=== PATIENT | male | born 1965 | race Caucasian/White ===

== ENCOUNTER 2017-01-17 13:47 | Inpatient (IN) | payer BC ==
--- NOTE | 2017-01-17 13:59 | PDOC ---
History of Present Illness - General History Source: Patient Exam Limitations: No Limitations - History of Present Illness Initial Comments: 01/17/17 14:02 The patient is a 52 year old male, with a significant past medical history of DM and high cholesterol, who presents to the emergency department with left sided facial droop, hypotension, and slurred speech since yesterday. The patient reports waking up symptomatic yesterday at around 9:00am. The patient reports having his symptoms persist since early yesterday into earlier today. He arrives with + left sided Babinski. He denies any recent fevers, chills, headache or dizziness. He denies any recent nausea, vomit, diarrhea or constipation. He denies any recent chest pain or shortness of breath. Allergies: NKA Past surgical history: None reported. Social History: Current Everyday smoker. Denies EtOH use and recreational drug use. Primary Care Physician: Family History: CVA/TIA (paternal) <Narayan Estrada - Last Filed: 01/17/17 14:09> <Anni Gomez - Last Filed: 01/17/17 18:53> - General Chief Complaint: Facial Droop Stated Complaint: CVA.TIA Time Seen by Provider: 01/17/17 13:53 Past History <Narayan Estrada - Last Filed: 01/17/17 14:09> <Anni Gomez - Last Filed: 01/17/17 18:53> - Past Medical History Allergies/Adverse Reactions: Allergies Allergy/AdvReac Type Severity Reaction Status Date / Time No Known Allergies Allergy Verified 01/17/17 14:07 Home Medications: Ambulatory Orders Atorvastatin Ca [Lipitor] 40 mg PO HS 01/17/17 Dulaglutide [Trulicity] 1.5 mg SQ WEEKLY 01/17/17 Gabapentin [Neurontin] 300 mg PO DAILY 01/17/17 Lisinopril 10 mg PO DAILY 01/17/17 Sitagliptin Phos/Metformin HCl [Janumet 50-1,000 mg Tablet] 1 each PO BID Review of Systems - Review of Systems Able to Perform ROS?: Yes Comments:: 01/17/17 14:02 GENERAL/CONSTITUTIONAL: No: fever, chills, weakness, loss of appetite. HEAD, EYES, EARS, NOSE AND THROAT: No: change in vision, ear pain, discharge, sore throat, throat swelling. CARDIOVASCULAR: No: chest pain, lightheadedness, palpitations, syncope RESPIRATORY: No: cough, shortness of breath, wheezing, hemoptysis, stridor. GASTROINTESTINAL: No: nausea, vomiting, diarrhea, abdominal cramping, rectal bleeding, constipation. GENITOURINARY: No: dysuria, hematuria, frequency, urgency, flank pain. MUSCULOSKELETAL: No: back pain, neck pain, joint pain, muscle swelling or pain SKIN : No: lesions, pallor, rash or easy bruising. NEUROLOGIC: +slurred speech, facial droop. No: headache, vertigo, paresthesias, weakness ENDOCRINE: No: unexplained weight gain or loss HEMATOLOGIC/LYMPHATIC: No: anemia, easy bleeding, swelling nodes. <Narayan Estrada - Last Filed: 01/17/17 14:09> *Physical Exam - Physical Exam Comments: 01/17/17 14:09 GENERAL: The patient is in no acute distress. HEAD: Normal with no signs of trauma. EYES: PERRLA, EOMI, sclera anicteric, conjunctiva clear. ENT: Ears normal, nares patent, oropharynx clear without exudates. Moist mucous membranes. NECK: Normal range of motion, supple without lymphadenopathy, JVD, or masses. LUNGS: Breath sounds equal, clear to auscultation bilaterally. No wheezes, and no crackles. HEART: Regular rate and rhythm, normal S1 and S2 without murmur, rub or gallop. ABDOMEN: Soft, nontender, normoactive bowel sounds. No guarding, no rebound. No masses palpable. EXTREMITIES: Normal range of motion, no edema. No clubbing or cyanosis. No erythema, or tenderness. NEUROLOGICAL: Cranial nerves II through XII grossly intact. +Left sided Babinski. Left sided facial droop. Finger to nose test was normal. Answering questions with slurred speech. Reflexes Are good throughout. 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 Romberg normal. Pinpoint sensation normal. 5/5 Right arm, ? left arm. 5/5 LE. MUSCULOSKELETAL: Back non-tender to palpation, no CVA tenderness SKIN: Warm, Dry, normal turgor, no rashes or lesions noted. <Narayan Estrada - Last Filed: 01/17/17 14:09> NIH Stroke Scale - Last Known Well Date/Time & Onset Date Last Known Well: 01/16/17 Time Last Known Well: 09:00 (pt woke up with this) - Initial Evaluation Level of consciousness: Alert Ask patient the month and their age: Answers both correctly Ask patient to open & close eyes; make fist and let go: Obeys both correctly Best gaze (horizontal eye movement): Normal Visual field testing: No visual field loss Facial paresis (Show teeth/raise eyebrows/close eyes tight): Minor paralysis ( flattened nasolabial fold, asymmetry on smiling) Motor Function: Left Arm: Normal Motor Function: Right Arm: Normal (extends arm 90 (or 45) degrees for 10 seconds without drift Motor Function: Left Leg: Normal (extends leg 30 degrees for 5 seconds without drift) Motor Function: Right Leg: Normal (extends leg 30 degrees for 5 seconds without drift) Limb Ataxia: No ataxia Sensory(Use pinprick test arms,legs,trunk,face/side to side): Normal Best language (Describe picture, name items, read sentences): No Aphasia Dysarthria (read several words): Mild to moderate slurring of words Extinction and Inattention: No abnormality - Total Score NIH Stroke Scale Score: 2 <Anni Gomez - Last Filed: 01/17/17 18:53> Critical Care Time/MDM Note - Medical Decision Making Note: 01/17/17 14:02 Documentation prepared by Narayan Estrada, acting as medical administrator for Anni Gomez MD. <Narayan Estrada - Last Filed: 01/17/17 14:09> - Medical Decision Making Note: 01/17/17 14:[address] Dutton is aware PMD Dr. Paulino is aware. Lbas, CT head, CXR, EKG all pending. 01/17/17 16:51 Case d/w Neurologist Denzel at the bedside and he thinks this is a [place] Palsy. However, pt's entire forehead wrinkles, going against a full Facial nerve palsy. I believe pt had a CVA. 01/17/17 18:52 Labs are WNL. Pt remains stable. Pt's BP was controlled with labetalol IVP x 1 and oral dose. MRI demonstrates an acute/subacute CVA <Gomez,Anni - Last Filed: 01/17/17 18:53> Discharge Disposition <Narayan Estrada - Last Filed: 01/17/17 14:09> - Discharge Dispostion Admit: Yes <Anni Gomez - Last Filed: 01/17/17 18:53> - Diagnosis CVA (cerebral vascular accident)
[2017-01-17 14:07] VITALS: BMI 31.6
[2017-01-17 14:13] LABS: BASOPHIL 0.6 % (0-2.0); EOSINOPHIL 1.2 % (0-4.5); MCH 29.8 pg (25.7-33.7); MCHC 33.8 g/dl (32.0-35.9); MEAN CELL VOLUME 88.4 fl (80-96); MEAN PLT VOLUME 9.7 fl (7.5-11.1); NEUTROPHILS 69.6 % (42.8-82.8); PLATELET COUNT 168 K/MM3 (134-434); RDW 14.4 % (11.9-15.9); WHITE BLOOD COUNT 11.3 K/mm3 (4.0-10.0)
[2017-01-17 14:29] LABS: INR 0.94 (0.82-1.09); PROTHROMBIN TIME (PATIENT) 10.3 SEC (9.98-11.88)
[2017-01-17 14:39] LABS: ALBUMIN 4.2 g/dl (3.4-5.0); ANION GAP 11 (8-16); BILIRUBIN,TOTAL 0.5 mg/dL (0.2-1.0); CALCIUM 9.4 mg/dL (8.5-10.1); CO2 25 mmol/L (21-32); GLUCOSE,RANDOM 250 mg/dL (74-106); SGPT/ALT 41 U/L (12-78); TOT PROT 7.7 g/dl (6.4-8.2)
[2017-01-17 14:42] LABS: ALK PHOS 88 U/L (45-117); TROPONIN I < 0.02 ng/ml (0.00-0.05)
[2017-01-17 14:44] LABS: SGOT/AST 33 U/L (15-37)
[2017-01-17] MEDS ORDERED: LABETALOL HCL 5 MG/1 ML (100MG/20 ML VIAL) IVPUSH ONE (15:09)
[2017-01-17] MEDS ORDERED: LABETALOL HCL 100 MG TABLET (FP) PO ONE (15:10)
[2017-01-17] MEDS ORDERED: LABETALOL HCL 5 MG/1 ML (200MG/40ML VIAL) IVPB ONE (15:26)
--- NOTE | 2017-01-17 16:32 | EKG ---
Test Reason : Blood Pressure : / mmHG Vent. Rate : 099 BPM Atrial Rate : 099 BPM P-R Int : 134 ms QRS Dur : 086 ms QT Int : 354 ms P-R-T Axes : 028 -19 033 degrees QTc Int : 454 ms NORMAL SINUS RHYTHM rSR' IN V1 LAHB PROBABLE LEFT ATRIAL ENLARGEMENT NO PREVIOUS ECGS AVAILABLE CORELATE CLINICALLY. Confirmed by CHRISTIAN CHOW MD ([id number]) on 01/17/2017 4:31:58 PM Referred By: Confirmed By:CHRISTIAN CHOW MD
--- NOTE | 2017-01-17 17:00 | CON.NEURO ---
Consult - History of Present Illness History of Present Illness: eft face droopiness and slurring of speech HPI 52 year old male hsitory of DM, HLP , SMOKER came with facial droopiness. Patient also having slurring of speech. He also have left arm weaknesss for two month. He has emg done no result is available ( he was told that he may have monday night palsy vs diabetic radiculoplexopathy) . His arm weakness and numbness is not new . He have difficulty closing his eye. Patient denies any dysphagia diplopia or word findings difficulty or headache. All sympotm sstarted since yesterday. He has ct scan of brain , which showed there is right sided frontal lobe ischemic lesion. - Alcohol/Substance Use Hx Alcohol Use: No - Smoking History Smoking history: Never smoked Have you smoked in the past 12 months: No Aproximately how many cigarettes per day: 5 Home Medications - Allergies Allergies/Adverse Reactions: Allergies Allergy/AdvReac Type Severity Reaction Status Date / Time No Known Allergies Allergy Verified 01/17/17 14:07 Physical Exam-Neuro Vital Signs: Vital Signs Temperature 99.2 F 01/17/17 13:47 Pulse Rate 114 H 01/17/17 13:47 Respiratory Rate 18 01/17/17 13:47 Blood Pressure 173/92 01/17/17 15:23 O2 Sat by Pulse Oximetry (%) 100 01/17/17 13:50 Labs: INR, PTT INR 0.94 (0.82-1.09) 01/17/17 13:55 NIH Stroke Scale - Total Score NIH Stroke Scale Score: 0 Imaging - Results Cat Scan: Image Reviewed Assessment/Plan cc left face droopiness and slurring of speech HPI 52 year old male hsitory of DM, HLP , SMOKER came with facial droopiness. Patient also having slurring of speech. He also have left arm weaknesss for two month. He has emg done no result is available ( he was told that he may have monday night palsy vs diabetic radiculoplexopathy) . His arm weakness and numbness is not new . He have difficulty closing his eye. Patient denies any dysphagia diplopia or word findings difficulty or headache. All sympotm sstarted since yesterday. He has ct scan of brain , which showed there is right sided frontal lobe ischemic lesion. 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 But given arm symptoms are not new and face is distinctly LMN type, it is possible that he have bells palsy and old radiculoplexopathy of Left upper extremity PLAN - suggest to give apsirin and statin - stroke wrok up including mri of brain, echo and carotid ultrasound - stroke education, smokign cessation - PT, DVT pROPHYLAXIS, and Speech Eval - mri of c spine is also recommended given his left upper arm symptoms - emg can be done outpatient for left arm - if mri of brain is normal , than consider additing steroid and valtrex for five days - Please feel free to call me if you have any question Thanking you so much Mike Mahoney MD
--- NOTE | 2017-01-17 18:16 | HP ---
Admitting History and Physical - Primary Care Physician PCP: Fozia Paulino - Admission Chief Complaint: aphasia, left face weakness History Source: Patient, Family Member Limitations to Obtaining History: No Limitations - Past Medical History Cardiovascular: Yes: HTN, Hyperlipdemia - Smoking History Smoking history: Current every day smoker Have you smoked in the past 12 months: Yes Aproximately how many cigarettes per day: 5 - Alcohol/Substance Use Hx Alcohol Use: No - Social History Usual Living Arrangement: Yes: With Parent ADL: Independent History of Recent Travel: No Home Medications - Allergies Allergies/Adverse Reactions: Allergies Allergy/AdvReac Type Severity Reaction Status Date / Time No Known Allergies Allergy Verified 01/17/17 14:07 - Home Medications Home Medications: Ambulatory Orders Atorvastatin Ca [Lipitor] 40 mg PO HS 01/17/17 Dulaglutide [Trulicity] 1.5 mg SQ WEEKLY 01/17/17 Gabapentin [Neurontin] 300 mg PO DAILY 01/17/17 Lisinopril 10 mg PO DAILY 01/17/17 Sitagliptin Phos/Metformin HCl [Janumet 50-1,000 mg Tablet] 1 each PO BID Family Disease History - Family Disease History Family Disease History: Diabetes: Father (CVA, PAD), Mother, Heart Disease: Father, Mother Review of Systems - Review of Systems Constitutional: reports: No Symptoms Eyes: reports: No Symptoms HENT: reports: No Symptoms Neck: reports: No Symptoms Cardiovascular: reports: No Symptoms Respiratory: reports: No Symptoms Gastrointestinal: reports: No Symptoms Genitourinary: reports: No Symptoms Musculoskeletal: reports: Back Pain (chrocic) Integumentary: reports: No Symptoms Neurological: reports: Other (2 month history of left arm numbness, pins and needles in fingertips 2 day history of aphasia and left facial droop) Endocrine: reports: No Symptoms Hematology/Lymphatic: reports: No Symptoms Psychiatric: reports: No Symptoms Physical Examination Vital Signs: Vital Signs Temperature 99.2 F 01/17/17 13:47 Pulse Rate 114 H 01/17/17 13:47 Respiratory Rate 18 01/17/17 13:47 Blood Pressure 173/92 01/17/17 15:23 O2 Sat by Pulse Oximetry (%) 100 01/17/17 13:50 Constitutional: Yes: Well Nourished, Moderate Distress Eyes: Yes: Conjunctiva Clear, EOM Intact, PERRL. No: Ptosis, Tearing HENT: Yes: Atraumatic, Normocephalic, Other (left mild facial droop, tongue deviates to left slightly) Cardiovascular: Yes: Regular Rate and Rhythm Respiratory: Yes: CTA Bilaterally Gastrointestinal: Yes: Normal Bowel Sounds, Soft Renal/: Yes: WNL Musculoskeletal: Yes: WNL Extremities: Yes: WNL Edema: No Peripheral Pulses WNL: No (diminished) Integumentary: Yes: WNL Neurological: Yes: Other (left certified nurses' aide 4/5 left facial droop as above) Psychiatric: Yes: WNL Labs: Laboratory Results - last 24 hr 01/17/17 01/17/17 01/17/17 13:55 13:55 13:55 WBC 11.3 H RBC 5.17 Hgb 15.4 Hct 45.7 MCV 88.4 MCH 29.8 MCHC 33.8 RDW 14.4 Plt Count 168 MPV 9.7 Neutrophils % 69.6 Lymphocytes % 22.7 Monocytes % 5.9 Eosinophils % 1.2 Basophils % 0.6 INR 0.94 Sodium 137 Potassium 4.3 Chloride 101 Carbon Dioxide 25 Anion Gap 11 BUN 18 Creatinine 1.0 Creat Clearance w eGFR > 60 Random Glucose 250 H Calcium 9.4 Total Bilirubin 0.5 AST 33 ALT 41 Alkaline Phosphatase 88 Creatine Kinase 210 Creatine Kinase Index 1.1 CK-MB (CK-2) 2.406 CK-MB (CK-2) Rel Index Troponin I < 0.02 Total Protein 7.7 Albumin 4.2 01/17/17 13:55 WBC RBC Hgb Hct MCV MCH MCHC RDW Plt Count MPV Neutrophils % Lymphocytes % Monocytes % Eosinophils % Basophils % INR Sodium Potassium Chloride Carbon Dioxide Anion Gap BUN Creatinine Creat Clearance w eGFR Random Glucose Calcium Total Bilirubin AST ALT Alkaline Phosphatase Creatine Kinase Creatine Kinase Index CK-MB (CK-2) CK-MB (CK-2) Rel Index Cancelled Troponin I Total Protein Albumin Imaging - Results Chest X-ray: Report Reviewed Cat Scan: Report Reviewed MRI: Pending EKG: Report Reviewed Problem List - Problems (1) Hypertension Code(s): I10 - ESSENTIAL (PRIMARY) HYPERTENSION (2) Hyperlipidemia associated with type 2 diabetes mellitus Code(s): E11.69 - TYPE 2 DIABETES MELLITUS WITH OTHER SPECIFIED COMPLICATION E78.5 - HYPERLIPIDEMIA, UNSPECIFIED (3) Diabetes mellitus Code(s): E11.9 - TYPE 2 DIABETES MELLITUS WITHOUT COMPLICATIONS Qualifiers: Diabetes mellitus type: type 2 Diabetes mellitus complication status: with neurologic complications Diabetes mellitus complication detail: with other neurological complication Diabetes mellitus penitentiary insulin use: without penitentiary use Qualified Code(s): E11.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 Assessment/Plan f/up MRI results add asa continue statin BP/HTN control Speech eval in am neuro consult appreciated will ask cardiology consult ECHO/carotid US DVT prophylaxis
[2017-01-17] MEDS ORDERED: PNEUMOC 13-VAL CONJ-DIP CRM/PF 0.5 ML DISP.SYRIN IM ONE (19:13)
[2017-01-17] MEDS: ASPIRIN 81 MG CHEWABLE TABLETS PO SCH (19:30)
[2017-01-17] MEDS ORDERED: CYCLOBENZAPRINE HCL 10 MG TABLET (FP) PO PRN (21:12)
[2017-01-17] MEDS ORDERED: INSULIN (NOVOLOG) ASPART 100 UNITS/ML 10ML VIAL ONE (21:43)
[2017-01-17] MEDS: GABAPENTIN 300 MG CAPSULE (FP) PO SCH (21:53)
[2017-01-17] MEDS: ATORVASTATIN CA 40 MG TABLET (FP) PO SCH (21:53)
[2017-01-17] MEDS: LISINOPRIL 10 MG TABLET (FP) PO SCH (21:53)
[2017-01-17] MEDS: INSULIN SLIDING SCALE (NOVOLOG) 1 VIAL SQ SCH (21:54)
[2017-01-17] MEDS ORDERED: oxyCODONE HCL 5 MG TABLET PO ONE (23:15)
[2017-01-17] MEDS ORDERED: ACETAMINOPHEN 325 MG TABLET (FP) PO ONE (23:15)
--- NOTE | 2017-01-18 01:32 | CON.CARD ---
Consult Consult Specialty:: cardiology Reason for Consultation:: facial droop - History of Present Illness Chief Complaint: Pt denies chest pain or dyspnea; cries easily. History of Present Illness: The patient is a 52 year old white male, with a significant past medical history of DM and high cholesterol, who presents to the emergency department with left sided facial droop, hypotension, and slurred speech since yesterday. The patient reports waking up symptomatic yesterday at around 9:00am. The patient reports having his symptoms persist since early yesterday into earlier today. He arrives with + left sided Babinski. He denies any recent fevers, chills, headache or dizziness. He denies any recent nausea, vomit, diarrhea or constipation. He denies any recent chest pain or shortness of breath. Allergies: NKA Past surgical history: None reported. Social History: Current Everyday smoker. Denies EtOH use and recreational drug use. Primary Care Physician: Family History: CVA/TIA (paternal) - History Source History Provided By: Patient, Medical Record Limitations to Obtaining History: Other (pt with CVA) - Past Medical History Cardio/Vascular: Yes: HTN, Hyperlipdemia Pulmonary: Yes: Other (current cigarette smoker) Psych: Yes: Anxiety - Alcohol/Substance Use Hx Alcohol Use: No - Smoking History Smoking history: Current every day smoker Have you smoked in the past 12 months: Yes Aproximately how many cigarettes per day: 5 - Social History ADL: Independent History of Recent Travel: No Home Medications - Allergies Allergies/Adverse Reactions: Allergies Allergy/AdvReac Type Severity Reaction Status Date / Time No Known Allergies Allergy Verified 01/17/17 14:07 - Home Medications Home Medications: Ambulatory Orders Atorvastatin Ca [Lipitor] 40 mg PO HS 01/17/17 Dulaglutide [Trulicity] 1.5 mg SQ WEEKLY 01/17/17 Gabapentin [Neurontin] 300 mg PO DAILY 01/17/17 Lisinopril 10 mg PO DAILY 01/17/17 Sitagliptin Phos/Metformin HCl [Janumet 50-1,000 mg Tablet] 1 each PO BID Family Disease History - Family Disease History Family Disease History: Diabetes: Father (CVA, PAD), Mother, Heart Disease: Father, Mother Review of Systems - Review of Systems Constitutional: reports: Weakness HENT: reports: Other (facial droop) Neck: reports: No Symptoms Cardiovascular: reports: No Symptoms Respiratory: reports: No Symptoms Gastrointestinal: reports: No Symptoms Genitourinary: reports: No Symptoms Breasts: reports: No Symptoms Reported Musculoskeletal: reports: Muscle Weakness Integumentary: reports: No Symptoms Neurological: reports: Weakness Endocrine: reports: No Symptoms Hematology/Lymphatic: reports: No Symptoms Psychiatric: reports: Anxiety Vital Signs: Vital Signs Temperature 99.2 F 01/17/17 21:00 Pulse Rate 97 H 01/17/17 21:00 Respiratory Rate 18 01/17/17 21:00 Blood Pressure 146/73 01/17/17 21:00 O2 Sat by Pulse Oximetry (%) 95 01/17/17 21:00 - Other Data Labs, Other Data: INR, PTT INR 0.94 (0.82-1.09) 01/17/17 13:55 Problem List - Problems (1) CVA (cerebral vascular accident) Assessment/Plan: cortical, cerebellar infarcts (acute and chronic). Aggressive lipid control. ECHO for LVEF; r/o thrombi, source of emboli. F/u with neurologist. Code(s): I63.9 - CEREBRAL INFARCTION, UNSPECIFIED (2) Diabetes mellitus Assessment/Plan: glucose 250; f/u fasting glucose, HGBA1C. Add ACEI (HTN; DM). Code(s): E11.9 - TYPE 2 DIABETES MELLITUS WITHOUT COMPLICATIONS Qualifiers: Diabetes mellitus type: type 2 Diabetes mellitus complication status: with neurologic complications Diabetes mellitus complication detail: with other neurological complication Diabetes mellitus usp insulin use: without oil heaterman use Qualified Code(s): E11.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 (3) Hyperlipidemia associated with type 2 diabetes mellitus Code(s): E11.69 - TYPE 2 DIABETES MELLITUS WITH OTHER SPECIFIED COMPLICATION E78.5 - HYPERLIPIDEMIA, UNSPECIFIED (4) Hypertension Code(s): I10 - ESSENTIAL (PRIMARY) HYPERTENSION (5) [place] cardiac risk >20% in next 10 years Assessment/Plan: TNI < 0.02; f/u serially. Stress MIBI when stable. Code(s): Z91.89 - OTH PERSONAL RISK FACTORS, NOT ELSEWHERE CLASSIFIED (6) Sleep apnea Assessment/Plan: r/o with sleep studies Code(s): G47.30 - SLEEP APNEA, UNSPECIFIED
[2017-01-18] MEDS: GABAPENTIN 300 MG CAPSULE (FP) PO SCH ×3 (05:43→21:39)
[2017-01-18] MEDS: INSULIN SLIDING SCALE (NOVOLOG) 1 VIAL SQ SCH ×4 (06:32→21:40)
--- NOTE | 2017-01-18 09:20 | PN ---
Progress Note, Physician History of Present Illness: The patient is a 52 year old male, with a significant past medical history of DM and high cholesterol, who presents to the emergency department with left sided facial droop, hypotension, and slurred speech since yesterday. The patient reports waking up symptomatic yesterday at around 9:00am. The patient reports having his symptoms persist since early yesterday into earlier today. He arrives with + left sided Babinski. He denies any recent fevers, chills, headache or dizziness. He denies any recent nausea, vomit, diarrhea or constipation. He denies any recent chest pain or shortness of breath. Allergies: NKA Past surgical history: None reported. Social History: Current Everyday smoker. Denies EtOH use and recreational drug use. Primary Care Physician: Family History: CVA/TIA (paternal) - Current Medication List Current Medications: Active Medications Aspirin (Asa -) 81 mg PO DAILY [facility] Last Admin: 01/17/17 19:30 Dose: 81 mg Atorvastatin Calcium (Lipitor -) 40 mg PO HS [facility] Last Admin: 01/17/17 21:53 Dose: 40 mg Cyclobenzaprine HCl (Flexeril -) 10 mg PO BID PRN Last Admin: 01/17/17 21:53 Dose: 10 mg Enoxaparin Sodium (Lovenox -) 40 mg SQ DAILY [facility] Gabapentin (Neurontin -) 300 mg PO TID [facility] Last Admin: 01/18/17 05:43 Dose: 300 mg Insulin Aspart (Novolog Vial Sliding Scale -) 1 vial SQ ACHS [facility] PRN Reason: Protocol Last Admin: 01/18/17 06:32 Dose: 2 units Lisinopril (Prinivil) 10 mg PO BID [facility] Last Admin: 01/17/17 21:53 Dose: 10 mg - Objective Vital Signs: Vital Signs Temperature 98.3 F 01/18/17 06:00 Pulse Rate 79 01/18/17 06:00 Respiratory Rate 18 01/18/17 06:00 Blood Pressure 127/57 01/18/17 06:00 O2 Sat by Pulse Oximetry (%) 95 01/17/17 21:00 Eyes: Yes: WNL, Conjunctiva Clear, EOM Intact HENT: Yes: WNL, Atraumatic, Normocephalic Neck: Yes: WNL, Supple, Trachea Midline Cardiovascular: Yes: WNL, Regular Rate and Rhythm Respiratory: Yes: WNL, Regular, CTA Bilaterally Gastrointestinal: Yes: WNL, Normal Bowel Sounds Genitourinary: Yes: WNL Musculoskeletal: Yes: WNL Extremities: Yes: WNL Edema: No Integumentary: Yes: WNL Neurological: Yes: Alert, Oriented, Weakness, Other (facial droop) ...Motor Strength: WNL Psychiatric: Yes: WNL Labs: INR, PTT INR 0.94 (0.82-1.09) 01/17/17 13:55 Laboratory Tests 01/17/17 01/17/17 01/17/17 13:55 13:55 13:55 WBC 11.3 H RBC 5.17 Hgb 15.4 Hct 45.7 MCV 88.4 MCH 29.8 MCHC 33.8 RDW 14.4 Plt Count 168 MPV 9.7 Neutrophils % 69.6 Lymphocytes % 22.7 Monocytes % 5.9 Eosinophils % 1.2 Basophils % 0.6 INR 0.94 PTT (Actin FS) Sodium 137 Potassium 4.3 Chloride 101 Carbon Dioxide 25 Anion Gap 11 BUN 18 Creatinine 1.0 Creat Clearance w eGFR > 60 POC Glucometer Random Glucose 250 H Calcium 9.4 Total Bilirubin 0.5 AST 33 ALT 41 Alkaline Phosphatase 88 Creatine Kinase 210 Creatine Kinase Index 1.1 CK-MB (CK-2) 2.406 CK-MB (CK-2) Rel Index Troponin I < 0.02 Total Protein 7.7 Albumin 4.2 Triglycerides Cholesterol TSH 01/17/17 01/17/17 01/17/17 13:55 20:15 21:51 WBC RBC Hgb Hct MCV MCH MCHC RDW Plt Count MPV Neutrophils % Lymphocytes % Monocytes % Eosinophils % Basophils % INR PTT (Actin FS) 32.6 Sodium Potassium Chloride Carbon Dioxide Anion Gap BUN Creatinine Creat Clearance w eGFR POC Glucometer 286 Random Glucose Calcium Total Bilirubin AST ALT Alkaline Phosphatase Creatine Kinase Creatine Kinase Index CK-MB (CK-2) CK-MB (CK-2) Rel Index Cancelled Troponin I Total Protein Albumin Triglycerides Cholesterol TSH 01/18/17 01/18/17 01/18/17 05:35 05:35 05:42 WBC RBC Hgb Hct MCV MCH MCHC RDW Plt Count MPV Neutrophils % Lymphocytes % Monocytes % Eosinophils % Basophils % INR PTT (Actin FS) Sodium Potassium Chloride Carbon Dioxide Anion Gap BUN Creatinine Creat Clearance w eGFR POC Glucometer 189 Random Glucose Calcium Total Bilirubin AST ALT Alkaline Phosphatase Creatine Kinase Creatine Kinase Index CK-MB (CK-2) CK-MB (CK-2) Rel Index Troponin I Total Protein Albumin Triglycerides 231 H Cholesterol 252 H TSH Cancelled Assessment/Plan 1) CVA (cerebral vascular accident) Assessment/Plan: cortical, cerebellar infarcts (acute and chronic). Aggressive lipid control. ECHO for LVEF; r/o thrombi, source of emboli. F/u with neurologist. Code(s): I63.9 - CEREBRAL INFARCTION, UNSPECIFIED (2) Diabetes mellitus Assessment/Plan: glucose 250; f/u fasting glucose, HGBA1C. Add ACEI (HTN; DM). 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 Stress MIBI when stable. Code(s): Z91.89 - OTH PERSONAL RISK FACTORS, NOT ELSEWHERE CLASSIFIED (6) Sleep apnea Assessment/Plan: r/o with sleep studies Code(s): G47.30 - SLEEP APNEA, UNSPECIFIED
--- NOTE | 2017-01-18 09:42 | PN ---
Progress Note, Physician Chief Complaint: Pt alert, cries repeatedly (says he worries about who will take care of his mother); no chest pain or dypnea; syas he has quit cigarettes "today". History of Present Illness: The patient is a 52 year old white male, with a significant past medical history of DM and high cholesterol, who presents to the emergency department with left sided facial droop, hypotension, and slurred speech since yesterday. The patient reports waking up symptomatic yesterday at around 9:00am. The patient reports having his symptoms persist since early yesterday into earlier today. He arrives with + left sided Babinski. He denies any recent fevers, chills, headache or dizziness. He denies any recent nausea, vomit, diarrhea or constipation. He denies any recent chest pain or shortness of breath. Allergies: NKA Past surgical history: None reported. Social History: Current Everyday smoker. Denies EtOH use and recreational drug use. Primary Care Physician: Family History: CVA/TIA (paternal) - Current Medication List Current Medications: Active Medications Aspirin (Asa -) 81 mg PO DAILY [facility] Last Admin: 01/17/17 19:30 Dose: 81 mg Atorvastatin Calcium (Lipitor -) 40 mg PO HS [facility] Last Admin: 01/17/17 21:53 Dose: 40 mg Cyclobenzaprine HCl (Flexeril -) 10 mg PO BID PRN Last Admin: 01/17/17 21:53 Dose: 10 mg Enoxaparin Sodium (Lovenox -) 40 mg SQ DAILY [facility] Gabapentin (Neurontin -) 300 mg PO TID [facility] Last Admin: 01/18/17 05:43 Dose: 300 mg Insulin Aspart (Novolog Vial Sliding Scale -) 1 vial SQ ACHS [facility] PRN Reason: Protocol Last Admin: 01/18/17 06:32 Dose: 2 units Lisinopril (Prinivil) 10 mg PO BID [facility] Last Admin: 01/17/17 21:53 Dose: 10 mg - Objective Vital Signs: Vital Signs Temperature 98.3 F 01/18/17 06:00 Pulse Rate 79 01/18/17 06:00 Respiratory Rate 18 01/18/17 06:00 Blood Pressure 127/57 01/18/17 06:00 O2 Sat by Pulse Oximetry (%) 95 01/17/17 21:00 Labs: INR, PTT INR 0.94 (0.82-1.09) 01/17/17 13:55 Problem List - Problems (1) CVA (cerebral vascular accident) Code(s): I63.9 - CEREBRAL INFARCTION, UNSPECIFIED (2) Diabetes mellitus Code(s): E11.9 - TYPE 2 DIABETES MELLITUS WITHOUT COMPLICATIONS Qualifiers: Diabetes mellitus type: type 2 Diabetes mellitus complication status: with neurologic complications Diabetes mellitus complication detail: with other neurological complication 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
[2017-01-18] MEDS: LISINOPRIL 10 MG TABLET (FP) PO SCH ×2 (10:58→21:39)
[2017-01-18] MEDS: ENOXAPARIN NA (PORCINE) 40 MG/0.4 ML DISP.SYRIN SQ SCH (10:58)
[2017-01-18] MEDS: ASPIRIN 81 MG CHEWABLE TABLETS PO SCH (10:58)
[2017-01-18] MEDS: ACETAMINOPHEN 325 MG TABLET (FP) PO PRN ×2 (11:09→21:39)
[2017-01-18] MEDS: oxyCODONE HCL 5 MG TABLET PO PRN ×2 (11:09→21:39)
--- NOTE | 2017-01-18 11:12 | PN ---
Progress Note (short form) - Note Progress Note: left face droopiness and slurring of speech HPI 52 year old male hsitory of DM, HLP , SMOKER came with facial droopiness. Patient also having slurring of speech. He also have left arm weaknesss for two month. He has emg done no result is available ( he was told that he may have monday night palsy vs diabetic radiculoplexopathy) . His arm weakness and numbness is not new . He have difficulty closing his eye. Patient denies any dysphagia diplopia or word findings difficulty or headache. All sympotm sstarted since yesterday. He has ct scan of brain , which showed there is right sided frontal lobe ischemic lesion. 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 and sensory dysthesia on left [id number] distribution reflex are dimnished generalized , planter is mute lower extremit strength is normal able to stand and walk mri showed there is acute and sub acute stroke on right frontal and parietal lobe Assessment/Plan-- 52 year old male hsitory of dm, htn smoker , he has left facial droopiness and worsening of left upper extremity ( he also have left radial nerve palsy ) and there is acute ischemic stroke on mri of brain, most likely explanation of left lmn facial palsy could be ( aberrant wiring of facial nucleus in some people) PLAN - continue statin and antiplaetlet - carotid ultrasound finding reviewed - stroke education, smokign cessation - since it has been more than 24 for acute stroke symptoms, bp can be normalized and home medication can be resumed. - Patient may need rehab, Please feel free to call me if you have any question Thanking you so much Mike Mahoney MD
[2017-01-18 11:47] LABS: THYROID STIMULATING HORMONE 1.67 uIU/ml (0.358-3.74)
--- NOTE | 2017-01-18 12:02 | CONSULT ---
Admitting History and Physical - Primary Care Physician PCP: Renate Currie - Admission History of Present Illness: Per EMR:"01/17/17 14:02 The patient is a 52 year old male, with a significant past medical history of DM and high cholesterol, who presents to the emergency department with left sided facial droop, hypotension, and slurred speech since yesterday. The patient reports waking up symptomatic yesterday at around 9:00am. The patient reports having his symptoms persist since early yesterday into earlier today. He arrives with + left sided Babinski. He denies any recent fevers, chills, headache or dizziness. He denies any recent nausea, vomit, diarrhea or constipation. He denies any recent chest pain or shortness of breath. " Per Neurology: " 52 year old male hsitory of dm, htn smoker , he has left facial droopiness and worsening of left upper extremity ( he also have left radial nerve palsy ) and there is acute ischemic stroke on mri of brain, most likely explanation of left lmn facial palsy could be ( aberrant wiring of facial nucleus in some people)" History Source: Patient, Medical Record Limitations to Obtaining History: No Limitations - Past Medical History Cardiovascular: Yes: HTN, Hyperlipdemia Pulmonary: Yes: Other (current cigarette smoker) Psych: Yes: Anxiety - Smoking History Smoking history: Current every day smoker Have you smoked in the past 12 months: Yes Aproximately how many cigarettes per day: 5 - Alcohol/Substance Use Hx Alcohol Use: No - Social History ADL: Independent History of Recent Travel: No History - Admission Reason For Visit: CVA - Diagnostics X-ray: Report Reviewed CT Scan: Report Reviewed - General Mental Status: Alert and Oriented (tearful), Awake and Alert, Able to Follow Commands Attention: Intact Ability to Follow Directions: Excellent - Hearing Hearing: Functional Hearing: Normal Speech Evaluation - Communication Primary Language: BULGARIAN Communication: Yes: Dysarthria Oral Expression Ability: Yes: Mild Impairment - Speech Production Able to Make Needs Known: Yes: Mildly Impaired Intelligibility: Yes: Mildly Impaired - Speech Characteristics Voice Loudness: Mildly Soft/Quiet Voice Pitch: Yes: Normal Voice Phonatory-based Quality: Yes: Normal Speech Pattern: Impaired Speech Clarity: < 75% Nasal Resonance: Normal Articulation: Yes: Imprecise Rate of Speech: Too Fast - Language/Auditory Comprehension Follows: Yes: 2 Stage Simple Commands Observation: Able to respond to yes/no queries: Yes, Yes/No Confusion: No, Comprehends Conversational Speech: Yes - Language/Verbal Expression Able to Respond to Simple Queries: Yes: WNL Able to Communicate Wants and Needs: Yes: WNL Functional Communication Status: Yes: WNL - Memory/Perception CHCF Memory: Yes: WNL Short Term Memory: Yes: WNL - Swallow Evaluation/Bedside Assessment Current Nutritional Intake: Regular, Thin Liquids Oral Secretions: Yes: WFL Dentition: Yes: Adequate Facial Symmetry at Rest: Facial Droop Left Facial Symmetry on Retraction: Facial Droop Left Against Resistance Opening: Normal Against Resistance Closing: Normal Pucker Lips: Droops Left Smile: Droops Left Lingual Speed of Movement: Normal Lingual Movement Strgth Against Opposition: Normal Lingual Movement Characteristics: Normal Velopharyngeal Movement: Normal Laryngeal Elevation: WFL Laryngeal Movement: Able to Palpate Rate of Intake: WFL Bolus Size: WFL Labial Seal: WFL Chewing: WFL Oral Prep Time: WFL A-P Transit: WFL Pocketing: None Timing of Swallow: WFL Coughing/Throat Clear: No Change in Voice: No Recommendations - Speech Evaluation, Impression/Plan Impression: Left facial weakness with dysarthria, characterized by reduced articulatory excursion, reduced volume and articulatory precision. Excellent prognosis for improvement. Swallowing intact. No visual deficits, or drooling. Pt reports sensation of left facial was impaired on Monday but is now WNL. - Dysphagia Impressions/Plan Swallowing Skills: WFL *Silent aspiration: cannot be R/O at bedside Recommendations: Other (Intelligibilty recommendations as well as Oral motor exercises provided. Speech tx if symptoms persist) - Recommendations Diet Consistency: Regular Medication Administration: Whole with water Liquids: Thin Liquids
--- NOTE | 2017-01-18 14:46 | PN ---
Progress Note (short form) - Note Progress Note: No new events. Abnormal Lab Results 01/17/17 01/18/17 13:55 05:35 Random Glucose 250 H Triglycerides 231 H Cholesterol 252 H Total LDL Cholesterol 185 H HDL Cholesterol 39 L Vital Signs Period Temp Pulse Resp BP Sys/Rudd Pulse Ox Last 24 Hr 97.8 F-99.4 F 77-99 18-20 98-173/47-92 95-100 S1S2 RRR Lungs cta Abd soft No edema aaox3, left facial droop, speech still slurred but improved since yesterday. carotidUS without hemodinamically significant lesions Echo noted Imp Acut cerebral CVA multiple foci. NIDDM HTN Hyperlipidemia Plan ASA statin SOPHY INH sugar/lipid/BP control smoking cessation dc planning tomorrow am after PT eval consults greatly appreciated Problem List - Problems (1) Hypertension Code(s): I10 - ESSENTIAL (PRIMARY) HYPERTENSION (2) Hyperlipidemia associated with type 2 diabetes mellitus Code(s): E11.69 - TYPE 2 DIABETES MELLITUS WITH OTHER SPECIFIED COMPLICATION E78.5 - HYPERLIPIDEMIA, UNSPECIFIED (3) Diabetes mellitus Code(s): E11.9 - TYPE 2 DIABETES MELLITUS WITHOUT COMPLICATIONS Qualifiers: Diabetes mellitus type: type 2 Diabetes mellitus complication status: with neurologic complications Diabetes mellitus complication detail: with other neurological complication Diabetes mellitus 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
[2017-01-18] MEDS: metFORMIN HCL 500 MG TABLET (FP) PO SCH (16:47)
[2017-01-18] MEDS: PATIENT'S OWN MEDICATION (NON-FORMULARY) (Dulaglutide [Trulicity] 1.5 MG) SQ SCH ×2 (16:48→18:30)
[2017-01-18] MEDS ORDERED: INSULIN (NOVOLOG) ASPART 100 UNITS/ML 10ML VIAL ONE (21:33)
[2017-01-18] MEDS: ATORVASTATIN CA 40 MG TABLET (FP) PO SCH (21:40)
[2017-01-19] MEDS: ACETAMINOPHEN 325 MG TABLET (FP) PO PRN ×3 (01:58→12:06)
[2017-01-19] MEDS: oxyCODONE HCL 5 MG TABLET PO PRN ×3 (01:59→12:07)
[2017-01-19] MEDS ORDERED: INSULIN (NOVOLOG) ASPART 100 UNITS/ML 10ML VIAL ONE (06:24)
[2017-01-19] MEDS: metFORMIN HCL 500 MG TABLET (FP) PO SCH (06:31)
[2017-01-19] MEDS: GABAPENTIN 300 MG CAPSULE (FP) PO SCH ×2 (06:31→13:37)
[2017-01-19] MEDS: INSULIN SLIDING SCALE (NOVOLOG) 1 VIAL SQ SCH ×2 (06:31→12:08)
[2017-01-19] MEDS: ASPIRIN 81 MG CHEWABLE TABLETS PO SCH (09:34)
[2017-01-19] MEDS: LISINOPRIL 10 MG TABLET (FP) PO SCH (09:34)
[2017-01-19] MEDS: ENOXAPARIN NA (PORCINE) 40 MG/0.4 ML DISP.SYRIN SQ SCH (09:34)
--- NOTE | 2017-01-19 09:49 | DS ---
Physical Examination Vital Signs: Vital Signs Temperature 99.0 F 01/19/17 06:00 Pulse Rate 85 01/19/17 06:00 Respiratory Rate 18 01/19/17 06:00 Blood Pressure 139/84 01/19/17 06:00 O2 Sat by Pulse Oximetry (%) 95 01/18/17 20:33 Constitutional: Yes: Calm Eyes: Yes: EOM Intact HENT: Yes: Normocephalic Neck: Yes: Trachea Midline Cardiovascular: Yes: Regular Rate and Rhythm Respiratory: Yes: CTA Bilaterally Gastrointestinal: Yes: Normal Bowel Sounds, Soft Musculoskeletal: Yes: Joint Stiffness (right ankle, chronic left shoulder pain and carpal tunnel) Extremities: Yes: WNL Edema: No Neurological: Yes: Aphasia (improved, left facial droop present-stable) Psychiatric: Yes: WNL Discharge Summary Reason For Visit: CVA Current Active Problems CVA (cerebral vascular accident) (Acute) Diabetes mellitus (Acute) [place] cardiac risk >20% in next 10 years (Acute) Hyperlipidemia associated with type 2 diabetes mellitus (Acute) Hypertension (Acute) Sleep apnea (Acute) Hospital Course: admitted for new onsetslurred speech and left facial droop noted 24 hours prior to er arrival MRI brain showed multiple acute and subacute right cerebral infarcts. Neurologically remains stable-started on ASA 81 mg daily Already on statin/ACEinh/sugar control. Echo/carotid US unremarkable. Medically stable to ri home with close outpt f/up. Condition: Fair - Instructions Diet, Activity, Other Instructions: f/up with next week Referrals: Fozia Paulino MD [Primary Care Provider] - Disposition: VNS/HOME HEALTH CARE - Home Medications Comprehensive Discharge Medication List: Ambulatory Orders Gabapentin 300 mg PO BID 11/26/16 Sitagliptin Phos/Metformin HCl [Janumet 50-1,000 mg Tablet] 1 each PO BID Atorvastatin Ca [Lipitor] 40 mg PO HS 01/17/17 Dulaglutide [Trulicity] 1.5 mg SQ WEEKLY 01/17/17 Sitagliptin Phos/Metformin HCl [Janumet 50-1,000 mg Tablet] 1 each PO BID Aspirin [ASA -] 81 mg PO DAILY tab.chew 01/19/17 Lisinopril [Prinivil] 10 mg PO BID tablet 01/19/17
[2017-01-19 13:42] VITALS: BP 146/94; PULSE 97; TEMP 99.5
[2017-01-19] MEDS ORDERED: PT OWN MED DRAWER 7, Y5N ONE (14:17)
== END 2017-01-19 14:43 | disposition home health service (06) | DRG 66 ==
LOC: JER 13:47 → EDBD 13:47 → JERBED 16:03 → J4S 18:59
PROVIDERS: ADMIT Internal Medicine; ATTEND Internal Medicine
DX: I63.9 Cerebral infarction, unspecified (principal); E11.9 Type 2 diabetes mellitus without complications; E78.5 Hyperlipidemia, unspecified; I10 Essential (primary) hypertension; G47.30 Sleep apnea, unspecified; R29.810 Facial weakness; F17.210 Nicotine dependence, cigarettes, uncomplicated; R29.702 NIHSS score 2; R47.81 Slurred speech
CPT/HCPCS: 36415; 70450-TC; 70551-TC; 71010-TC; 80053; 80061; 82550; 82553; 83721; 84443; 84484; 85025; 85610; 85730; 90670; 93005; 93010; 93306-TC; 93880-TC; 97116-GP; 97161-GP; 99285-25

== ENCOUNTER 2018-01-08 08:17 | Observation (INO) | payer BC, OTHER ==
--- NOTE | 2018-01-08 09:10 | PDOC ---
History of Present Illness <Mauricio Mcmullen - Last Filed: 01/08/18 15:37> - General History Source: Patient Exam Limitations: No Limitations - History of Present Illness Initial Comments: 01/08/18 10:46 53 y/o male with a PMH of type 2 diabetes, hypercholesterolemia and a stroke 1 year ago. He presents to ED with slurred speech that started around 7 am while eating breakfast. Pt also complains of diffuse muscle spasms and left lower extremity numbness/tingling for a 1 week duration and a JACKSON that began last night. Pt denies any unilateral neuro deficits, changes in vision, changes in bowel or bladder habits, abdominal pain, fevers/chills, nausea or vomiting, chest pain or SOB. Residual deficits from prior stroke are left sided weakness and sensory changes. Timing/Duration: 1-3 hours Associated Symptoms: reports: nausea/vomiting (given zofran for nausea by EMT. Currently denies nausea ). denies: fever/chills Aspirin Received prior to arrival: Yes: 81 mg x 1 (home dose taken) <Femi Baldwin - Last Filed: 01/08/18 16:07> - General Chief Complaint: CVA/TIA Stated Complaint: WEAKNESS Time Seen by Provider: 01/08/18 08:26 NIH Stroke Scale - Last Known Well Date/Time & Onset Date Last Known Well: 01/08/18 Time Last Known Well: 07:00 - Initial Evaluation Level of consciousness: Alert Ask patient the month and their age: Answers both correctly Ask patient to open & close eyes; make fist and let go: Obeys both correctly Best gaze (horizontal eye movement): Normal Visual field testing: No visual field loss Facial paresis (Show teeth/raise eyebrows/close eyes tight): Normal symmetrical movement Motor Function: Left Arm: Normal (L arm weak due to prior issue. Being treated byorthopedics for it) Motor Function: Right Arm: Normal (extends arm 90 (or 45) degrees for 10 seconds without drift Motor Function: Left Leg: Normal (extends leg 30 degrees for 5 seconds without drift) (Residual weakness compaired to R leg) Motor Function: Right Leg: Normal (extends leg 30 degrees for 5 seconds without drift) Limb Ataxia: No ataxia Sensory(Use pinprick test arms,legs,trunk,face/side to side): Normal (LL residual sensory loss from prior stroke) Best language (Describe picture, name items, read sentences): No Aphasia Dysarthria (read several words): Mild to moderate slurring of words Extinction and Inattention: No abnormality - Total Score NIH Stroke Scale Score: 1 <Femi Baldwin - Last Filed: 01/08/18 16:07> Past History <Mauricio Mcmullen - Last Filed: 01/08/18 15:37> - Past Medical History Anemia: No Asthma: No CVA: Yes (1 yr ago) COPD: No DVT: No Diabetes: Yes HTN: Yes Hypercholesterolemia: Yes - Surgical History Appendectomy: No Cholecystectomy: No GI Surgery: No Lung Surgery: No - Family Disease History Family Disease History: Diabetes: Mother - Immunization History Immunization Up to Date: No - Suicide/Smoking/Psychosocial Hx Smoking Status: No Smoking History: Unknown if ever smoked Have you smoked in the past 12 months: Yes Number of Cigarettes Smoked Daily: 5 Information on smoking cessation initiated: No 'Breaking Loose' booklet given: 01/17/17 Hx Alcohol Use: No Drug/Substance Use Hx: No Substance Use Type: None Hx Substance Use Treatment: No <Femi Baldwin - Last Filed: 01/08/18 16:07> - Past Medical History Allergies/Adverse Reactions: Allergies Allergy/AdvReac Type Severity Reaction Status Date / Time No Known Allergies Allergy Verified 01/17/17 14:07 Home Medications: Ambulatory Orders Gabapentin 300 mg PO BID 11/26/16 Sitagliptin Phos/Metformin HCl [Janumet 50-1,000 mg Tablet] 1 each PO BID Atorvastatin Ca [Lipitor] 40 mg PO HS 01/17/17 Dulaglutide [Trulicity] 1.5 mg SQ WEEKLY 01/17/17 Aspirin [ASA -] 81 mg PO DAILY tab.chew 01/19/17 Lisinopril [Prinivil] 10 mg PO BID tablet 01/19/17 Zolpidem Tartrate [Ambien] 5 mg PO HS 01/08/18 Review of Systems - Review of Systems Able to Perform ROS?: Yes Is the patient limited Malay proficient: No Constitutional: No: Chills, Diaphoresis, Fever, Weakness (residual L sided deficits ) HEENTM: No: Blurred Vision, Difficulty Swallowing Respiratory: No: Cough, Shortness of Breath Cardiac (ROS): Yes: Irregular Heart Rate. No: Chest Pain, Edema, Chest Tightness ABD/GI: Yes: Nausea (resolved with zofran). No: Abdominal Distended, Constipated, Diarrhea, Vomiting : No: Burning, Dysuria, Flank Pain, Hematuria Musculoskeletal: No: Joint Swelling, Muscle Pain Integumentary: No: Bruising, Change in Color, Flushing, Pallor Neurological: Yes: Headache, Numbness (left leg, started 1 week ago), Tingling ( left leg). No: Weakness, Unsteady Gait, Ataxia <Femi Baldwin - Last Filed: 01/08/18 16:07> *Physical Exam - Vital Signs Last Vital Signs Temp Pulse Resp BP Pulse Ox 99.0 F 69 16 94/70 98 01/08/18 12:08 01/08/18 14:55 01/08/18 14:55 01/08/18 14:55 01/08/18 14:55 <Mauricio Mcmullen - Last Filed: 01/08/18 15:37> - Vital Signs Last Vital Signs Temp Pulse Resp BP Pulse Ox 100.1 F H 105 H 16 94/48 96 01/08/18 08:29 01/08/18 08:29 01/08/18 08:29 01/08/18 08:29 01/08/18 08:29 - Physical Exam General Appearance: Yes: Nourished, Appropriately Dressed, Mild Distress HEENT: positive: Normal ENT Inspection, Normal Voice. negative: Photophobia, Scleral Icterus (L) Respiratory/Chest: positive: Lungs Clear, Normal Breath Sounds. negative: Chest Tender, Respiratory Distress, Accessory Muscle Use Cardiovascular: positive: Regular Rhythm, Tachycardia. negative: Edema, JVD, Murmur Vascular Pulses: Carotid (R): 3+, Carotid (L): 3+ Gastrointestinal/Abdominal: positive: Normal Bowel Sounds, Soft. negative: Tender, Pulsatile Mass, Distended, Guarding, Rebound, Tenderness Musculoskeletal: positive: Normal Inspection. negative: CVA Tenderness Extremity: positive: Normal Capillary Refill. negative: Pedal Edema Neurologic: positive: traffic survey technician II-XII NML intact, Fully Oriented, Alert, Normal Response, Motor Strength 5/5 (LLE residuals decreased). negative: Confused, Disoriented <Femi Baldwin - Last Filed: 01/08/18 16:07> Heart Score/ECG Review - ECG Intrepretation Rhythm: Regular Rhythm - Hartley Hartley: Normal - ECG Impressions Normal ECG: Yes Non-specific ST Elevation: No Ischemic Changes: No Bradycardia: No Tachycardia: Sinus <CarmelaFemi lares - Last Filed: 01/08/18 16:07> ED Treatment Course - LABORATORY CBC & Chemistry Diagram: 01/08/18 09:56 01/08/18 09:56 - ADDITIONAL ORDERS Additional order review: Laboratory Results 01/08/18 01/08/18 01/08/18 12:55 12:00 09:56 PT with INR INR PTT (Actin FS) VBG pH POC VBG pCO2 POC VBG pO2 Mixed VBG HCO3 Sodium Potassium Chloride Carbon Dioxide Anion Gap BUN Creatinine Creat Clearance w eGFR Random Glucose Lactic Acid 3.0 H* 3.3 H* Calcium Total Bilirubin AST ALT Alkaline Phosphatase Creatine Kinase Creatine Kinase Index CK-MB (CK-2) Troponin I Total Protein Albumin Urine Color Urine Appearance Urine pH Ur Specific Sterling Urine Protein 31 Urine Glucose (UA) Urine Ketones Urine Blood Urine Nitrite Urine Bilirubin Urine Urobilinogen Ur Leukocyte Esterase Ur Random Sodium 26 Urine Creatinine > 300.0 01/08/18 01/08/18 01/08/18 09:56 09:56 09:56 PT with INR INR PTT (Actin FS) VBG pH 7.30 L POC VBG pCO2 46.0 POC VBG pO2 30.2 Mixed VBG HCO3 22.7 Sodium 137 Potassium 4.2 Chloride 101 Carbon Dioxide 25 Anion Gap 11 BUN 40 H Creatinine 3.4 H Creat Clearance w eGFR 19.19 Random Glucose 232 H Lactic Acid Calcium 8.0 L Total Bilirubin 0.5 AST 33 ALT 46 Alkaline Phosphatase 58 Creatine Kinase 428 H Creatine Kinase Index 0.5 CK-MB (CK-2) 2.33 Troponin I < 0.02 Total Protein 6.9 Albumin 3.7 Urine Color Yellow Urine Appearance Clear Urine pH 5.0 Ur Specific Sterling 1.021 Urine Protein Negative Urine Glucose (UA) 2+ H Urine Ketones Negative Urine Blood Negative Urine Nitrite Negative Urine Bilirubin Negative Urine Urobilinogen Negative Ur Leukocyte Esterase Negative Ur Random Sodium Urine Creatinine 01/08/18 09:56 PT with INR 12.60 INR 1.12 PTT (Actin FS) 26.0 L VBG pH POC VBG pCO2 POC VBG pO2 Mixed VBG HCO3 Sodium Potassium Chloride Carbon Dioxide Anion Gap BUN Creatinine Creat Clearance w eGFR Random Glucose Lactic Acid Calcium Total Bilirubin AST ALT Alkaline Phosphatase Creatine Kinase Creatine Kinase Index CK-MB (CK-2) Troponin I Total Protein Albumin Urine Color Urine Appearance Urine pH Ur Specific Sterling Urine Protein Urine Glucose (UA) Urine Ketones Urine Blood Urine Nitrite Urine Bilirubin Urine Urobilinogen Ur Leukocyte Esterase Ur Random Sodium Urine Creatinine 01/08/18 09:56 RBC 3.69 L MCV 90.7 MCHC 33.5 RDW 16.5 H MPV 9.4 Neutrophils % 74.0 Lymphocytes % 18.7 Monocytes % 5.8 Eosinophils % 0.8 Basophils % 0.7 - Medications Given in the ED: ED Medications Discontinued Medications Generic Name Dose Route Start Last Admin Trade Name Hernando PRN Reason Stop Dose Admin Acetaminophen 325 mg 01/08/18 10:13 01/08/18 11:16 Tylenol - PO 01/08/18 10:14 325 mg ONCE ONE Administration Sodium Chloride 1,000 mls @ 1,000 mls/hr 01/08/18 09:29 01/08/18 09:57 Normal Saline - IV 01/08/18 10:28 1,000 mls/hr ASDIR STA Administration Sodium Chloride 1,000 mls @ 1,000 mls/hr 01/08/18 12:21 01/08/18 13:04 Normal Saline - IV 01/08/18 13:20 1,000 mls/hr ASDIR STA Administration Sodium Chloride 1,000 mls @ 1,000 mls/hr 01/08/18 14:12 01/08/18 14:44 Normal Saline - IV 01/08/18 15:11 1,000 mls/hr ASDIR STA Administration Piperacillin Sod/Tazobactam 50 mls @ 100 mls/hr 01/08/18 14:32 01/08/18 14:44 Sod 3.375 gm/ Dextrose IVPB 01/08/18 15:01 100 mls/hr ONCE ONE Administration Protocol <Mauricio Mcmullen - Last Filed: 01/08/18 15:37> - LABORATORY CBC & Chemistry Diagram: 01/08/18 09:56 01/08/18 09:56 - RADIOLOGY Chest X-Ray Result: No Infiltrates <Femi Baldwin - Last Filed: 01/08/18 16:07> Medical Decision Making - Medical Decision Making 01/08/18 15:[address] Paulino, who prompted us to refer to Hospitalist. <Mauricio Mcmullen - Last Filed: 01/08/18 15:37> - Medical Decision Making 01/08/18 15:56 Late entry. Patient arrived to ED with complaint of slurred speech which resolved. on further workup, patient found to be tachy at 105, temp 100.1, and hypotensive. Sepsis workup shows WBC of 12.5, BUN 40, creatinine of 3.4 (1.7 last know) lactate of 3.3. Patient resting comfortably with complaints of only nausea. no source of infection found BP improving, HR coming down. Spoke with Dr. Currie who would like Alexy to be admitted to Tele unit <Femi Baldwin - Last Filed: 01/08/18 16:07> *DC/Admit/Observation/Transfer <Mauricio Mcmullen - Last Filed: 01/08/18 15:37> - Discharge Dispostion Decision to Admit order: Yes <Femi Baldwin - Last Filed: 01/08/18 16:07> Diagnosis at time of Disposition: Fever Qualifiers: Fever type: unspecified Qualified Code(s): R50.9 - Fever, unspecified Sepsis Qualifiers: Sepsis type: sepsis due to unspecified organism Qualified Code(s): A41.9 - Sepsis, unspecified organism - Discharge Dispostion Condition at time of disposition: Guarded - Referrals Referrals: Fozia Paulino MD [Primary Care Provider] -
--- NOTE | 2018-01-08 09:19 | PDOC ---
Attending Attestation - HPI HPI: 01/08/18 10:19 The patient is a 53 year old male with a significant past medical history of CVA with residual left sided weakness (01/2017), diabetes, and high cholesterol who presents to the emergency department with slurred speech beginning approximately two hours ago. Patient reports he had breakfast with his mother this morning when he experienced difficulty in speech. The patient states he had nausea prior to arrival and was given Zofran by EMS to significant relief. Patient also notes he had a headache yesterday but denies headache on presentation. The patient denies numbness, loss of vision and acute neurological deficit. Denies chest pain, shortness of breath and dizziness. Denies fever, chills,, diarrhea and constipation. Denies dysuria, frequency, urgency and hematuria. Allergies: NKA Past surgical history: None reported. Social History: Current Everyday smoker. Denies EtOH use and recreational drug use. Primary Care Physician: Family History: CVA/TIA (paternal) 01/08/18 10:23 Documentation prepared by Loni Agudelo, acting as medical clerical assistant for Blank Louis MD <Loni Agudelo - Last Filed: 01/08/18 10:23> - Resident Resident Name: Femi Baldwin - ED Attending Attestation I have performed the following: I have examined & evaluated the patient, The case was reviewed & discussed with the resident, I agree w/resident's findings & plan, Exceptions are as noted - Physicial Exam PE: GENERAL: Awake, alert, and fully oriented, in no acute distress. Well-appearing. HEAD: No signs of trauma. EYES: PERRLA, EOMI, sclera anicteric, conjunctiva clear. ENT: Auricles normal inspection, hearing grossly normal, nares patent, oropharynx clear without exudates. Dry mucosa. NECK: Normal ROM, supple, no lymphadenopathy, JVD, or masses. No meningismus. LUNGS: Breath sounds equal, clear to auscultation bilaterally. No wheezes, and no crackles. HEART: Tachycardic, normal S1 and S2, no murmurs, rubs or gallops. ABDOMEN: Soft, nontender, normoactive bowel sounds. No guarding, no rebound. No masses. EXTREMITIES: Normal range of motion, no edema. No clubbing or cyanosis. No cords, erythema, or tenderness. NEUROLOGICAL: Cranial nerves II through XII grossly intact. Normal speech. Motor and sensation intact on R. Dec strength on L side consistent with prior history of CVA. SKIN: Warm, Dry, normal turgor, no rashes or lesions noted. - Medical Decision Making 01/08/18 09:57 Pt with fever, headache. No stiff neck. He had slurred speech earlier today, now resolved. He has signs of sepsis on exam, no clear source of infection. Neuro sxs may have been result of hypotension, however, meningitis is on the DDx (low suspicion). Will await labs, CXR, and UA. <Blank Louis - Last Filed: 01/08/18 12:20>
[2018-01-08] MEDS ORDERED: SODIUM CHLORIDE 1,000 ML IV STA ×3 (09:29→14:12)
[2018-01-08 10:04] LABS: VENOUS PH 7.3 (7.32-7.42); VENOUS PO2 30.2 mmHg (28-48)
[2018-01-08 10:06] LABS: BASO % 0.7 % (0-2.0); EOS % 0.8 % (0-4.5); HEMATOCRIT 33.5 % (35.4-49); HEMOGLOBIN 11.2 GM/dL (11.7-16.9); LYMPH % 18.7 % (8-40); MCH 30.3 pg (25.7-33.7); MCHC 33.5 g/dl (32.0-35.9); MEAN CELL VOLUME 90.7 fl (80-96); MEAN PLT VOLUME 9.4 fl (7.5-11.1); MONO % 5.8 % (3.8-10.2); PLATELET COUNT 196 K/MM3 (134-434); RBC 3.69 M/mm3 (4.00-5.60); RDW 16.5 % (11.9-15.9); WHITE BLOOD COUNT 12.5 K/mm3 (4.0-10.0)
[2018-01-08] MEDS ORDERED: ACETAMINOPHEN 325 MG TABLET (FP) PO ONE (10:13)
[2018-01-08 10:26] LABS: INR 1.12 (0.82-1.09); PROTHROMBIN TIME (PATIENT) 12.6 SEC (9.7-13.0)
[2018-01-08 10:33] LABS: ALBUMIN 3.7 g/dl (3.4-5.0); ANION GAP 11 (8-16); BLOOD UREA NITROGEN 40 mg/dL (7-18); CHLORIDE 101 mmol/L (98-107); CO2 25 mmol/L (21-32); CREATININE 3.4 mg/dL (0.7-1.3); GLUCOSE,RANDOM 232 mg/dL (74-106); POTASSIUM 4.2 mmol/L (3.5-5.1); SGOT/AST 33 U/L (15-37); SODIUM 137 mmol/L (136-145)
--- NOTE | 2018-01-08 10:33 | EKG ---
Test Reason : Blood Pressure : / mmHG Vent. Rate : 110 BPM Atrial Rate : 110 BPM P-R Int : 132 ms QRS Dur : 082 ms QT Int : 382 ms P-R-T Axes : 032 -13 040 degrees QTc Int : 516 ms SINUS TACHYCARDIA WHEN COMPARED WITH ECG OF 17-JAN-2017 15:12, NO SIGNIFICANT CHANGE WAS FOUND Confirmed by ALEXIS BUCIO MD ([id number]) on 01/08/2018 10:32:56 AM Referred By: Confirmed By:ALEXIS BUCIO MD
[2018-01-08 10:38] LABS: ALK PHOS 58 U/L (45-117); BILIRUBIN,TOTAL 0.5 mg/dL (0.2-1.0); SGPT/ALT 46 U/L (12-78); TOT PROT 6.9 g/dl (6.4-8.2)
[2018-01-08 13:05] LABS: URINE APPEARANCE CLEAR; URINE BILIRUBIN NEGATIVE (<2.0 mg/dL); URINE COLOR YELLOW; URINE GLUCOSE (UA) 2+ (NEGATIVE); URINE KETONE NEGATIVE (NEGATIVE); URINE LEUK ESTERASE NEGATIVE (NEGATIVE); URINE NITRITE NEGATIVE (NEGATIVE); URINE PROTEIN NEGATIVE (NEGATIVE); URINE UROBILINOGEN NEGATIVE mg/dL (0.2-1.0)
[2018-01-08 13:57] LABS: URINE PROTEIN 31 mg/dl
[2018-01-08 14:03] LABS: URINE CREATININE > 300.0 mg/dL (20-370)
[2018-01-08] MEDS ORDERED: PIPERACILLIN/TAZOB 3.375 GM 3.375 GM in DEXTROSE 5%-WATER - 50 ML IVPB ONE (14:32)
[2018-01-08] MEDS ORDERED: VANCOMYCIN 1,000 MG in DEXTROSE 5%-WATER - 250 ML IVPB ONE (14:34)
[2018-01-08] MEDS ORDERED: PIPERACILLIN/TAZOB 3.375 GM 3.375 GM/50 ML BAG IVPB ONE (14:46)
[2018-01-08] MEDS ORDERED: VANCOMYCIN 1 GRAM (PRE-DOCKED) 1,000 MG/250 ML BAG IVPB ONE (14:46)
--- NOTE | 2018-01-08 17:02 | HP ---
Admitting History and Physical - Primary Care Physician PCP: Fozia Paulino - Admission Chief Complaint: slurred speech History of Present Illness: developed slurred speech this am, mother called 911, by the time ems arrived pt felt better. 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 (multiple ischemic right cerebral 2017) Cardiovascular: Yes: HTN, Hyperlipdemia Pulmonary: Yes: Other (current cigarette smoker) Psych: Yes: Anxiety Endocrine: Yes: Diabetes Insipidus - Smoking History Smoking history: Unknown if ever smoked Have you smoked in the past 12 months: Yes Aproximately how many cigarettes per day: 5 - Alcohol/Substance Use Hx Alcohol Use: No - Social History ADL: Independent History of Recent Travel: No Home Medications - Allergies Allergies/Adverse Reactions: Allergies Allergy/AdvReac Type Severity Reaction Status Date / Time No Known Allergies Allergy Verified 01/17/17 14:07 - Home Medications Home Medications: Ambulatory Orders Gabapentin 300 mg PO BID 11/26/16 Sitagliptin Phos/Metformin HCl [Janumet 50-1,000 mg Tablet] 1 each PO BID Atorvastatin Ca [Lipitor] 40 mg PO HS 01/17/17 Dulaglutide [Trulicity] 1.5 mg SQ WEEKLY 01/17/17 Aspirin [ASA -] 81 mg PO DAILY tab.chew 01/19/17 Lisinopril [Prinivil] 10 mg PO BID tablet 01/19/17 Zolpidem Tartrate [Ambien] 5 mg PO HS 01/08/18 Family Disease History - Family Disease History Family Disease History: Diabetes: Father, Mother, Heart Disease: Father, Mother Review of Systems - Review of Systems Constitutional: reports: No Symptoms Eyes: reports: No Symptoms HENT: reports: No Symptoms Neck: reports: No Symptoms Cardiovascular: reports: No Symptoms Respiratory: reports: No Symptoms Genitourinary: reports: No Symptoms Breasts: reports: No Symptoms Reported Musculoskeletal: reports: Back Pain (chronic) Neurological: reports: Change in Speech (as noted), Headache (for past weeks, mild off-on, without precipitating factors), Weakness (chronic left arm weakness -cva and peripheral neuropathy related, left leg weakness noted by pt recently) Endocrine: reports: No Symptoms Hematology/Lymphatic: reports: No Symptoms Physical Examination Vital Signs: Vital Signs Temperature 99.0 F 01/08/18 12:08 Pulse Rate 69 01/08/18 14:55 Respiratory Rate 16 01/08/18 14:55 Blood Pressure 94/70 01/08/18 14:55 O2 Sat by Pulse Oximetry (%) 98 01/08/18 14:55 Constitutional: Yes: Well Nourished, No Distress, Calm, Obese Eyes: Yes: Conjunctiva Clear HENT: Yes: Atraumatic, Normocephalic Neck: Yes: Trachea Midline Cardiovascular: Yes: Regular Rate and Rhythm Respiratory: Yes: CTA Bilaterally Gastrointestinal: Yes: Normal Bowel Sounds, Soft, Abdomen, Obese. No: Ascites, Tenderness Musculoskeletal: Yes: WNL Edema: No Peripheral Pulses WNL: Yes Integumentary: Yes: WNL Neurological: Yes: Alert, Oriented (x3), Weakness (chronic left arm weakness 4/5 , left leg weakness 4/5). No: Aphasia, Facial Droop ...Motor Strength: LLE (4/5), RLE (4/5) Psychiatric: Yes: WNL Labs: CBC, BMP 01/08/18 09:56 01/08/18 09:56 Laboratory Results - last 24 hr 01/08/18 01/08/18 01/08/18 09:56 09:56 09:56 WBC 12.5 H RBC 3.69 L Hgb 11.2 L Hct 33.5 L D MCV 90.7 MCH 30.3 MCHC 33.5 RDW 16.5 H Plt Count 196 MPV 9.4 Absolute Neuts (auto) 9.2 Neutrophils % 74.0 Lymphocytes % 18.7 Monocytes % 5.8 Eosinophils % 0.8 Basophils % 0.7 Nucleated RBC % 0 PT with INR 12.60 INR 1.12 PTT (Actin FS) 26.0 L VBG pH POC VBG pCO2 POC VBG pO2 Mixed VBG HCO3 Sodium Potassium Chloride Carbon Dioxide Anion Gap BUN Creatinine Creat Clearance w eGFR Random Glucose Lactic Acid Calcium Total Bilirubin AST ALT Alkaline Phosphatase Creatine Kinase Creatine Kinase Index CK-MB (CK-2) Troponin I Total Protein Albumin Urine Color Yellow Urine Appearance Clear Urine pH 5.0 Ur Specific [place] 1.021 Urine Protein Negative Urine Glucose (UA) 2+ H Urine Ketones Negative Urine Blood Negative Urine Nitrite Negative Urine Bilirubin Negative Urine Urobilinogen Negative Ur Leukocyte Esterase Negative Ur Random Sodium Urine Creatinine 01/08/18 01/08/18 01/08/18 09:56 09:56 09:56 WBC RBC Hgb Hct MCV MCH MCHC RDW Plt Count MPV Absolute Neuts (auto) Neutrophils % Lymphocytes % Monocytes % Eosinophils % Basophils % Nucleated RBC % PT with INR INR PTT (Actin FS) VBG pH 7.30 L POC VBG pCO2 46.0 POC VBG pO2 30.2 Mixed VBG HCO3 22.7 Sodium 137 Potassium 4.2 Chloride 101 Carbon Dioxide 25 Anion Gap 11 BUN 40 H Creatinine 3.4 H Creat Clearance w eGFR 19.19 Random Glucose 232 H Lactic Acid 3.3 H* Calcium 8.0 L Total Bilirubin 0.5 AST 33 ALT 46 Alkaline Phosphatase 58 Creatine Kinase 428 H Creatine Kinase Index 0.5 CK-MB (CK-2) 2.33 Troponin I < 0.02 Total Protein 6.9 Albumin 3.7 Urine Color Urine Appearance Urine pH Ur Specific [place] Urine Protein Urine Glucose (UA) Urine Ketones Urine Blood Urine Nitrite Urine Bilirubin Urine Urobilinogen Ur Leukocyte Esterase Ur Random Sodium Urine Creatinine 01/08/18 01/08/18 01/08/18 12:00 12:55 15:47 WBC RBC Hgb Hct MCV MCH MCHC RDW Plt Count MPV Absolute Neuts (auto) Neutrophils % Lymphocytes % Monocytes % Eosinophils % Basophils % Nucleated RBC % PT with INR INR PTT (Actin FS) VBG pH POC VBG pCO2 POC VBG pO2 Mixed VBG HCO3 Sodium Potassium Chloride Carbon Dioxide Anion Gap BUN Creatinine Creat Clearance w eGFR Random Glucose Lactic Acid 3.0 H* 2.2 H* Calcium Total Bilirubin AST ALT Alkaline Phosphatase Creatine Kinase Creatine Kinase Index CK-MB (CK-2) Troponin I Total Protein Albumin Urine Color Urine Appearance Urine pH Ur Specific [place] Urine Protein 31 Urine Glucose (UA) Urine Ketones Urine Blood Urine Nitrite Urine Bilirubin Urine Urobilinogen Ur Leukocyte Esterase Ur Random Sodium 26 Urine Creatinine > 300.0 Imaging - Results X-ray: Report Reviewed Problem List - Problems (1) Fever Code(s): R50.9 - FEVER, UNSPECIFIED Qualifiers: Fever type: unspecified Qualified Code(s): R50.9 - Fever, unspecified (2) Sepsis Code(s): A41.9 - SEPSIS, UNSPECIFIED ORGANISM Qualifiers: Sepsis type: sepsis due to unspecified organism Qualified Code(s): A41.9 - Sepsis, unspecified organism (3) Arm paresthesia, left Code(s): R20.2 - PARESTHESIA OF SKIN (4) CVA (cerebral vascular accident) Code(s): I63.9 - CEREBRAL INFARCTION, UNSPECIFIED Qualifiers: CVA mechanism: occlusion Laterality of affected vessel: right (5) Diabetes mellitus Code(s): E11.9 - TYPE 2 DIABETES MELLITUS WITHOUT COMPLICATIONS Qualifiers: Diabetes mellitus type: type 2 Diabetes mellitus prison insulin use: without prison use Diabetes mellitus complication status: with neurologic complications Diabetes mellitus complication detail: with other neurological complication Qualified Code(s): E11.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 (6) Hyperlipidemia associated with type 2 diabetes mellitus Code(s): E11.69 - TYPE 2 DIABETES MELLITUS WITH OTHER SPECIFIED COMPLICATION; E78.5 - HYPERLIPIDEMIA, UNSPECIFIED (7) Renal insufficiency Code(s): N28.9 - DISORDER OF KIDNEY AND URETER, UNSPECIFIED Assessment/Plan dehydration with acute renal insufficiency (office creat 1.34 in November 2017) r/o sepsis r/o CVA received vanco zosyn in er, cultures were collected-f/up results no need for more abx at this point cont iv hydration stop aceinhibitor stop metformin stop nsaids check repeat renal fnct cbc in am check head CT riss for sugars telemetry monitoring
[2018-01-08] MEDS ORDERED: SODIUM CHLORIDE 0.45% 1,000 ML IV SCH (17:30)
[2018-01-08] MEDS: INSULIN SLIDING SCALE (NOVOLOG) 1 VIAL SQ SCH (22:33)
[2018-01-08] MEDS: ATORVASTATIN CA 40 MG TABLET (FP) PO SCH (22:33)
[2018-01-08] MEDS: ZOLPIDEM TARTRATE 5 MG TABLET PO PRN (22:34)
[2018-01-08] MEDS: ACETAMINOPHEN 325 MG TABLET (FP) PO PRN (22:34)
[2018-01-09 00:49] VITALS: BMI 35.6
[2018-01-09] MEDS: INSULIN SLIDING SCALE (NOVOLOG) 1 VIAL SQ SCH ×4 (06:20→21:37)
[2018-01-09 06:31] LABS: BASO % 0.6 % (0-2.0); EOS % 2.3 % (0-4.5); HEMATOCRIT 30.8 % (35.4-49); HEMOGLOBIN 10.5 GM/dL (11.7-16.9); LYMPH % 28.2 % (8-40); MCH 30.6 pg (25.7-33.7); MCHC 33.9 g/dl (32.0-35.9); MEAN CELL VOLUME 90.1 fl (80-96); MEAN PLT VOLUME 9.6 fl (7.5-11.1); MONO % 7.4 % (3.8-10.2); NEUT % 61.5 % (42.8-82.8); PLATELET COUNT 138 K/MM3 (134-434); RBC 3.42 M/mm3 (4.00-5.60); RDW 16.1 % (11.9-15.9)
[2018-01-09 06:57] LABS: ALBUMIN 3.3 g/dl (3.4-5.0); ANION GAP 8 (8-16); BLOOD UREA NITROGEN 30 mg/dL (7-18); CALCIUM 7.8 mg/dL (8.5-10.1); CHLORIDE 110 mmol/L (98-107); CO2 24 mmol/L (21-32); GLUCOSE,RANDOM 118 mg/dL (74-106); POTASSIUM 4.1 mmol/L (3.5-5.1); SODIUM 142 mmol/L (136-145)
[2018-01-09 07:03] LABS: ALK PHOS 48 U/L (45-117); BILIRUBIN,TOTAL 0.3 mg/dL (0.2-1.0); CREATININE 1.7 mg/dL (0.7-1.3); SGOT/AST 29 U/L (15-37); SGPT/ALT 36 U/L (12-78); TOT PROT 6.3 g/dl (6.4-8.2)
[2018-01-09] MEDS: ASPIRIN 81 MG CHEWABLE TABLETS PO SCH (09:06)
--- NOTE | 2018-01-09 11:59 | PN ---
Progress Note (short form) - Note Progress Note: Feeling better, back to baseline CBC, BMP 01/09/18 05:30 01/09/18 05:30 s1s2 rrr lungs cta abd soft nt +bs no edema awake alert oriented x3 left arm weakness at baseline, no facial droop, speech is intact labs reviewed dehydration ? heat related acute renal insuff NIDDM htn urine culture noted, however ua was clear await id input dc planning with continued hold off on metformin and lisinopril Problem List - Problems (1) Fever Code(s): R50.9 - FEVER, UNSPECIFIED Qualifiers: Fever type: unspecified Qualified Code(s): R50.9 - Fever, unspecified (2) Sepsis Code(s): A41.9 - SEPSIS, UNSPECIFIED ORGANISM Qualifiers: Sepsis type: sepsis due to unspecified organism Qualified Code(s): A41.9 - Sepsis, unspecified organism (3) Arm paresthesia, left Code(s): R20.2 - PARESTHESIA OF SKIN (4) CVA (cerebral vascular accident) Code(s): I63.9 - CEREBRAL INFARCTION, UNSPECIFIED Qualifiers: CVA mechanism: occlusion Laterality of affected vessel: right (5) Diabetes mellitus Code(s): E11.9 - TYPE 2 DIABETES MELLITUS WITHOUT COMPLICATIONS Qualifiers: Diabetes mellitus type: type 2 Diabetes mellitus correctional medicine physician insulin use: without correctional medicine physician use Diabetes mellitus complication status: with neurologic complications Diabetes mellitus complication detail: with other neurological complication Qualified Code(s): E11.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 (6) Hyperlipidemia associated with type 2 diabetes mellitus Code(s): E11.69 - TYPE 2 DIABETES MELLITUS WITH OTHER SPECIFIED COMPLICATION; E78.5 - HYPERLIPIDEMIA, UNSPECIFIED (7) Renal insufficiency Code(s): N28.9 - DISORDER OF KIDNEY AND URETER, UNSPECIFIED
--- NOTE | 2018-01-09 15:11 | PN ---
Progress Note (short form) - Note Progress Note: ID Full note dictated Microbiology 01/08/18 09:56 Urine - Urine Clean Catch Urine Culture - Preliminary Group D Strep Or Entero Coccus 01/08/18 09:41 Blood - Peripheral Venous Blood Culture - Preliminary NO GROWTH OBTAINED AFTER 24 HOURS, INCUBATION TO CONTINUE FOR 4 DAYS. 01/08/18 09:41 Blood - Peripheral Venous Blood Culture - Preliminary NO GROWTH OBTAINED AFTER 24 HOURS, INCUBATION TO CONTINUE FOR 4 DAYS. Selected Entries 01/08/18 01/09/18 19:54 10:00 Temperature 101.1 F H 98.9 F Pulse Rate 87 87 Respiratory 20 Rate Blood Pressure 122/50 Laboratory Tests 01/08/18 01/08/18 01/08/18 09:56 09:56 12:00 WBC 12.5 H Plt Count 196 BUN Creatinine Creat Clearance w eGFR Lactic Acid 3.0 H* AST ALT Ur Leukocyte Esterase Negative 01/08/18 01/09/18 15:47 05:30 WBC Plt Count BUN 30 H Creatinine 1.7 H Creat Clearance w eGFR 42.70 Lactic Acid 2.2 H* AST 29 ALT 36 D Ur Leukocyte Esterase Assessment Enterococcal UTI causing Fever with sepsis Plan Continue Zosyn for now pending final culture Vitor STARKS Problem List - Problems (1) UTI (urinary tract infection) Code(s): N39.0 - URINARY TRACT INFECTION, SITE NOT SPECIFIED (2) Fever Code(s): R50.9 - FEVER, UNSPECIFIED Qualifiers: Fever type: unspecified Qualified Code(s): R50.9 - Fever, unspecified (3) Sepsis Code(s): A41.9 - SEPSIS, UNSPECIFIED ORGANISM Qualifiers: Sepsis type: sepsis due to unspecified organism Qualified Code(s): A41.9 - Sepsis, unspecified organism
[2018-01-09 15:54] LABS: URINE APPEARANCE CLEAR; URINE BILIRUBIN NEGATIVE (<2.0 mg/dL); URINE COLOR STRAW; URINE GLUCOSE (UA) 2+ (NEGATIVE); URINE KETONE NEGATIVE (NEGATIVE); URINE LEUK ESTERASE NEGATIVE (NEGATIVE); URINE NITRITE NEGATIVE (NEGATIVE); URINE PROTEIN NEGATIVE (NEGATIVE); URINE UROBILINOGEN NEGATIVE mg/dL (0.2-1.0)
--- NOTE | 2018-01-09 16:10 | CONS ---
DATE OF CONSULTATION: DATE OF DICTATION: 01/09/2018 INFECTIOUS DISEASE CONSULT HISTORY OF PRESENT ILLNESS: This is a 53-year-old male with known history of diabetes who I am asked to see for evaluation of fever and sepsis. The patient has a history of a stroke in 2017, approximately 1 year ago. Currently, he developed slurred speech at home prompting his mother to call 911. By the time EMS arrived, he felt better but was noted to be febrile both by EMT as well as here where he spiked fever to 101. He also had a mildly elevated WBC count in the absence of localizing findings for infection. The patient, however, was hypotensive. He required 3 L of normal saline for volume support. He was empirically given a dose of vancomycin and Zosyn, and I am asked to see him for further evaluation. His blood cultures are currently negative, and his urine culture is growing an Enterococcus species. PAST MEDICAL HISTORY: Includes right cerebral ischemic stroke, 2017. Hypertension. Hyperlipidemia. Former heavy smoker. History of diabetes insipidus. MEDICATIONS: Gabapentin, Januvia, metformin, atorvastatin, Trulicity, aspirin, lisinopril. ALLERGIES: None known. SOCIAL HISTORY: Former smoker. 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 Lives with his mother. No HIV risk factors. FAMILY HISTORY: Reviewed and noncontributory. Positive for diabetes. REVIEW OF SYSTEMS: Respiratory: No cough, shortness of breath. Cardiac: No chest pain, palpitation, syncope. Gastrointestinal: No nausea, vomiting, diarrhea, weight loss. Genitourinary: No dysuria, hematuria, urinary frequency. Neurologic: Revealed slurred speech on admission. 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 PHYSICAL EXAMINATION: General: An alert male in no acute distress. Vital Signs: Temperature 98.9, pulse 77, blood pressure 113/70, respirations 20. Neck: Supple. No adenopathy. Lungs: Clear to P and A. Heart: S1, S2. Regular rhythm without audible murmur or gallop. Abdomen: Positive bowel sounds. Soft, nontender, without hepatosplenomegaly. No guarding or rebound. Extremities: No clubbing, cyanosis, or edema. DIAGNOSTIC DATA: Urinalysis negative for leukocyte esterase. White count of 12.5, hemoglobin 11.2, platelets 196. BUN 30, creatinine 1.7. Lactic acid 3 then 2.2. Liver enzymes within normal limits. Troponin I less than 0.02. Chest x-ray reviewed, shows no evidence of active infiltrate. CT of the head shows no acute intracranial pathology. ASSESSMENT: A 58-year-old male with sepsis syndrome, urinary tract source likely, clinically improved. Enterococcus growing in the urine culture. RECOMMENDATIONS: Would treat with piperacillin, Tazobactam for today with plan to deescalate antibiotic therapy based on sensitivities. JANELLE HIGH M.D. [id number]
[2018-01-09] MEDS ORDERED: PT OWN MED DRAWER 7, Y5N ONE (16:50)
[2018-01-09] MEDS ORDERED: PIPERACILLIN/TAZOBACTAM 4.5 GM VIAL IVPB ONE (18:12)
[2018-01-09] MEDS ORDERED: DEXTROSE 5%-WATER 100 ML IVPB ONE (18:12)
[2018-01-09] MEDS: PIPERACILLIN/TAZOB 4.5 GM 4.5 GM in DEXTROSE 5%-WATER 100 ML IVPB SCH (18:24)
[2018-01-09] MEDS: ATORVASTATIN CA 40 MG TABLET (FP) PO SCH (21:37)
[2018-01-09] MEDS: ZOLPIDEM TARTRATE 5 MG TABLET PO PRN (21:45)
[2018-01-09] MEDS: ACETAMINOPHEN 325 MG TABLET (FP) PO PRN (21:47)
[2018-01-10] MEDS ORDERED: DEXTROSE 5%-WATER 100 ML IVPB ONE (00:56)
[2018-01-10] MEDS ORDERED: PIPERACILLIN/TAZOBACTAM 4.5 GM VIAL IVPB ONE (00:56)
[2018-01-10] MEDS: PIPERACILLIN/TAZOB 4.5 GM 4.5 GM in DEXTROSE 5%-WATER 100 ML IVPB SCH (01:00)
[2018-01-10] MEDS: INSULIN SLIDING SCALE (NOVOLOG) 1 VIAL SQ SCH (06:00)
[2018-01-10 06:31] LABS: BASO % 0.8 % (0-2.0); HEMATOCRIT 33.2 % (35.4-49); HEMOGLOBIN 11.2 GM/dL (11.7-16.9); LYMPH % 29.6 % (8-40); MCH 30.3 pg (25.7-33.7); MCHC 33.8 g/dl (32.0-35.9); MEAN CELL VOLUME 89.8 fl (80-96); MEAN PLT VOLUME 9.5 fl (7.5-11.1); MONO % 6.5 % (3.8-10.2); NEUT % 60.1 % (42.8-82.8); PLATELET COUNT 140 K/MM3 (134-434); RBC 3.69 M/mm3 (4.00-5.60); RDW 15.8 % (11.9-15.9); WHITE BLOOD COUNT 6.9 K/mm3 (4.0-10.0)
[2018-01-10 07:01] LABS: CHLORIDE 104 mmol/L (98-107); POTASSIUM 4.4 mmol/L (3.5-5.1); SODIUM 139 mmol/L (136-145)
[2018-01-10 07:10] LABS: ALBUMIN 3.6 g/dl (3.4-5.0); ALK PHOS 50 U/L (45-117); ANION GAP 9 (8-16); BILIRUBIN,TOTAL 0.6 mg/dL (0.2-1.0); BLOOD UREA NITROGEN 23 mg/dL (7-18); CALCIUM 9.2 mg/dL (8.5-10.1); CO2 26 mmol/L (21-32); CREATININE 1.3 mg/dL (0.7-1.3); GLUCOSE,RANDOM 139 mg/dL (74-106); SGOT/AST 27 U/L (15-37); SGPT/ALT 37 U/L (12-78); TOT PROT 6.8 g/dl (6.4-8.2)
--- NOTE | 2018-01-10 07:50 | PN ---
Progress Note (short form) - Note Progress Note: no complaints CBC, BMP 01/10/18 05:30 01/10/18 05:30 Vital Signs Period Temp Pulse Resp BP Sys/Rudd Pulse Ox Last 24 Hr 98.0 F-98.9 F 74-87 18-20 112-156/61-84 97-99 s1s2 rrr lungs cta abd soft nt +bs no edema awake alert oriented x3 left arm weakness at baseline, no facial droop, speech is intact dehydration acute renal insuff resolved NIDDM htn uti await urine culture dc planning Problem List - Problems (1) Fever Code(s): R50.9 - FEVER, UNSPECIFIED Qualifiers: Fever type: unspecified Qualified Code(s): R50.9 - Fever, unspecified (2) Sepsis Code(s): A41.9 - SEPSIS, UNSPECIFIED ORGANISM Qualifiers: Sepsis type: sepsis due to unspecified organism Qualified Code(s): A41.9 - Sepsis, unspecified organism (3) Arm paresthesia, left Code(s): R20.2 - PARESTHESIA OF SKIN (4) CVA (cerebral vascular accident) Code(s): I63.9 - CEREBRAL INFARCTION, UNSPECIFIED Qualifiers: CVA mechanism: occlusion Laterality of affected vessel: right (5) Diabetes mellitus Code(s): E11.9 - TYPE 2 DIABETES MELLITUS WITHOUT COMPLICATIONS Qualifiers: Diabetes mellitus type: type 2 Diabetes mellitus manager intermediate insulin use: without manager intermediate use Diabetes mellitus complication status: with neurologic complications Diabetes mellitus complication detail: with other neurological complication Qualified Code(s): E11.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 (6) Hyperlipidemia associated with type 2 diabetes mellitus Code(s): E11.69 - TYPE 2 DIABETES MELLITUS WITH OTHER SPECIFIED COMPLICATION; E78.5 - HYPERLIPIDEMIA, UNSPECIFIED (7) Renal insufficiency Code(s): N28.9 - DISORDER OF KIDNEY AND URETER, UNSPECIFIED
--- NOTE | 2018-01-10 09:23 | DS ---
Physical Examination Vital Signs: Vital Signs Temperature 98.6 F 01/10/18 06:00 Pulse Rate 74 01/10/18 06:00 Respiratory Rate 20 01/10/18 06:00 Blood Pressure 112/74 01/10/18 06:00 O2 Sat by Pulse Oximetry (%) 99 01/09/18 21:00 Constitutional: Yes: No Distress, Calm Eyes: Yes: EOM Intact HENT: Yes: Normocephalic Neck: Yes: Trachea Midline Cardiovascular: Yes: Regular Rate and Rhythm Respiratory: Yes: CTA Bilaterally Gastrointestinal: Yes: Normal Bowel Sounds, Soft Edema: No Labs: CBC, BMP 01/10/18 05:30 01/10/18 05:30 Discharge Summary Reason For Visit: FEVER,SEPSIS Current Active Problems Fever (Acute) Sepsis (Acute) UTI (urinary tract infection) (Acute) Hospital Course: admitted for slurred speech, acute renal failure, dehydration, hypotension, uti much better after iv abx, iv hydration, urine growing enterococcus -will follow sensitivity as outpt stable to or home on oral abx hold metformin due to renal insuff-now at baseline lower lisinopril dose to 10 mg po daily Condition: Fair - Instructions Diet, Activity, Other Instructions: follow up with dr. Paulino in 1 week Referrals: Fozia Paulino MD [Primary Care Provider] - Disposition: HOME - Home Medications Comprehensive Discharge Medication List: Ambulatory Orders Gabapentin 300 mg PO BID 11/26/16 Atorvastatin Ca [Lipitor] 40 mg PO HS 01/17/17 Dulaglutide [Trulicity] 1.5 mg SQ WEEKLY 01/17/17 Aspirin [ASA -] 81 mg PO DAILY tab.chew 01/19/17 Zolpidem Tartrate [Ambien] 5 mg PO HS 01/08/18 Amoxicillin - [Amoxicillin 500mg Capsule -] 500 mg PO TID #15 capsule 01/10/18 Lisinopril [Prinivil] 10 mg PO DAILY #0 tablet 01/10/18
--- NOTE | 2018-01-10 09:26 | PN ---
Progress Note, Physician Chief Complaint: ID Afebrile asymptomatic - Current Medication List Current Medications: Active Medications Acetaminophen (Tylenol -) 650 mg PO Q6H PRN PRN Reason: FEVER Last Admin: 01/09/18 21:47 Dose: 650 mg Aspirin (Asa -) 81 mg PO DAILY JAYME Last Admin: 01/09/18 09:06 Dose: 81 mg Atorvastatin Calcium (Lipitor -) 40 mg PO HS JAYME Last Admin: 01/09/18 21:37 Dose: 40 mg Gabapentin (Neurontin -) 300 mg PO BID JAYME Piperacillin Sod/Tazobactam (Sod 4.5 gm/ Dextrose) 100 mls @ 200 mls/hr IVPB Q8H-IV JAYME; Protocol Last Admin: 01/10/18 01:00 Dose: 200 mls/hr Insulin Aspart (Novolog Vial Sliding Scale -) 1 vial SQ ACHS JAYME; Protocol Last Admin: 01/10/18 06:00 Dose: Not Given Zolpidem Tartrate (Ambien -) 5 mg PO HS PRN PRN Reason: INSOMNIA Last Admin: 01/09/18 21:45 Dose: 5 mg - Objective Vital Signs: Vital Signs Temperature 98.6 F 01/10/18 06:00 Pulse Rate 74 01/10/18 06:00 Respiratory Rate 20 01/10/18 06:00 Blood Pressure 112/74 01/10/18 06:00 O2 Sat by Pulse Oximetry (%) 99 01/09/18 21:00 Constitutional: Yes: Well Nourished, No Distress Neck: Yes: WNL, Supple Cardiovascular: Yes: Regular Rate and Rhythm, S1, S2. No: Murmur Respiratory: Yes: WNL, Regular, CTA Bilaterally Gastrointestinal: Yes: WNL, Normal Bowel Sounds, Soft. No: Tenderness, Tenderness, Epigastrium Edema: No Labs: CBC, BMP 01/10/18 05:30 01/10/18 05:30 INR, PTT INR 1.12 (0.82-1.09) 01/08/18 09:56 Problem List - Problems (1) UTI (urinary tract infection) Code(s): N39.0 - URINARY TRACT INFECTION, SITE NOT SPECIFIED (2) Fever Code(s): R50.9 - FEVER, UNSPECIFIED Qualifiers: Fever type: unspecified Qualified Code(s): R50.9 - Fever, unspecified (3) Sepsis Code(s): A41.9 - SEPSIS, UNSPECIFIED ORGANISM Qualifiers: Sepsis type: sepsis due to unspecified organism Qualified Code(s): A41.9 - Sepsis, unspecified organism Assessment/Plan Microbiology 01/08/18 09:56 Urine - Urine Clean Catch Urine Culture - Preliminary Group D Strep Or Entero Coccus 01/08/18 09:41 Blood - Peripheral Venous Blood Culture - Preliminary NO GROWTH OBTAINED AFTER 24 HOURS, INCUBATION TO CONTINUE FOR 4 DAYS. 01/08/18 09:41 Blood - Peripheral Venous Blood Culture - Preliminary NO GROWTH OBTAINED AFTER 24 HOURS, INCUBATION TO CONTINUE FOR 4 DAYS. Laboratory Tests 01/08/18 01/10/18 01/10/18 09:56 05:30 05:30 WBC 12.5 H 6.9 Hgb 11.2 L Hct 33.2 L Plt Count 140 Creat Clearance w eGFR 58.20 Assessment Treat for Enterococcal UTI ? prostatitis Plan Amoxicillin 500mg tid Vitor STARKS
[2018-01-10] MEDS ORDERED: AMOXICILLIN 500 MG CAPSULE (FP) PO SCH (09:45)
[2018-01-10] MEDS: ASPIRIN 81 MG CHEWABLE TABLETS PO SCH (09:49)
[2018-01-10] MEDS ORDERED: GABAPENTIN 300 MG CAPSULE (FP) PO SCH (10:00)
[2018-01-10 10:52] VITALS: BP 126/78; PULSE 78; TEMP 98.4
== END 2018-01-10 11:50 | disposition home or self-care (01) ==
LOC: JER 08:17 → UNDOADMOB 16:07 → INTOOBSV 16:07 → JERBED 16:07 → J4W 19:12 → JERBED 19:12 → J4W 19:12
PROVIDERS: ADMIT Internal Medicine; ATTEND Internal Medicine
PROC: 3E03329 Introduction of Other Anti-infective into Peripheral Vein, Percutaneous Approach (ICD-10-PCS; principal; 2018-01-08)
PROC: 3E0337Z Introduction of Electrolytic and Water Balance Substance into Peripheral Vein, Percutaneous Approach (ICD-10-PCS; 2018-01-08)
DX: A41.9 Sepsis, unspecified organism (principal); R50.9 Fever, unspecified; N39.0 Urinary tract infection, site not specified; I95.9 Hypotension, unspecified; R20.2 Paresthesia of skin; E78.5 Hyperlipidemia, unspecified; E11.69 Type 2 diabetes mellitus with other specified complication; N28.9 Disorder of kidney and ureter, unspecified; I69.354 Hemiplegia and hemiparesis following cerebral infarction affecting left non-dominant side; Z87.891 Personal history of nicotine dependence; Z79.82 Long term (current) use of aspirin; Z79.84 Long term (current) use of oral hypoglycemic drugs
CPT/HCPCS: 36415; 70450-TC; 71045-TC-FY; 80053; 81003; 81015; 82550; 82553; 82570; 82803; 82962; 83605; 84156; 84300; 84484; 85025; 85610; 85730; 87040; 87081; 87086; 87186; 93005; 93010; 96361; 96365; 96368; 99285-25; G0378; J7030

== ENCOUNTER 2019-02-20 19:37 | Inpatient (IN) | payer OTHER ==
--- NOTE | 2019-02-20 19:43 | PDOC ---
Rapid Medical Evaluation Time Seen by Provider: 02/20/19 19:40 Medical Evaluation: Allergies Allergy/AdvReac Type Severity Reaction Status Date / Time No Known Allergies Allergy Verified 01/17/17 14:07 02/20/19 19:40 HPI: fall about 2 days ago now with wound lateral aspect of R leg ([facility] IDDM, Smoker) T in triage 99.5 PE: Lateral aspect of R leg erythmic with open wound which appears dry ORDERS Labs Blood cx Discharge Disposition - Diagnosis Cellulitis - Referrals - Patient Instructions - Post Discharge Activity
[2019-02-20 19:44] VITALS: BMI 32.5
[2019-02-20 20:26] LABS: VENOUS PC02 46.6 mmHg (41-51); VENOUS PH 7.34 (7.31-7.41)
[2019-02-20 20:28] LABS: VENOUS PO2 26.8 mmHg (30-40)
[2019-02-20 20:58] LABS: ALBUMIN 3.4 g/dl (3.4-5.0); BILIRUBIN,TOTAL 0.5 mg/dL (0.2-1); BLOOD UREA NITROGEN 18.3 mg/dL (7-18); CALCIUM 9.3 mg/dL (8.5-10.1); CREATININE 1.3 mg/dL (0.55-1.3); POTASSIUM 4.6 mmol/L (3.5-5.1); TOT PROT 6.8 g/dl (6.4-8.2)
[2019-02-20 21:03] LABS: INR 1.14 (0.83-1.09); PROTHROMBIN TIME (PATIENT) 13.5 SEC (9.7-13.0)
[2019-02-20 21:05] LABS: ACTIVATED PTT 33.9 SECONDS (25.2-36.5)
[2019-02-20 21:23] LABS: BASO % 0.5 % (0-2.0); EOS % 0.6 % (0-4.5); HEMATOCRIT 34.8 % (35.4-49); HEMOGLOBIN 11.9 GM/dL (11.7-16.9); LYMPH % 13.1 % (8-40); MCH 29.3 pg (25.7-33.7); MCHC 34.1 g/dl (32.0-35.9); MEAN PLT VOLUME 9.7 fl (7.5-11.1); MONO % 5.3 % (3.8-10.2); NEUT % 80.5 % (42.8-82.8); PLATELET COUNT 191 K/MM3 (134-434); RBC 4.05 M/mm3 (4.00-5.60); RDW 16.5 % (11.9-15.9); WHITE BLOOD COUNT 11.8 K/mm3 (4.0-10.0)
[2019-02-20] MEDS ORDERED: SODIUM CHLORIDE 1,000 ML IV STA (21:23)
[2019-02-20] MEDS ORDERED: PIPERACILLIN/TAZOB 4.5 GM 4.5 GM in DEXTROSE 5%-WATER 100 ML IVPB ONE (21:24)
[2019-02-20] MEDS ORDERED: VANCOMYCIN 1 GM in D5W (PRE-DOCKED) 1,000 MG/250 ML IVPB ONE (21:24)
[2019-02-20] MEDS ORDERED: ACETAMINOPHEN 1000 MG/100 ML VIAL (NON FORMULARY) IVPB ONE (21:24)
--- NOTE | 2019-02-20 21:38 | PDOC ---
History of Present Illness - General Chief Complaint: Wound Stated Complaint: WOUND Time Seen by Provider: 02/20/19 19:40 History Source: Patient Exam Limitations: No Limitations - History of Present Illness Initial Comments: 02/20/19 21:32 Patient is a 54M with history of IDDM and HTN here today complaining of a wound to his right leg. Patient states that he fell a week ago and scraped his leg. Denies head trauma, LOC, neck pain, chest pain, other injuries. Patient denies subjective fevers, nausea, vomiting, chills. Denies abdominal pain, shortness of breath. Patient endorses pain with weight bearing, but denies pain with movement of the leg. Patient states that he took some amoxicillin he had at home for the wound, and it has been getting worse over the past few days. Past History - Past Medical History Allergies/Adverse Reactions: Allergies Allergy/AdvReac Type Severity Reaction Status Date / Time No Known Allergies Allergy Verified 02/20/19 19:44 Home Medications: Ambulatory Orders Gabapentin 300 mg PO BID 11/26/16 Atorvastatin Ca [Lipitor] 40 mg PO HS 01/17/17 Dulaglutide [Trulicity] 1.5 mg SQ WEEKLY 01/17/17 Aspirin [ASA -] 81 mg PO DAILY tab.chew 01/19/17 Zolpidem Tartrate [Ambien] 5 mg PO HS 01/08/18 Amoxicillin - [Amoxicillin 500mg Capsule -] 500 mg PO TID #15 capsule 01/10/18 Lisinopril [Prinivil] 10 mg PO DAILY #0 tablet 01/10/18 Anemia: No Asthma: No CVA: Yes COPD: No DVT: No Diabetes: Yes HTN: Yes Hypercholesterolemia: Yes Psychiatric Problems: Yes - Surgical History Appendectomy: No Cholecystectomy: No GI Surgery: No Lung Surgery: No Orthopedic Surgery: Yes - Family Disease History Family Disease History: Diabetes: Mother - Immunization History Immunization Up to Date: No - Suicide/Smoking/Psychosocial Hx Smoking Status: No Smoking History: Current every day smoker Have you smoked in the past 12 months: Yes Number of Cigarettes Smoked Daily: 6 Information on smoking cessation initiated: No 'Breaking Loose' booklet given: 01/17/17 Hx Alcohol Use: No Drug/Substance Use Hx: No Substance Use Type: None Hx Substance Use Treatment: No Review of Systems - Review of Systems Comments:: 02/20/19 21:37 GENERAL/CONSTITUTIONAL: No fever or chills. No weakness. HEAD, EYES, EARS, NOSE AND THROAT: No change in vision. No sore throat. CARDIOVASCULAR: No chest pain or shortness of breath RESPIRATORY: No cough, wheezing, or hemoptysis. GASTROINTESTINAL: No nausea, vomiting, diarrhea or constipation. GENITOURINARY: No dysuria, frequency, or change in urination. MUSCULOSKELETAL: No joint or muscle swelling or pain. No neck or back pain. SKIN: +wound with drainage NEUROLOGIC: No headache, vertigo, loss of consciousness, or change in strength/ sensation. ENDOCRINE: No increased thirst. No abnormal weight change HEMATOLOGIC/LYMPHATIC: No anemia, easy bleeding, or history of blood clots. ALLERGIC/IMMUNOLOGIC: No hives or skin allergy. *Physical Exam - Vital Signs Last Vital Signs Temp Pulse Resp BP Pulse Ox 99.5 F 110 H 17 127/79 100 02/20/19 19:41 02/20/19 19:41 02/20/19 19:41 02/20/19 19:41 02/20/19 19:41 - Physical Exam Comments: 02/20/19 21:38 GENERAL: Awake, alert, and fully oriented, in no acute distress HEAD: No signs of trauma, normocephalic, atraumatic EYES: PERRLA, EOMI, sclera anicteric, conjunctiva clear ENT: Auricles normal inspection, hearing grossly normal, nares patent, oropharynx clear without exudates. Moist mucosa NECK: Normal ROM, supple, no lymphadenopathy, JVD, or masses LUNGS: No distress, speaks full sentences, clear to auscultation bilaterally HEART: Tachycardic, normal S1 and S2, no murmurs, rubs or gallops, peripheral pulses normal and equal bilaterally. ABDOMEN: Soft, nontender, normoactive bowel sounds. No guarding, no rebound. No masses EXTREMITIES: L Leg has 5x4cm wound with yellow discharge and surrounding erythema. Foul smelling. Nontender with flexion, no crepitus. NEUROLOGICAL: Cranial nerves II through XII grossly intact. Normal speech, normal gait, no focal sensorimotor deficits SKIN: Warm, Dry, normal turgor, no rashes or lesions noted. ED Treatment Course - LABORATORY CBC & Chemistry Diagram: 02/20/19 20:13 02/20/19 20:13 - ADDITIONAL ORDERS Additional order review: Laboratory Results 02/20/19 02/20/19 02/20/19 20:13 20:13 20:13 PT with INR INR PTT (Actin FS) VBG pH POC VBG pCO2 POC VBG pO2 VBG HCO3 VBG O2 Sat (Kedar) VBG Base Excess Sodium Potassium Chloride Carbon Dioxide Anion Gap BUN Creatinine Est GFR (CKD-EPI)AfAm Est GFR (CKD-EPI)NonAf Random Glucose Lactic Acid 1.3 Calcium Total Bilirubin AST ALT Alkaline Phosphatase Troponin I Total Protein Albumin Urine Color Yellow Cancelled Urine Appearance Clear Cancelled Urine pH Cancelled Urine pH (Auto) 5.5 Ur Specific [place] Cancelled Specific [place] (Auto) 1.020 Urine Protein Cancelled Urine Protein (Auto) 2+ Urine Glucose (UA) Cancelled Glucose (UA)(Auto) 2+ Urine Ketones Cancelled Urine Ketones (Auto) Negative Urine Blood Cancelled Urine Blood (Auto) Trace-intact Urine Nitrite Cancelled Urine Nitrite (Auto) Negative Urine Bilirubin Negative Cancelled Urine Urobilinogen Cancelled Urine Urobilinogen (Auto) 0.2 Ur Leukocyte Esterase Cancelled Leukocyte Esterase (Auto) Negative Urine WBC (Auto) Cancelled Urine RBC (Auto) Cancelled Urine Casts (Auto) Cancelled U Pathogenic Cast Auto Cancelled U Epithel Cells (Auto) Cancelled U Sm Round Cell (Auto) Cancelled Urine Crystals (Auto) Cancelled Urine Bacteria (Auto) Cancelled Urine RBC No Result Required. Urine WBC No Result Required. Urine Yeast (Auto) Cancelled 02/20/19 02/20/19 02/20/19 20:13 20:13 20:13 PT with INR 13.50 H INR 1.14 H PTT (Actin FS) 33.9 VBG pH POC VBG pCO2 POC VBG pO2 VBG HCO3 VBG O2 Sat (Kedar) VBG Base Excess Sodium 133 L Potassium 4.6 Chloride 99 Carbon Dioxide 25 Anion Gap 9 BUN 18.3 H Creatinine 1.3 Est GFR (CKD-EPI)AfAm 72.71 Est GFR (CKD-EPI)NonAf 62.73 Random Glucose 270 H Lactic Acid Calcium 9.3 Total Bilirubin 0.5 AST 22 ALT 34 Alkaline Phosphatase 80 Troponin I < 0.02 Total Protein 6.8 Albumin 3.4 Urine Color Urine Appearance Urine pH Urine pH (Auto) Ur Specific [place] Specific [place] (Auto) Urine Protein Urine Protein (Auto) Urine Glucose (UA) Glucose (UA)(Auto) Urine Ketones Urine Ketones (Auto) Urine Blood Urine Blood (Auto) Urine Nitrite Urine Nitrite (Auto) Urine Bilirubin Urine Urobilinogen Urine Urobilinogen (Auto) Ur Leukocyte Esterase Leukocyte Esterase (Auto) Urine WBC (Auto) Urine RBC (Auto) Urine Casts (Auto) U Pathogenic Cast Auto U Epithel Cells (Auto) U Sm Round Cell (Auto) Urine Crystals (Auto) Urine Bacteria (Auto) Urine RBC Urine WBC Urine Yeast (Auto) 02/20/19 19:59 PT with INR INR PTT (Actin FS) VBG pH 7.34 POC VBG pCO2 46.6 POC VBG pO2 26.8 L VBG HCO3 24.5 VBG O2 Sat (Kedar) 49.0 L VBG Base Excess -0.9 Sodium Potassium Chloride Carbon Dioxide Anion Gap BUN Creatinine Est GFR (CKD-EPI)AfAm Est GFR (CKD-EPI)NonAf Random Glucose Lactic Acid Calcium Total Bilirubin AST ALT Alkaline Phosphatase Troponin I Total Protein Albumin Urine Color Urine Appearance Urine pH Urine pH (Auto) Ur Specific [place] Specific [place] (Auto) Urine Protein Urine Protein (Auto) Urine Glucose (UA) Glucose (UA)(Auto) Urine Ketones Urine Ketones (Auto) Urine Blood Urine Blood (Auto) Urine Nitrite Urine Nitrite (Auto) Urine Bilirubin Urine Urobilinogen Urine Urobilinogen (Auto) Ur Leukocyte Esterase Leukocyte Esterase (Auto) Urine WBC (Auto) Urine RBC (Auto) Urine Casts (Auto) U Pathogenic Cast Auto U Epithel Cells (Auto) U Sm Round Cell (Auto) Urine Crystals (Auto) Urine Bacteria (Auto) Urine RBC Urine WBC Urine Yeast (Auto) Medical Decision Making - Medical Decision Making 02/20/19 21:41 Patient is 54M with history of IDDM and HTN here today with wound to left leg. Given foul smelling, bad appearance of wound, will treat with vanc and zosyn and will admit. Do not suspect nec fasc or osteo. CBC shows small leukocytosis CMP clear. UA clear. Blood cultures drawn. CXR and EKG pending. 02/20/19 22:34 D/w hospitalist. Accepted to m/s as diabetic wound. *DC/Admit/Observation/Transfer Diagnosis at time of Disposition: Cellulitis - Discharge Dispostion Condition at time of disposition: Stable Decision to Admit order: Yes - Referrals Referrals: Fozia Paulino MD [Primary Care Provider] - - Patient Instructions - Post Discharge Activity
[2019-02-20] MEDS ORDERED: DIPHTH,PERTUSS(ACELL),TET 0.5 ML DISP.SYRIN IM ONE (21:44)
--- NOTE | 2019-02-20 21:58 | PDOC ---
Documentation entered by Maya Thomas SCRIBE, acting as scribe for Azalia Pérez DO. Azalia Pérez DO: This documentation has been prepared by the Martha hartley Mackenzie, SCRIBE, under my direction and personally reviewed by me in its entirety. I confirm that the documentation accurately reflects all work, treatment, procedures, and medical decision making performed by me. Attending Attestation - Resident Resident Name: David Foy - ED Attending Attestation I have performed the following: I have examined & evaluated the patient, The case was reviewed & discussed with the resident, I agree w/resident's findings & plan - HPI HPI: Patient is a 54 year old male who presents to the ED with a right leg wound sustained 2 weeks ago that is now swollen and red. Patient denies any genitourinary symptoms. PMH: As per resident note. 02/20/19 21:46 - Physicial Exam PE: Agree with resident exam. 02/20/19 21:48 - Medical Decision Making 02/20/19 21:57 54 yo male with right leg redness, pain s/p abrasion exam c/w cellulitis plan for admit, iv abx
[2019-02-20] MEDS ORDERED: VANCOMYCIN 1 GRAM (PRE-DOCKED) 1,000 MG/250 ML BAG IVPB ONE (22:22)
[2019-02-20] MEDS ORDERED: PIPERACILLIN/TAZOB 4.5 GM 4.5 GM/100 ML BAG IVPB ONE (22:22)
[2019-02-20] MEDS ORDERED: ACETAMINOPHEN INJECTION 100 ML IVPB ONE (22:22)
[2019-02-21] MEDS ORDERED: DIPHTH,PERTUSS(ACELL),TET 0.5 ML DISP.SYRIN IM ONE (00:18)
[2019-02-21] MEDS ORDERED: PATIENT'S OWN MEDICATION (NON-FORMULARY) (Dulaglutide [Trulicity] 1.5 MG) SQ SCH (02:15)
[2019-02-21] MEDS ORDERED: ACETAMINOPHEN 325 MG TABLET (FP) PO PRN (02:20)
--- NOTE | 2019-02-21 02:28 | HP ---
CHIEF COMPLAINT: R leg open wound PCP: Dr. Paulino HISTORY OF PRESENT ILLNESS: 54 year old male with PMHx of HLD/ HTN, h/o CVA, and IDDM arrived to ED due to wound to his right leg. Patient states that he fell a week ago and scraped his right lower leg. Patient states pain occurs with weight bearing, but denies pain with movement of the leg. Patient states that he took some amoxicillin he had at home, however wound getting worse over the past few days.Patient denies head trauma, LOC, neck pain, chest pain, fevers , nausea, vomiting, chills. Denies abdominal pain, shortness of breath. ER course was notable for: wbc:11.8, given Vanco and zosyn x1 tylenol x1 diphth pertuss given UA clear Blood, wound cultures done Recent Travel: no PAST MEDICAL HISTORY: DM, HTN, HLD, CVA PAST SURGICAL HISTORY: denies major surgeries Social History: Smoking: yes, 6-7 cigarettes a day Alcohol:no Drugs: no Family History: Both father, mother had Diabetes Allergies: No Known Allergies Allergy (Verified 02/20/19 19:44) HOME MEDICATIONS: Home Medications Medication Instructions Recorded Gabapentin 300 mg PO BID 11/26/16 Atorvastatin Ca [Lipitor] 40 mg PO HS 01/17/17 Dulaglutide [Trulicity] 1.5 mg SQ WEEKLY 01/17/17 Aspirin [ASA -] 81 mg PO DAILY tab.chew 01/19/17 Zolpidem Tartrate [Ambien] 5 mg PO HS 01/08/18 Amoxicillin - [Amoxicillin 500mg 500 mg PO TID #15 capsule 01/10/18 Capsule -] Lisinopril [Prinivil] 10 mg PO DAILY #0 tablet 01/10/18 REVIEW OF SYSTEMS CONSTITUTIONAL: No fever or chills. No weakness. HEENT: No change in vision. No sore throat. CARDIOVASCULAR: No chest pain or shortness of breath RESPIRATORY: No cough, wheezing, or hemoptysis. GASTROINTESTINAL: No nausea, vomiting, diarrhea or constipation. GENITOURINARY: No dysuria, frequency, or change in urination. MUSCULOSKELETAL: No joint or muscle swelling or pain. No neck or back pain. SKIN: +wound with drainage NEUROLOGIC: No headache, vertigo, loss of consciousness, or change in strength/ sensation. ENDOCRINE: No increased thirst. No abnormal weight change PHYSICAL EXAMINATION Vital Signs - 24 hr 02/20/19 19:41 Temperature 99.5 F Pulse Rate 110 H Respiratory 17 Rate Blood Pressure 127/79 O2 Sat by Pulse 100 Oximetry (%) GENERAL: Awake, alert, and fully oriented, in no acute distress HEENT: NC/AT, EOMI, PERRLA, No JVD LUNGS: clear to auscultation bilaterally HEART: Tachycardic, normal S1 and S2, no murmurs ABDOMEN: Soft, nontender, normoactive bowel sounds. No guarding, no rebound. No masses EXTREMITIES: L Leg has 5x4cm wound with yellow discharge and surrounding erythema. Foul smelling. NEUROLOGICAL: Cranial nerves II through XII grossly intact. Normal speech, normal gait SKIN: Warm, Dry Laboratory Results - last 24 hr 02/20/19 02/20/19 02/20/19 19:59 20:13 20:13 WBC RBC Hgb Hct MCV MCH MCHC RDW Plt Count MPV Absolute Neuts (auto) Neutrophils % Lymphocytes % Monocytes % Eosinophils % Basophils % Nucleated RBC % PT with INR 13.50 H INR 1.14 H PTT (Actin FS) 33.9 VBG pH 7.34 POC VBG pCO2 46.6 POC VBG pO2 26.8 L VBG HCO3 24.5 VBG O2 Sat (Kedar) 49.0 L VBG Base Excess -0.9 Sodium Potassium Chloride Carbon Dioxide Anion Gap BUN Creatinine Est GFR (CKD-EPI)AfAm Est GFR (CKD-EPI)NonAf Random Glucose Lactic Acid Calcium Total Bilirubin AST ALT Alkaline Phosphatase Troponin I < 0.02 Total Protein Albumin Urine Color Urine Appearance Urine pH Urine pH (Auto) Ur Specific [place] Specific [place] (Auto) Urine Protein Urine Protein (Auto) Urine Glucose (UA) Glucose (UA)(Auto) Urine Ketones Urine Ketones (Auto) Urine Blood Urine Blood (Auto) Urine Nitrite Urine Nitrite (Auto) Urine Bilirubin Urine Urobilinogen Urine Urobilinogen (Auto) Ur Leukocyte Esterase Leukocyte Esterase (Auto) Urine WBC (Auto) Urine RBC (Auto) Urine Casts (Auto) U Pathogenic Cast Auto U Epithel Cells (Auto) U Sm Round Cell (Auto) Urine Crystals (Auto) Urine Bacteria (Auto) Urine RBC Urine WBC Urine Yeast (Auto) 08/14/19 08/14/19 08/14/19 20:13 20:13 20:13 WBC 11.8 H RBC 4.05 Hgb 11.9 Hct 34.8 L MCV 86.0 MCH 29.3 MCHC 34.1 RDW 16.5 H Plt Count 191 D MPV 9.7 Absolute Neuts (auto) 9.5 H Neutrophils % 80.5 D Lymphocytes % 13.1 D Monocytes % 5.3 Eosinophils % 0.6 Basophils % 0.5 Nucleated RBC % 0 PT with INR INR PTT (Actin FS) VBG pH POC VBG pCO2 POC VBG pO2 VBG HCO3 VBG O2 Sat (Kedar) VBG Base Excess Sodium 133 L Potassium 4.6 Chloride 99 Carbon Dioxide 25 Anion Gap 9 BUN 18.3 H Creatinine 1.3 Est GFR (CKD-EPI)AfAm 72.71 Est GFR (CKD-EPI)NonAf 62.73 Random Glucose 270 H Lactic Acid 1.3 Calcium 9.3 Total Bilirubin 0.5 AST 22 ALT 34 Alkaline Phosphatase 80 Troponin I Total Protein 6.8 Albumin 3.4 Urine Color Urine Appearance Urine pH Urine pH (Auto) Ur Specific [place] Specific [place] (Auto) Urine Protein Urine Protein (Auto) Urine Glucose (UA) Glucose (UA)(Auto) Urine Ketones Urine Ketones (Auto) Urine Blood Urine Blood (Auto) Urine Nitrite Urine Nitrite (Auto) Urine Bilirubin Urine Urobilinogen Urine Urobilinogen (Auto) Ur Leukocyte Esterase Leukocyte Esterase (Auto) Urine WBC (Auto) Urine RBC (Auto) Urine Casts (Auto) U Pathogenic Cast Auto U Epithel Cells (Auto) U Sm Round Cell (Auto) Urine Crystals (Auto) Urine Bacteria (Auto) Urine RBC Urine WBC Urine Yeast (Auto) 02/20/19 02/20/19 20:13 20:13 WBC RBC Hgb Hct MCV MCH MCHC RDW Plt Count MPV Absolute Neuts (auto) Neutrophils % Lymphocytes % Monocytes % Eosinophils % Basophils % Nucleated RBC % PT with INR INR PTT (Actin FS) VBG pH POC VBG pCO2 POC VBG pO2 VBG HCO3 VBG O2 Sat (Kedar) VBG Base Excess Sodium Potassium Chloride Carbon Dioxide Anion Gap BUN Creatinine Est GFR (CKD-EPI)AfAm Est GFR (CKD-EPI)NonAf Random Glucose Lactic Acid Calcium Total Bilirubin AST ALT Alkaline Phosphatase Troponin I Total Protein Albumin Urine Color Cancelled Yellow Urine Appearance Cancelled Clear Urine pH Cancelled Urine pH (Auto) 5.5 Ur Specific [place] Cancelled Specific [place] (Auto) 1.020 Urine Protein Cancelled Urine Protein (Auto) 2+ Urine Glucose (UA) Cancelled Glucose (UA)(Auto) 2+ Urine Ketones Cancelled Urine Ketones (Auto) Negative Urine Blood Cancelled Urine Blood (Auto) Trace-intact Urine Nitrite Cancelled Urine Nitrite (Auto) Negative Urine Bilirubin Cancelled Negative Urine Urobilinogen Cancelled Urine Urobilinogen (Auto) 0.2 Ur Leukocyte Esterase Cancelled Leukocyte Esterase (Auto) Negative Urine WBC (Auto) Cancelled Urine RBC (Auto) Cancelled Urine Casts (Auto) Cancelled U Pathogenic Cast Auto Cancelled U Epithel Cells (Auto) Cancelled U Sm Round Cell (Auto) Cancelled Urine Crystals (Auto) Cancelled Urine Bacteria (Auto) Cancelled Urine RBC No Result Required. Urine WBC No Result Required. Urine Yeast (Auto) Cancelled ASSESSMENT/PLAN: 54 year old male with PMHx of HLD/ HTN, h/o CVA, and IDDM arrived to ED due to wound to his right leg. Patient states that he fell a week ago and scraped his right lower leg. Patient states pain occurs with weight bearing, but denies pain with movement of the leg. Wound getting worse over course of days. # Cellulites # diabetic wound In ED: wbc:11.8, given Vanco and zosyn x1 diphth pertuss given - local wound care - pain management - followup urine, blood, and wound cx - continue with Zosyn q 8 hors - follow up ID #DM - monitor FSBS - Novolog sliding coverage # HTN / HLD - Continue with lisinopril - continue with Lipitor # insomnia - continue with Ambien Problem List - Problem (1) Cellulitis Code(s): L03.90 - CELLULITIS, UNSPECIFIED (2) Leg wound, right Code(s): S81.801A - UNSPECIFIED OPEN WOUND, RIGHT LOWER LEG, INITIAL ENCOUNTER (3) Diabetes mellitus Code(s): E11.9 - TYPE 2 DIABETES MELLITUS WITHOUT COMPLICATIONS Qualifiers: Diabetes mellitus type: type 2 Diabetes mellitus chcf insulin use: without terminal system operator use Diabetes mellitus complication status: with neurologic complications Diabetes mellitus complication detail: with other neurological complication Qualified Code(s): E11.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 - New Patient This patient is new to me today: Yes Date on this admission: 02/21/19 - Critical Care Critical Care patient: No
[2019-02-21] MEDS: INSULIN (NOVOLOG) ASPART 100 UNITS/ML 10ML VIAL SQ SCH ×2 (07:45→17:02)
--- NOTE | 2019-02-21 08:00 | PN ---
Progress Note (short form) - Note Progress Note: Vital Signs Period Temp Pulse Resp BP Sys/Rudd Pulse Ox Last 24 Hr 99.5 F 77-110 16-17 127-154/79-81 96-100 CBC, BMP 02/20/19 20:13 02/20/19 20:13 lactic acid 1.3 s1s2 rrr lung cta abd soft nt right lower ext mid calf deep abrasion with surrounding erythema/warmth/ tenderness, dry, no discharge left lower ext mid calf with smaller abrasion and minimal erythema ++pitting leg edema right > left [id number] 54 yo man with cad/htn/iddm/cva admitted for cellulitis after a fall and abrasion to the back of his legs 6 days ago, started taking amoxicillin 4 days ago, but noted worsening erythema and swelling so came to er to be evaluated blood cultures taken iv abx id evaluation requested us r/o DVT dvt prophylaxis continue other home medications
[2019-02-21] MEDS ORDERED: PIPERACILLIN/TAZOB 3.375 GM 3.375 GM in DEXTROSE 5%-WATER - 50 ML IVPB SCH (10:00)
[2019-02-21] MEDS ORDERED: ASPIRIN 81 MG CHEWABLE TABLETS PO SCH (10:00)
[2019-02-21] MEDS ORDERED: HEPARIN NA (PORCINE) 5,000 UNITS/ML 1ML VIAL SQ SCH (10:00)
[2019-02-21] MEDS ORDERED: GABAPENTIN 300 MG CAPSULE (FP) PO SCH (10:00)
[2019-02-21] MEDS ORDERED: LISINOPRIL 10 MG TABLET (FP) PO SCH (10:00)
[2019-02-21] MEDS ORDERED: PIPERACILLIN/TAZOB 3.375 GM 3.375 GM/50 ML BAG IVPB ONE (10:38)
--- NOTE | 2019-02-21 11:06 | EKG ---
Test Reason : Blood Pressure : / mmHG Vent. Rate : 099 BPM Atrial Rate : 099 BPM P-R Int : 134 ms QRS Dur : 088 ms QT Int : 364 ms P-R-T Axes : 031 -09 040 degrees QTc Int : 467 ms NORMAL SINUS RHYTHM NORMAL ECG WHEN COMPARED WITH ECG OF 08-JAN-2018 08:41, NO SIGNIFICANT CHANGE WAS FOUND Confirmed by ELVIE ORTIZ MD ([id number]) on 02/21/2019 11:05:46 AM Referred By: Confirmed By:ELVIE ORTIZ MD
--- NOTE | 2019-02-21 15:00 | PN ---
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 fell last week (no LOC), scraped his leg on some bricks outside last Monday he cleaned the wound with peroxide and took some ampicillin he had leg has gotten redder no fevers amble to ambulate received tetanus toxoid in ER vanco/zosyn cellulitis secondary to abrasion diabetes smoking cessation advised switch to cefazolin no resistant organisms no recent admissions f/u cultures Problem List - Problems (1) Cellulitis Code(s): L03.90 - CELLULITIS, UNSPECIFIED (2) Diabetes mellitus Code(s): E11.9 - TYPE 2 DIABETES MELLITUS WITHOUT COMPLICATIONS Qualifiers: Diabetes mellitus type: type 2 Diabetes mellitus exterminator helper insulin use: without exterminator helper use Diabetes mellitus complication status: with neurologic complications Diabetes mellitus complication detail: with other neurological complication Qualified Code(s): E11.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 (3) Smoking Code(s): F17.200 - NICOTINE DEPENDENCE, UNSPECIFIED, UNCOMPLICATED
--- NOTE | 2019-02-21 15:25 | CONS ---
INFECTIOUS DISEASE CONSULTATION DATE OF CONSULTATION: DATE OF DICTATION: 02/21/2019 REQUESTING PHYSICIAN: Renate Currie MD This is a 54-year-old man with a past medical history of coronary artery disease, hypertension, diabetes. He is status post CVA 2 years ago, and he has a residual left-sided weakness. He fell last Monday, and he scraped his leg on some bricks outside. He denies any loss of consciousness. This is his right lower extremity. He cleaned the area with peroxide which he continued to do all week, had some ampicillin which he started taking. The wound became redder, and he came to the ER. There have been no fevers or chills. He denies any drainage from the wound. In the ER, he was given vancomycin and Zosyn. He was given tetanus shot, and he had cultures sent. PAST MEDICAL HISTORY: Notable for diabetes, hypertension, hyperlipidemia, and CVA. SURGICAL HISTORY: Unremarkable. SOCIAL HISTORY: He had stopped smoking 2 years ago, but recently resumed. He smokes about 5 cigarettes a day. No history of alcohol or substance use. FAMILY HISTORY: Notable for diabetes in both parents. ALLERGIES: He has no known drug allergies. MEDICATIONS AT HOME: Include gabapentin, atorvastatin, Trulicity, aspirin, Ambien, amoxicillin, and Prinivil. REVIEW OF SYSTEMS: Unremarkable. He is able to ambulate. At baseline, he ambulates without any assist devices, though does use a cane if he has to walk long distances. There is no drainage from the wound. PHYSICAL EXAMINATION: General: He is awake and alert. Vital Signs: Temperature is 99.5. Pulse on admission was 110, now 88. Blood pressure 106/67. Respiratory rate 16. He is saturating 96%. HEENT: He is normocephalic. His eyes are anicteric. Neck: Supple. Lungs: Clear to auscultation. Heart: Regular rate and rhythm. Abdomen: Soft, nontender. Extremities: Right lower mid-calf, he has an abrasion with surrounding erythema. The middle has a dry yellow eschar. The left lower extremity mid-calf, he has a much smaller abrasion with almost no erythema. He has edema of his legs, right greater than left. LABORATORY DATA: Labs are notable for a white count of 11.8, hemoglobin 11.9, platelets are 191. BUN is 18 and creatinine 1.3, with normal LFTs. Cultures are pending. He had a duplex of his legs that was negative for deep venous thrombosis and a chest x-ray that shows no acute chest pathology. In summary, this is a 54-year-old man with: 1. Cellulitis secondary to abrasion. He has had no hospitalization since the cerebrovascular accident the last 2 years. There is no history of prior episodes of skin infections. He has no history of any resistant organisms. Given this, I would suggest at this time that we switch him to cefazolin and follow up his cultures. 2. History of diabetes. 3. Cerebrovascular accident. 4. Active cigarette smoking. Smoking cessation advised. Further recommendations to follow. RYAN BEACH M.D. [id number]
[2019-02-21] MEDS ORDERED: CEFAZOLIN 2 GM/D5W 2 GM/50 ML ML IVPB SCH (18:00)
[2019-02-21 18:06] VITALS: BP 126/76; PULSE 78; TEMP 98
[2019-02-21] MEDS ORDERED: VANCOMYCIN 1,000 MG in DEXTROSE 5%-WATER - 250 ML IVPB SCH (20:15)
[2019-02-21] MEDS ORDERED: VANCOMYCIN 1 GRAM (PRE-DOCKED) 1,000 MG/250 ML BAG IVPB SCH (20:15)
[2019-02-21] MEDS ORDERED: PIPERACILLIN/TAZOB 2.25 GM 2.25 GM in DEXTROSE 5%-WATER - 50 ML IVPB SCH (20:15)
[2019-02-21] MEDS ORDERED: ZOLPIDEM TARTRATE 5 MG TABLET PO SCH (22:00)
[2019-02-21] MEDS ORDERED: ATORVASTATIN CA 40 MG TABLET (FP) PO SCH (22:00)
[2019-02-22] MEDS ORDERED: CEFAZOLIN 1 GM in DEXTROSE 5%-WATER - 50 ML IVPB SCH (02:00)
--- NOTE | 2019-02-26 04:47 | DS ---
Physical Examination Vital Signs: Vital Signs Temperature 98 F 02/21/19 17:00 Pulse Rate 78 02/21/19 17:00 Respiratory Rate 18 02/21/19 17:00 Blood Pressure 126/76 02/21/19 17:00 O2 Sat by Pulse Oximetry (%) 96 02/21/19 10:20 Labs: CBC, BMP 02/20/19 20:13 02/20/19 20:13 Discharge Summary Reason For Visit: CELLULITIS Hospital Course: 54 yo man with cad/htn/iddm/cva admitted for cellulitis after a fall and abrasion to the back of his legs, started iv antibiotics upon admission. patient left the floor without notifying staff due to family urgency. Condition: Stable - Instructions Disposition: ELOPED
== END 2019-02-21 17:30 | disposition left against medical advice (07) | DRG 383 ==
LOC: JER 19:37 → JERBED 22:35 → J5S 02-21 15:31
PROVIDERS: ADMIT Internal Medicine; ATTEND Internal Medicine
DX: L03.115 Cellulitis of right lower limb (principal); I69.354 Hemiplegia and hemiparesis following cerebral infarction affecting left non-dominant side; I10 Essential (primary) hypertension; E11.9 Type 2 diabetes mellitus without complications; E78.5 Hyperlipidemia, unspecified; I25.10 Atherosclerotic heart disease of native coronary artery without angina pectoris; Z79.4 Long term (current) use of insulin; F17.210 Nicotine dependence, cigarettes, uncomplicated; S80.811A Abrasion, right lower leg, initial encounter; W01.198A Fall on same level from slipping, tripping and stumbling with subsequent striking against other object, initial encounter; Y93.89 Activity, other specified; Y92.89 Other specified places as the place of occurrence of the external cause; Y99.8 Other external cause status; G47.00 Insomnia, unspecified
CPT/HCPCS: 36415; 71045-TC-FY; 80053; 81003; 81015; 82803; 82962; 83605; 84484; 85025; 85610; 85730; 87040; 87086; 90715; 93005; 93010; 93970-TC; 99283-25; J0131; J1644; J7030

== ENCOUNTER 2019-02-21 19:18 | Inpatient (IN) | payer OTHER ==
--- NOTE | 2019-02-21 19:25 | PDOC ---
Rapid Medical Evaluation Time Seen by Provider: 02/21/19 19:24 Medical Evaluation: Allergies Allergy/AdvReac Type Severity Reaction Status Date / Time No Known Allergies Allergy Verified 02/20/19 19:44 02/21/19 19:24 HPI: pt admitted but left hospital PE: No gross deficits ORDERS: Nothing Discharge Disposition - Diagnosis Ulcer - Referrals Referrals: Fozia Paulino MD [Primary Care Provider] - - Patient Instructions - Post Discharge Activity
--- NOTE | 2019-02-21 19:37 | PDOC ---
History of Present Illness - General Chief Complaint: Wound Stated Complaint: INFECTION Time Seen by Provider: 02/21/19 19:24 History Source: Patient Exam Limitations: No Limitations - History of Present Illness Initial Comments: 02/21/19 19:32 Patient is a 54M with history of DM, HTN here today with diabetic leg wound. Patient was admitted last night, and briefly walked out of the hospital to get a cab for his . Patient was marked as eloped. Patient states that he feels better today and that the swelling had gone down. Denies fevers, chills, nausea , vomiting, SOB, CP. Past History - Past Medical History Allergies/Adverse Reactions: Allergies Allergy/AdvReac Type Severity Reaction Status Date / Time No Known Allergies Allergy Verified 02/21/19 19:28 Home Medications: Ambulatory Orders Gabapentin 300 mg PO BID 11/26/16 Atorvastatin Ca [Lipitor] 40 mg PO HS 01/17/17 Dulaglutide [Trulicity] 1.5 mg SQ WEEKLY 01/17/17 Aspirin [ASA -] 81 mg PO DAILY tab.chew 01/19/17 Zolpidem Tartrate [Ambien] 5 mg PO HS 01/08/18 Amoxicillin - [Amoxicillin 500mg Capsule -] 500 mg PO TID #15 capsule 01/10/18 Lisinopril [Prinivil] 10 mg PO DAILY #0 tablet 01/10/18 Anemia: No Asthma: No CVA: Yes COPD: No DVT: No Diabetes: Yes HTN: Yes Hypercholesterolemia: Yes Psychiatric Problems: Yes - Surgical History Appendectomy: No Cholecystectomy: No GI Surgery: No Lung Surgery: No Orthopedic Surgery: Yes - Family Disease History Family Disease History: Diabetes: Mother - Immunization History Immunization Up to Date: No - Suicide/Smoking/Psychosocial Hx Smoking Status: No Smoking History: Unknown if ever smoked Have you smoked in the past 12 months: No Number of Cigarettes Smoked Daily: 6 Information on smoking cessation initiated: No 'Breaking Loose' booklet given: 01/17/17 Hx Alcohol Use: No Drug/Substance Use Hx: No Substance Use Type: None Hx Substance Use Treatment: No Review of Systems - Review of Systems Able to Perform ROS?: Yes Comments:: 02/21/19 19:36 GENERAL/CONSTITUTIONAL: No fever or chills. No weakness. CARDIOVASCULAR: No chest pain or shortness of breath RESPIRATORY: No cough, wheezing, or hemoptysis. GASTROINTESTINAL: No nausea, vomiting, diarrhea or constipation. GENITOURINARY: No dysuria, frequency, or change in urination. MUSCULOSKELETAL: +R leg swelling No neck or back pain. SKIN: No rash ALLERGIC/IMMUNOLOGIC: No hives or skin allergy. *Physical Exam - Vital Signs Last Vital Signs Temp Pulse Resp BP Pulse Ox 99.6 F 100 H 16 163/79 100 02/21/19 19:25 02/21/19 19:25 02/21/19 19:25 02/21/19 19:25 02/21/19 19:25 - Physical Exam Comments: 02/21/19 19:37 GENERAL: Awake, alert, and fully oriented, in no acute distress HEAD: No signs of trauma, normocephalic, atraumatic EYES: PERRLA, EOMI, sclera anicteric, conjunctiva clear NECK: Normal ROM, supple, no lymphadenopathy, JVD, or masses LUNGS: No distress, speaks full sentences, clear to auscultation bilaterally HEART: Regular rate and rhythm, normal S1 and S2, no murmurs, rubs or gallops, peripheral pulses normal and equal bilaterally. EXTREMITIES: R leg wound 5x4cm NEUROLOGICAL: Cranial nerves II through XII grossly intact. Normal speech, no focal sensorimotor deficits SKIN: Warm, Dry, normal turgor, no rashes or lesions noted. Medical Decision Making - Medical Decision Making 02/21/19 19:38 Patient is 54M with leg wound, admitted yesterday. Vitals stable. Will admit back to floor. Care provider contacted. 02/21/19 19:58 Case d/w hospitalist, accepted. *DC/Admit/Observation/Transfer Diagnosis at time of Disposition: Cellulitis - Discharge Dispostion Condition at time of disposition: Stable Decision to Admit order: Yes - Referrals Referrals: Fozia Paulino MD [Primary Care Provider] - - Patient Instructions - Post Discharge Activity
[2019-02-21] MEDS ORDERED: PATIENT'S OWN MEDICATION (NON-FORMULARY) (Dulaglutide [Trulicity] 1.5 MG) SQ SCH (20:15)
[2019-02-21] MEDS ORDERED: VANCOMYCIN 1,000 MG in DEXTROSE 5%-WATER - 250 ML IVPB SCH (20:15)
[2019-02-21] MEDS ORDERED: PIPERACILLIN/TAZOB 2.25 GM 2.25 GM in DEXTROSE 5%-WATER - 50 ML IVPB SCH ×2 (20:15→21:00)
--- NOTE | 2019-02-21 20:18 | PDOC ---
Documentation entered by Sherri Malagon SCRIBE, acting as scribe for Mayank Jorgensen MD. Mayank Jorgensen MD: This documentation has been prepared by the Vesna hartley Brenda, SCRIBE, under my direction and personally reviewed by me in its entirety. I confirm that the documentation accurately reflects all work, treatment, procedures, and medical decision making performed by me. Attending Attestation - Resident Resident Name: LawDavid - ED Attending Attestation I have performed the following: I have examined & evaluated the patient, The case was reviewed & discussed with the resident, I agree w/resident's findings & plan, Exceptions are as noted - HPI HPI: 02/21/19 19:55 The patient is a 54 year old male, with a significant PMH of DM, HLD and HTN, who presents to the emergency department with a diabetic right leg wound. Patient reports falling 1 week ago, scraping his leg. Patient reports taking amoxicillin for the wound, with no relief. As per patient, he was admitted last night and quickly walked out to get a cab for his , at which time he was marked as eloped. The patient denies head trauma, LOC or any other injuries. Denies chest pain, shortness of breath, headache and dizziness. Denies fever, chills, nausea, vomiting, diarrhea and constipation. Denies any urinary symptoms. . Allergies: NKA Past surgical history: unknown orthopedic surgery Family history: Mother with diabetes. PCP: [facility] - Physicial Exam PE: 02/21/19 20:19 Agree with exam as documented by resident - Medical Decision Making 02/21/19 20:19 Patient was admitted for care of a diabetic foot wound and was accidently marked as eloped/discharged. He still requires further in patient care. In patient team notified, case was presented and accepted. Admit
[2019-02-21] MEDS ORDERED: VANCOMYCIN 1 GRAM (PRE-DOCKED) 1,000 MG/250 ML BAG IVPB ONE (20:30)
[2019-02-21] MEDS ORDERED: oxyCODONE HCL 5 MG TABLET PO ONE (20:31)
[2019-02-21] MEDS ORDERED: ACETAMINOPHEN 325 MG TABLET (FP) PO ONE (20:31)
--- NOTE | 2019-02-21 20:33 | HP ---
CHIEF COMPLAINT: right lower extremity pain PCP:Dr. Donahue HISTORY OF PRESENT ILLNESS: This is a 54 year old male with past medical history significant for hyperlipidemia, hypertension, h/o CVA, and IDDM who arrived to ED yesterday for a right lower extremity wound. As per prior admission note patient fell and found to have an abrasion to his right lower leg 6 days ago, started taking amoxacillin but noted worsening erythema and swelling so came to ER to be evaluated. He was admitted to the hospital last night and he was seen by Infectious Diseases earlier today. He was started on on IV Cefazolin by ID. He went outside today to call a cab for his and nursing staff were not aware. He was discharged from the hospital as an elopement. Patient is being readmitted for treatment of right lower extremity cellulitis/abrasion. Recent Travel: denies PAST MEDICAL HISTORY: hyperlipidemia hypertension h/o CVA IDDM PAST SURGICAL HISTORY: denies major surgeries Social History: Smoking: yes, smokes 6-7 cigarettes a day Alcohol:no Drugs: no Family History: Father and mother had diabetes Allergies No Known Allergies Allergy (Verified 02/21/19 19:28) HOME MEDICATIONS: Home Medications Medication Instructions Recorded Gabapentin 300 mg PO BID 11/26/16 Atorvastatin Ca [Lipitor] 40 mg PO HS 01/17/17 Dulaglutide [Trulicity] 1.5 mg SQ WEEKLY 01/17/17 Aspirin [ASA -] 81 mg PO DAILY tab.chew 01/19/17 Zolpidem Tartrate [Ambien] 5 mg PO HS 01/08/18 Amoxicillin - [Amoxicillin 500mg 500 mg PO TID #15 capsule 01/10/18 Capsule -] Lisinopril [Prinivil] 10 mg PO DAILY #0 tablet 01/10/18 REVIEW OF SYSTEMS CONSTITUTIONAL: Absent: fever, chills, diaphoresis, generalized weakness, malaise, loss of appetite, weight change HEENT: Absent: rhinorrhea, nasal congestion, throat pain, throat swelling, difficulty swallowing, mouth swelling, ear pain, eye pain, visual changes CARDIOVASCULAR: Absent: chest pain, syncope, palpitations, irregular heart rate, lightheadedness , peripheral edema RESPIRATORY: Absent: cough, shortness of breath, dyspnea with exertion, orthopnea, wheezing, stridor, hemoptysis GASTROINTESTINAL: Absent: abdominal pain, abdominal distension, nausea, vomiting, diarrhea, constipation, melena, hematochezia GENITOURINARY: Absent: dysuria, frequency, urgency, hesitancy, hematuria, flank pain, genital pain MUSCULOSKELETAL: Absent: myalgia, arthralgia, joint swelling, back pain, neck pain SKIN: Absent: rash, itching, pallor, redness and pain to right lower extremity HEMATOLOGIC/IMMUNOLOGIC: Absent: easy bleeding, easy bruising, lymphadenopathy, frequent infections ENDOCRINE: Absent: unexplained weight gain, unexplained weight loss, heat intolerance, cold intolerance NEUROLOGIC: Absent: headache, focal weakness or paresthesias, dizziness, unsteady gait, seizure, mental status changes, bladder or bowel incontinence PSYCHIATRIC: Absent: anxiety, depression, suicidal or homicidal ideation, hallucinations. PHYSICAL EXAMINATION Vital Signs - 24 hr 02/21/19 19:25 Temperature 99.6 F Pulse Rate 100 H Respiratory 16 Rate Blood Pressure 163/79 O2 Sat by Pulse 100 Oximetry (%) GENERAL: awake alert and fully oriented no acute distress HEAD: normal with no signs of trauma EYES: pupils equal round and reactive to light EARS, NOSE, THROAT: ears normal, nares patent NECK: normal range of motion, supple LUNGS: breath sounds equal and clear to auscultation bilaterally no wheezes and no crackles no accessory muscle use HEART: regular rate and rhythm normal S1 and S2 ABDOMEN: soft nontender not distended normoactive bowel sounds, no guarding, no rebound, no masses. No hepatomegaly or splenomegaly. MUSCULOSKELETAL: Normal range of motion at all joints. No bony deformities or tenderness. No CVA tenderness. UPPER EXTREMITIES: 2+ pulses, warm, well-perfused no cyanosis no peripheral edema LOWER EXTREMITIES: 2+ pulses, warm, no peripheral edema, right lower extremity redness with ulcer noted NEUROLOGICAL: normal speech PSYCHIATRIC: cooperative good eye contact appropriate mood and affect SKIN: warm dry normal turgor no rashes or lesions noted ASSESSMENT/PLAN: 54 year old male with past medical history significant for hyperlipidemia, hypertension, h/o CVA, and IDDM who arrived to ED yesterday due to wound to his right leg. He was admitted to the hospital last night and he was seen by Infectious Diseases earlier today. He was started on IV Cefazolin as per ID recommendations. He went outside to call a cab for his and nursing staff were not aware and he was discharged from the hospital as an elopement. Patient is being readmitted for treatment of right lower extremity cellulitis/ abrasion. #1 Right Lower Extremity Cellulitis Secondary to an Abrasion/Diabetes Mellitus Continue with IV Cefazolin as per ID Continue with wound care and irrigate wound with NS every 6 hr ID consult appreciated and ID following patient #2 Hyperlipidemia Continue with atorvastatin #3 Hypertension Controlled Continue with lisinopril #4 IDDM Accucheks before meals and at bedtime Insulin(novolin) as per sliding scale #5 Hx of CVA Continue with aspirin and statin DVT low risk, patient is ambulatory apply SCD's Visit type - Emergency Visit Emergency Visit: Yes ED Registration Date: 02/21/19 Care time: The patient presented to the Emergency Department on the above date and was hospitalized for further evaluation of their emergent condition. - New Patient This patient is new to me today: Yes Date on this admission: 02/22/19 - Critical Care Critical Care patient: No
[2019-02-21] MEDS ORDERED: DEXTROSE 5%-WATER - 50 ML IVPB ONE (21:02)
[2019-02-21] MEDS ORDERED: PIPERACILLIN/TAZOBACTAM 2.25 GM VIAL IVPB ONE (21:02)
[2019-02-21] MEDS ORDERED: ATORVASTATIN CA 40 MG TABLET (FP) PO SCH (22:00)
[2019-02-21] MEDS ORDERED: ZOLPIDEM TARTRATE 5 MG TABLET PO SCH (22:00)
[2019-02-21] MEDS: GABAPENTIN 300 MG CAPSULE (FP) PO SCH (23:37)
[2019-02-22 04:38] VITALS: BMI 31.8
[2019-02-22] MEDS ORDERED: INSULIN SLIDING SCALE (NOVOLOG) 1 VIAL SQ SCH (07:00)
--- NOTE | 2019-02-22 08:05 | PN ---
Progress Note (short form) - Note Progress Note: events noted Vital Signs Period Temp Pulse Resp BP Sys/Rudd Pulse Ox Last 24 Hr 98.1 F-99.6 F 70-100 16-20 111-163/59-89 97-100 s1s2 rrr lung cta abd soft nt right lower ext mid calf deep abrasion with surrounding erythema/warmth/ tenderness, dry, no discharge, much better today +pitting leg edema right > left improved [id number] 54 yo man with cad/htn/iddm/cva admitted for cellulitis after a fall and abrasion to the back of his legs blood cultures taken iv abx id evaluation appreciated dvt prophylaxis continue other home medications
[2019-02-22 08:19] LABS: HEMATOCRIT 31.9 % (35.4-49); HEMOGLOBIN 10.9 GM/dL (11.7-16.9); MCH 29.3 pg (25.7-33.7); MEAN CELL VOLUME 86.2 fl (80-96); MEAN PLT VOLUME 9.4 fl (7.5-11.1); PLATELET COUNT 162 K/MM3 (134-434); RBC 3.71 M/mm3 (4.00-5.60); RDW 15.9 % (11.9-15.9); WHITE BLOOD COUNT 6.6 K/mm3 (4.0-10.0)
[2019-02-22 08:44] LABS: BLOOD UREA NITROGEN 13.6 mg/dL (7-18); CALCIUM 9.3 mg/dL (8.5-10.1); CREATININE 1.2 mg/dL (0.55-1.3)
[2019-02-22] MEDS ORDERED: ceFAZolin SODIUM 1 GM VIAL ONE (09:51)
[2019-02-22] MEDS ORDERED: DEXTROSE 5%-WATER - 50 ML IVPB ONE (09:51)
[2019-02-22] MEDS ORDERED: HEPARIN NA (PORCINE) 5,000 UNITS/ML 1ML VIAL SQ SCH (10:00)
[2019-02-22] MEDS ORDERED: CEFAZOLIN 1 GM in DEXTROSE 5%-WATER - 50 ML IVPB SCH (10:00)
[2019-02-22] MEDS ORDERED: LISINOPRIL 10 MG TABLET (FP) PO SCH (10:00)
[2019-02-22] MEDS ORDERED: ASPIRIN 81 MG CHEWABLE TABLETS PO SCH (10:00)
[2019-02-22] MEDS: GABAPENTIN 300 MG CAPSULE (FP) PO SCH (10:31)
[2019-02-22] MEDS ORDERED: CEFAZOLIN 2 GM/D5W 2 GM/50 ML ML IVPB SCH (11:37)
--- NOTE | 2019-02-22 11:41 | PN ---
Progress Note (short form) - Note Progress Note: feels improved less leg swelling less erythema no fevers Vital Signs Period Temp Pulse Resp BP Sys/Rudd Pulse Ox Last 24 Hr 98.1 F-99.6 F 70-100 16-20 111-163/59-103 97-100 cor-rrr lungs clear abd soft,nt ext left leg scab unchanged, surrounding erythema is improved, swelling has decreased CBC, BMP 02/22/19 07:40 02/22/19 07:40 blood cultures are negative after 24 hours a/p cellulitis improving, swelling improving continue cefazolin can switch to keflex 500 tid when ready for discharge 9next 24-48 hours)
[2019-02-22 15:26] VITALS: BP 136/67; PULSE 86; TEMP 99
== END 2019-02-22 17:10 | disposition left against medical advice (07) | DRG 380 ==
LOC: JER 19:18 → JERBED 19:59 → J5S 20:23
PROVIDERS: ADMIT Internal Medicine; ATTEND Internal Medicine
DX: E11.622 Type 2 diabetes mellitus with other skin ulcer (principal); L03.115 Cellulitis of right lower limb; E78.5 Hyperlipidemia, unspecified; I10 Essential (primary) hypertension; L97.919 Non-pressure chronic ulcer of unspecified part of right lower leg with unspecified severity
CPT/HCPCS: 36415; 80048; 82962; 85027; 99285-25; J1644

== ENCOUNTER 2019-07-28 05:53 | Inpatient (IN) | payer OTHER ==
--- NOTE | 2019-07-28 07:16 | PDOC ---
History of Present Illness - General Chief Complaint: CVA/TIA Stated Complaint: R/O CVA Time Seen by Provider: 07/28/19 07:11 History Source: Patient Exam Limitations: No Limitations - History of Present Illness Initial Comments: 07/28/19 07:37 54 yo M with a hx of CVA (2017; residual left arm and leg weakness), HTN, and DM LAY presents to the emergency department with left sided weakness with sudden onset at approximately 3:30 am today. Per the patient, he was in [employer] drinking a coffee when he felt the sudden onset of weakness. Per the patient, this weakness was more pronounced than his previous deficits. In addition, he had an onset of headache, nausea, and facial weakness with numbness and tingling throughout the left side of the face, arm, and leg. Denies trauma. Endorses taking aspirin, but denies other AC or anti-platelets. Denies the following: fever, chest pain, SOB, vomiting, visual disturbance, ears /nose/throat, abdominal pain, dysuria, hematuria, diarrhea, and hematochezia. Allergies: NKDA Past History - Past Medical History Allergies/Adverse Reactions: Allergies Allergy/AdvReac Type Severity Reaction Status Date / Time No Known Allergies Allergy Verified 07/28/19 06:44 Home Medications: Ambulatory Orders Gabapentin 300 mg PO BID 11/26/16 Atorvastatin Ca [Lipitor] 40 mg PO HS 01/17/17 Dulaglutide [Trulicity] 1.5 mg SQ WEEKLY 01/17/17 Aspirin [ASA -] 81 mg PO DAILY tab.chew 01/19/17 Zolpidem Tartrate [Ambien] 5 mg PO HS 01/08/18 Amoxicillin - [Amoxicillin 500mg Capsule -] 500 mg PO TID #15 capsule 01/10/18 Lisinopril [Prinivil] 10 mg PO DAILY #0 tablet 01/10/18 Anemia: No Asthma: No CVA: Yes COPD: No DVT: No Diabetes: Yes HTN: Yes Hypercholesterolemia: Yes Psychiatric Problems: Yes - Surgical History Appendectomy: No Cholecystectomy: No GI Surgery: No Lung Surgery: No Orthopedic Surgery: Yes - Immunization History Immunization Up to Date: No - Psycho Social/Smoking Cessation Hx Smoking Status: No Smoking History: Former smoker Have you smoked in the past 12 months: Yes Number of Cigarettes Smoked Daily: 6 Information on smoking cessation initiated: No 'Breaking Loose' booklet given: 01/17/17 Hx Alcohol Use: No Drug/Substance Use Hx: No Substance Use Type: None Hx Substance Use Treatment: No *Physical Exam - Vital Signs Last Vital Signs Temp Pulse Resp BP Pulse Ox 98 F 93 H 19 142/82 100 07/28/19 06:00 07/28/19 06:00 07/28/19 06:00 07/28/19 06:00 07/28/19 06:00 Discharge - Follow up/Referral Referrals: Fozia Paulino MD [Primary Care Provider] - - Patient Discharge Instructions - Post Discharge Activity
[2019-07-28] MEDS ORDERED: SODIUM CHLORIDE 1,000 ML IV SCH (07:30)
--- NOTE | 2019-07-28 07:44 | PDOC ---
History of Present Illness - General Chief Complaint: CVA/TIA Stated Complaint: R/O CVA Time Seen by Provider: 07/28/19 07:11 History Source: Patient Exam Limitations: No Limitations - History of Present Illness Initial Comments: 54 yo M with a hx of CVA (2017; residual left arm and leg weakness), HTN, and DM LAY presents to the emergency department with left sided weakness with sudden onset at approximately 3:30 am today. Per the patient, he was in [employer] drinking a coffee when he felt the sudden onset of weakness. Per the patient, this weakness was more pronounced than his previous deficits. In addition, he had an onset of headache, nausea, and facial weakness with numbness and tingling throughout the left side of the face, arm, and leg. Denies trauma. Endorses taking aspirin, but denies other AC or anti-platelets. Denies the following: fever, chest pain, SOB, vomiting, visual disturbance, ears /nose/throat, abdominal pain, dysuria, hematuria, diarrhea, and hematochezia. Allergies: NKDA 07/28/19 07:44 07/28/19 10:17 tPA Exclusion checklist 3-4.5h - Time Elapsed Date last known well: 07/28/19 Time last known well: 03:30 Elaspsed time: 1 Day(s) and 3 Hour(s) and 3 Minutes - Thrombolytic Therapy Candidate Is patient eligible for thrombolytic therapy: No - Exclusion Criteria 3-4.5 hr SBP greater than 185 or DBP greater than 110mmHg despite tx: No Recent IC/spinal surgery,head trauma or stroke<3mos.: No Hx IC hemorrhage, IC neoplasm, AV malformation or aneurysm: No Active internal bleeding: No Blding diathesis(low plt ct, inc PTT,INR>1.7 or use of NOAC): No Symptoms suggest subarachnoid hemorrhage: No CT demonstrates multilobar infarct(>1/3 cerebral hemiphere): No Arterial puncture at noncompressible site in previous 7 days: No Blood glucose concentration less than 50mg/dL (2.7mmol/L): No - Relative Exclusion Criteria 3-4.5 hr Life expectancy <1 yr or severe co-morbid illness: No : No Patient/family refused: No Rapid improvement: No Stroke severity too mild: Yes Recent acute ID (w/in previous 3 months): No Seizure at onset with postictal residual neuro impairments: No Major surgery or serious trauma w/in previous 14 days: No Recent GI or hemorrhage (w/in previous 21 days): No - Add'l Relative Exclusion 3-4.5 hr Age > 80: No Hx of both diabetes AND prior ischemic stroke: Yes Taking an oral anticoagulant regardless of INR: No NIHSS >25: No - Ineligibility reason(s) Reasons No tPA given: See reason(s) noted above NIH Stroke Scale - Last Known Well Date/Time & Onset Date Last Known Well: 07/28/19 Time Last Known Well: 03:30 - Initial Evaluation Level of consciousness: Alert Ask patient the month and their age: Answers both correctly Ask patient to open & close eyes; make fist and let go: Obeys both correctly Best gaze (horizontal eye movement): Normal Visual field testing: No visual field loss Facial paresis (Show teeth/raise eyebrows/close eyes tight): Normal symmetrical movement Motor Function: Left Arm: Drift Motor Function: Right Arm: Normal (extends arm 90 (or 45) degrees for 10 seconds without drift Motor Function: Left Leg: Drift Motor Function: Right Leg: Normal (extends leg 30 degrees for 5 seconds without drift) Limb Ataxia: No ataxia Sensory(Use pinprick test arms,legs,trunk,face/side to side): Mild to moderate decrease in sensation Best language (Describe picture, name items, read sentences): No Aphasia Dysarthria (read several words): Normal articulation Extinction and Inattention: No abnormality - Total Score NIH Stroke Scale Score: 3 Past History - Past Medical History Allergies/Adverse Reactions: Allergies Allergy/AdvReac Type Severity Reaction Status Date / Time No Known Allergies Allergy Verified 07/28/19 06:44 Home Medications: Ambulatory Orders Gabapentin 300 mg PO BID 11/26/16 Atorvastatin Ca [Lipitor] 40 mg PO HS 01/17/17 Dulaglutide [Trulicity] 1.5 mg SQ WEEKLY 01/17/17 Aspirin [ASA -] 81 mg PO DAILY tab.chew 01/19/17 Zolpidem Tartrate [Ambien] 5 mg PO HS 01/08/18 Lisinopril [Prinivil] 10 mg PO DAILY #0 tablet 01/10/18 Glimepiride 4 mg PO BID 07/28/19 Insulin Glargine,Hum.rec.anlog [Basaglar Kwikpen U-100] 40 unit SQ DAILY Oxycodone HCl/Acetaminophen [Percocet 5-325 mg Tablet] 1 tab PO BID 07/28/19 metFORMIN HCL [Metformin HCl] 1,000 mg PO BID 07/28/19 Anemia: No Asthma: No CVA: Yes COPD: No DVT: No Diabetes: Yes HTN: Yes Hypercholesterolemia: Yes Psychiatric Problems: Yes - Surgical History Appendectomy: No Cholecystectomy: No GI Surgery: No Lung Surgery: No Orthopedic Surgery: Yes - Immunization History Immunization Up to Date: No - Psycho Social/Smoking Cessation Hx Smoking Status: No Smoking History: Former smoker Have you smoked in the past 12 months: Yes Number of Cigarettes Smoked Daily: 6 Information on smoking cessation initiated: No 'Breaking Loose' booklet given: 01/17/17 Hx Alcohol Use: No Drug/Substance Use Hx: No Substance Use Type: None Hx Substance Use Treatment: No Review of Systems - Review of Systems Able to Perform ROS?: Yes Is the patient limited Mexican proficient: No Constitutional: No: Chills, Diaphoresis, Fever HEENTM: No: Eye Pain, Ear Pain, Nose Pain, Throat Pain, Mouth Pain Respiratory: No: Cough, Shortness of Breath, Hemoptysis Cardiac (ROS): No: Chest Pain, Lightheadedness, Palpitations, Syncope, Chest Tightness ABD/GI: No: Constipated, Diarrhea, Nausea, Poor Appetite, Poor Fluid Intake, Rectal Bleeding, Vomiting, Tarry Stools : No: Burning, Dysuria, Pain Musculoskeletal: No: Back Pain, Joint Pain Integumentary: No: Bruising, Erythema, Rash Neurological: Yes: Headache, Numbness, Tingling, Weakness Psychiatric: No: Change in Appetite Endocrine: No: Unexplained Weight Loss Hematologic/Lymphatic: No: Anemia *Physical Exam - Vital Signs Last Vital Signs Temp Pulse Resp BP Pulse Ox 98 F 93 H 19 142/82 100 07/28/19 06:00 07/28/19 06:00 07/28/19 06:00 07/28/19 06:00 07/28/19 06:00 - Physical Exam General Appearance: Yes: Nourished, Appropriately Dressed. No: Apparent Distress, Intoxicated HEENT: positive: EOMI, BRENDA, Normal Voice, Symmetrical, Pharynx Normal, Hearing Grossly Normal. negative: Pale Conjunctivae, Scleral Icterus (R), Scleral Icterus (L), Muffled/Hoarse voice, Pharyngeal Erythema, Tonsillar Exudate, Tonsillar Erythema, Nasal Congestion, Excessive drooling Neck: positive: Trachea midline, Supple. negative: Tender, Lymphadenopathy (R) , Lymphadenopathy (L), Tender lateral, Tender midline Respiratory/Chest: positive: Lungs Clear, Normal Breath Sounds. negative: Chest Tender, Respiratory Distress, Accessory Muscle Use, Rhonchi, Stridor, Wheezing, Hyperresonant Cardiovascular: positive: Regular Rhythm, Regular Rate, S1, S2. negative: Systolic Murmur Gastrointestinal/Abdominal: positive: Normal Bowel Sounds, Flat, Soft. negative : Tender Lymphatic: negative: Adenopathy Musculoskeletal: positive: Normal Inspection. negative: CVA Tenderness, Vertebral Tenderness Extremity: positive: Normal Capillary Refill, Normal Inspection. 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 4/5 left leg flexion and extension at hip, knee, and ankle. right side within normal limits) ED Treatment Course - LABORATORY CBC & Chemistry Diagram: 07/28/19 07:40 07/28/19 07:40 - ADDITIONAL ORDERS Additional order review: Laboratory Results 07/28/19 07:35 POC Glucometer 75 07/28/19 07:35 POC Glucometer 75 Medical Decision Making - Medical Decision Making 54 yo M with a hx of CVA (2017; residual left arm and leg weakness), HTN, and DM BIBEMS presents to the emergency department with left sided weakness with sudden onset at approximately 3:30 am today. Initial vitals: Initial Vital Signs Temp Pulse Resp BP Pulse Ox 98 F 93 H 19 142/82 100 07/28/19 06:00 07/28/19 06:00 07/28/19 06:00 07/28/19 06:00 07/28/19 06:00 Work up: CVA vs TIA vs Recrudescence stroke Laboratory Tests 07/28/19 07/28/19 07/28/19 07:35 07:40 07:40 WBC RBC Hgb Hct MCV MCH MCHC RDW Plt Count MPV Absolute Neuts (auto) Neutrophils % Lymphocytes % Monocytes % Eosinophils % Basophils % Nucleated RBC % PT with INR 12.20 INR 1.03 PTT (Actin FS) 34.7 Sodium Potassium Chloride Carbon Dioxide Anion Gap BUN Creatinine Est GFR (CKD-EPI)AfAm Est GFR (CKD-EPI)NonAf POC Glucometer 75 Random Glucose Lactic Acid Calcium Total Bilirubin AST ALT Alkaline Phosphatase Creatine Kinase 250 Creatine Kinase Index 1.9 CK-MB (CK-2) 4.8 H Troponin I < 0.02 Total Protein Albumin Triglycerides Cholesterol Total LDL Cholesterol HDL Cholesterol Alcohol, Quantitative 07/28/19 07/28/19 07/28/19 07:40 07:40 07:40 WBC 13.7 H RBC 5.00 Hgb 14.6 Hct 42.4 D MCV 84.7 MCH 29.2 MCHC 34.5 RDW 15.8 Plt Count 203 D MPV 8.9 Absolute Neuts (auto) 11.6 H Neutrophils % 84.6 H Lymphocytes % 11.4 Monocytes % 3.5 L Eosinophils % 0.1 D Basophils % 0.4 Nucleated RBC % 0 PT with INR INR PTT (Actin FS) Sodium 137 Potassium 3.8 Chloride 102 Carbon Dioxide 28 Anion Gap 6 L BUN 9.8 Creatinine 0.9 Est GFR (CKD-EPI)AfAm 113.41 Est GFR (CKD-EPI)NonAf 97.85 POC Glucometer Random Glucose 64 L Lactic Acid 0.8 Calcium 8.9 Total Bilirubin 0.4 AST 31 ALT 28 Alkaline Phosphatase 84 Creatine Kinase Creatine Kinase Index CK-MB (CK-2) Troponin I Total Protein 6.2 L Albumin 3.2 L Triglycerides 89 Cholesterol 183 Total LDL Cholesterol 113 H HDL Cholesterol 55 Alcohol, Quantitative < 3 07/28/19 10:02 WBC RBC Hgb Hct MCV MCH MCHC RDW Plt Count MPV Absolute Neuts (auto) Neutrophils % Lymphocytes % Monocytes % Eosinophils % Basophils % Nucleated RBC % PT with INR INR PTT (Actin FS) Sodium Potassium Chloride Carbon Dioxide Anion Gap BUN Creatinine Est GFR (CKD-EPI)AfAm Est GFR (CKD-EPI)NonAf POC Glucometer 129 Random Glucose Lactic Acid Calcium Total Bilirubin AST ALT Alkaline Phosphatase Creatine Kinase Creatine Kinase Index CK-MB (CK-2) Troponin I Total Protein Albumin Triglycerides Cholesterol Total LDL Cholesterol HDL Cholesterol Alcohol, Quantitative Spoke to neurology, Dr. Nicolas. Joint agreement not to administer tPA as this is a mild severity (NIHSS 3) and patient is possibly having post-stroke recrudescence. Patient was noted to be hypoglycemia and was given juice 07/28/19 10:05 129 bgm after drinking apple juice Head CT negative for acute process. EKG: NSR without ST elevations or depressions. QTc is 484 ms. Patient was admitted. CXR within normal limits Discharge - Discharge Information Problems reviewed: Yes Clinical Impression/Diagnosis: CVA (cerebral vascular accident) - Follow up/Referral - Patient Discharge Instructions - Post Discharge Activity
[2019-07-28] MEDS ORDERED: ACETAMINOPHEN 1000 MG/100 ML VIAL (NON FORMULARY) IVPB ONE (07:54)
[2019-07-28] MEDS ORDERED: METOCLOPRAMIDE HCL INJECTION 10 MG/2 ML VIAL IVPB ONE (07:54)
--- NOTE | 2019-07-28 07:55 | PDOC ---
Attending Attestation - Resident Resident Name: Carlos Jameson - ED Attending Attestation I have performed the following: I have examined & evaluated the patient, The case was reviewed & discussed with the resident, I agree w/resident's findings & plan, Exceptions are as noted - HPI HPI: 07/28/19 07:58 54 M with h/o CVA (residual L sided deficits), DM, HTN, presenting to ED with worsening L side weakness. Pt states that he was at [facility] when he noticed his L arm gave out. Pt notes that he has chronic L sided weakness but notes that it is slightly worse than normal. He also notes new numbness/ tingling in his L arm and leg. Endorses headache without N/V. No F/C. - Physicial Exam PE: 07/28/19 08:14 "GENERAL: Awake, alert, and fully oriented, in no acute distress. HEAD: No signs of trauma EYES: PERRLA, EOMI, sclera anicteric, conjunctiva clear ENT: Auricles normal inspection, hearing grossly normal, nares patent, oropharynx clear without exudates. Moist mucosa NECK: Nontender, no stepoffs, Normal ROM, supple, no lymphadenopathy, JVD, or masses LUNGS: Breath sounds equal, clear to auscultation bilaterally. No wheezes, and no crackles HEART: Regular rate and rhythm, normal S1 and S2, no murmurs, rubs or gallops ABDOMEN: Soft, nontender, normoactive bowel sounds. No guarding, no rebound. No masses EXTREMITIES: Normal range of motion, no edema. No clubbing or cyanosis. No cords, erythema, or tenderness NEUROLOGICAL: Cranial nerves II through XII intact. + LUE and LLE drift, mildly diminished sensation L side SKIN: Warm, Dry, normal turgor, no rashes or lesions noted. - Critical Care Time Total Critical Care Time: 60 Critical Care Statement: The care of this patient involved high complexity decision making to prevent further life threatening deterioration of the patient 's condition and/or to evaluate & treat vital organ system(s) failure or risk of failure. - Medical Decision Making 07/28/19 08:15 54 M with h/o CVA presenting with worsening L side weakness and numbness, concerning for CVA vs recrudescence of old stroke symptoms. CT head unremarkable. Given low NIHSS, not a tpa candidate. Discussed with Dr. Nicolas. - Labs - Neuro c/s NIH Stroke Scale - Last Known Well Date/Time & Onset Date Last Known Well: 07/28/19 Time Last Known Well: 03:30 - Initial Evaluation Level of consciousness: Alert Ask patient the month and their age: Answers both correctly Ask patient to open & close eyes; make fist and let go: Obeys both correctly Best gaze (horizontal eye movement): Normal Visual field testing: No visual field loss Facial paresis (Show teeth/raise eyebrows/close eyes tight): Normal symmetrical movement Motor Function: Left Arm: Drift Motor Function: Right Arm: Normal (extends arm 90 (or 45) degrees for 10 seconds without drift Motor Function: Left Leg: Drift Motor Function: Right Leg: Normal (extends leg 30 degrees for 5 seconds without drift) Limb Ataxia: No ataxia Sensory(Use pinprick test arms,legs,trunk,face/side to side): Mild to moderate decrease in sensation Best language (Describe picture, name items, read sentences): No Aphasia Dysarthria (read several words): Normal articulation Extinction and Inattention: No abnormality - Total Score NIH Stroke Scale Score: 3
[2019-07-28] MEDS ORDERED: ACETAMINOPHEN INJECTION 100 ML IVPB ONE (08:06)
[2019-07-28] MEDS ORDERED: METOCLOPRAMIDE HCL INJECTION 10 MG/2 ML VIAL ONE (08:06)
[2019-07-28 08:08] LABS: BASO % 0.4 % (0-2.0); EOS % 0.1 % (0-4.5); HEMATOCRIT 42.4 % (35.4-49); HEMOGLOBIN 14.6 GM/dL (11.7-16.9); LYMPH % 11.4 % (8-40); MCH 29.2 pg (25.7-33.7); MCHC 34.5 g/dl (32.0-35.9); MEAN CELL VOLUME 84.7 fl (80-96); MEAN PLT VOLUME 8.9 fl (7.5-11.1); MONO % 3.5 % (3.8-10.2); NEUT % 84.6 % (42.8-82.8); PLATELET COUNT 203 K/MM3 (134-434); RDW 15.8 % (11.9-15.9); WHITE BLOOD COUNT 13.7 K/mm3 (4.0-10.0)
[2019-07-28 08:38] LABS: ALBUMIN 3.2 g/dl (3.4-5.0); ALK PHOS 84 U/L (45-117); ANION GAP 6 MMOL/L (8-16); BILIRUBIN,TOTAL 0.4 mg/dL (0.2-1); BLOOD UREA NITROGEN 9.8 mg/dL (7-18); CALCIUM 8.9 mg/dL (8.5-10.1); CHLORIDE 102 mmol/L (98-107); CHOLESTEROL 183 mg/dL (50-200); CO2 28 mmol/L (21-32); CREATININE 0.9 mg/dL (0.55-1.3); GLUCOSE,RANDOM 64 mg/dL (74-106); HDL CHOLESTEROL 55 mg/dL (40-60); LDL CHOLESTEROL (ONLY SJRH) 113 mg/dL (5-100); POTASSIUM 3.8 mmol/L (3.5-5.1); SGOT/AST 31 U/L (15-37); SGPT/ALT 28 U/L (13-61); SODIUM 137 mmol/L (136-145); TOT PROT 6.2 g/dl (6.4-8.2); TRIGLYCERIDES 89 mg/dL (0-150)
[2019-07-28] MEDS ORDERED: ATORVASTATIN CA 80 MG TABLET (FP) PO ONE (08:50)
[2019-07-28] MEDS ORDERED: ASPIRIN 325 MG TABLET PO ONE (08:50)
[2019-07-28] MEDS ORDERED: ASPIRIN 325 MG ENTERIC COATED TABLET (FP) ONE (08:57)
[2019-07-28 08:59] LABS: INR 1.03 (0.83-1.09); PROTHROMBIN TIME (PATIENT) 12.2 SEC (9.7-13.0)
[2019-07-28] MEDS ORDERED: ATORVASTATIN CA 80 MG TABLET (FP) ONE (08:59)
[2019-07-28 09:01] LABS: ACTIVATED PTT 34.7 SECONDS (25.2-36.5)
--- NOTE | 2019-07-28 11:20 | CONSULT ---
Consult - text type - Consultation Consultation Note: Neurology Chief Complaint: CVA/TIA - History of Present Illness 54 yo M with a hx of CVA (2017; residual left arm and leg weakness), HTN, and DM LAY presented to the emergency department with left sided weakness with sudden onset at approximately 3:30 am on day of admission. Per the patient, he was in [employer] drinking a coffee when he felt the sudden onset of weakness. Per the patient, this weakness was more pronounced than his previous deficits. In addition, he had an onset of headache, nausea, and facial weakness with numbness and tingling throughout the left side of the face, arm, and leg. Denied trauma. Endorsed taking aspirin, but denied other AC or anti-platelets. Denied the following: fever, chest pain, SOB, vomiting, visual disturbance, ears /nose/throat, abdominal pain, dysuria, hematuria, diarrhea, and hematochezia. Ct of head performed and awaiting oficial report, per ER no acute changes. Lipid panel reviewed and demonstrated a total LDL of 113. Patient is on aspirin 81 mg and atorvastatin 40 mg. Patient was out of TPA window, symptoms seemed suspicious for recrudescence and patient is demonstrating limited mental status as well as somnolent. I advised further medicalworkup for infectious, toxic metabolic etiologies which can precipitate recrudescence of prior CVA symptoms. Unclear if new stroke, MRI brain ordered. Past History - Past Medical History Anemia: No Asthma: No CVA: Yes COPD: No DVT: No Diabetes: Yes HTN: Yes Hypercholesterolemia: Yes Psychiatric Problems: Yes - Surgical History Appendectomy: No Cholecystectomy: No GI Surgery: No Lung Surgery: No Orthopedic Surgery: Yes - Family History HTN -Immunization History Immunization Up to Date: No - Psycho Social/Smoking Cessation Hx Smoking Status: No Smoking History: Former smoker Have you smoked in the past 12 months: Yes Number of Cigarettes Smoked Daily: 6 Information on smoking cessation initiated: No 'Breaking Loose' booklet given: 01/17/17 Hx Alcohol Use: No Drug/Substance Use Hx: No Substance Use Type: None Hx Substance Use Treatment: No Review of Systems - Review of Systems Able to Perform ROS?: Yes Is the patient limited Spanish proficient: No Constitutional: No: Chills, Diaphoresis, Fever HEENTM: No: Eye Pain, Ear Pain, Nose Pain, Throat Pain, Mouth Pain Respiratory: No: Cough, Shortness of Breath, Hemoptysis Cardiac (ROS): No: Chest Pain, Lightheadedness, Palpitations, Syncope, Chest Tightness ABD/GI: No: Constipated, Diarrhea, Nausea, Poor Appetite, Poor Fluid Intake, Rectal Bleeding, Vomiting, Tarry Stools : No: Burning, Dysuria, Pain Musculoskeletal: No: Back Pain, Joint Pain Integumentary: No: Bruising, Erythema, Rash Neurological: Yes: Headache, Numbness, Tingling, Weakness Psychiatric: No: Change in Appetite Endocrine: No: Unexplained Weight Loss Hematologic/Lymphatic: No: Anemia Allergies/Adverse Reactions: Allergies Allergy/AdvReac Type Severity Reaction Status Date / Time No Known Allergies Allergy Verified 07/28/19 06:44 Home Medications: Ambulatory Orders Gabapentin 300 mg PO BID 11/26/16 Atorvastatin Ca [Lipitor] 40 mg PO HS 01/17/17 Dulaglutide [Trulicity] 1.5 mg SQ WEEKLY 01/17/17 Aspirin [ASA -] 81 mg PO DAILY tab.chew 01/19/17 Zolpidem Tartrate [Ambien] 5 mg PO HS 01/08/18 Lisinopril [Prinivil] 10 mg PO DAILY #0 tablet 01/10/18 Glimepiride 4 mg PO BID 07/28/19 Insulin Glargine,Hum.rec.anlog [Basaglar Kwikpen U-100] 40 unit SQ DAILY Oxycodone HCl/Acetaminophen [Percocet 5-325 mg Tablet] 1 tab PO BID 07/28/19 metFORMIN HCL [Metformin HCl] 1,000 mg PO BID 07/28/19 Active Medications Sodium Chloride (Normal Saline -) 1,000 mls @ 42 mls/hr IV ASDIR JAYME Last Admin: 07/28/19 07:45 Dose: 42 mls/hr *Physical Exam - Vital Signs Vital Signs Period Temp Pulse Resp BP Sys/Rudd Pulse Ox Last 24 Hr 98 F 86-93 19-22 111-142/75-86 96-100 - Physical Exam General Appearance: Yes: Nourished, Appropriately Dressed. No: Apparent Distress, Intoxicated HEENT: positive: EOMI, BRENDA, Normal Voice, Symmetrical, Pharynx Normal, Hearing Grossly Normal. negative: Pale Conjunctivae, Scleral Icterus (R), Scleral Icterus (L), Muffled/Hoarse voice, Pharyngeal Erythema, Tonsillar Exudate, Tonsillar Erythema, Nasal Congestion, Excessive drooling Neck: positive: Trachea midline, Supple. negative: Tender, Lymphadenopathy (R) , Lymphadenopathy (L), Tender lateral, Tender midline Respiratory/Chest: positive: Lungs Clear, Normal Breath Sounds. negative: Chest Tender, Respiratory Distress, Accessory Muscle Use, Rhonchi, Stridor, Wheezing, Hyperresonant Cardiovascular: positive: Regular Rhythm, Regular Rate, S1, S2. negative: Systolic Murmur Gastrointestinal/Abdominal: positive: Normal Bowel Sounds, Flat, Soft. negative : Tender Lymphatic: negative: Adenopathy Musculoskeletal: positive: Normal Inspection. negative: CVA Tenderness, Vertebral Tenderness Extremity: positive: Normal Capillary Refill, Normal Inspection. negative: Normal Range of Motion (drifting with arm and leg left side), Tender Integumentary: positive: Normal Color, Dry, Warm Neurologic: positive: sales and production manager II-XII NML intact, Fully Oriented, Alert, Normal Mood/ Affect. negative: Motor Strength 5/5 (4/5 left bicep, tricep, hand card hanger, shoulder strength. 4/5 left leg flexion and extension at hip, knee, and ankle. right side within normal limits) CBCD WBC 13.7 K/mm3 (4.0-10.0) H 07/28/19 07:40 RBC 5.00 M/mm3 (4.00-5.60) 07/28/19 07:40 Hgb 14.6 GM/dL (11.7-16.9) 07/28/19 07:40 Hct 42.4 % (35.4-49) D 07/28/19 07:40 MCV 84.7 fl (80-96) 07/28/19 07:40 MCHC 34.5 g/dl (32.0-35.9) 07/28/19 07:40 RDW 15.8 % (11.9-15.9) 07/28/19 07:40 Plt Count 203 K/MM3 (134-434) D 07/28/19 07:40 MPV 8.9 fl (7.5-11.1) 07/28/19 07:40 CMP Sodium 137 mmol/L (136-145) 07/28/19 07:40 Potassium 3.8 mmol/L (3.5-5.1) 07/28/19 07:40 Chloride 102 mmol/L (98-107) 07/28/19 07:40 Carbon Dioxide 28 mmol/L (21-32) 07/28/19 07:40 Anion Gap 6 MMOL/L (8-16) L 07/28/19 07:40 BUN 9.8 mg/dL (7-18) 07/28/19 07:40 Creatinine 0.9 mg/dL (0.55-1.3) 07/28/19 07:40 Random Glucose 64 mg/dL (74-106) L 07/28/19 07:40 Calcium 8.9 mg/dL (8.5-10.1) 07/28/19 07:40 Total Bilirubin 0.4 mg/dL (0.2-1) 07/28/19 07:40 AST 31 U/L (15-37) 07/28/19 07:40 ALT 28 U/L (13-61) 07/28/19 07:40 Alkaline Phosphatase 84 U/L (45-117) 07/28/19 07:40 Total Protein 6.2 g/dl (6.4-8.2) L 07/28/19 07:40 Albumin 3.2 g/dl (3.4-5.0) L 07/28/19 07:40 CARDIAC ENZYMES Creatine Kinase 250 U/L (26-308) 07/28/19 07:40 Troponin I < 0.02 ng/ml (0.00-0.05) 07/28/19 07:40 PLAN: 54 yo M with a hx of CVA (2017; residual left arm and leg weakness), HTN, and DM BIBEMS presented to the emergency department with left sided weakness with sudden onset at approximately 3:30 am on day of admission. Per the patient, he was in [employer] drinking a coffee when he felt the sudden onset of weakness. Per the patient, this weakness was more pronounced than his previous deficits. In addition, he had an onset of headache, nausea, and facial weakness with numbness and tingling throughout the left side of the face, arm, and leg. Denied trauma. Endorsed taking aspirin, but denied other AC or anti-platelets. Denied the following: fever, chest pain, SOB, vomiting, visual disturbance, ears /nose/throat, abdominal pain, dysuria, hematuria, diarrhea, and hematochezia. Ct of head performed and awaiting oficial report, per ER no acute changes. Lipid panel reviewed and demonstrated a total LDL of 113. Patient is on aspirin 81 mg and atorvastatin 40 mg. Patient was out of TPA window, symptoms seemed suspicious for recrudescence and patient is demonstrating limited mental status as well as somnolent. I advised further medicalworkup for infectious, toxic metabolic etiologies which can precipitate recrudescence of prior CVA symptoms. Unclear if new stroke, MRI brain ordered. Monitor blood pressure, can allow up to 160/100 for now. Carotid doppler, echo, CVA workup recommended. Afebrile but slight elevated WBC with AMS, consider infectious work up. Maintain adequate PO/IV hydration. Frequent reorientation. Monitor glucose, maintain euglycemic range, check hemoglobin A1c. DVT prophylaxis physical therapy as tolerated.
[2019-07-28] MEDS ORDERED: ZOLPIDEM TARTRATE 5 MG TABLET PO PRN (14:50)
[2019-07-28] MEDS ORDERED: PATIENT'S OWN MEDICATION (NON-FORMULARY) (Dulaglutide [Trulicity] 1.5 MG) SQ SCH (15:00)
[2019-07-28] MEDS ORDERED: ACETAMINOPHEN 325 MG TABLET (FP) PO PRN (15:08)
[2019-07-28 18:33] LABS: URINE APPEARANCE CLEAR; URINE COLOR YELLOW
[2019-07-28 18:34] LABS: URINE BILIRUBIN NEGATIVE (NEGATIVE); URINE GLUCOSE (UA) NEGATIVE (NEGATIVE); URINE KETONE NEGATIVE (NEGATIVE); URINE LEUK ESTERASE NEGATIVE (NEGATIVE); URINE NITRITE NEGATIVE (NEGATIVE); URINE PROTEIN 100 (NEGATIVE); URINE UROBILINOGEN 0.2 mg/dL (0.2-1.0)
[2019-07-28 18:35] LABS: URINE RBC 3-6 XC /hpf (0-4); URINE WBC 0-2 XC /hpf (0-5)
[2019-07-28 18:59] VITALS: BMI 29.2
--- NOTE | 2019-07-28 19:27 | HP ---
DATE OF ADMISSION: 07/28/2019 CHIEF COMPLAINT: Sudden onset of left-sided weakness. This 54-year-old male, with a past medical history of CVA with residual left-sided weakness and a history of hypertension and diabetes mellitus, presents to the emergency room with sudden onset of increase in left-sided weakness of the left arm and leg and new weakness in the left side of the face, along with decreased sensation of the left side of the face. The patient's symptoms were present for 8 to 10 hours prior to arrival in the emergency room. The patient had headache, nausea, and generalized weakness. No other associated complaints. The symptoms are improving somewhat since onset. No specific aggravating or relieving factors. No other associated complaints. PAST MEDICAL HISTORY: As above. PAST SURGICAL HISTORY: None. FAMILY AND SOCIAL HISTORY: Unremarkable. No known drug allergies. Home medications reviewed. REVIEW OF SYSTEMS: Unremarkable except for presenting complaints. PHYSICAL EXAMINATION: General: This is a well-developed, well-nourished male in no acute distress. Vital Signs: Temperature on admission was 98 degrees Fahrenheit. Pulse 90 per minute, regular. Respiratory rate 18 per minute, nonlabored. Blood pressure 142/82. Oxygen saturation 100%. HEENT: Within normal limits. Neck: Supple, with no JVD. Chest: Clear to auscultation. Heart: Rate and rhythm regular. S1 and S2 heard. Abdomen: Soft. Nontender, nondistended, with normal bowel sounds. Extremities: No edema. Neurological: The patient is awake, alert, oriented x3, with left-sided weakness. LABORATORY EXAMINATION: WBC count 13.7, with no left shift. Hemoglobin 14.6, hematocrit 42.4%, platelet count 203. Sodium 137, potassium 3.8, BUN 98, creatinine 0.9. A chest x-ray did not show any infiltrates or effusions. A CT scan of the head did not show any acute intracranial findings. An EKG showed normal sinus rhythm with no acute ST-T wave changes. IMPRESSION: Acute cerebrovascular accident, history of hypertension and diabetes mellitus, leukocytosis. PLAN: The patient will be admitted and will be monitored. Further imaging will be obtained. The patient has been seen by Neurology in consultation. The patient is already on aspirin and Lipitor, which will be continued. The patient's other usual medications will be continued, and blood glucose and blood pressure will be monitored and medications adjusted accordingly. The patient's leukocytosis may be due to his CVA. He does not have any obvious focus of infection. Urine examination and blood and urine cultures have been ordered. Further management will be according to the results of these interventions. GABI VELA M.D. [id number]
[2019-07-28] MEDS ORDERED: DEXTROSE 50%-WATER - 25 GM/50 ML VIAL IVPUSH ONE (22:49)
[2019-07-28] MEDS ORDERED: DEXTROSE 50%-WATER - 25 GM/50 ML VIAL ONE (22:53)
--- NOTE | 2019-07-28 22:55 | HOSP ---
Subjective - Review of Symptoms Events since last encounter: Hospitalist Encounter Notified via [employer] that the patient's BS was 35, OJ with sugar was given, BGM repeat now 43 Arrived to bedside, patient is somnolent Assessment: This is a 54 y/o man with a PMHx of CVA (2017; residual left arm and leg weakness), HTN, DM. BIBEMS presented to the emergency department with pronounced left sided weakness with sudden onset at approximately 3:30 am on day of admission. Admitted to Telemetry for CVA Brain MRI-pending Plan: D50 07/11 amp IV now d/c NS Start D5.45NS Recheck BGM in 30 mins Physical Examination Vital Signs: Vital Signs Temperature 98.1 F 07/28/19 18:39 Pulse Rate 75 07/28/19 18:39 Respiratory Rate 18 07/28/19 18:39 Blood Pressure 104/53 L 07/28/19 18:39 O2 Sat by Pulse Oximetry (%) 98 07/28/19 17:00 Constitutional: Yes: Other (somnolent) Eyes: Yes: Conjunctiva Clear, PERRL HENT: Yes: Atraumatic, Normocephalic Neck: Yes: WNL, Supple, Trachea Midline Cardiovascular: Yes: Regular Rate and Rhythm, S1, S2 Respiratory: Yes: WNL, Regular, CTA Bilaterally Gastrointestinal: Yes: WNL, Normal Bowel Sounds, Soft Renal/: Yes: WNL Breast(s): Yes: WNL Musculoskeletal: Yes: WNL Extremities: Yes: WNL Edema: No Peripheral Pulses WNL: Yes Neurological: Yes: Facial Droop, Lethargy, Pre-Existing Deficit ...Motor Strength: LUE (2/5), LLE (2/5), RUE (4/5), RLE (4/5) Labs: CBC, BMP 07/28/19 07:40 07/28/19 07:40 Hospitalist Encounter Outcome: Repeat BGM 215
[2019-07-28] MEDS ORDERED: DEXTROSE 5%-0.45% SALINE 1,000 ML IV SCH (23:00)
[2019-07-28] MEDS: GABAPENTIN 300 MG CAPSULE PO SCH (23:09)
[2019-07-28] MEDS: ATORVASTATIN CA 40 MG TABLET (FP) PO SCH (23:09)
[2019-07-29] MEDS ORDERED: DEXTROSE 5%-WATER - 1,000 ML IV SCH (06:15)
[2019-07-29] MEDS: INSULIN (LEVEMIR) 100 UNITS/ML UNITS SQ SCH (06:36)
[2019-07-29 07:31] LABS: BASO % 0.4 % (0-2.0); EOS % 1.2 % (0-4.5); HEMATOCRIT 37.7 % (35.4-49); HEMOGLOBIN 12.6 GM/dL (11.7-16.9); LYMPH % 27.2 % (8-40); MCH 29.1 pg (25.7-33.7); MCHC 33.5 g/dl (32.0-35.9); MEAN CELL VOLUME 86.7 fl (80-96); MEAN PLT VOLUME 9.3 fl (7.5-11.1); MONO % 6.2 % (3.8-10.2); PLATELET COUNT 171 K/MM3 (134-434); RBC 4.34 M/mm3 (4.00-5.60); RDW 15.7 % (11.9-15.9); WHITE BLOOD COUNT 9.4 K/mm3 (4.0-10.0)
[2019-07-29] MEDS: ASPIRIN 81 MG CHEWABLE TABLETS PO SCH (09:36)
[2019-07-29] MEDS: ENOXAPARIN NA (PORCINE) 40 MG/0.4 ML DISP.SYRIN SQ SCH (09:36)
[2019-07-29] MEDS: LISINOPRIL 10 MG TABLET (FP) PO SCH (09:36)
[2019-07-29] MEDS: GABAPENTIN 300 MG CAPSULE PO SCH ×2 (09:37→22:22)
--- NOTE | 2019-07-29 10:05 | EKG ---
Test Reason : Blood Pressure : / mmHG Vent. Rate : 084 BPM Atrial Rate : 084 BPM P-R Int : 134 ms QRS Dur : 086 ms QT Int : 410 ms P-R-T Axes : 044 -04 061 degrees QTc Int : 484 ms NORMAL SINUS RHYTHM PROLONGED QT ABNORMAL ECG WHEN COMPARED WITH ECG OF 20-FEB-2019 19:52, NO SIGNIFICANT CHANGE WAS FOUND Confirmed by ALEXIS BUCIO MD ([id number]) on 07/29/2019 10:05:10 AM Referred By: Confirmed By:ALEXIS BUCIO MD
--- NOTE | 2019-07-29 10:51 | PN ---
Progress Note (short form) - Note Progress Note: Neurology Chief Complaint: CVA/TIA - History of Present Illness 54 yo M with a hx of CVA (2017; residual left arm and leg weakness), HTN, and DM LAY presented to the emergency department with left sided weakness with sudden onset at approximately 3:30 am on day of admission. Per the patient, he was in [employer] drinking a coffee when he felt the sudden onset of weakness. Per the patient, this weakness was more pronounced than his previous deficits. In addition, he had an onset of headache, nausea, and facial weakness with numbness and tingling throughout the left side of the face, arm, and leg. Denied trauma. Endorsed taking aspirin, but denied other AC or anti-platelets. Denied the following: fever, chest pain, SOB, vomiting, visual disturbance, ears /nose/throat, abdominal pain, dysuria, hematuria, diarrhea, and hematochezia. Ct of head performed and demonstrated no evidence of mass, acute hemorrhage or vascular territory infarction. Also, stable chronic posterior right parietal infarct. Lipid panel reviewed and demonstrated a total LDL of 113. Patient is on aspirin 81 mg and atorvastatin 40 mg. Patient was out of TPA window, symptoms seemed suspicious for recrudescence and patient is demonstrating limited mental status as well as somnolent. I advised further medicalworkup for infectious, toxic metabolic etiologies which can precipitate recrudescence of prior CVA symptoms. MRI brain completed and without acute changes. Chronic infarcts noted. Patient with persistent weakness, possibly recrudescence. Admits to taking his ASA daily and with good compliance. Recommended this be continued. Mental status improved and patient awake and interactive. Active Medications Acetaminophen (Tylenol -) 650 mg PO Q4H PRN PRN Reason: PAIN 1-5 Acetaminophen (Tylenol -) 325 mg PO Q12H PRN PRN Reason: PAIN LEVEL 6-10 Aspirin (Asa -) 81 mg PO DAILY [facility] Last Admin: 07/29/19 09:36 Dose: 81 mg Atorvastatin Calcium (Lipitor -) 40 mg PO HS [facility] Last Admin: 07/28/19 23:09 Dose: 40 mg Enoxaparin Sodium (Lovenox -) 40 mg SQ DAILY [facility] Last Admin: 07/29/19 09:36 Dose: 40 mg Gabapentin (Neurontin -) 300 mg PO BID [facility] Last Admin: 07/29/19 09:37 Dose: 300 mg Glimepiride (Amaryl -) 4 mg PO BIDAC [facility] Dextrose (D5w -) 1,000 mls @ 42 mls/hr IV .[id number] [facility] Last Admin: 07/29/19 06:32 Dose: 42 mls/hr Insulin Aspart (Novolog Vial Sliding Scale -) 1 vial SQ TIDAC [facility]; Protocol Insulin Detemir (Levemir Vial) 40 units SQ ACBK [facility] Last Admin: 07/29/19 06:36 Dose: Not Given Lisinopril (Prinivil) 10 mg PO DAILY [facility] Last Admin: 07/29/19 09:36 Dose: 10 mg Metformin HCl (Glucophage -) 1,000 mg PO BIDAC [facility] Non-Formulary Medication (Dulaglutide [Trulicity]) 1.5 mg SQ WEEKLY [facility] Oxycodone HCl (Roxicodone -) 5 mg PO Q12H PRN PRN Reason: PAIN LEVEL 6-10 Zolpidem Tartrate (Ambien -) 5 mg PO HS PRN PRN Reason: INSOMNIA *Physical Exam - Vital Signs Vital Signs Period Temp Pulse Resp BP Sys/Rudd Pulse Ox Last 24 Hr 97.9 F-98.3 F 67-77 18-22 97-134/53-77 95-99 - Physical Exam General Appearance: Yes: Nourished, Appropriately Dressed. No: Apparent Distress, Intoxicated HEENT: positive: EOMI, BRENDA, Normal Voice, Symmetrical, Pharynx Normal, Hearing Grossly Normal. negative: Pale Conjunctivae, Scleral Icterus (R), Scleral Icterus (L), Muffled/Hoarse voice, Pharyngeal Erythema, Tonsillar Exudate, Tonsillar Erythema, Nasal Congestion, Excessive drooling Neck: positive: Trachea midline, Supple. negative: Tender, Lymphadenopathy (R) , Lymphadenopathy (L), Tender lateral, Tender midline Respiratory/Chest: positive: Lungs Clear, Normal Breath Sounds. negative: Chest Tender, Respiratory Distress, Accessory Muscle Use, Rhonchi, Stridor, Wheezing, Hyperresonant Cardiovascular: positive: Regular Rhythm, Regular Rate, S1, S2. negative: Systolic Murmur Gastrointestinal/Abdominal: positive: Normal Bowel Sounds, Flat, Soft. negative : Tender Lymphatic: negative: Adenopathy Musculoskeletal: positive: Normal Inspection. negative: CVA Tenderness, Vertebral Tenderness Extremity: positive: Normal Capillary Refill, Normal Inspection. negative: Normal Range of Motion (drifting with arm and leg left side), Tender Integumentary: positive: Normal Color, Dry, Warm Neurologic: positive: complaint evaluation supervisor II-XII NML intact, Fully Oriented, Alert, Normal Mood/ Affect. negative: Motor Strength 5/5 (4/5 left bicep, tricep, hand scout executive, shoulder strength. 4/5 left leg flexion and extension at hip, knee, and ankle. right side within normal limits) CBCD WBC 9.4 K/mm3 (4.0-10.0) 07/29/19 06:38 RBC 4.34 M/mm3 (4.00-5.60) 07/29/19 06:38 Hgb 12.6 GM/dL (11.7-16.9) 07/29/19 06:38 Hct 37.7 % (35.4-49) 07/29/19 06:38 MCV 86.7 fl (80-96) 07/29/19 06:38 MCHC 33.5 g/dl (32.0-35.9) 07/29/19 06:38 RDW 15.7 % (11.9-15.9) 07/29/19 06:38 Plt Count 171 K/MM3 (134-434) 07/29/19 06:38 MPV 9.3 fl (7.5-11.1) 07/29/19 06:38 CMP Sodium 137 mmol/L (136-145) 07/28/19 07:40 Potassium 3.8 mmol/L (3.5-5.1) 07/28/19 07:40 Chloride 102 mmol/L (98-107) 07/28/19 07:40 Carbon Dioxide 28 mmol/L (21-32) 07/28/19 07:40 Anion Gap 6 MMOL/L (8-16) L 07/28/19 07:40 BUN 9.8 mg/dL (7-18) 07/28/19 07:40 Creatinine 0.9 mg/dL (0.55-1.3) 07/28/19 07:40 Random Glucose 64 mg/dL (74-106) L 07/28/19 07:40 Calcium 8.9 mg/dL (8.5-10.1) 07/28/19 07:40 Total Bilirubin 0.4 mg/dL (0.2-1) 07/28/19 07:40 AST 31 U/L (15-37) 07/28/19 07:40 ALT 28 U/L (13-61) 07/28/19 07:40 Alkaline Phosphatase 84 U/L (45-117) 07/28/19 07:40 Total Protein 6.2 g/dl (6.4-8.2) L 07/28/19 07:40 Albumin 3.2 g/dl (3.4-5.0) L 07/28/19 07:40 CARDIAC ENZYMES Creatine Kinase 250 U/L (26-308) 07/28/19 07:40 Troponin I < 0.02 ng/ml (0.00-0.05) 07/28/19 07:40 PLAN: 54 yo M with a hx of CVA (2017; residual left arm and leg weakness), HTN, and DM BIBEMS presented to the emergency department with left sided weakness with sudden onset at approximately 3:30 am on day of admission. Per the patient, he was in [employer] drinking a coffee when he felt the sudden onset of weakness. Per the patient, this weakness was more pronounced than his previous deficits. In addition, he had an onset of headache, nausea, and facial weakness with numbness and tingling throughout the left side of the face, arm, and leg. Denied trauma. Endorsed taking aspirin, but denied other AC or anti-platelets. Denied the following: fever, chest pain, SOB, vomiting, visual disturbance, ears /nose/throat, abdominal pain, dysuria, hematuria, diarrhea, and hematochezia. Ct of head performed and demonstrated no evidence of mass, acute hemorrhage or vascular territory infarction. Also, stable chronic posterior right parietal infarct. Lipid panel reviewed and demonstrated a total LDL of 113. Patient is on aspirin 81 mg and atorvastatin 40 mg. Patient was out of TPA window, symptoms seemed suspicious for recrudescence and patient is demonstrating limited mental status as well as somnolent. I advised further medicalworkup for infectious, toxic metabolic etiologies which can precipitate recrudescence of prior CVA symptoms. MRI brain completed and without acute changes. Chronic infarcts noted. Patient with persistent weakness, possibly recrudescence. Admits to taking his ASA daily and with good compliance. Recommended this be continued. Monitor blood pressure, goal <140/90 for now. Futrher CVA workup not needed as MRI negatieve. Afebrile, wbc count improved, neurologically improved and near baseline. Maintain adequate PO/IV hydration. Frequent reorientation. Monitor glucose, maintain euglycemic range, check hemoglobin A1c. DVT prophylaxis physical therapy as tolerated.
[2019-07-29] MEDS: metFORMIN HCL 500 MG TABLET (FP) PO SCH (17:33)
--- NOTE | 2019-07-29 20:23 | PN ---
Progress Note (short form) - Note Progress Note: admitted for sudden worsening of left sided weakness and tingling Vital Signs Period Temp Pulse Resp BP Sys/Rudd Pulse Ox Last 24 Hr 97.9 F-98.6 F 67-77 18-18 110-137/62-77 98-100 s1s2 rrr lungs cta abd soft nt no edema left sided hemiparesis-chronic h/o CVA MRI brain shows no acute disease neurologically appears at baseline sepsis w/p negative so far awaiting PT evaluation dc planning home, less likely to rehab, depending on abilities IDDM at least two hypoglycemic episodes stop glimepiride cont insulin will monitor HTN stable
[2019-07-29] MEDS: INSULIN SLIDING SCALE (NOVOLOG) 1 VIAL SQ SCH (22:22)
[2019-07-29] MEDS: ATORVASTATIN CA 40 MG TABLET (FP) PO SCH (22:22)
[2019-07-29] MEDS: oxyCODONE HCL 5 MG TABLET PO PRN (22:23)
[2019-07-29] MEDS: ACETAMINOPHEN 325 MG TABLET (FP) PO PRN (22:28)
[2019-07-30 07:52] LABS: BASO % 0.6 % (0-2.0); EOS % 1.4 % (0-4.5); HEMATOCRIT 34.2 % (35.4-49); HEMOGLOBIN 11.5 GM/dL (11.7-16.9); LYMPH % 26.9 % (8-40); MCH 29.1 pg (25.7-33.7); MCHC 33.6 g/dl (32.0-35.9); MEAN CELL VOLUME 86.6 fl (80-96); MEAN PLT VOLUME 8.8 fl (7.5-11.1); MONO % 5.1 % (3.8-10.2); PLATELET COUNT 151 K/MM3 (134-434); RBC 3.95 M/mm3 (4.00-5.60); RDW 15.7 % (11.9-15.9); WHITE BLOOD COUNT 8.5 K/mm3 (4.0-10.0)
[2019-07-30] MEDS: INSULIN (LEVEMIR) 100 UNITS/ML UNITS SQ SCH (07:54)
[2019-07-30] MEDS: INSULIN SLIDING SCALE (NOVOLOG) 1 VIAL SQ SCH ×6 (07:55→21:05)
--- NOTE | 2019-07-30 09:01 | PN ---
Progress Note (short form) - Note Progress Note: Neurology Chief Complaint: CVA/TIA - History of Present Illness 54 yo M with a hx of CVA (2017; residual left arm and leg weakness), HTN, and DM LAY presented to the emergency department with left sided weakness with sudden onset at approximately 3:30 am on day of admission. Per the patient, he was in [employer] drinking a coffee when he felt the sudden onset of weakness. Per the patient, this weakness was more pronounced than his previous deficits. In addition, he had an onset of headache, nausea, and facial weakness with numbness and tingling throughout the left side of the face, arm, and leg. Denied trauma. Endorsed taking aspirin, but denied other AC or anti-platelets. Denied the following: fever, chest pain, SOB, vomiting, visual disturbance, ears /nose/throat, abdominal pain, dysuria, hematuria, diarrhea, and hematochezia. Ct of head performed and demonstrated no evidence of mass, acute hemorrhage or vascular territory infarction. Also, stable chronic posterior right parietal infarct. Lipid panel reviewed and demonstrated a total LDL of 113. Patient is on aspirin 81 mg and atorvastatin 40 mg. Patient was out of TPA window, symptoms seemed suspicious for recrudescence and patient is demonstrating limited mental status as well as somnolent. I advised further medicalworkup for infectious, toxic metabolic etiologies which can precipitate recrudescence of prior CVA symptoms. MRI brain completed and without acute changes. Chronic infarcts noted. Patient with persistent weakness, possibly recrudescence. Admits to taking his ASA daily and with good compliance. Recommended this be continued. Mental status improved and patient awake and interactive. Discussed wwith primary care and patient may pursue outpatient physical therapy. Significant stressors at home may also be part of the symptomatology. Active Medications Acetaminophen (Tylenol -) 650 mg PO Q4H PRN PRN Reason: PAIN 1-5 Last Admin: 07/29/19 22:28 Dose: 650 mg Aspirin (Asa -) 81 mg PO DAILY [facility] Last Admin: 07/29/19 09:36 Dose: 81 mg Atorvastatin Calcium (Lipitor -) 40 mg PO HS [facility] Last Admin: 07/29/19 22:22 Dose: 40 mg Enoxaparin Sodium (Lovenox -) 40 mg SQ DAILY [facility] Last Admin: 07/29/19 09:36 Dose: 40 mg Gabapentin (Neurontin -) 300 mg PO BID [facility] Last Admin: 07/29/19 22:22 Dose: 300 mg Insulin Aspart (Novolog Vial Sliding Scale -) 1 vial SQ ACHS [facility]; Protocol Last Admin: 07/30/19 07:55 Dose: Not Given Insulin Detemir (Levemir Vial) 40 units SQ ACBK [facility] Last Admin: 07/30/19 07:54 Dose: Not Given Lisinopril (Prinivil) 10 mg PO DAILY [facility] Last Admin: 07/29/19 09:36 Dose: 10 mg Metformin HCl (Glucophage -) 1,000 mg PO BIDAC [facility] Last Admin: 07/29/19 17:33 Dose: 1,000 mg Non-Formulary Medication (Dulaglutide [Trulicity]) 1.5 mg SQ WEEKLY [facility] Oxycodone HCl (Roxicodone -) 5 mg PO Q12H PRN PRN Reason: PAIN LEVEL 6-10 Last Admin: 07/29/19 22:23 Dose: 5 mg Zolpidem Tartrate (Ambien -) 5 mg PO HS PRN PRN Reason: INSOMNIA *Physical Exam - Vital Signs Vital Signs Period Temp Pulse Resp BP Sys/Rudd Pulse Ox Last 24 Hr 98 F-98.6 F 61-77 18-18 112-137/55-75 98-100 - Physical Exam General Appearance: Yes: Nourished, Appropriately Dressed. No: Apparent Distress, Intoxicated HEENT: positive: EOMI, BRENDA, Normal Voice, Symmetrical, Pharynx Normal, Hearing Grossly Normal. negative: Pale Conjunctivae, Scleral Icterus (R), Scleral Icterus (L), Muffled/Hoarse voice, Pharyngeal Erythema, Tonsillar Exudate, Tonsillar Erythema, Nasal Congestion, Excessive drooling Neck: positive: Trachea midline, Supple. negative: Tender, Lymphadenopathy (R) , Lymphadenopathy (L), Tender lateral, Tender midline Respiratory/Chest: positive: Lungs Clear, Normal Breath Sounds. negative: Chest Tender, Respiratory Distress, Accessory Muscle Use, Rhonchi, Stridor, Wheezing, Hyperresonant Cardiovascular: positive: Regular Rhythm, Regular Rate, S1, S2. negative: Systolic Murmur Gastrointestinal/Abdominal: positive: Normal Bowel Sounds, Flat, Soft. negative : Tender Lymphatic: negative: Adenopathy Musculoskeletal: positive: Normal Inspection. negative: CVA Tenderness, Vertebral Tenderness Extremity: positive: Normal Capillary Refill, Normal Inspection. negative: Normal Range of Motion (drifting with arm and leg left side), Tender Integumentary: positive: Normal Color, Dry, Warm Neurologic: positive: health and safety specialist II-XII NML intact, Fully Oriented, Alert, Normal Mood/ Affect. negative: Motor Strength 5/5 (4/5 left bicep, tricep, hand toolmaker grade three, shoulder strength. 4/5 left leg flexion and extension at hip, knee, and ankle. right side within normal limits) CBCD WBC 8.5 K/mm3 (4.0-10.0) 07/30/19 07:27 RBC 3.95 M/mm3 (4.00-5.60) L 07/30/19 07:27 Hgb 11.5 GM/dL (11.7-16.9) L 07/30/19 07:27 Hct 34.2 % (35.4-49) L 07/30/19 07:27 MCV 86.6 fl (80-96) 07/30/19 07:27 MCHC 33.6 g/dl (32.0-35.9) 07/30/19 07:27 RDW 15.7 % (11.9-15.9) 07/30/19 07:27 Plt Count 151 K/MM3 (134-434) 07/30/19 07:27 MPV 8.8 fl (7.5-11.1) 07/30/19 07:27 CMP Sodium 137 mmol/L (136-145) 07/28/19 07:40 Potassium 3.8 mmol/L (3.5-5.1) 07/28/19 07:40 Chloride 102 mmol/L (98-107) 07/28/19 07:40 Carbon Dioxide 28 mmol/L (21-32) 07/28/19 07:40 Anion Gap 6 MMOL/L (8-16) L 07/28/19 07:40 BUN 9.8 mg/dL (7-18) 07/28/19 07:40 Creatinine 0.9 mg/dL (0.55-1.3) 07/28/19 07:40 Random Glucose 64 mg/dL (74-106) L 07/28/19 07:40 Calcium 8.9 mg/dL (8.5-10.1) 07/28/19 07:40 Total Bilirubin 0.4 mg/dL (0.2-1) 07/28/19 07:40 AST 31 U/L (15-37) 07/28/19 07:40 ALT 28 U/L (13-61) 07/28/19 07:40 Alkaline Phosphatase 84 U/L (45-117) 07/28/19 07:40 Total Protein 6.2 g/dl (6.4-8.2) L 07/28/19 07:40 Albumin 3.2 g/dl (3.4-5.0) L 07/28/19 07:40 CARDIAC ENZYMES Creatine Kinase 250 U/L (26-308) 07/28/19 07:40 Troponin I < 0.02 ng/ml (0.00-0.05) 07/28/19 07:40 PLAN: 54 yo M with a hx of CVA (2017; residual left arm and leg weakness), HTN, and DM BIBEMS presented to the emergency department with left sided weakness with sudden onset at approximately 3:30 am on day of admission. Per the patient, he was in [employer] drinking a coffee when he felt the sudden onset of weakness. Per the patient, this weakness was more pronounced than his previous deficits. In addition, he had an onset of headache, nausea, and facial weakness with numbness and tingling throughout the left side of the face, arm, and leg. Denied trauma. Endorsed taking aspirin, but denied other AC or anti-platelets. Denied the following: fever, chest pain, SOB, vomiting, visual disturbance, ears /nose/throat, abdominal pain, dysuria, hematuria, diarrhea, and hematochezia. Ct of head performed and demonstrated no evidence of mass, acute hemorrhage or vascular territory infarction. Also, stable chronic posterior right parietal infarct. Lipid panel reviewed and demonstrated a total LDL of 113. Patient is on aspirin 81 mg and atorvastatin 40 mg. Patient was out of TPA window, symptoms seemed suspicious for recrudescence and patient is demonstrating limited mental status as well as somnolent. I advised further medicalworkup for infectious, toxic metabolic etiologies which can precipitate recrudescence of prior CVA symptoms. MRI brain completed and without acute changes. Chronic infarcts noted. Patient with persistent weakness, possibly recrudescence. Admits to taking his ASA daily and with good compliance. Recommended this be continued. Monitor blood pressure, goal <140/90 for now. Futrher CVA workup not needed as MRI negatieve. Afebrile, wbc count improved, neurologically improved and near baseline. Discussed wwith primary care and patient may pursue outpatient physical therapy. Significant stressors at home may also be part of the symptomatology. Maintain adequate PO/IV hydration. Frequent reorientation. Monitor glucose, maintain euglycemic range, ttight glycemic control. DVT prophylaxis physical therapy as tolerated. No objection to discharge at this time, no further recommendations
--- NOTE | 2019-07-30 09:17 | DS ---
Physical Examination Vital Signs: Vital Signs Temperature 98 F 07/30/19 06:00 Pulse Rate 67 07/30/19 06:00 Respiratory Rate 18 07/30/19 06:00 Blood Pressure 123/59 L 07/30/19 06:00 O2 Sat by Pulse Oximetry (%) 98 07/29/19 21:00 Constitutional: Yes: Well Nourished, Calm Eyes: Yes: EOM Intact HENT: Yes: Normocephalic Neck: Yes: Trachea Midline Cardiovascular: Yes: Regular Rate and Rhythm Respiratory: Yes: CTA Bilaterally Gastrointestinal: Yes: Normal Bowel Sounds, Soft Extremities: Yes: WNL Edema: No Peripheral Pulses WNL: Yes Neurological: Yes: Weakness (mild left sided) Psychiatric: Yes: WNL Labs: CBC, BMP 07/30/19 07:27 07/28/19 07:40 Discharge Summary Problems reviewed: Yes Reason For Visit: CEREBROVASCULAR ACCIDENT Current Active Problems CVA (cerebral vascular accident) (Acute) Hospital Course: admitted for sudden worsening of left sided weakness and tingling has past h/o CVA with left hemiparesis MRI brain shows no acute disease neurologically appears at baseline sepsis w/up negative so far awaiting PT evaluation dc planning home, less likely to rehab, depending on abilities NIDDM at least two hypoglycemic episodes in hospital stop glimepiride, stop insulin, will need close oupt follow up and monitoring, woulds restart levemir at lower dose if necessary HTN stable continue asa and statin Condition: Fair - Instructions Referrals: Fozia Paulino MD [Primary Care Provider] - - Home Medications Comprehensive Discharge Medication List: Ambulatory Orders Gabapentin 300 mg PO BID 11/26/16 Atorvastatin Ca [Lipitor] 40 mg PO HS 01/17/17 Dulaglutide [Trulicity] 1.5 mg SQ WEEKLY 01/17/17 Aspirin [ASA -] 81 mg PO DAILY tab.chew 01/19/17 Zolpidem Tartrate [Ambien] 5 mg PO HS 01/08/18 Lisinopril [Prinivil] 10 mg PO DAILY #0 tablet 01/10/18 Oxycodone HCl/Acetaminophen [Percocet 5-325 mg Tablet] 1 tab PO BID 07/28/19 metFORMIN HCL [Metformin HCl] 1,000 mg PO BID 07/28/19 Duloxetine HCl 30 mg PO BID 07/29/19 Acetaminophen [Tylenol .Regular Strength -] 325 mg PO Q12H PRN tablet 07/30/19
[2019-07-30] MEDS: LISINOPRIL 10 MG TABLET (FP) PO SCH (09:55)
[2019-07-30] MEDS: ASPIRIN 81 MG CHEWABLE TABLETS PO SCH (09:55)
[2019-07-30] MEDS: GABAPENTIN 300 MG CAPSULE PO SCH ×2 (09:55→21:04)
[2019-07-30] MEDS: ENOXAPARIN NA (PORCINE) 40 MG/0.4 ML DISP.SYRIN SQ SCH (09:55)
[2019-07-30] MEDS: metFORMIN HCL 500 MG TABLET (FP) PO SCH ×3 (09:56→19:18)
[2019-07-30] MEDS: GLIMEPIRIDE 4 MG TABLET PO SCH ×2 (19:18→19:19)
[2019-07-30] MEDS: ATORVASTATIN CA 40 MG TABLET (FP) PO SCH (21:04)
[2019-07-30] MEDS: oxyCODONE HCL 5 MG TABLET PO PRN (21:07)
[2019-07-30] MEDS: ACETAMINOPHEN 325 MG TABLET (FP) PO PRN (21:09)
[2019-07-31] MEDS: INSULIN SLIDING SCALE (NOVOLOG) 1 VIAL SQ SCH (06:25)
[2019-07-31 07:51] LABS: BASO % 0.4 % (0-2.0); EOS % 1.4 % (0-4.5); HEMATOCRIT 36.7 % (35.4-49); HEMOGLOBIN 12.4 GM/dL (11.7-16.9); LYMPH % 17.4 % (8-40); MCH 29.2 pg (25.7-33.7); MCHC 33.8 g/dl (32.0-35.9); MEAN CELL VOLUME 86.3 fl (80-96); MEAN PLT VOLUME 9.3 fl (7.5-11.1); MONO % 6.4 % (3.8-10.2); NEUT % 74.4 % (42.8-82.8); PLATELET COUNT 155 K/MM3 (134-434); RBC 4.25 M/mm3 (4.00-5.60); RDW 16.3 % (11.9-15.9); WHITE BLOOD COUNT 9.5 K/mm3 (4.0-10.0)
--- NOTE | 2019-07-31 08:24 | PN ---
Progress Note (short form) - Note Progress Note: Neurology Chief Complaint: CVA/TIA - History of Present Illness 54 yo M with a hx of CVA (2017; residual left arm and leg weakness), HTN, and DM LAY presented to the emergency department with left sided weakness with sudden onset at approximately 3:30 am on day of admission. Per the patient, he was in [employer] drinking a coffee when he felt the sudden onset of weakness. Per the patient, this weakness was more pronounced than his previous deficits. In addition, he had an onset of headache, nausea, and facial weakness with numbness and tingling throughout the left side of the face, arm, and leg. Denied trauma. Endorsed taking aspirin, but denied other AC or anti-platelets. Denied the following: fever, chest pain, SOB, vomiting, visual disturbance, ears /nose/throat, abdominal pain, dysuria, hematuria, diarrhea, and hematochezia. Ct of head performed and demonstrated no evidence of mass, acute hemorrhage or vascular territory infarction. Also, stable chronic posterior right parietal infarct. Lipid panel reviewed and demonstrated a total LDL of 113. Patient is on aspirin 81 mg and atorvastatin 40 mg. Patient was out of TPA window, symptoms seemed suspicious for recrudescence and patient is demonstrating limited mental status as well as somnolent. I advised further medicalworkup for infectious, toxic metabolic etiologies which can precipitate recrudescence of prior CVA symptoms. MRI brain completed and without acute changes. Chronic infarcts noted. Patient with persistent weakness, possibly recrudescence. Admits to taking his ASA daily and with good compliance. Recommended this be continued. Mental status improved and patient awake and interactive. Patient interested in short-term rehabilitation, no objection to this given his precipitation of left-sided weakness, medical case manager to follow-up Active Medications Acetaminophen (Tylenol -) 650 mg PO Q4H PRN PRN Reason: PAIN 1-5 Last Admin: 07/30/19 21:09 Dose: 650 mg Aspirin (Asa -) 81 mg PO DAILY [facility] Last Admin: 07/30/19 09:55 Dose: 81 mg Atorvastatin Calcium (Lipitor -) 40 mg PO HS [facility] Last Admin: 07/30/19 21:04 Dose: 40 mg Enoxaparin Sodium (Lovenox -) 40 mg SQ DAILY [facility] Last Admin: 07/30/19 09:55 Dose: 40 mg Gabapentin (Neurontin -) 300 mg PO BID [facility] Last Admin: 07/30/19 21:04 Dose: 300 mg Insulin Aspart (Novolog Vial Sliding Scale -) 1 vial SQ ACHS [facility]; Protocol Last Admin: 07/31/19 06:25 Dose: Not Given Insulin Detemir (Levemir Vial) 40 units SQ ACBK [facility] Last Admin: 07/30/19 07:54 Dose: Not Given Lisinopril (Prinivil) 10 mg PO DAILY [facility] Last Admin: 07/30/19 09:55 Dose: 10 mg Metformin HCl (Glucophage -) 1,000 mg PO BIDAC [facility] Last Admin: 07/30/19 19:18 Dose: Not Given Non-Formulary Medication (Dulaglutide [Trulicity]) 1.5 mg SQ WEEKLY [facility] Oxycodone HCl (Roxicodone -) 5 mg PO Q12H PRN PRN Reason: PAIN LEVEL 6-10 Last Admin: 07/30/19 21:07 Dose: 5 mg Zolpidem Tartrate (Ambien -) 5 mg PO HS PRN PRN Reason: INSOMNIA *Physical Exam - Vital Signs Vital Signs Period Temp Pulse Resp BP Sys/Rudd Pulse Ox Last 24 Hr 97.9 F-98.8 F 68-75 18-20 120-153/65-86 97-99 - Physical Exam General Appearance: Yes: Nourished, Appropriately Dressed. No: Apparent Distress, Intoxicated HEENT: positive: EOMI, BRENDA, Normal Voice, Symmetrical, Pharynx Normal, Hearing Grossly Normal. negative: Pale Conjunctivae, Scleral Icterus (R), Scleral Icterus (L), Muffled/Hoarse voice, Pharyngeal Erythema, Tonsillar Exudate, Tonsillar Erythema, Nasal Congestion, Excessive drooling Neck: positive: Trachea midline, Supple. negative: Tender, Lymphadenopathy (R) , Lymphadenopathy (L), Tender lateral, Tender midline Respiratory/Chest: positive: Lungs Clear, Normal Breath Sounds. negative: Chest Tender, Respiratory Distress, Accessory Muscle Use, Rhonchi, Stridor, Wheezing, Hyperresonant Cardiovascular: positive: Regular Rhythm, Regular Rate, S1, S2. negative: Systolic Murmur Gastrointestinal/Abdominal: positive: Normal Bowel Sounds, Flat, Soft. negative : Tender Lymphatic: negative: Adenopathy Musculoskeletal: positive: Normal Inspection. negative: CVA Tenderness, Vertebral Tenderness Extremity: positive: Normal Capillary Refill, Normal Inspection. negative: Normal Range of Motion (drifting with arm and leg left side), Tender Integumentary: positive: Normal Color, Dry, Warm Neurologic: positive: box sealing machine catcher II-XII NML intact, Fully Oriented, Alert, Normal Mood/ Affect. negative: Motor Strength 5/5 (4/5 left bicep, tricep, hand equipment operator, shoulder strength. 4/5 left leg flexion and extension at hip, knee, and ankle. right side within normal limits) CBCD WBC 9.5 K/mm3 (4.0-10.0) 07/31/19 07:22 RBC 4.25 M/mm3 (4.00-5.60) 07/31/19 07:22 Hgb 12.4 GM/dL (11.7-16.9) 07/31/19 07:22 Hct 36.7 % (35.4-49) 07/31/19 07:22 MCV 86.3 fl (80-96) 07/31/19 07:22 MCHC 33.8 g/dl (32.0-35.9) 07/31/19 07:22 RDW 16.3 % (11.9-15.9) H 07/31/19 07:22 Plt Count 155 K/MM3 (134-434) 07/31/19 07:22 MPV 9.3 fl (7.5-11.1) 07/31/19 07:22 CMP Sodium 137 mmol/L (136-145) 07/28/19 07:40 Potassium 3.8 mmol/L (3.5-5.1) 07/28/19 07:40 Chloride 102 mmol/L (98-107) 07/28/19 07:40 Carbon Dioxide 28 mmol/L (21-32) 07/28/19 07:40 Anion Gap 6 MMOL/L (8-16) L 07/28/19 07:40 BUN 9.8 mg/dL (7-18) 07/28/19 07:40 Creatinine 0.9 mg/dL (0.55-1.3) 07/28/19 07:40 Random Glucose 64 mg/dL (74-106) L 07/28/19 07:40 Calcium 8.9 mg/dL (8.5-10.1) 07/28/19 07:40 Total Bilirubin 0.4 mg/dL (0.2-1) 07/28/19 07:40 AST 31 U/L (15-37) 07/28/19 07:40 ALT 28 U/L (13-61) 07/28/19 07:40 Alkaline Phosphatase 84 U/L (45-117) 07/28/19 07:40 Total Protein 6.2 g/dl (6.4-8.2) L 07/28/19 07:40 Albumin 3.2 g/dl (3.4-5.0) L 07/28/19 07:40 CARDIAC ENZYMES Creatine Kinase 250 U/L (26-308) 07/28/19 07:40 Troponin I < 0.02 ng/ml (0.00-0.05) 07/28/19 07:40 PLAN: 54 yo M with a hx of CVA (2017; residual left arm and leg weakness), HTN, and DM BIBEMS presented to the emergency department with left sided weakness with sudden onset at approximately 3:30 am on day of admission. Per the patient, he was in [employer] drinking a coffee when he felt the sudden onset of weakness. Per the patient, this weakness was more pronounced than his previous deficits. In addition, he had an onset of headache, nausea, and facial weakness with numbness and tingling throughout the left side of the face, arm, and leg. Denied trauma. Endorsed taking aspirin, but denied other AC or anti-platelets. Denied the following: fever, chest pain, SOB, vomiting, visual disturbance, ears /nose/throat, abdominal pain, dysuria, hematuria, diarrhea, and hematochezia. Ct of head performed and demonstrated no evidence of mass, acute hemorrhage or vascular territory infarction. Also, stable chronic posterior right parietal infarct. Lipid panel reviewed and demonstrated a total LDL of 113. Patient is on aspirin 81 mg and atorvastatin 40 mg. Patient was out of TPA window, symptoms seemed suspicious for recrudescence and patient is demonstrating limited mental status as well as somnolent. I advised further medicalworkup for infectious, toxic metabolic etiologies which can precipitate recrudescence of prior CVA symptoms. MRI brain completed and without acute changes. Chronic infarcts noted. Patient with persistent weakness, possibly recrudescence. Admits to taking his ASA daily and with good compliance. Recommended this be continued. Monitor blood pressure, goal <140/90 for now. Futrher CVA workup not needed as MRI negatieve. Afebrile, wbc count improved, neurologically improved and near baseline. Discussed wwith primary care and patient may pursue outpatient physical therapy. Significant stressors at home may also be part of the symptomatology. Maintain adequate PO/IV hydration. Frequent reorientation. Monitor glucose, maintain euglycemic range, ttight glycemic control. DVT prophylaxis physical therapy as tolerated. Patient interested in short-term rehabilitation, no objection to this given his precipitation of left-sided weakness, medical case manager to follow-up
[2019-07-31] MEDS ORDERED: PT OWN MED DRAWER 7, Y5N ONE (09:14)
[2019-07-31] MEDS: ACETAMINOPHEN 325 MG TABLET (FP) PO PRN (09:17)
[2019-07-31] MEDS: ENOXAPARIN NA (PORCINE) 40 MG/0.4 ML DISP.SYRIN SQ SCH (09:17)
[2019-07-31] MEDS: GABAPENTIN 300 MG CAPSULE PO SCH (09:17)
[2019-07-31] MEDS: metFORMIN HCL 500 MG TABLET (FP) PO SCH (09:18)
[2019-07-31] MEDS: INSULIN (LEVEMIR) 100 UNITS/ML UNITS SQ SCH (09:19)
[2019-07-31] MEDS: ASPIRIN 81 MG CHEWABLE TABLETS PO SCH (09:19)
[2019-07-31] MEDS: LISINOPRIL 10 MG TABLET (FP) PO SCH (09:19)
[2019-07-31] MEDS: oxyCODONE HCL 5 MG TABLET PO PRN (09:41)
[2019-07-31 11:02] VITALS: BP 151/92; PULSE 73; TEMP 98.2
== END 2019-07-31 11:40 | disposition home health service (06) | DRG 57 ==
LOC: JER 05:53 → JERBED 09:58 → J4S 18:29
PROVIDERS: ADMIT Internal Medicine; ATTEND Internal Medicine
DX: I69.354 Hemiplegia and hemiparesis following cerebral infarction affecting left non-dominant side (principal); E11.649 Type 2 diabetes mellitus with hypoglycemia without coma; I10 Essential (primary) hypertension; Z79.4 Long term (current) use of insulin
CPT/HCPCS: 36415; 70450-TC; 70551-TC; 71045-TC-FY; 80053; 80061; 80307; 81003; 82550; 82553; 82962; 83605; 83721; 84484; 85025; 85610; 85730; 86850; 86900; 86901; 87040; 87086; 93005; 93010; 97116-GP; 97162-GP; 99285-25; J0131; J7030

== ENCOUNTER 2019-08-13 14:42 | Inpatient (IN) | payer OTHER ==
--- NOTE | 2019-08-13 15:27 | PDOC ---
Rapid Medical Evaluation Time Seen by Provider: 08/13/19 15:22 Medical Evaluation: Allergies Allergy/AdvReac Type Severity Reaction Status Date / Time No Known Allergies Allergy Verified 07/28/19 06:44 08/13/19 15:22 Pt c/o: sternal cp radiating to rt side and back after "horseplaying" denies n/v /d/fever, took percocet with no relief Pt on brief exam: ekg nst 108, hr 111, 98.0 orally, Pt ordered for: labs, urine, cxr, ekg pt to proceed to the ED Discharge Disposition - Diagnosis Chest pain - Discharge Dispostion Disposition: HOME - Referrals - Patient Instructions - Post Discharge Activity
[2019-08-13 15:28] VITALS: BMI 27.9
[2019-08-13 17:41] LABS: BASO % 0.4 % (0-2.0); EOS % 0.1 % (0-4.5); HEMATOCRIT 43.4 % (35.4-49); HEMOGLOBIN 14.5 GM/dL (11.7-16.9); LYMPH % 9.7 % (8-40); MCHC 33.4 g/dl (32.0-35.9); MEAN CELL VOLUME 86.7 fl (80-96); MEAN PLT VOLUME 9.9 fl (7.5-11.1); MONO % 5.1 % (3.8-10.2); NEUT % 84.7 % (42.8-82.8); PLATELET COUNT 213 K/MM3 (134-434); RBC 5.01 M/mm3 (4.00-5.60); RDW 15.9 % (11.9-15.9)
[2019-08-13 18:35] LABS: ALBUMIN 3.3 g/dl (3.4-5.0); BILIRUBIN,TOTAL 0.7 mg/dL (0.2-1); BLOOD UREA NITROGEN 13.7 mg/dL (7-18); CALCIUM 9.4 mg/dL (8.5-10.1); CREATININE 1.4 mg/dL (0.55-1.3); POTASSIUM 4.3 mmol/L (3.5-5.1); TOT PROT 6.9 g/dl (6.4-8.2)
--- NOTE | 2019-08-13 19:38 | PDOC ---
History of Present Illness - General Chief Complaint: Chest Pain Stated Complaint: CHEST PAIN Time Seen by Provider: 08/13/19 15:22 History Source: Patient - History of Present Illness Initial Comments: 08/13/19 19:37 54 year old male with c/o right sided chest pain after girlfriend falling on chest two days ago. today with heaviness to midsternal chest pain, SOB, nausea. patient has a recent admission for r/o CVA. PMHX: Hypercholestremia, hypertension, diabetes 08/13/19 19:46 08/13/19 22:18 Past History - Past Medical History Allergies/Adverse Reactions: Allergies Allergy/AdvReac Type Severity Reaction Status Date / Time No Known Allergies Allergy Verified 08/13/19 15:23 Home Medications: Ambulatory Orders Gabapentin 300 mg PO BID 11/26/16 Atorvastatin Ca [Lipitor] 40 mg PO HS 01/17/17 Dulaglutide [Trulicity] 1.5 mg SQ WEEKLY 01/17/17 Aspirin [ASA -] 81 mg PO DAILY tab.chew 01/19/17 Zolpidem Tartrate [Ambien] 5 mg PO HS 01/08/18 Lisinopril [Prinivil] 10 mg PO DAILY #0 tablet 01/10/18 metFORMIN HCL [Metformin HCl] 1,000 mg PO BID 07/28/19 Duloxetine HCl 30 mg PO BID 07/29/19 Acetaminophen [Tylenol .Regular Strength -] 325 mg PO Q12H PRN tablet 07/30/19 Oxycodone HCl/Acetaminophen [Percocet 5-325 mg Tablet] 1 tab PO ASDIR PRN Anemia: No Asthma: No CVA: Yes (residual left sided weakness) COPD: No DVT: No Diabetes: Yes HTN: Yes Hypercholesterolemia: Yes Psychiatric Problems: Yes - Surgical History Appendectomy: No Cholecystectomy: No GI Surgery: No Lung Surgery: No Orthopedic Surgery: Yes - Immunization History Immunization Up to Date: No - Psycho Social/Smoking Cessation Hx Smoking Status: No Smoking History: Current every day smoker Have you smoked in the past 12 months: Yes Number of Cigarettes Smoked Daily: 6 Information on smoking cessation initiated: Yes 'Breaking Loose' booklet given: 01/17/17 Hx Alcohol Use: No Drug/Substance Use Hx: No Substance Use Type: None Hx Substance Use Treatment: No Review of Systems - Review of Systems Able to Perform ROS?: Yes Is the patient limited Spanish proficient: No Respiratory: Yes: Shortness of Breath Cardiac (ROS): Yes: Chest Pain, Chest Tightness ABD/GI: Yes: Nausea *Physical Exam - Vital Signs Last Vital Signs Temp Pulse Resp BP Pulse Ox 98.3 F 74 18 111/80 98 08/13/19 20:32 08/13/19 20:32 08/13/19 15:23 08/13/19 20:32 08/14/19 00:07 - Physical Exam General Appearance: Yes: Moderate Distress Respiratory/Chest: positive: Chest Tender (right sided chest tenderness), Lungs Clear, Normal Breath Sounds, Other (equal breath sounds) Cardiovascular: positive: Regular Rhythm, Regular Rate Gastrointestinal/Abdominal: positive: Normal Bowel Sounds, Tender (ruq), Soft Musculoskeletal: positive: Normal Inspection Extremity: positive: Normal Capillary Refill, Normal Inspection, Normal Range of Motion Integumentary: positive: Normal Color, Dry, Warm Neurologic: positive: Fully Oriented, Alert, Normal Mood/Affect Heart Score/ECG Review - History History: Slightly suspicious - Electrocardiogram EKG: Normal - Age Age: 45-65 - Risk Factors Risk Factors Heart Score: Yes Hx Hypercholesterolemia, Yes Hx Hypertension, Yes Hx Diabetes Based on the list above the patient has:: >/=3 risk factors or Hx atherosclerotic disease - Troponin Troponin: </= normal limit - Score Heart Score - Total: 3 - ECG Intrepretation Rhythm: Regular Rhythm Comment:: 08/13/19 21:39 sinus tachycardia: 109 bpm ED Treatment Course - LABORATORY CBC & Chemistry Diagram: 08/13/19 16:00 08/13/19 15:00 - ADDITIONAL ORDERS Additional order review: Laboratory Results 08/13/19 08/13/19 08/13/19 21:35 21:35 16:00 D-Dimer 865 H Sodium Potassium Chloride Carbon Dioxide Anion Gap BUN Creatinine Est GFR (CKD-EPI)AfAm Est GFR (CKD-EPI)NonAf Random Glucose Calcium Total Bilirubin AST ALT Alkaline Phosphatase Creatine Kinase 124 167 Creatine Kinase Index 1.6 CK-MB (CK-2) 2.8 Troponin I < 0.02 < 0.02 Total Protein Albumin Lipase 08/13/19 15:00 D-Dimer Sodium 135 L Potassium 4.3 Chloride 98 Carbon Dioxide 26 Anion Gap 11 BUN 13.7 Creatinine 1.4 H Est GFR (CKD-EPI)AfAm 66.48 Est GFR (CKD-EPI)NonAf 57.36 Random Glucose 214 H Calcium 9.4 Total Bilirubin 0.7 AST 22 ALT 21 Alkaline Phosphatase 91 Creatine Kinase Creatine Kinase Index CK-MB (CK-2) Troponin I Total Protein 6.9 Albumin 3.3 L Lipase 212 08/13/19 16:00 RBC 5.01 MCV 86.7 MCHC 33.4 RDW 15.9 MPV 9.9 Neutrophils % 84.7 H Lymphocytes % 9.7 D Monocytes % 5.1 Eosinophils % 0.1 D Basophils % 0.4 - RADIOLOGY Radiology Studies Ordered: Category Date Time Status CHEST CT WITHOUT CONTRAST [CT] Stat CT Scan 08/13/19 19:44 Completed - Medications Given in the ED: ED Medications Discontinued Medications Generic Name Dose Route Start Last Admin Trade Name Freq PRN Reason Stop Dose Admin Sodium Chloride 1,000 mls @ 1,000 mls/hr 08/13/19 22:14 08/13/19 23:52 Normal Saline - IV 08/13/19 23:13 1,000 mls/hr ASDIR STA Administration Medical Decision Making - Medical Decision Making 08/14/19 00:54 a: CHEST PAIN p: cbc cmp CARDIAC CHEST xray CT chest : no pneumo CTA: 1. No evidence for pulmonary embolus or acute cardiac or pulmonary disease. 2. Cholelithiasis with marked irregularity of the gallbladder wall and mild gallbladder distention. Consider further evaluation with right upper quadrant ultrasound as felt clinically warranted 08/14/19 01:16 Abdominal USSonographic grayscale and color Doppler images were obtained of the right upper quadrant. Liver is mildly heterogeneous in echotexture. A 2.3 cm shadowing stone is seen in the gallbladder neck without definitive wall thickening. Negative sonographic Storey sign. Common bile duct normal measuring 5 mm. Right kidney without hydronephrosis or mass. 08/14/19 02:14 patient signed out to Veena rob NP Discharge - Discharge Information Problems reviewed: Yes Clinical Impression/Diagnosis: Chest pain Qualifiers: Chest pain type: unspecified Qualified Code(s): R07.9 - Chest pain, unspecified Disposition: HOME - Follow up/Referral - Patient Discharge Instructions - Post Discharge Activity
--- NOTE | 2019-08-13 20:02 | PDOC ---
*Physical Exam - Vital Signs Last Vital Signs Temp Pulse Resp BP Pulse Ox 98 F 111 H 18 130/73 98 08/13/19 15:23 08/13/19 15:23 08/13/19 15:23 08/13/19 15:23 08/13/19 15:23 ED Treatment Course - LABORATORY CBC & Chemistry Diagram: 08/13/19 16:00 08/13/19 15:00 - ADDITIONAL ORDERS Additional order review: Laboratory Results 08/13/19 08/13/19 16:00 15:00 Sodium 135 L Potassium 4.3 Chloride 98 Carbon Dioxide 26 Anion Gap 11 BUN 13.7 Creatinine 1.4 H Est GFR (CKD-EPI)AfAm 66.48 Est GFR (CKD-EPI)NonAf 57.36 Random Glucose 214 H Calcium 9.4 Total Bilirubin 0.7 AST 22 ALT 21 Alkaline Phosphatase 91 Creatine Kinase 167 Creatine Kinase Index 1.6 CK-MB (CK-2) 2.8 Troponin I < 0.02 Total Protein 6.9 Albumin 3.3 L Lipase 212 08/13/19 16:00 RBC 5.01 MCV 86.7 MCHC 33.4 RDW 15.9 MPV 9.9 Neutrophils % 84.7 H Lymphocytes % 9.7 D Monocytes % 5.1 Eosinophils % 0.1 D Basophils % 0.4 Medical Decision Making - Medical Decision Making 08/13/19 20:13 Patient seen by the advanced practice provider under my direct supervision. Ancillary testing reviewed as necessary. I agree with plan as outlined by the advanced practice provider. Discharge - Discharge Information Problems reviewed: Yes Clinical Impression/Diagnosis: Right-sided chest pain - Follow up/Referral Referrals: Fozia Paulino MD [Primary Care Provider] - - Patient Discharge Instructions - Post Discharge Activity
[2019-08-13] MEDS ORDERED: SODIUM CHLORIDE 1,000 ML IV STA (22:14)
--- NOTE | 2019-08-14 04:09 | HP ---
Admitting History and Physical - Primary Care Physician PCP: Fozia Paulino - Admission Chief Complaint: Chest Pain History of Present Illness: This is a 54 y/o man with a PMHx of HTN, HLD, CVA (R-sided residual), DM. Who reports to the ED with midsternal CP. Patient reports that 2 days ago his S.O. who weighs 170lb fell onto his chest. Post incident he reports having right sided CP. Patient denies SOB or diaphoresis. Patient reports 6 months ago he had an US which showed gallstones. He has not done any f/u. 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 RADIO: Yes: CVA (multiple ischemic right cerebral 2017) Cardiovascular: Yes: HTN, Hyperlipdemia Pulmonary: Yes: Other (current cigarette smoker) Psych: Yes: Anxiety Endocrine: Yes: Diabetes Insipidus - Smoking History Smoking history: Current every day smoker Have you smoked in the past 12 months: Yes Aproximately how many cigarettes per day: 6 - Alcohol/Substance Use Hx Alcohol Use: No - Social History ADL: Independent History of Recent Travel: No Home Medications - Allergies Allergies/Adverse Reactions: Allergies Allergy/AdvReac Type Severity Reaction Status Date / Time No Known Allergies Allergy Verified 08/13/19 15:23 - Home Medications Home Medications: Ambulatory Orders Gabapentin 300 mg PO BID 11/26/16 Atorvastatin Ca [Lipitor] 40 mg PO HS 01/17/17 Dulaglutide [Trulicity] 1.5 mg SQ WEEKLY 01/17/17 Aspirin [ASA -] 81 mg PO DAILY tab.chew 01/19/17 Zolpidem Tartrate [Ambien] 5 mg PO HS 01/08/18 Lisinopril [Prinivil] 10 mg PO DAILY #0 tablet 01/10/18 metFORMIN HCL [Metformin HCl] 1,000 mg PO BID 07/28/19 Duloxetine HCl 30 mg PO BID 07/29/19 Acetaminophen [Tylenol .Regular Strength -] 325 mg PO Q12H PRN tablet 07/30/19 Oxycodone HCl/Acetaminophen [Percocet 5-325 mg Tablet] 1 tab PO ASDIR PRN Family Medical History Family Hx Cancer: Mother (Uterine) Family Hx Diabetes: Mother, Father Review of Systems - Review of Systems Constitutional: reports: No Symptoms Eyes: reports: No Symptoms HENT: reports: No Symptoms Neck: reports: No Symptoms Cardiovascular: reports: Chest Pain Respiratory: reports: No Symptoms Gastrointestinal: reports: No Symptoms Genitourinary: reports: No Symptoms Breasts: reports: No Symptoms Reported Musculoskeletal: reports: No Symptoms Integumentary: reports: No Symptoms Neurological: reports: No Symptoms Endocrine: reports: No Symptoms Hematology/Lymphatic: reports: No Symptoms Psychiatric: reports: No Symptoms Pain Intensity: 8 Physical Examination Vital Signs: Vital Signs Temperature 98.3 F 08/13/19 20:32 Pulse Rate 74 08/13/19 20:32 Respiratory Rate 18 08/13/19 15:23 Blood Pressure 111/80 08/13/19 20:32 O2 Sat by Pulse Oximetry (%) 98 08/14/19 00:07 Constitutional: Yes: Well Nourished, No Distress, Calm Eyes: Yes: WNL, Conjunctiva Clear, EOM Intact, PERRL HENT: Yes: WNL, Atraumatic, Normocephalic Neck: Yes: WNL, Supple, Trachea Midline Cardiovascular: Yes: WNL, Regular Rate and Rhythm, S1, S2 Respiratory: Yes: WNL, Regular, CTA Bilaterally Gastrointestinal: Yes: Normal Bowel Sounds, Soft, Tenderness (RUQ) Renal/: Yes: WNL Breast(s): Yes: Right (TTP) Musculoskeletal: Yes: WNL Extremities: Yes: WNL Edema: No Peripheral Pulses WNL: Yes Integumentary: Yes: WNL Neurological: Yes: WNL, Alert, Oriented ...Motor Strength: WNL Psychiatric: Yes: WNL, Alert, Oriented Labs: CBC, BMP 08/13/19 16:00 08/13/19 15:00 Laboratory Results - last 24 hr 08/13/19 08/13/19 08/13/19 15:00 16:00 16:00 WBC 14.0 H RBC 5.01 Hgb 14.5 Hct 43.4 D MCV 86.7 MCH 29.0 MCHC 33.4 RDW 15.9 Plt Count 213 D MPV 9.9 Absolute Neuts (auto) 11.9 H Neutrophils % 84.7 H Lymphocytes % 9.7 D Monocytes % 5.1 Eosinophils % 0.1 D Basophils % 0.4 Nucleated RBC % 0 D-Dimer Sodium 135 L Potassium 4.3 Chloride 98 Carbon Dioxide 26 Anion Gap 11 BUN 13.7 Creatinine 1.4 H Est GFR (CKD-EPI)AfAm 66.48 Est GFR (CKD-EPI)NonAf 57.36 Random Glucose 214 H Calcium 9.4 Total Bilirubin 0.7 AST 22 ALT 21 Alkaline Phosphatase 91 Creatine Kinase 167 Creatine Kinase Index 1.6 CK-MB (CK-2) 2.8 Troponin I < 0.02 Total Protein 6.9 Albumin 3.3 L Lipase 212 08/13/19 08/13/19 21:35 21:35 WBC RBC Hgb Hct MCV MCH MCHC RDW Plt Count MPV Absolute Neuts (auto) Neutrophils % Lymphocytes % Monocytes % Eosinophils % Basophils % Nucleated RBC % D-Dimer 865 H Sodium Potassium Chloride Carbon Dioxide Anion Gap BUN Creatinine Est GFR (CKD-EPI)AfAm Est GFR (CKD-EPI)NonAf Random Glucose Calcium Total Bilirubin AST ALT Alkaline Phosphatase Creatine Kinase 124 Creatine Kinase Index CK-MB (CK-2) Troponin I < 0.02 Total Protein Albumin Lipase Intake & Output 08/11/19 08/12/19 08/13/19 08/14/19 23:59 23:59 23:59 23:59 Weight 73.936 kg Imaging - Results Chest X-ray: Image Reviewed Cat Scan: Image Reviewed Ultrasound: Image Reviewed EKG: Image Reviewed Problem List - Problems (1) Chest pain Assessment/Plan: r/o ACS vs PE Heart Score- 3-4 PERC Rule- 2 Wells Score-1.5 low probability dDimer- 865 CTA- neg PE Continue cardiac monitoring Serial Enzymes Appreciate Cardiology consult EKG- reviewed Echo in am Continue Asa Code(s): R07.9 - CHEST PAIN, UNSPECIFIED Qualifiers: Chest pain type: unspecified Qualified Code(s): R07.9 - Chest pain, unspecified (2) Cholelithiasis Assessment/Plan: Abdominal US- 2.3cm gallstone in the gallbladder neck region with borderline thickening of its wall. No pericholecystic free fluid. Negative Storey's sign. 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 use: without correction use Diabetes mellitus complication status: with neurologic complications Diabetes mellitus complication detail: with other neurological complication Qualified Code(s): E11.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 (4) H/O: CVA (cerebrovascular accident) Assessment/Plan: Continue home meds Fall Precautions Code(s): Z86.73 - PRSNL HX OF TIA (TIA), AND CEREB INFRC W/O RESID DEFICITS (5) Hyperlipidemia associated with type 2 diabetes mellitus Assessment/Plan: Continue Lipitor Monitor LFTs Hold Metformin s/p CTA Monitor BMP Code(s): E11.69 - TYPE 2 DIABETES MELLITUS WITH OTHER SPECIFIED COMPLICATION; E78.5 - HYPERLIPIDEMIA, UNSPECIFIED (6) Hypertension Assessment/Plan: stable Monitor BP Continue home med Monitor renal function Code(s): I10 - ESSENTIAL (PRIMARY) HYPERTENSION Assessment/Plan This is a 54 y/o man with a PMHx of HTN, HLD, CVA (R-sided residual), DM. Admitted to Telemetry for Chest Pain r/o ACS, Abdominal Pain for further evaluation of their emergent condition Plan: See Problem List FEN PO fluids as tolerated Replete lytes prn Clear Diet DVT ppx OOB SCDs Heparin SQ Dispo: Requires Inpatient Care Visit type - Emergency Visit Emergency Visit: Yes ED Registration Date: 08/13/19 Care time: The patient presented to the Emergency Department on the above date and was hospitalized for further evaluation of their emergent condition. - New Patient This patient is new to me today: Yes Date on this admission: 08/14/19 - Critical Care Critical Care patient: No
[2019-08-14 08:02] LABS: BASO % 0.7 % (0-2.0); EOS % 1.1 % (0-4.5); HEMATOCRIT 39.2 % (35.4-49); HEMOGLOBIN 13.6 GM/dL (11.7-16.9); LYMPH % 26.3 % (8-40); MCH 29.5 pg (25.7-33.7); MCHC 34.7 g/dl (32.0-35.9); MEAN CELL VOLUME 85.1 fl (80-96); MEAN PLT VOLUME 9.4 fl (7.5-11.1); MONO % 7.2 % (3.8-10.2); NEUT % 64.7 % (42.8-82.8); PLATELET COUNT 168 K/MM3 (134-434); RDW 15.9 % (11.9-15.9); WHITE BLOOD COUNT 7.8 K/mm3 (4.0-10.0)
[2019-08-14 08:12] LABS: ANION GAP 9 MMOL/L (8-16); BLOOD UREA NITROGEN 13.5 mg/dL (7-18); CALCIUM 8.8 mg/dL (8.5-10.1); CHLORIDE 104 mmol/L (98-107); CHOLESTEROL 169 mg/dL (50-200); CO2 25 mmol/L (21-32); GLUCOSE,RANDOM 75 mg/dL (74-106); HDL CHOLESTEROL 42 mg/dL (40-60); LDL CHOLESTEROL (ONLY SJRH) 111 mg/dL (5-100); MAGNESIUM 1.7 mg/dL (1.8-2.4); PHOSPHOROUS 3.7 mg/dL (2.5-4.9); POTASSIUM 3.7 mmol/L (3.5-5.1); SODIUM 138 mmol/L (136-145); TRIGLYCERIDES 106 mg/dL (0-150)
[2019-08-14] MEDS ORDERED: ACETAMINOPHEN 325 MG TABLET (FP) PO PRN (08:21)
--- NOTE | 2019-08-14 08:26 | PN ---
Progress Note (short form) - Note Progress Note: records reviewed, admitted for reproducible right chest wall pain, since girlfriend fell on him 2-3 days ago still c/o right sided chest pain CBC, BMP 08/14/19 06:35 08/14/19 06:35 Vital Signs Period Temp Pulse Resp BP Sys/Rudd Pulse Ox Last 24 Hr 98 F-98.6 F 74-111 16-18 111-130/73-82 96-98 s1s2 rrr lungs cta abd soft non tender, no burgos's sign, + bs reproducible right sided chest pain upon palpation and movements no edema pos. pulses neg. joanne's sign no calf tenderness 54 yo man with h/o DM, HTN, CVA now with musculoskeletal rigth sided chest pain CT chest/ CTA chest negative, no lung abnormality, no pneumothorax, no pe serial cardiac enzymes are negative us shows gall stones elevated ddimer would check us legs r/o dvt otherwise pain appears muscular after injury dc home with topical lidocaine patch and prn tylenol if us is negative
[2019-08-14] MEDS ORDERED: LIDOCAINE 5% TOPICAL PATCH TP SCH (10:00)
[2019-08-14] MEDS ORDERED: DULoxetine HCL 30 MG CAPSULE.DR PO SCH (10:00)
[2019-08-14] MEDS ORDERED: HEPARIN NA (PORCINE) 5,000 UNITS/ML 1ML VIAL SQ SCH (10:00)
[2019-08-14] MEDS ORDERED: ASPIRIN 81 MG CHEWABLE TABLETS PO SCH (10:00)
[2019-08-14] MEDS ORDERED: LISINOPRIL 10 MG TABLET (FP) PO SCH (10:00)
[2019-08-14] MEDS ORDERED: GABAPENTIN 300 MG CAPSULE PO SCH (10:00)
--- NOTE | 2019-08-14 11:16 | ECHO ---
Name: ALMANZA DAVION GASTELUM Exam:Adult Echocardiogram Study Date: 08/14/2019 08:47 AM Age: 54 yrs Reason For Study: Chest pain Height: 64 in Weight: 163 lb BSA: 1.8 m2 MMode/2D Measurements & Calculations IVSd: 1.0 cm Ao root diam: 3.1 cm LVIDd: 4.5 cm LA dimension: 3.4 cm LVIDs: 3.0 cm LVPWd: 1.2 cm LVPWs: 1.4 cm EDV(Teich): 91.9 ml ESV(Teich): 36.2 ml LVOT diam: 2.0 cm RV S Marcos: 9.9 cm/sec Doppler Measurements & Calculations MV E max marcos: 59.2 cm/sec Ao V2 max: 108.6 cm/sec MV A max marcos: 77.6 cm/sec Ao max P.7 mmHg MV E/A: 0.76 MV dec time: 0.09 sec GERARDO(V,D): 2.6 cm2 LV V1 max P.9 mmHg PA V2 max: 106.5 cm/sec LV V1 max: 85.9 cm/sec PA max P.6 mmHg Med Peak E' Marcos: 4.8 cm/sec Med E/e': 12.4 Lat Peak E' Marcos: 8.6 cm/sec Lat E/e': 6.9 Procedure A complete two-dimensional transthoracic echocardiogram was performed (2D, M-mode, Doppler and color flow Doppler). Left Ventricle The left ventricular size, thickness and function are normal. Ejection Fraction = 65%. E/A reversal c onsistent with but not diagnostic of poor LV compliance. The left ventricular wall motion is normal. Right Ventricle The right ventricle is normal in size and function. Atria Normal left and right atrial size and function. Mitral Valve The mitral valve is normal in structure and function. Tricuspid Valve The tricuspid valve is normal in structure and function. There is trace tricuspid regurgitation. Ther e was insufficient TR detected to calculate RV systolic pressure. Aortic Valve The aortic valve is normal in structure and function. Great Vessels The aortic root is normal size. Pericardium/Pleura There is no pericardial effusion. There is no pleural effusion. Interpretation Summary This degree of valvular regurgitation is within normal limits. The left ventricular size, thickness a nd function are normal Ejection Fraction = 65%. MD Devin Cuevas 08/14/2019 11:15 AM
--- NOTE | 2019-08-14 11:37 | CON.CARD ---
Consult Consult Specialty:: Cardiology - History of Present Illness Chief Complaint: atypical cp - reproducible on palpation History of Present Illness: This is a 54 y/o man with a PMHx of HTN, HLD, CVA (R-sided residual), DM. Who reports to the ED with midsternal CP. Patient reports that 2 days ago his S.O. who weighs 170lb fell onto his chest. Post incident he reports having right sided CP. Patient denies SOB or diaphoresis. Patient reports 6 months ago he had an US which showed gallstones. He has not done any f/u. 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: CVA (multiple ischemic right cerebral 2017) Cardio/Vascular: Yes: HTN, Hyperlipdemia Pulmonary: Yes: Other (current cigarette smoker) Psych: Yes: Anxiety Endocrine: Yes: Diabetes Insipidus - Alcohol/Substance Use Hx Alcohol Use: No - Smoking History Smoking history: Current every day smoker Have you smoked in the past 12 months: Yes Aproximately how many cigarettes per day: 6 - Social History ADL: Independent History of Recent Travel: No Home Medications - Allergies Allergies/Adverse Reactions: Allergies Allergy/AdvReac Type Severity Reaction Status Date / Time No Known Allergies Allergy Verified 08/13/19 15:23 - Home Medications Home Medications: Ambulatory Orders Gabapentin 300 mg PO BID 11/26/16 Atorvastatin Ca [Lipitor] 40 mg PO HS 01/17/17 Dulaglutide [Trulicity] 1.5 mg SQ WEEKLY 01/17/17 Aspirin [ASA -] 81 mg PO DAILY tab.chew 01/19/17 Zolpidem Tartrate [Ambien] 5 mg PO HS 01/08/18 Lisinopril [Prinivil] 10 mg PO DAILY #0 tablet 01/10/18 metFORMIN HCL [Metformin HCl] 1,000 mg PO BID 07/28/19 Duloxetine HCl 30 mg PO BID 07/29/19 Acetaminophen [Tylenol .Regular Strength -] 325 mg PO Q12H PRN tablet 07/30/19 Oxycodone HCl/Acetaminophen [Percocet 5-325 mg Tablet] 1 tab PO ASDIR PRN 02/04/ 20 Lidocaine 5% Patch [Lidoderm -] 1 patch TP DAILY #10 patch 08/14/19 Review of Systems - Review of Systems Constitutional: reports: No Symptoms Eyes: reports: No Symptoms HENT: reports: No Symptoms Neck: reports: No Symptoms Cardiovascular: reports: Chest Pain (reproducible on palpation / right sided chest / h/o trsums SO fell on patient chest) Respiratory: reports: No Symptoms Gastrointestinal: reports: No Symptoms Genitourinary: reports: No Symptoms Breasts: reports: No Symptoms Reported Musculoskeletal: reports: No Symptoms Integumentary: reports: No Symptoms Neurological: reports: No Symptoms Endocrine: reports: No Symptoms Hematology/Lymphatic: reports: No Symptoms Psychiatric: reports: No Symptoms Vital Signs: Vital Signs Temperature 98.6 F 08/14/19 06:51 Pulse Rate 84 08/14/19 06:51 Respiratory Rate 16 08/14/19 06:51 Blood Pressure 126/82 08/14/19 06:51 O2 Sat by Pulse Oximetry (%) 97 08/14/19 06:51 Constitutional: Yes: Well Nourished, No Distress, Calm Eyes: Yes: WNL, Conjunctiva Clear, EOM Intact HENT: Yes: WNL, Atraumatic, Normocephalic Neck: Yes: WNL, Supple, Trachea Midline Respiratory: Yes: WNL, Regular, CTA Bilaterally Gastrointestinal: Yes: WNL, Normal Bowel Sounds Renal/: Yes: WNL Cardiovascular: Yes: WNL, Regular Rate and Rhythm Musculoskeletal: Yes: WNL Extremities: Yes: WNL Integumentary: Yes: WNL Neurological: Yes: WNL, Alert, Oriented ...Motor Strength: WNL Psychiatric: Yes: WNL, Alert, Oriented - Other Data Labs, Other Data: CBC, BMP 08/14/19 06:35 08/14/19 06:35 Troponin, BNP 08/13/19 08/13/19 08/14/19 16:00 21:35 06:35 Troponin I < 0.02 < 0.02 < 0.02 Troponin, BNP 08/13/19 08/13/19 08/14/19 16:00 21:35 06:35 Troponin I < 0.02 < 0.02 < 0.02 Laboratory Tests 08/13/19 08/13/19 08/13/19 15:00 16:00 16:00 WBC 14.0 H RBC 5.01 Hgb 14.5 Hct 43.4 D MCV 86.7 MCH 29.0 MCHC 33.4 RDW 15.9 Plt Count 213 D MPV 9.9 Absolute Neuts (auto) 11.9 H Neutrophils % 84.7 H Lymphocytes % 9.7 D Monocytes % 5.1 Eosinophils % 0.1 D Basophils % 0.4 Nucleated RBC % 0 D-Dimer Sodium 135 L Potassium 4.3 Chloride 98 Carbon Dioxide 26 Anion Gap 11 BUN 13.7 Creatinine 1.4 H Est GFR (CKD-EPI)AfAm 66.48 Est GFR (CKD-EPI)NonAf 57.36 Random Glucose 214 H Hemoglobin A1c % Calcium 9.4 Phosphorus Magnesium Total Bilirubin 0.7 AST 22 ALT 21 Alkaline Phosphatase 91 Creatine Kinase 167 Creatine Kinase Index 1.6 CK-MB (CK-2) 2.8 Troponin I < 0.02 Total Protein 6.9 Albumin 3.3 L Triglycerides Cholesterol Total LDL Cholesterol HDL Cholesterol Lipase 212 08/13/19 08/13/19 08/14/19 21:35 21:35 06:35 WBC 7.8 RBC 4.60 Hgb 13.6 Hct 39.2 MCV 85.1 MCH 29.5 MCHC 34.7 RDW 15.9 Plt Count 168 D MPV 9.4 Absolute Neuts (auto) 5.0 Neutrophils % 64.7 D Lymphocytes % 26.3 D Monocytes % 7.2 Eosinophils % 1.1 D Basophils % 0.7 Nucleated RBC % 0 D-Dimer 865 H Sodium Potassium Chloride Carbon Dioxide Anion Gap BUN Creatinine Est GFR (CKD-EPI)AfAm Est GFR (CKD-EPI)NonAf Random Glucose Hemoglobin A1c % Calcium Phosphorus Magnesium Total Bilirubin AST ALT Alkaline Phosphatase Creatine Kinase 124 Creatine Kinase Index CK-MB (CK-2) Troponin I < 0.02 Total Protein Albumin Triglycerides Cholesterol Total LDL Cholesterol HDL Cholesterol Lipase 08/14/19 08/14/19 06:35 06:35 WBC RBC Hgb Hct MCV MCH MCHC RDW Plt Count MPV Absolute Neuts (auto) Neutrophils % Lymphocytes % Monocytes % Eosinophils % Basophils % Nucleated RBC % D-Dimer Sodium 138 Potassium 3.7 Chloride 104 Carbon Dioxide 25 Anion Gap 9 BUN 13.5 Creatinine 1.0 Est GFR (CKD-EPI)AfAm 99.85 Est GFR (CKD-EPI)NonAf 86.15 Random Glucose 75 Hemoglobin A1c % 6.8 H Calcium 8.8 Phosphorus 3.7 Magnesium 1.7 L Total Bilirubin AST ALT Alkaline Phosphatase Creatine Kinase Creatine Kinase Index CK-MB (CK-2) Troponin I < 0.02 Total Protein Albumin Triglycerides 106 Cholesterol 169 Total LDL Cholesterol 111 H HDL Cholesterol 42 Lipase Imaging - Results Chest X-ray: Image Reviewed (no i/e ? smal PTX) EKG: Image Reviewed (s tachy o/w wnl) Other: Report Reviewed (cta no pe cain duplex no dvt), Image Reviewed Problem List - Problems (1) Chest pain Code(s): R07.9 - CHEST PAIN, UNSPECIFIED Qualifiers: Chest pain type: unspecified Qualified Code(s): R07.9 - Chest pain, unspecified (2) Cholelithiasis Code(s): K80.20 - CALCULUS OF GALLBLADDER W/O CHOLECYSTITIS W/O OBSTRUCTION (3) Arm paresthesia, left Code(s): R20.2 - PARESTHESIA OF SKIN (4) CVA (cerebral vascular accident) Code(s): I63.9 - CEREBRAL INFARCTION, UNSPECIFIED (5) Cellulitis Code(s): L03.90 - CELLULITIS, UNSPECIFIED (6) Diabetes mellitus Code(s): E11.9 - TYPE 2 DIABETES MELLITUS WITHOUT COMPLICATIONS Qualifiers: Diabetes mellitus type: type 2 Diabetes mellitus usp insulin use: without emt intermediate use Diabetes mellitus complication status: with neurologic complications Diabetes mellitus complication detail: with other neurological complication Qualified Code(s): E11.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 (7) Fever Code(s): R50.9 - FEVER, UNSPECIFIED Qualifiers: Fever type: unspecified Qualified Code(s): R50.9 - Fever, unspecified (8) Foot pain, right Code(s): M79.671 - PAIN IN RIGHT FOOT (9) [place] cardiac risk >20% in next 10 years Code(s): Z91.89 - OTH PERSONAL RISK FACTORS, NOT ELSEWHERE CLASSIFIED (10) H/O: CVA (cerebrovascular accident) Code(s): Z86.73 - PRSNL HX OF TIA (TIA), AND CEREB INFRC W/O RESID DEFICITS (11) Hyperlipidemia associated with type 2 diabetes mellitus Code(s): E11.69 - TYPE 2 DIABETES MELLITUS WITH OTHER SPECIFIED COMPLICATION; E78.5 - HYPERLIPIDEMIA, UNSPECIFIED (12) Hypertension Code(s): I10 - ESSENTIAL (PRIMARY) HYPERTENSION (13) Leg wound, right Code(s): S81.801A - UNSPECIFIED OPEN WOUND, RIGHT LOWER LEG, INITIAL ENCOUNTER (14) Non-healing fracture Code(s): TRA6888 - (15) Renal insufficiency Code(s): N28.9 - DISORDER OF KIDNEY AND URETER, UNSPECIFIED (16) Right arm cellulitis Code(s): L03.113 - CELLULITIS OF RIGHT UPPER LIMB (17) Sepsis Code(s): A41.9 - SEPSIS, UNSPECIFIED ORGANISM Qualifiers: Sepsis type: sepsis due to unspecified organism Qualified Code(s): A41.9 - Sepsis, unspecified organism (18) Sleep apnea Code(s): G47.30 - SLEEP APNEA, UNSPECIFIED (19) Smoking Code(s): F17.200 - NICOTINE DEPENDENCE, UNSPECIFIED, UNCOMPLICATED (20) UTI (urinary tract infection) Code(s): N39.0 - URINARY TRACT INFECTION, SITE NOT SPECIFIED Assessment/Plan 54 yo man with h/o DM, HTN, CVA now with musculoskeletal rigth sided chest pain CT chest/ CTA chest negative, no lung abnormality, no pneumothorax, no pe serial cardiac enzymes are negative us shows gall stones elevated ddimer Plan; Agree with d/c home Outpatient stress test for risk stratification if not done recently Increase Lipitor to keep LDL below 70 mg/dl cont ASA Risk factors modification/BP control
--- NOTE | 2019-08-14 11:40 | EKG ---
Test Reason : Blood Pressure : / mmHG Vent. Rate : 109 BPM Atrial Rate : 109 BPM P-R Int : 124 ms QRS Dur : 086 ms QT Int : 362 ms P-R-T Axes : 060 011 050 degrees QTc Int : 487 ms SINUS TACHYCARDIA OTHERWISE NORMAL ECG WHEN COMPARED WITH ECG OF 28-JUL-2019 07:45, NO SIGNIFICANT CHANGE WAS FOUND Confirmed by Devin Cuevas MD ([id number]) on 08/14/2019 11:39:29 AM Referred By: Confirmed By:Devin Cuevas MD
--- NOTE | 2019-08-14 14:32 | DS ---
Physical Examination Vital Signs: Vital Signs Temperature 97.1 F L 08/14/19 10:00 Pulse Rate 77 08/14/19 10:00 Respiratory Rate 18 08/14/19 12:00 Blood Pressure 134/76 08/14/19 10:00 O2 Sat by Pulse Oximetry (%) 97 08/14/19 12:00 Constitutional: Yes: Calm Eyes: Yes: EOM Intact HENT: Yes: Normocephalic Neck: Yes: Trachea Midline Cardiovascular: Yes: Regular Rate and Rhythm Respiratory: Yes: CTA Bilaterally Musculoskeletal: Yes: Other (reproducible right chest wall tenderness) Edema: No Labs: CBC, BMP 08/14/19 06:35 08/14/19 06:35 Discharge Summary Problems reviewed: Yes Reason For Visit: CHEST PAIN Current Active Problems Chest pain (Acute) Cholelithiasis (Acute) Hospital Course: 54 yo man with h/o DM, HTN, CVA now with musculoskeletal rigth sided chest pain CT chest/ CTA chest negative, no lung abnormality, no pneumothorax, no pe serial cardiac enzymes are negative us shows gall stones elevated ddimer us legs no dvt otherwise pain appears muscular after injury dc home with topical lidocaine patch and prn tylenol - Instructions Referrals: Fozia Paulino MD [Primary Care Provider] - Disposition: HOME - Home Medications Comprehensive Discharge Medication List: Ambulatory Orders Gabapentin 300 mg PO BID 11/26/16 Atorvastatin Ca [Lipitor] 40 mg PO HS 01/17/17 Dulaglutide [Trulicity] 1.5 mg SQ WEEKLY 01/17/17 Aspirin [ASA -] 81 mg PO DAILY tab.chew 01/19/17 Zolpidem Tartrate [Ambien] 5 mg PO HS 01/08/18 Lisinopril [Prinivil] 10 mg PO DAILY #0 tablet 01/10/18 metFORMIN HCL [Metformin HCl] 1,000 mg PO BID 07/28/19 Duloxetine HCl 30 mg PO BID 07/29/19 Acetaminophen [Tylenol .Regular Strength -] 325 mg PO Q12H PRN tablet 07/30/19 Oxycodone HCl/Acetaminophen [Percocet 5-325 mg Tablet] 1 tab PO ASDIR PRN Lidocaine 5% Patch [Lidoderm -] 1 patch TP DAILY #10 patch 08/14/19
[2019-08-14 15:03] VITALS: BP 122/74; PULSE 72; TEMP 97.4
[2019-08-14] MEDS ORDERED: ZOLPIDEM TARTRATE 5 MG TABLET PO PRN (22:00)
[2019-08-14] MEDS ORDERED: ATORVASTATIN CA 40 MG TABLET (FP) PO SCH (22:00)
[2019-08-14] MEDS ORDERED: LIDOCAINE PATCH REMOVAL MC SCH (22:00)
== END 2019-08-14 15:12 | disposition home or self-care (01) | DRG 313 ==
LOC: JER 14:42 → JERBED 22:16
PROVIDERS: ADMIT Internal Medicine; ATTEND Internal Medicine
DX: R07.89 Other chest pain (principal); I69.351 Hemiplegia and hemiparesis following cerebral infarction affecting right dominant side; E11.9 Type 2 diabetes mellitus without complications; I10 Essential (primary) hypertension; E78.00 Pure hypercholesterolemia, unspecified; Z79.84 Long term (current) use of oral hypoglycemic drugs; E78.5 Hyperlipidemia, unspecified; F17.210 Nicotine dependence, cigarettes, uncomplicated; K80.20 Calculus of gallbladder without cholecystitis without obstruction
CPT/HCPCS: 36415; 71046-TC-FY; 71250-TC; 71275-TC; 76705-TC; 80048; 80053; 80061; 82550; 82553; 83036; 83690; 83721; 83735; 84100; 84484; 85025; 85379; 93005; 93010; 93306-TC; 93970-TC; 99284-25; J1644; J7030

== ENCOUNTER 2019-08-16 16:34 | Inpatient (IN) | payer OTHER ==
[2019-08-16 17:22] VITALS: BMI 29.5
--- NOTE | 2019-08-16 17:54 | HP ---
COWS - Scale Resting Pulse: 1= [place] 81-100 Sweatin= No chills or Flushing Restless Observation: 0= Sits Still Pupil Size: 0= Normal to Room Light Bone or Joint Aches: 0= None Runny Nose/ Eye Tearin= Nasal Congestion GI Upset > 30mins: 0= None Tremor Observation: 0= None Yawning Observation: 0= None Anxiety or Irritability: 0= None Goose Flesh Skin: 0=Smooth Skin COWS Score: 2 CIWA Score Nausea/Vomitin-No Nausea/No Vomiting Muscle Tremors: 1-None Visible, but [place] Anxiety: 0-No Anxiety, at Ease Agitation: 0-Normal Activity Paroxysmal Sweats: No Perspiration Orientation: 0-Oriented Tacttile Disturbances: 0-None Auditory Disturbances: 0-None Visual Disturbances: 0-None Headache: 0-None Present CIWA-Ar Total Score: 1 - Admission Criteria OASAS Guidelines: Admission for Medically Managed Detox: Requires at least one of the followin. CIWA greater than 12 2. Seizures within the past 24 hours 3. Delirium tremens within the past 24 hours 4. Hallucinations within the past 24 hours 5. Acute intervention needed for co occurring medical disorder 6. Acute intervention needed for co occurring psychiatric disorder 7. Severe withdrawal that cannot be handled at a lower level of care (continued vomiting, continued diarrhea, abnormal vital signs) requiring intravenous medication and/or fluids 8. 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: CVA (multiple ischemic right cerebral 2017) Cardiovascular: Yes: HTN, Hyperlipdemia Pulmonary: Yes: Other (current cigarette smoker) Psych: Yes: Anxiety Endocrine: Yes: Diabetes Insipidus - Smoking History Smoking history: Current every day smoker Have you smoked in the past 12 months: Yes Aproximately how many cigarettes per day: 6 - Alcohol/Substance Use Hx Alcohol Use: No - Social History ADL: Independent History of Recent Travel: No Admission ROS S - HPI Chief Complaint: "Here for help w/ alcohol and percocet use" Allergies/Adverse Reactions: Allergies Allergy/AdvReac Type Severity Reaction Status Date / Time No Known Allergies Allergy Verified 08/16/19 16:53 History of Present Illness: 54 yo discharged from [facility] ED today after being admitted on 08/15/2019 for evaluation of syncopal episode. Has had 3 hospital visits in last 2 30 days. Denies hx seizures, blackouts, or overdoses. States here today for alcohol and percocet use disorder. VANESSA: 0.0 UTox: + OXY Has tried to stop alcohol on own, but longest sobriety is 1 week. Alcohol use began at age 18. States became a problem r/t depression x 2 years, right after having a stroke. States currently drinks 12 - 12 oz beers/day. Also drinks [employer] [place] liquor 1/ 2 5th/day. Last drink today 1 beer. No drinking prior to that x 3 days. Percocets - prescribed 2 per day x 4 years. States takes 6/day. When runs out of Pecocets, drinks more liquor. States prescribed Percocet for nerve pain in (L) arm and back pain. Nicotine use began at age 18. Currently smokes 1/2 PPD. PMHx: HTN; DM; CVA; Gallstones; Chronic back pain; MHHx: Depression - on Cymbalta. . Last took today. Denies thoughts of harming self or others. SHx: Domiciled. Unemployed (SSD); Denies legal issues. CIWA & COWS - No indication of active withdrawal. Will admit to rehab. Patient Name: Alexy Coello Date: 1965 Address: [address] [place] [address] Sex: Male Rx Written Rx Dispensed Drug Quantity Days Supply Prescriber Name 08/08/2019 08/08/2019 oxycodone-acetaminophen 5-325 mg tab 60 30 Licha Scott NP 08/08/2019 08/08/2019 zolpidem tartrate 10 mg tablet 30 30 Licha Scott NP Patient Name: Alexy Patton Date: 1965 Address: [address] [place] [address] Sex: Male Rx Written Rx Dispensed Drug Quantity Days Supply Prescriber Name 07/31/2019 08/01/2019 zolpidem tartrate 5 mg tablet 30 30 Mojgan Valencia 07/31/2019 08/01/2019 oxycodone-acetaminophen 5-325 mg tablet 60 30 Mojgan Valencia Patient Name: Alxey Coello Date: 1965 Address: [facility] JOCELYN COLE [address] [place] [address] Sex: Male Rx Written Rx Dispensed Drug Quantity Days Supply Prescriber Name 07/04/2019 07/04/2019 oxycodone-acetaminophen 5-325 mg tab 60 30 Licha Scott [employer] 07/04/2019 07/04/2019 zolpidem tartrate 10 mg tablet 30 30 Bourgeois, Licha [employer] Patient Name: Alexy Coello Date: 1965 Address: [facility] [place] [address] Sex: Male Rx Written Rx Dispensed Drug Quantity Days Supply Prescriber Name 05/09/2019 05/09/2019 oxycodone-acetaminophen 5-325 mg tab 60 30 JasonurgeLucian greenen [employer] 05/09/2019 05/09/2019 zolpidem tartrate 10 mg tablet 30 30 Bourgeois, Licha [employer] 04/04/2019 04/11/2019 zolpidem tartrate 10 mg tablet 30 30 BourgeoisLicha [employer] 04/04/2019 04/11/2019 oxycodone-acetaminophen 5-325 mg tab 60 30 Bourgeois, Licha [employer] 03/14/2019 03/19/2019 oxycodone-acetaminophen 5-325 mg tab 60 30 Bourgeois, Licha [employer] 03/14/2019 03/14/2019 zolpidem tartrate 10 mg tablet 30 30 Bourgenorma, Licha [employer] Patient Name: Alexy Coello Date: 1965 Address: [facility] JOSE ANGEL BRUNO Saravanan [place] [id number] Sex: Male Rx Written Rx Dispensed Drug Quantity Days Supply Prescriber Name 02/14/2019 02/23/2019 oxycodone-acetaminophen 5-325 mg tablet 60 30 Licha Scott [employer] 01/17/2019 01/18/2019 oxycodone-acetaminophen 5-325 mg tab 60 30 JasonurgeLicha green [employer] 12/27/2018 12/28/2018 zolpidem tartrate 10 mg tablet 30 30 BourgeLicha green [employer] 12/27/2018 12/28/2018 promethazine-codeine syrup 240ml 10 Licha Scott [employer] 12/13/2018 12/14/2018 oxycodone-acetaminophen 5-325 mg tab 60 30 Fozia Paulino 11/22/2018 11/24/2018 promethazine-codeine syrup 240ml 10 Jasonlupe Licha Barrera [employer] 11/15/2018 11/17/2018 oxycodone-acetaminophen 5-325 mg tablet 60 30 Licha Scott [employer] 10/11/2018 10/13/2018 oxycodone-acetaminophen 5-325 mg tablet 60 30 Licha Scott [employer] 09/06/2018 09/12/2018 zolpidem tartrate 10 mg tablet 30 30 Yamilkanorma Licha Barrera [employer] 09/06/2018 09/12/2018 oxycodone-acetaminophen 5-325 mg tablet 60 30 Licha Scott [employer] REVIEW OF RECENT HOSPITAL VISIT, LABS, EKC, AND PE: LABS: All visits reviewed. No need to repeat CBC/CHEM/UA. EK08/15/19: Reviewed and WNL Physical Examination Constitutional: Yes: Well Nourished, No Distress, Calm Eyes: Yes: WNL, Conjunctiva Clear, EOM Intact, PERRL HENT: Yes: WNL, Atraumatic, Normocephalic Neck: Yes: WNL, Supple, Trachea Midline Cardiovascular: Yes: WNL, Regular Rate and Rhythm, S1, S2 Respiratory: Yes: WNL, Regular, CTA Bilaterally Gastrointestinal: Yes: Normal Bowel Sounds, Soft, Tenderness (RUQ) Renal/: Yes: WNL Breast(s): Yes: Right (TTP) Musculoskeletal: Yes: WNL Extremities: Yes: WNL Edema: No Peripheral Pulses WNL: Yes Integumentary: Yes: WNL Neurological: Yes: WNL, Alert, Oriented ...Motor Strength: WNL 07/28/19 - 07/31/2019: Discharge Summary Reason For Visit: CVA (cerebral vascular accident) (Acute) Hospital Course: admitted for sudden worsening of left sided weakness and tingling has past h/o CVA with left hemiparesis MRI brain shows no acute disease neurologically appears at baseline NIDDM at least two hypoglycemic episodes in hospital stop glimepiride, stop insulin, will need close oupt follow up and monitoring, woulds restart levemir at lower dose if necessary HTN stable continue asa and statin 08/13/19 -08/14/19: Discharge Summary Current Active Problems Chest pain (Acute) Cholelithiasis (Acute) Hospital Course: 54 yo man with h/o DM, HTN, CVA now with musculoskeletal rigth sided chest pain CT chest/ CTA chest negative, no lung abnormality, no pneumothorax, no pe serial cardiac enzymes are negative us shows gall stones elevated ddimer us legs no dvt otherwise pain appears muscular after injury dc home with topical lidocaine patch and prn tylenol 08/15/19 - 08/16/19: Discharge Summary Reason For Visit: ACUTE KIDNEY INJURY Current Active Problems EMANUEL (acute kidney injury) (Acute) Dehydration (Acute) Hyperglycemia due to type 2 diabetes mellitus (Acute) Hospital Course: admitted for near-syncopal episode and dehydration after 24 hours of not eating. dcd from hospital 2 days ago after admission and evaluation for pleuritic chest pain went home, did not eat after breakfast and drank very little. currently rehydrated, ambulatory benigno inh and metformin was held f/up in office with us of note patient recently lost his housing arrangements-will need social service evaluation prior to discharge Condition: Fair - Home Medications Comprehensive Discharge Medication List: Ambulatory Orders Gabapentin 300 mg PO BID 11/26/16 Atorvastatin Ca [Lipitor] 40 mg PO HS 01/17/17 Dulaglutide [Trulicity] 1.5 mg SQ WEEKLY 01/17/17 Aspirin [ASA -] 81 mg PO DAILY tab.chew 01/19/17 Zolpidem Tartrate [Ambien] 5 mg PO HS 01/08/18 Lisinopril [Prinivil] 10 mg PO DAILY #0 tablet 01/10/18 metFORMIN HCL [Metformin HCl] 1,000 mg PO BID 07/28/19 Duloxetine HCl 30 mg PO BID 07/29/19 Acetaminophen [Tylenol .Regular Strength -] 325 mg PO Q12H PRN tablet 07/30/19 Oxycodone HCl/Acetaminophen [Percocet 5-325 mg Tablet] 1 tab PO ASDIR PRN Lidocaine 5% Patch [Lidoderm -] 1 patch TP DAILY #10 patch 08/14/19 Exam Limitations: No Limitations - Ebola screening Have you traveled outside of the country in the last 21 days: No Have you had contact with anyone from an Ebola affected area: No Have you been sick,other than usual withdrawal symptoms: Yes (Seen ROS) Do you have a fever: No - Review of Systems Constitutional: Changes in sleep (Difficulty falling and staying asleep), Weight Stable EENT: reports: Blurred Vision, Nose Congestion Respiratory: reports: Shortness of Breath (Occ when breathes hard r/t recent rib injury) Cardiac: reports: No Symptoms Reported GI: reports: No Symptoms Reported : reports: No Symptoms Reported Musculoskeletal: reports: Back Pain (Chronic intermitent dull low back pain "7" . Increases when twists body. Improves w/ hot compress/shower) Integumentary: reports: Lesions ((L) cohn r/t tripping on a fence) Neuro: reports: Numbness ((L) full arm) Endocrine: reports: Increased Thirst Hematology: reports: No Symptoms Reported Psychiatric: reports: Judgement Intact, Orientated x3, Depressed (Denies thoughts of harming self or others) Patient History - Patient Medical History Hx Anemia: No Hx Asthma: No Hx Chronic Obstructive Pulmonary Disease (COPD): No Hx Hypertension: Yes Hx Hypercholesterolemia: Yes HX Cerebrovascular Accident: Yes (residual left sided weakness) Hx Diabetes: Yes Hx Depression: No - Patient Surgical History Past Surgical History: No Hx Lung Surgery: No Hx Appendectomy: No Hx Cholecystectomy: No Hx Orthopedic Surgery: Yes Anesthesia Reaction: No - PPD History Previous Implant?: Yes Documented Results: Negative w/o proof Implanted On Prior R Admission?: No PPD to be Administered?: Yes - Smoking Cessation Smoking history: Current every day smoker Have you smoked in the past 12 months: Yes Aproximately how many cigarettes per day: 10 Hx Chewing Tobacco Use: No Initiated information on smoking cessation: Yes 'Breaking Loose' booklet given: 08/16/19 - Substance & Tx. History Hx Alcohol Use: Yes Hx Substance Use: Yes Substance Use Type: Alcohol, Prescribed (Percocets) Hx Substance Use Treatment: No Admission Physical Exam BHS - Vital Signs Vital Signs: Vital Signs - 24 hr 08/16/19 08/16/19 17:16 17:28 Temperature 98.2 F 98.2 F Pulse Rate 81 81 Respiratory 16 16 Rate Blood Pressure 184/94 H 184/94 H - Physical General Appearance: Yes: Nourished HEENTM: Yes: BRENDA (Pupils = 2 mm) Respiratory: Yes: Lungs Clear, Normal Breath Sounds, No Respiratory Distress Breast: Yes: Breast Exam Deferred Cardiology: Yes: Regular Rhythm, Regular Rate Abdominal: Yes: Non Tender, Soft, Protuberent Genitourinary: Yes: Within Normal Limits Back: Yes: Normal Inspection Musculoskeletal: Yes: Gait Steady Extremities: Yes: Normal Capillary Refill Neurological: Yes: Fully Oriented, Alert, Other (BHG (L) > (R)) Integumentary: Yes: Other (Superficial abrasion (L) cohn w/o increased warmth or exudate) Lymphatic: Yes: Within Normal Limits - Diagnostic (1) Opioid use disorder Current Visit: Yes Status: Chronic Comment: Abuses prescribed oxycodone (2) Rib pain on right side Current Visit: Yes Status: Acute Comment: x 1 week r/t fall. Examined in ED (3) Cholelithiasis Current Visit: Yes Status: Acute Qualifiers: Cholelithiasis location: gallbladder Cholecystitis presence: without cholecystitis Biliary obstruction: without biliary obstruction Qualified Code(s): K80.20 - Calculus of gallbladder without cholecystitis without obstruction (4) H/O: CVA (cerebrovascular accident) Current Visit: Yes Status: Chronic Comment: w/ residual (L) arm weakness (5) Hypertension Current Visit: Yes Status: Chronic Qualifiers: Hypertension type: essential hypertension Qualified Code(s): I10 - Essential (primary) hypertension (6) Nicotine dependence, unspecified, uncomplicated Current Visit: Yes Status: Chronic Qualifiers: Nicotine product type: cigarettes Qualified Code(s): F17.210 - Nicotine dependence, cigarettes, uncomplicated (7) Diabetes 1.5, managed as type 2 Current Visit: Yes Status: Acute Cleared for Admission BHS - Detox or Rehab Claeared for Rehab Admission: Yes Breathalyzer - Breathalyzer Breathalyzer: 0 Urine Drug Screen - Test Device Lot number: [id number] Expiration date: 08/16/19 - Control Is test valid?: Yes - Results Drug screen NEGATIVE: No Urine drug screen results: OXY-Oxycodone Inpatient Rehab Admission - Rehab Decision to Admit Inpatient rehab admission?: Yes - Initial Determination Are CD services needed?: Yes Free of communicable disease: Yes Not in need of hospitalization: Yes - Rehab Admission Criteria Previous failed treatment: Yes Poor recovery environment: Yes Comorbidities: Yes Lacks judgement: No Patient is meeting Inpatient Rehab admission criteria:: Yes (Patient has tried to stop on own)
[2019-08-16] MEDS ORDERED: hydrOXYzine PAMOATE 25 MG CAPSULE (FP) PO PRN (18:42)
[2019-08-16] MEDS ORDERED: MENTHOL/PHENOL 1 EACH UD MM PRN (18:42)
[2019-08-16] MEDS ORDERED: guaiFENesin 200 MG/10 ML 10 ML UNIT-DOSE CUPS PO PRN (18:42)
[2019-08-16] MEDS ORDERED: MAG HYDROX/AL HYDROX/SIMETH 30 ML UNIT-DOSE CUP PO PRN (18:42)
[2019-08-16] MEDS ORDERED: ACETAMINOPHEN 325 MG TABLET (FP) PO PRN (18:42)
[2019-08-16] MEDS ORDERED: P-EPHED 60MG/TRIPROLIDI 2.5MG TABLET PO PRN (18:42)
[2019-08-16] MEDS ORDERED: MAGNESIUM HYDROX 2400MG/30ML ORAL SUSPENSION 30 ML CUP PO PRN (18:42)
[2019-08-16] MEDS ORDERED: LOPERAMIDE HCL 2 MG CAPSULE PO PRN (18:42)
[2019-08-16] MEDS ORDERED: NICOTINE POLACRILEX 2 MG GUM BC PRN (18:42)
[2019-08-16] MEDS ORDERED: MAGNESIUM CITRATE 300 ML BOTTLE PO PRN (18:42)
[2019-08-16] MEDS ORDERED: cloNIDine HCL 0.1 MG TABLET PO ONE (19:00)
[2019-08-16] MEDS ORDERED: TUBERCULIN PPD 5 TU/0.1ML VIAL ID ONE (19:51)
[2019-08-16] MEDS: THIAMINE HCL 100 MG TABLET (FP) PO SCH (21:43)
[2019-08-16] MEDS: ATORVASTATIN CA 40 MG TABLET (FP) PO SCH (21:44)
[2019-08-16] MEDS: GABAPENTIN 100 MG CAPSULE PO SCH (21:44)
[2019-08-16] MEDS: MELATONIN 5 MG TABLETS PO PRN (21:44)
[2019-08-17] MEDS: GABAPENTIN 100 MG CAPSULE PO SCH ×3 (06:36→21:15)
[2019-08-17] MEDS: metFORMIN HCL 500 MG TABLET (FP) PO SCH ×2 (06:36→16:47)
[2019-08-17] MEDS: IBUPROFEN 400 MG TABLET (FP) PO PRN ×2 (06:37→16:49)
[2019-08-17] MEDS: ASPIRIN 81 MG CHEWABLE TABLETS PO SCH (10:02)
[2019-08-17] MEDS: LIDOCAINE 5% TOPICAL PATCH TP SCH (10:02)
[2019-08-17] MEDS: NICOTINE 14 MG/24 HOURS TOPICAL PATCH TD SCH (10:02)
[2019-08-17] MEDS: PRENATAL VITAMINS W/ FOLIC ACID TABLET (FP) PO SCH (10:02)
--- NOTE | 2019-08-17 13:29 | CONSULT ---
[facility] Psychiatric Consult - Data Date of interview: 08/17/19 Admission source: [facility] Identifying data: First visit to [facility] and admission to [address] for this 54 y/o male self-referred for rehabilitation treatment aiming at management of HIPOLITO issues (alcohol, opiates, nicotine) co-morbid with MDD + Anxiety Disorder. Patient is single, no dependents, domiciled, unemployed ( disabled) and supported on [facility] benefits. Substance Abuse History: Discussed in this session. Details in current [facility] report as follows : Smoking history: Current every day smoker. Have you smoked in the past 12 months: Yes. Aproximately how many cigarettes per day: 10. Hx Chewing Tobacco Use: No. Initiated information on smoking cessation: Yes. ' Breaking Loose' booklet given: 08/16/19. Substance & Tx. History. Hx Alcohol Use: Yes. Hx Substance Use: Yes. Substance Use Type: Alcohol, Prescribed ( Percocets). Hx Substance Use Treatment: No. Patient started using alcohol at age 18. Consumes 12 beers daily (12 oz) and [employer] [place] liquor (1/2 5th/day). Patient reports that he uses more percocets than prescribed (takes six tablets/ day instead of the two prescribed by the physician). Smokes 1/2 pack of cigarettes daily (since age 18). Medical History: Medical profile is remarkable for antecedent of CVA with residual left-sided weakness, hypertension, dyslipidemia, diabetes mellitusn and chronic lumbar pain. Patient denies allergies. Psychiatric History: Patient denies history of psychiatric hospitalizations. Has been diagnosed with MDD + Anxiety Disorder since 2017 (post-CVA). Mr Bullock is currently on a regimen of duloxetine 30 mg/bid. He sees a psychiatrist at the [facility], on [facility], in [place]. Patient denies history of suicide attempts. Physical/Sexual Abuse/Trauma History: Severe stressors : serious medical illnesses, loneliness, financial difficulties and addictions. Additional Comment: Urine drug screen results: OXY-Oxycodone. Noted. Mental Status Exam - Mental Status Exam Alert and Oriented to: Time, Place, Person Cognitive Function: Good Patient Appearance: Unkempt (short stature), Disheveled Mood: Depressed, Withdrawn, Anxious Affect: Mood Congruent, Constricted Patient Behavior: Fatigued, Appropriate, Cooperative Speech Pattern: Clear, Appropriate Voice Loudness: Normal Thought Process: Intact, Goal Oriented Thought Disorder: Not Present Hallucinations: Denies Suicidal Ideation: Denies Homicidal Ideation: Denies Insight/Judgement: Fair Sleep: Fair Appetite: Fair Gait/Station: Other (slow, paretic gait) Psychiatric Findings - Problem List ([place] 1, 2,3) (1) Alcohol use disorder Current Visit: Yes Status: Chronic (2) Opioid use disorder Current Visit: Yes Status: Chronic Comment: Abuses prescribed oxycodone (3) Nicotine dependence Current Visit: Yes Status: Chronic (4) Depressive disorder Current Visit: Yes Status: Chronic - Initial Treatment Plan Initial Treatment Plan: Psychoeducation. Support. Sleep hygiene. Motivational counseling. NA/AA meetings. Groups. Resume duloxetine 30 mg po daily. Side effects/benefits discussed with patient. Mr Bullock agrees with this plan of care. Gave consent (verbal) to MD. Schwartz.
[2019-08-17] MEDS: ATORVASTATIN CA 40 MG TABLET (FP) PO SCH (21:15)
[2019-08-17] MEDS: THIAMINE HCL 100 MG TABLET (FP) PO SCH (21:15)
[2019-08-17] MEDS: MELATONIN 5 MG TABLETS PO PRN (21:15)
[2019-08-17] MEDS: LIDOCAINE PATCH REMOVAL MC SCH (21:15)
[2019-08-18] MEDS: GABAPENTIN 100 MG CAPSULE PO SCH ×3 (06:33→21:34)
[2019-08-18] MEDS: metFORMIN HCL 500 MG TABLET (FP) PO SCH ×2 (06:33→16:34)
[2019-08-18 09:02] VITALS: PULSE 71
[2019-08-18] MEDS: LIDOCAINE 5% TOPICAL PATCH TP SCH (10:07)
[2019-08-18] MEDS: ASPIRIN 81 MG CHEWABLE TABLETS PO SCH (10:08)
[2019-08-18] MEDS: NICOTINE 14 MG/24 HOURS TOPICAL PATCH TD SCH (10:08)
[2019-08-18] MEDS: PRENATAL VITAMINS W/ FOLIC ACID TABLET (FP) PO SCH (10:08)
[2019-08-18] MEDS: DULoxetine HCL 30 MG CAPSULE.DR PO SCH (10:08)
[2019-08-18] MEDS: ATORVASTATIN CA 40 MG TABLET (FP) PO SCH (21:34)
[2019-08-18] MEDS: MELATONIN 5 MG TABLETS PO PRN (21:34)
[2019-08-18] MEDS: LIDOCAINE PATCH REMOVAL MC SCH (21:35)
[2019-08-18] MEDS: THIAMINE HCL 100 MG TABLET (FP) PO SCH (21:35)
[2019-08-19] MEDS: GABAPENTIN 100 MG CAPSULE PO SCH (06:22)
[2019-08-19 06:58] VITALS: BP 146/88; TEMP 98
[2019-08-19] MEDS: metFORMIN HCL 500 MG TABLET (FP) PO SCH (07:04)
[2019-08-19] MEDS: LIDOCAINE 5% TOPICAL PATCH TP SCH (09:55)
[2019-08-19] MEDS: PRENATAL VITAMINS W/ FOLIC ACID TABLET (FP) PO SCH (09:55)
[2019-08-19] MEDS: ASPIRIN 81 MG CHEWABLE TABLETS PO SCH (09:55)
[2019-08-19] MEDS: DULoxetine HCL 30 MG CAPSULE.DR PO SCH (09:55)
[2019-08-19] MEDS: NICOTINE 14 MG/24 HOURS TOPICAL PATCH TD SCH (09:56)
--- NOTE | 2019-08-19 10:09 | DS ---
[facility] Rehab Discharge Summary - [facility] Rehab Discharge Summary Admission Date: 08/16/19 Discharge Date: 08/19/19 - History Present History: Alcohol dependence, Opioid dependence - Discharge Physical Exam Vital Signs: Vital Signs Temperature 98 F 08/19/19 06:58 Pulse Rate 71 08/19/19 06:58 Respiratory Rate 18 08/19/19 06:58 Blood Pressure 146/88 08/19/19 06:58 O2 Sat by Pulse Oximetry (%) Laboratory Tests 08/17/19 08/17/19 08/17/19 06:35 07:30 11:33 POC Glucometer 147 186 RPR Titer Nonreactive 08/17/19 08/18/19 08/18/19 16:48 11:42 16:35 POC Glucometer 194 186 207 RPR Titer 08/19/19 06:22 POC Glucometer 154 RPR Titer ROS: PATIENT DENIES CHEST PAIN, SOB, DIZZINESS, SHAKES AND SI/HI. PE ALERT AND ORIENTED X 3 SKIN WARM AND DRY +PERRLA,EOMS INTACT BL NECK SUPPLE NO JVD EXT NO TREMORS, FULL ROM DENIES SI/HI A/P ETOH/OPIOD DEPENDENCE PATIENT REQUESTED TO SIGN OUT AMA STATING " I HAVE SOME THINGS I HAVE TO TAKE CARE OF" - Medication Discharge Medications: Ambulatory Orders Gabapentin 600 mg PO TID 11/26/16 Atorvastatin Ca [Lipitor] 40 mg PO HS 01/17/17 Dulaglutide [Trulicity] 1.5 mg SQ WEEKLY 01/17/17 Aspirin [ASA -] 81 mg PO DAILY tab.chew 01/19/17 Zolpidem Tartrate [Ambien] 5 mg PO HS 01/08/18 Duloxetine HCl 30 mg PO BID 07/29/19 Lidocaine 5% Patch [Lidoderm -] 1 patch TP DAILY #10 patch 08/14/19 Insulin Glargine,Hum.rec.anlog [Basaglar Kwikpen U-100] 40 units SCJ HS Metformin HCl [Glucophage] 1,000 mg PO BID 08/16/19 Oxycodone HCl/Acetaminophen [Percocet 5-325 mg Tablet] 1 tab PO BID #0 tab MDD 2 08/16/19 - Medication-Assisted Treatment (MAT) Medication-Assisted Treatment (MAT): No MAT Follow-up Referral: PATIENT TO FOLLOW UP WITH [facility]. - Discharge Instructions Diet, activity, other medical instructions: Diet: NCS EVANS Activity: AD CHASITY EVANS Other medical instructions: F/U WITH PCP RECOMMENDED - Follow-up Referral Minutes to complete discharge: 30 - AMA Did Patient Leave Against Medical Advice: Yes Additional Comments: PATIENT REQUESTED TO SIGN OUT OF REHAB AFTER 2 DAYS OF TREATMENT. PATIENT ENCOURAGED TO STAY INPATIENT AND COMPLETE REHAB BUT HE REFUSED. PATIENT EXPLAINED RISK FACTORS OF REOCCURRENCE OF SUBSTANCE USE WITH SIGNING OUT AND POSSIBLE OVERDOSE/, HOWEVER HE CONTINUED WITH AMA PROCESS. PATIENT TO FOLLOW UP WITH [facility]. HE IS MEDICALLY STABLE AT THIS TIME AND DENIES SI/HI.
== END 2019-08-19 10:12 | disposition left against medical advice (07) | DRG 894 ==
LOC: YASAS 16:34 → UNDOADMIN 18:28 → Y3W 18:28
PROVIDERS: ADMIT Allergy & Immunology; ATTEND Allergy & Immunology
PROC: HZ42ZZZ Group Counseling for Substance Abuse Treatment, Cognitive-Behavioral (ICD-10-PCS; principal; 2019-08-16)
DX: F11.20 Opioid dependence, uncomplicated (principal); I69.354 Hemiplegia and hemiparesis following cerebral infarction affecting left non-dominant side; F10.20 Alcohol dependence, uncomplicated; F17.210 Nicotine dependence, cigarettes, uncomplicated; F32.9 Major depressive disorder, single episode, unspecified; F41.9 Anxiety disorder, unspecified; I10 Essential (primary) hypertension; E78.5 Hyperlipidemia, unspecified; E11.9 Type 2 diabetes mellitus without complications; M54.5 Low back pain; G89.29 Other chronic pain; K80.20 Calculus of gallbladder without cholecystitis without obstruction; R07.81 Pleurodynia; Z79.4 Long term (current) use of insulin; Z79.84 Long term (current) use of oral hypoglycemic drugs; Z56.0 Unemployment, unspecified
CPT/HCPCS: 36415; 71045-TC-FY; 80053; 81003; 82962; 84484; 85025; 86593; 87086; 87389; 93005; 93010; 99285-25; G0378; J0735; J7030

== ENCOUNTER 2020-04-10 04:13 | Inpatient (IN) | payer OTHER ==
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
--- OUTSIDE RECORDS SUMMARY | 2020-04-10 05:22 | XMS ---
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 Saint [Mass/volume] styleCode="Gege Jacksons in Urine by d">Urine Medical Test strip Ketone Center </content>NEGA TIVE MG/DL<content styleCode="Samantha lics"> (NEGATIVE MG/DL)</conten t> Urobilinogen 0.2-1.0 <content Saint [Units/volume] styleCode="Gege Hayley in Urine by d">Urine Medical Test strip Urobilinogen Center </content>0.2 MG/DL<content styleCode="Samantha lics"> (0.2-1.0 MG/DL)</conten t> Protein NEGATIVE <content Saint [Mass/volume] styleCode="Gege Hayley in Urine by d">Urine Medical Test strip Protein Center </content>100 MG/DL<content styleCode="Samantha lics"> (NEGATIVE MG/DL)</conten t> Nitrite NEGATIVE <content Saint [Presence] in styleCode="Gege Jacksons Urine by Test d">Urine Medical strip Nitrite Center </content>NEGA TIVE <content styleCode="Samantha lics"> (NEGATIVE )</content> UNK 0-3 <content Saint styleCode="Gege Hayley d">Urine White Medical Blood Cell Center </content>0-3 HPF<content styleCode="Samantha lics"> (0-3 HPF)</content> UNK 0-3 <content Saint styleCode="Gege Hayley d">Urine Red Medical Blood Cell Center </content>3-5 HPF<content styleCode="Samantha lics"> (0-3 HPF)</content> Leukocyte NEGATIVE <content Saint esterase styleCode="Gege Jacksons [Presence] in d">Urine Medical Urine by Test Leukocyte Center strip </content>NEGA TIVE <content styleCode="Samantha lics"> (NEGATIVE )</content> UNK NONE SEEN <content Saint styleCode="Gege Hayley d">Fine Medical Granular Cast Center </content>3-5 LPF<content styleCode="Samantha lics"> (NONE SEEN LPF)</content> UNK <content Saint styleCode="Gege Hayley d">Sperm Cell Medical </content>FEW Center HPF (Reference Range: not available)<br/ > UNK 0-2 <content Saint styleCode="Gege Hayley d">Hyaline Medical Cast Center </content>5 - 10 LPF<content styleCode="Samantha lics"> (0-2 LPF)</content> UNK NONE SEEN <content Saint styleCode="Gege Hayley d">Urine Mucus Medical </content>FEW Center HPF<content styleCode="Samantha lics"> (NONE SEEN HPF)</content> ID Date Data Source CHMROUTINECCDA.[id number] 08/20/2019 12:50:00 AM [facility] -0500 Name Value Range Interpretation Description Data Sup porting Code Source(s) Document(s ) Cannabinoids <content Saint [Presence] in styleCode="Gege [facility] Urine by Screen d">Cannabinoid Medical method >50 ng/mL [facility] </content>NEGA TIVE NG/ML (Reference Range: not available)<br/ > ID Date Data Source Microbiology.[id number] 08/19/2019 09:40:00 PM [facility] 500 Name Value Range Interpretation Code Description Data Dasia rce(s) Supporting Document(s ) UNK <item><content [facility] styleCode="Bold"> Medical Cent er Culture Status </content>
<t able><tbody><tr>< td>Specimen Number:</td><td>[id number]</td></tr ><tr><td>Sample Collection Date/Time: </td><td> 0 9:40 PM</td></tr><tr>< td>Specimen Source:</td><td>B LOOD</td></tr><tr ><td>Blood Culture:</td><td> Collection Plate Date: 08/19/2019 21:53 </td></tr><tr><td >Culture Report:</td><td>N O GROWTH AFTER 48 HOURS </td></tr><tr><td >Culture Status:</td><td>P reliminary </td></tr></tbody ></table></item> UNK <item><content [facility] styleCode="Bold"> Medical [facility] er Culture Report </content>
<t able><tbody><tr>< td>Specimen Number:</td><td>[id number]</td></tr ><tr><td>Sample Collection Date/Time: </td><td> 0 9:40 PM</td></tr><tr>< td>Specimen Source:</td><td>B LOOD</td></tr><tr ><td>Blood Culture:</td><td> Collection Plate Date: 08/19/2019 21:53 </td></tr><tr><td >Culture Status:</td><td>P reliminary </td></tr><tr><td >Culture Report:</td><td>N O GROWTH AFTER 48 HOURS </td></tr></tbody ></table></item> ID Date Data Source Microbiology.[id number] 08/19/2019 09:15:00 PM EST [facility] 500 Name Value Range Interpretation Code Description Data Dasia rce(s) Supporting Document(s ) UNK <item><content [facility] styleCode="Bold"> Medical [facility] Culture Status </content>
<t able><tbody><tr>< td>Specimen Number:</td><td>[id number]</td></tr ><tr><td>Sample Collection Date/Time: </td><td> 0 9:15 PM</td></tr><tr>< td>Specimen Source:</td><td>B LOOD</td></tr><tr ><td>Culture Report:</td><td>N O GROWTH AFTER 48 HOURS </td></tr><tr><td >Culture Status:</td><td>P reliminary </td></tr><tr><td >Blood Culture:</td><td> Collection Plate Date: 08/19/2019 22:32 </td></tr></tbody ></table></item> UNK <item><content [facility] styleCode="Bold"> Medical Cent er Culture Report </content>
<t able><tbody><tr>< td>Specimen Number:</td><td>[id number]</td></tr ><tr><td>Sample Collection Date/Time: </td><td> 0 9:15 PM</td></tr><tr>< td>Specimen Source:</td><td>B LOOD</td></tr><tr ><td>Blood Culture:</td><td> Collection Plate Date: 08/19/2019 22:32 </td></tr><tr><td >Culture Status:</td><td>P reliminary </td></tr><tr><td >Culture Report:</td><td>N O GROWTH AFTER 48 HOURS </td></tr></tbody ></table></item> ID Date Data [id number] 08/19/2019 09:00:00 PM EST [facility] Name Value Range Interpretation Code Description Data Dasia rce(s) Supporting Document(s ) UNK <content [facility] styleCode="Bold" Medical Cente r >Blood Type </content>GROUP O (Reference Range: not available)
UNK NEGATIVE <content [facility] styleCode="Bold" Medical Cente r >Antibody Screen </content>NEGATI VE <content styleCode="Itali cs"> (NEGATIVE )</content> UNK <content [facility] styleCode="Bold" Medical Cente r >RH Type </content>POSITI VE (Reference Range: not available)
ID Date Data Source LIPID.[id number] 08/19/2019 08:52:00 PM EST [facility] Name Value Range Interpretation Description Data Sup porting Code Source(s) Document(s ) Triglyceride < 150 Above high normal <content Saint [Mass/volume] in styleCode="Gege [facility] Serum or Plasma d">Triglycerid [facility] es Center </content>168 MG/DL H<content styleCode="Samantha lics"> (< 150 MG/DL)</conten t> Cholesterol -<200 <content Saint [Mass/volume] in styleCode="Gege Hayley Serum or Plasma d">Cholesterol Medical </content>163 Center MG/DL<content styleCode="Samantha lics"> (-<200 MG/DL)</conten t> UNK < 100 <content Saint styleCode="Gege Hayley d">LDL-Cholest [facility] stella [place] </content>83 MG/DL<content styleCode="Samantha lics"> (< 100 MG/DL)</conten t> UNK > 60 Below low normal <content Saint styleCode="Gege Hayley d">HDL- Medical Cholesterol Center </content>46 MG/DL L<content styleCode="Samantha lics"> (> 60 MG/DL)</conten t> ID Date Data Source HematologyRou.[id number] 08/19/2019 08:52:00 PM EST [facility] 0500 Name Value Range Interpretation Description Data Sup porting Code Source(s) Document(s ) Leukocytes 4.4-11.0 Above high <content Saint [#/volume] in normal styleCode="Bold Hayley Blood by ">White Blood Medical Automated count Cell Count Center </content>18.38 KCUMM H<content styleCode="Ital ics"> (4.4-11.0 KCUMM)</content > Erythrocytes 4.4-5.9 <content Saint [#/volume] in styleCode="Bold Hayley Blood by ">Red Blood Medical Automated count Cell Count Center </content>4.78 MCUMM<content styleCode="Ital ics"> (4.4-5.9 MCUMM)</content > Hemoglobin 13.5-17. <content Saint [Mass/volume] in 5 styleCode="Bold Hayley Blood ">Hemoglobin Medical </content>13.8 Center G/DL<content styleCode="Ital ics"> (13.5-17.5 G/DL)</content> Erythrocyte mean 26.0-34. <content Saint corpuscular 0 styleCode="Bold Hayley hemoglobin ">Mean Medical [Entitic mass] Corposcular Center by Automated Hemoglobin count </content>28.9 PG<content styleCode="Ital ics"> (26.0-34.0 PG)</content> Erythrocyte mean 32.0-37. <content [facility] corpuscular 0 styleCode="Bold Hayley hemoglobin ">Mean Corpus. Medical concentration Hgb Center [Mass/volume] by Concentration Automated count (MCHC) </content>34.2 G/DL<content styleCode="Ital ics"> (32.0-37.0 G/DL)</content> Erythrocyte mean 80.0-100 <content Saint corpuscular .0 styleCode="Bold Hayley volume [Entitic ">Mean Medical volume] by Corpuscular Center Automated count Volume </content>84.5 FL<content styleCode="Ital ics"> (80.0-100.0 FL)</content> Hematocrit 41.0-53. Below low normal <content Saint [Volume 0 styleCode="Bold Hayley Fraction] of ">Hematocrit Medical Blood by </content>40.4 Center Automated count % L<content styleCode="Ital ics"> (41.0-53.0 %)</content> UNK 0 <content Saint styleCode="Bold Hayley ">Nucleated Red Medical Blood Cell Center </content>0.0 /100<content styleCode="Ital ics"> (0 /100)</content> Platelets 130-400 <content Saint [#/volume] in styleCode="Bold Hayley Blood by ">Platelet Medical Automated count Count Center </content>182 KCUMM<content styleCode="Ital ics"> (130-400 KCUMM)</content > Erythrocyte 11.5-14. Above high <content Saint distribution 5 normal styleCode="Bold Hayley width [Ratio] by ">Red Cell Medical Automated count Distribution Center Width </content>14.8 % H<content styleCode="Ital ics"> (11.5-14.5 %)</content> Platelet mean 8.0-11.0 Above high <content Saint volume [Entitic normal styleCode="Bold Hayley volume] in Blood ">Mean Platelet Medical by Automated Volume Center count </content>11.3 FL H<content styleCode="Ital ics"> (8.0-11.0 FL)</content> UNK 0.0 <content Saint styleCode="Bold Hayley ">Nucleated Red Medical Blood Cell Center Count </content>0.00 KCUMM<content styleCode="Ital ics"> (0.0 KCUMM)</content > ID Date Data Source GFR(Creatinine).[id number] 08/19/2019 08:52:00 PM EST [facility] 0-0500 Name Value Range Interpretation Code Description Data Dasia rce(s) Supporting Document(s ) UNK > 60 <content [facility] styleCode="Bold"> Medical Cent er EGFR </content>83 GFR<content styleCode="Italic s"> (> 60 GFR)</content> ID Date Data Source Coagulation 08/19/2019 08:52:00 PM [facility] Rout.[id number] EST Name Value Range Interpretation Description Data Sup porting Code Source(s) Document(s ) UNK 9.0-13.0 <content Saint styleCode="Bold" Hayley >Protime Medical </content>11.7 Center SEC<content styleCode="Itali cs"> (9.0-13.0 SEC)</content> INR in 0.80-1.2 <content Saint Platelet poor 0 styleCode="Bold" Hayley plasma by >INR Medical Coagulation </content>1.05 Center assay #<content styleCode="Itali cs"> (0.80-1.20 #)</content> UNK < 500 Above upper panic <content Saint limits styleCode="Bold" Hayley >D-Dimer Medical </content><tete Center nt styleCode="Bold" >1558 ngFEU HH</content><con tent styleCode="Itali cs"> (< 500 ngFEU)</content> aPTT in 25.1-36. <content Saint Platelet poor 5 styleCode="Bold" Hayley plasma by >Partial Medical Coagulation Thromboplastin [place] assay Time </content>32.1 SEC<content styleCode="Itali cs"> (25.1-36.5 SEC)</content> ID Date Data Source CardiacMarkers.[id number] 08/19/2019 08:52:00 PM EST Dell [facility]as[facility] -0500 Name Value Range Interpretation Description Data Sup porting Code Source(s) Document(s ) Troponin < 0.034 <content [facility] I.cardiac styleCode="Bold Hayley [Mass/volume ">Troponin I Medical ] in Serum </content>0.017 Center or Plasma NG/ML<content styleCode="Ital ics"> (< 0.034 NG/ML)</content > ID Date Data Source [facility].[id number] 08/19/2019 08:52:00 PM EST [facility] Name Value Range Interpretation Description Data Sup porting Code Source(s) Document(s ) Sodium 137-145 Below low normal <content Saint [Moles/volume] styleCode="Gege Hayley in Serum or d">Sodium Medical Plasma </content>131 Center MEQ/L L<content styleCode="Samantha lics"> (137-145 MEQ/L)</conten t> Potassium 3.5-5.3 <content Saint [Moles/volume] styleCode="Gege Hayley in Serum or d">Potassium Medical Plasma </content>4.2 Center MEQ/L<content styleCode="Samantha lics"> (3.5-5.3 MEQ/L)</conten t> Chloride 98-107 Below low normal <content Saint [Moles/volume] styleCode="Gege Hayley in Serum or d">Chloride Medical Plasma </content>96 Center MEQ/L L<content styleCode="Samantha lics"> (98-107 MEQ/L)</conten t> Glucose 74-106 Above high normal <content Saint [Mass/volume] styleCode="Geeg Hayley in Serum or d">Glucose Medical Plasma </content>232 Center MG/DL H<content styleCode="Samantha lics"> (74-106 MG/DL)</conten t> UNK 9-20 <content Saint styleCode="Gege Hayley d">BUN Medical </content>17 Center MG/DL<content styleCode="Samantha lics"> (9-20 MG/DL)</conten t> Carbon 22-30 <content Saint dioxide, total styleCode="Gege Hayley [Moles/volume] d">Carbon Medical in Serum or Dioxide Center Plasma </content>25 MEQ/L<content styleCode="Samantha lics"> (22-30 MEQ/L)</conten t> Creatinine 0.5-1.3 <content Saint [Mass/volume] styleCode="Gege Hayley in Serum or d">Creatinine Medical Plasma </content>1.0 Center MG/DL<content styleCode="Samantha lics"> (0.5-1.3 MG/DL)</conten t> UNK > 60 <content Saint styleCode="Gege Hayley d">EGFR Medical </content>83 Center GFR<content styleCode="Samantha lics"> (> 60 GFR)</content> Calcium 8.4-10.2 <content Saint [Mass/volume] styleCode="Gege Hayley in Serum or d">Calcium Medical Plasma </content>10.1 Center MG/DL<content styleCode="Samantha lics"> (8.4-10.2 MG/DL)</conten t> Procedure Social History Code Duration Value Status Description Data Source(s ) Smoking 08/20/2019 04:57:00 Daily Smoker completed Daily Smoker S [facility] PM EST Center Smoking 08/20/2019 01:24:00 Daily Smoker completed Daily Smoker S [facility] EST Center Smoking 08/20/2019 01:14:00 Daily Smoker completed Daily Smoker S [facility] EST Center Smoking 08/19/2019 11:14:00 Daily Smoker completed Daily Smoker S [facility] EST Center Smoking 08/19/2019 08:57:00 Daily Smoker completed Daily Smoker S [facility] EST Center Smoking 08/14/2019 09:37:00 Daily Smoker completed Daily Smoker S [facility] EST Center Smoking 08/14/2019 07:51:00 Daily Smoker completed Daily Smoker S [facility] EST Center Vital Signs ID Date Data Source UNK Name Value Range Interpretation Code Description Data Source(s) Diastolic blood 87 mm[Hg] 0 - 999 Above high normal 87 mm[Hg] [facility] Systolic blood 155 mm[Hg] 0 - 999 Above high normal 155 mm[Hg] Mon [facility] Oxygen saturation 94 % 0 - 999 Normal (applies to 94 % [facility] in Arterial blood [facility] by Pulse oximetry results) Respiratory rate 16 0 - 999 Normal (applies to 16 [facility] non-numeric Health System results) Heart rate 84 0 - 999 Normal (applies to 84 [facility] non-numeric Health System results) Body temperature 36.5 Dory 0 - 99.9 Normal (applies to 36.5 Dory [facility] non-numeric Health System results) Body surface area 1.8 m2 1.8 m2 [facility] ore Derived from Health Syste m formula Body mass index 29.1 kg/m2 29.1 kg/m2 [facility] e (BMI) [Ratio] Health Syst em Body weight 77.11 kg 77.11 kg [facility] System Body height 162.56 cm 162.56 cm [facility] Body temperature 97.8 [degF] 0 - 200 Normal (applies to 97.8 [degF ] [facility] non-numeric Health System results) Body temperature 36.617708 36.319694 Dory [facility] Respiratory rate 20 /min 20 /min [facility] Heart rate 83 /min 83 /min [facility] Diastolic blood 91 mm[Hg] 91 mm[Hg] [facility] Systolic blood 138 mm[Hg] 138 mm[Hg] [facility] Body temperature 36.512460 36.888197 [facility] Respiratory rate 20 /min 20 /min [facility] Heart rate 76 /min 76 /min [facility] Diastolic blood 82 mm[Hg] 82 mm[Hg] [facility] Systolic blood 137 mm[Hg] 137 mm[Hg] [facility] Body temperature 36.337514 36.164833 [facility] Respiratory rate 18 /min 18 /min [facility] Heart rate 68 /min 68 /min [facility] Diastolic blood 80 mm[Hg] 80 mm[Hg] [facility] pressure Medical Center Systolic blood 134 mm[Hg] 134 mm[Hg] [facility] Medical Center Heart rate 77 /min 77 /min [facility] Diastolic blood 83 mm[Hg] 83 mm[Hg] [facility] Systolic blood 139 mm[Hg] 139 mm[Hg] [facility] Medical [place] Body temperature 36.591037 36.797246 [facility] Respiratory rate 20 /min 20 /min [facility] Heart rate 73 /min 73 /min [facility] Systolic blood 120 mm[Hg] 120 mm[Hg] [facility] Center Diastolic blood 68 mm[Hg] 68 mm[Hg] [facility] Body temperature 36.410217 36.828907 [facility] Respiratory rate 20 /min 20 /min [facility] Heart rate 76 /min 76 /min [facility] Diastolic blood 66 mm[Hg] 66 mm[Hg] [facility] Systolic blood 139 mm[Hg] 139 mm[Hg] [facility] Medical [place] Body temperature 36.408339 36.570234 [facility] Respiratory rate 18 /min 18 /min [facility] Heart rate 70 /min 70 /min [facility] Diastolic blood 76 mm[Hg] 76 mm[Hg] [facility] Systolic blood 136 mm[Hg] 136 mm[Hg] [facility] Body weight 74.350366 74.093238 kg [facility] Measured kg Medical Center Body height 162.922839 162.670356 cm [facility] Medical Center Body mass index 28.31 kg/m2 28.31 kg/m2 [facility] (BMI) [Ratio] Medical [address] Body temperature 36.537902 36.545628 [facility] Respiratory rate 18 /min 18 /min [facility] Heart rate 85 /min 85 /min [facility] Diastolic blood 99 mm[Hg] 99 mm[Hg] [facility] Systolic blood 161 mm[Hg] 161 mm[Hg] [facility] Respiratory rate 18 /min 18 /min [facility] Heart rate 98 /min 98 /min [facility] Diastolic blood 91 mm[Hg] 91 mm[Hg] [facility] Systolic blood 154 mm[Hg] 154 mm[Hg] [facility] Oxygen saturation 98 % 98 % [facility] by Pulse oximetry Body temperature 37.325551 37.380397 [facility] Oxygen saturation 98 % 98 % [facility] blood [facility] by Pulse oximetry Body temperature 36.225695 36.017866 [facility] Respiratory rate 19 /min 19 /min [facility] Oxygen saturation 99 % 99 % [facility] blood [facility] by Pulse oximetry Heart rate 92 /min 92 /min [facility] Diastolic blood 74 mm[Hg] 74 mm[Hg] [facility] Systolic blood 116 mm[Hg] 116 mm[Hg] [facility] Body temperature 36.069185 36.871171 [facility] Respiratory rate 18 /min 18 /min [facility] Oxygen saturation 96 % 96 % [facility] blood [facility] by Pulse oximetry Heart rate 102 /min 102 /min [facility] Diastolic blood 75 mm[Hg] 75 mm[Hg] [facility] Systolic blood 109 mm[Hg] 109 mm[Hg] [facility] Patient Treatment Plan of Care Planned Activity Planned Date Details Description Data Source (s) Lisinopril [facility] atorvastatin [facility] Metformin [facility] Cymbalta [facility] Flexeril [facility] Wellbutrin [facility] Naproxen [facility] gabapentin [facility] glimepiride [facility] Ketorolac Tromethamine 10 Sa int [facility] MG Oral Tablet Center
[2020-04-10 05:25] LABS: BASO % 0.9 % (0-2.0); HEMATOCRIT 43.5 % (35.4-49); HEMOGLOBIN 14.9 GM/dL (11.7-16.9); LYMPH % 17.8 % (8-40); MCH 30.4 pg (25.7-33.7); MCHC 34.2 g/dl (32.0-35.9); MEAN CELL VOLUME 88.9 fl (80-96); MEAN PLT VOLUME 9.4 fl (7.5-11.1); MONO % 6.6 % (3.8-10.2); NEUT % 73.7 % (42.8-82.8); PLATELET COUNT 207 K/MM3 (134-434); RBC 4.89 M/mm3 (4.00-5.60); RDW 15.2 % (11.9-15.9); WHITE BLOOD COUNT 9.3 K/mm3 (4.0-10.0)
[2020-04-10 05:37] LABS: INR 1.03 (0.83-1.09); PROTHROMBIN TIME (PATIENT) 12.1 SEC (9.7-13.0)
[2020-04-10 05:40] LABS: ACTIVATED PTT 35.4 SECONDS (25.2-36.5)
[2020-04-10 05:50] LABS: ALBUMIN 3.8 g/dl (3.4-5.0); ALK PHOS 90 U/L (45-117); ANION GAP 9 MMOL/L (8-16); BILIRUBIN,TOTAL 0.4 mg/dL (0.2-1); BLOOD UREA NITROGEN 41.6 mg/dL (7-18); CHLORIDE 100 mmol/L (98-107); CO2 28 mmol/L (21-32); CREATININE 1.9 mg/dL (0.55-1.3); GLUCOSE,RANDOM 287 mg/dL (74-106); SGOT/AST 24 U/L (15-37); SGPT/ALT 19 U/L (13-61); SODIUM 137 mmol/L (136-145); TOT PROT 7.5 g/dl (6.4-8.2)
[2020-04-10] MEDS ORDERED: LACTATED RINGERS SOLUTION 1000 ML INFUS.BAG IV ONE (05:52)
--- NOTE | 2020-04-10 06:28 | PDOC ---
Attending Attestation - Resident Resident Name: Addison Izaguirre - ED Attending Attestation I have performed the following: I have examined & evaluated the patient, The case was reviewed & discussed with the resident, I agree w/resident's findings & plan, Exceptions are as noted - HPI HPI: 04/10/20 06:51 See resident HPI - Physicial Exam PE: 04/10/20 06:51 Agree with documented exam - Medical Decision Making 04/10/20 06:51 Consider seizures, electrolyte derangement, cva less likely f/u labs, ct head dispo per clinical course Discharge - Discharge Information Problems reviewed: Yes Clinical Impression/Diagnosis: H/O: CVA (cerebrovascular accident) CVA (cerebral vascular accident) Qualifiers: CVA mechanism: other Qualified Code(s): I63.89 - Other cerebral infarction - Follow up/Referral Referrals: Willis Hernandez MD [Primary Care Provider] - - Patient Discharge Instructions - Post Discharge Activity
[2020-04-10] MEDS ORDERED: LIDOCAINE 5% TOPICAL PATCH TP ONE (06:54)
[2020-04-10] MEDS ORDERED: LIDOCAINE 5% TOPICAL PATCH ONE (06:56)
--- OUTSIDE RECORDS SUMMARY | 2020-04-10 08:08 | XMS ---
:1965 [facility] Organization [facility] Care Team Providers Name Role Phone [...] is protected by Article 27-F of the [facility] Public Health law. If you continue you may haveaccess to information: Regarding HIV / AIDS; Provided by facilities licensed or operated by the [facility] Office of Mental Health; or Provided by the [facility] Office for People With Developmental Disabilities. If such information is present, then the following [facility] mandated warning applies: This information has been [...] law may result in a fine or senior care sentence or both. A general authorization for the release of medical or other information is NOT sufficient authorization for further disclosure. Encounters Encounter Providers Location Date Indications Data Source(s ) U 1019 11/02/2019 11:00:00 CAREL OGIC (Family EDT - 11/02/2019 [facility]) 11:45:00 AM EDT Patient admitted. U 1019 10/30/2019 04:36:00 AM EDT - CARELOGIC ([facility] 10/29/2019 09:46:00 PM EDT [place]) Patient discharged. Emergency Attender: Edward 5T-EMERG 10/29/2019 SLIP AND S - Mo unt LathanAttender: Doctor 09:21:00 AM EDT - [facility] Other 10/29/2019 02:46:00 PM EDT [place] Patient discharged. Inpatient Attender: Jose Guadalupe Bain-HAL6 08/19/2019 06:46:00 [facility] Hayley MCGOWANttconnie: STAFF ED STAFF PM EST - 08/21/2019 [facility] [place] PHYSICIANAdmitter: Jose Guadalupe 06:00:00 PM VENKAT Mata MDReferrer: Jose Guadalupe Mata MD Patient discharged. Emergency Attender: FLAVIA Bain 08/14/2019 07:06:00 PM [facility] Hayley Huerta: ED STAFF EST - 08/14/2019 [facility] [place] PHYSICIANAttender: STAFF ED 10:57:00 PM EST STAFF PHYSICIANAdmitter: FLAVIA García Patient discharged. U 1004 08/08/2019 10:15:00 AM EST - CARELOGIC ([facility] 10/29/2019 09:46:00 PM EDT [place]) Patient admitted. U 1019 08/08/2019 09:56:00 AM EST CARELOGIC ([facility]) Medications Medication Brand Start Product Dose Route Administrative Pharmacy [facility] Indications Reaction Description Data Name Date Form Instructions Instructions Source(s) gabapentin gabapentin 0 [id number] active machelle pentin Ordered: 29-Oct-2019 [facility] Quantity: 0 Rebecca [facility] Refills: 0 System Naproxen naproxen 0 B86328 active naproxen Ordered: 29-Oct-2019 [facility] naproxen Quantity: 0 Masoud n, [facility] Refills: 0 System glimepiride glimepiride 0 R80951 active gl imepiride Ordered: 29-Oct-2019 [facility] Quantity: 0 [facility] Refills: 0 System Cymbalta 0 U26980 active Cymbalta Ord ered: 29-Oct-2019 [facility] Quantity: 0 [facility] Refills: 0 System Metformin metFORMIN 0 H24577 active metFOR MIN Ordered: 29-Oct-2019 [facility] metFORMIN Quantity: 0 All en, [facility] Refills: 0 System Ketorolac ketorolac 10 mg 1 completed [facility] Tromethamine 10 MG Tablet, Ordered By: [facility] [place] Oral Tablet ketorolac Tiana Green, 10 mg Tablet, Ordered PADirections: 1 By: Tiana Green, tablet oral every six PADirections: 1 hours PRN pain tablet oral every six hours PRN pain Wellbutrin 0 [id number] active Wellbutrin Ordered: 29-Oct-2019 [facility] Quantity: 0 [facility] Refills: 0 System Flexeril 0 G26979 active Flexeril Ord ered: 29-Oct-2019 [facility] Quantity: 0 [facility] Refills: 0 System Lisinopril lisinopril 0 C07339 active jesus nopril Ordered: 29-Oct-2019 [facility] lisinopril Quantity: 0 Al hortensia, [facility] Refills: 0 System atorvastatin atorvastatin 0 T46021 active atorvastatin Ordered: 29-Oct-2019 [facility] Quantity: 0 Rebecca [facility] Refills: 0 System Insurance Providers Payer name Policy type Policy ID Covered Covered libertarian's Policy P gaviota / Coverage libertarian ID relationship to Acharya Inf ormation type acharya MEDICARE [id number] SP [id number] Medicare Self MVP Health Self [place] Self MEDICAID [id number] SP [id number] MEDICARE [id number] SP [id number] MVP MEDICAID [id number] SP [id number] HMO Medicare Part Medicare [id number] 1 [id number] B Outpatient Medicaid Medicaid [id number] Medicare Part Medicare [id number] 1 [id number] B Outpatient Self Pay Self Pay Self Pay 1 Self Pay M [id number] 01 [id number] [id number] W [id number] 01 [id number] M [id number] 01 [id number] [id number] W [id number] 01 [id number] M [id number] 01 [id number] Q73 MEDICAID [id number] SP [id number] [employer] W Problems, Conditions, and Diagnoses Code Display Name Description Problem Type Effective Data Sour ce(s) Dates S06.0X9A Concussion Concussion 21544-1 10/29/2019 [facility] 12:00:00 AM Health System EDT F34.1 Dysthymic disorder Dysthymic disorder Diagnosis 0 CARELOGIC 11:00:00 AM (Family EDT Services [facility]) F33.0 Major depressive Major depressive Diagnosis 11/02/2019 [place] [facility] disorder, disorder, 11:00:00 AM (Family recurrent, mild recurrent, mild EDT [facility]) F33.1 Major depressive Major depressive Diagnosis 11/02/2019 [place] [facility] disorder, disorder, 11:00:00 AM (Family recurrent, recurrent, EDT Services [facility]) E11.9 Type 2 diabetes Type 2 diabetes Diagnosis 10/29/2019 [facility] mellitus without mellitus without 09:21:00 AM Holly lewis complications complication EDT Hospital [place] [facility] Diagnosis 10/29/2019 [facility] - Mo unt 09:21:00 AM [facility] Y92.89 Other specified Other specified Diagnosis 10/29/2019 [facility] places as the places as place of [...] encounter encounter I10 Essential Essential Diagnosis 10/29/2019 [facility] (primary) hypertension 09:21:00 AM [place] hypertension [facility] S06.0X9A Concussion with Concussion Diagnosis 10/29/2019 [facility] - Patricia nt loss of 09:21:00 AM [place] consciousness of [facility] unspecified duration, initial encounter Y93.89 Activity, other Other activity Diagnosis 10/29/2019 [facility] specified 09:21:00 AM [facility] M51.36 Other OTHER Diagnosis 08/21/2019 [facility] intervertebral INTERVERTEBRAL 06:00:00 PM Medic al Center disc degeneration, DISC DEGENERATION, EST lumbar region LUMBAR REGION I10 Essential ESSENTIAL Diagnosis 08/21/2019 [facility] (primary) (PRIMARY) 06:00:00 PM Medical Dana r hypertension HYPERTENSION EST E11.9 Type 2 diabetes TYPE 2 DIABETES Diagnosis 08/21/2019 Froylan Hardy mellitus without MELLITUS WITHOUT 06:00:00 PM edical Center complications COMPLICATIONS EST F17.210 Nicotine NICOTINE Diagnosis 08/21/2019 [facility] dependence, DEPENDENCE, 06:00:[address] [...] M edical Center unspecified UNSPECIFIED EST 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) [address] 15-30 Min Brief 03/19/2020 CARELOGIC (F amily Therapy 12:00:[address] [facility]) [address] E and M Add On-03/13/2020 CARELOGIC (Family Min 12:00:00 AM Services of [facility]) [address] E and M-Established 03/13/2020 CARELOGI C (Family Client 3 12:00:00 AM Services of [facility]) [address] E and M Add On-30 03/13/2020 CARELOGIC (Family Min 12:00:00 AM Services of [facility]) [address] E and M-Established 03/13/2020 CARELOGI C (Family Client 3 12:00:00 AM Services of [facility]) [address] 15-30 Min Brief 03/12/2020 CARELOGIC (F amily Therapy 12:00:00 AM Services of [facility]) [address] 15-30 Min Brief 03/12/2020 CARELOGIC (F amily Therapy 12:00:[address] [facility]) [address] 45-50 Min Regular 03/05/2020 CARELOGIC (Family Therapy 12:00:00 AM Services of [facility]) [address] 45-50 Min Regular 03/05/2020 CARELOGIC (Family Therapy 12:00:[address] [facility]) [address] 15-30 Min Brief 02/27/2020 CARELOGIC (F amily Therapy 12:00:[address] [facility]) [address] 15-30 Min Brief 02/27/2020 CARELOGIC (F amily Therapy 12:00:00 AM Services of [facility]) [address] 45-50 Min Regular 02/20/2020 CARELOGIC (Family Therapy 12:00:00 AM Services of [facility]) [address] 45-50 Min Regular 02/20/2020 CARELOGIC (Family Therapy 12:00:00 AM Services of [facility]) [address] 15-30 Min Brief 01/24/2020 CARELOGIC (F amily Therapy 12:00:[address] [facility]) [address] 15-30 Min Brief 01/24/2020 CARELOGIC (F amily Therapy 12:00:00 AM Services of [facility]) [address] 15-30 Min Brief 12/26/2019 CARELOGIC (F amily Therapy 12:00:00 AM Services of [facility]) [address] 15-30 Min Brief 12/26/2019 CARELOGIC (F amily Therapy 12:00:00 AM Services of [facility]) Computerized [facility] of brain 10:33:00 AM System (procedure) EDT - 10/29/2019 10:33:00 AM EDT [address] 15-30 Min Brief 10/07/2019 CARELOGIC (F amily Therapy 12:00:00 AM Services of [facility]) [address] 15-30 Min Brief 10/07/2019 CARELOGIC (F amily Therapy 12:00:00 AM Services of [facility]) [address] 15-30 Min Brief 10/07/2019 CARELOGIC (F amily Therapy 12:00:00 AM Services of [facility]) [address] 15-30 Min Brief 10/07/2019 CARELOGIC (F amily Therapy 12:00:00 AM Services of [facility]) [address] 15-30 Min Brief 09/27/2019 CARELOGIC (F amily Therapy 12:00:00 AM Services of [facility]) [address] 15-30 Min Brief 09/27/2019 CARELOGIC (F amily Therapy 12:00:00 AM Services of [facility]) [address] 15-30 Min Brief 09/27/2019 CARELOGIC (F amily Therapy 12:00:00 AM Services of [facility]) [address] 15-30 Min Brief 09/27/2019 CARELOGIC (F amily Therapy 12:00:00 AM Services of [facility]) [address] 15-30 Min Brief 09/20/2019 CARELOGIC (F amily Therapy 12:00:00 AM Services of [facility]) [address] 15-30 Min Brief 09/20/2019 CARELOGIC (F amily Therapy 12:00:00 AM Services of [facility]) [address] 15-30 Min Brief 09/20/2019 CARELOGIC (F amily Therapy 12:00:[address] [facility]) [address] 15-30 Min Brief 09/20/2019 CARELOGIC (F amily Therapy 12:00:[address] [facility]) [address] 15-30 Min Brief 09/20/2019 CARELOGIC (F amily Therapy 12:00:[address] [facility]) [address] 15-30 Min Brief 09/20/2019 CARELOGIC (F amily Therapy 12:00:[address] [facility]) [address] 15-30 Min Brief 09/20/2019 CARELOGIC (F amily Therapy 12:00:[address] [facility]) [address] 15-30 Min Brief 09/20/2019 CARELOGIC (F amily Therapy 12:00:[address] [facility]) [address] 15-30 Min Brief 09/20/2019 CARELOGIC (F amily Therapy 12:00:[address] [facility]) [address] Initial Assessment 08/08/2019 CARELOGIC (Family 12:00:00 AM Services of [facility]) [address] Initial Assessment 08/08/2019 CARELOGIC (Family 12:00:00 AM Services [facility]) Results ID Date Data Source [id number] 11/17/2019 09:25:00 AM EDT [facility] Name Value Range Interpretation Description Data Sup porting Code Source(s) Document(s ) SARS [facility] coronavirus 2 RNA This lab was ordered by Nilda bueno/Maykel and reported by [facility]. ID Date Data Source [id number] 11/13/2019 11:00:00 PM EDT [facility] Name Value Range Interpretation Description Data Sup porting Code Source(s) Document(s ) SARS [facility] CORONAVIRUS 2 RNA This lab was ordered by [facility] and reported by [facility]. ID Date Data Source [id number] 11/07/2019 04:55:00 PM EDT [facility] Name Value Range Interpretation Description Data Sup porting Code Source(s) Document(s ) SARS [facility] CORONAVIRUS 2 RNA This lab was ordered by [facility] and reported by [facility]. ID Date Data Source [id number] 10/29/2019 10:33:00 AM EDT [facility] INDICATION: Traumatic Injury;EXAMINATION : CT BRAIN [...] Armando Trujillo, at 10:57 EDTT , Servicesupport [phone], [phone] Name Value Range Interpretation Code Description Data Dasia rce(s) Supporting Document(s ) ID Date Data Source Hormones.[id number] 08/21/2019 05:30:00 AM EST Froylan [facility] Name Value Range Interpretation Description Data Sup porting Code Source(s) Document(s ) Thyrotropin 0.465-4. <content Saint [Units/volume] 68 styleCode="Gege Hayley in Serum or d">Thyroid Medical Plasma by [facility] Detection Hormone limit <= 0.05 </content>2.56 mIU/L MIU/L<content styleCode="Samantha lics"> (0.465-4.68 MIU/L)</conten t> ID Date Data Source [facility] SERVICES[facility].[id number] 08/21/2019 05:30:00 AM [facility] -0500 Name Value Range Interpretation Code Description Data Dasia rce(s) Supporting Document(s ) UNK 4.2-5.8 Above high normal <content [facility] styleCode="Bold" Medical Cente r >Hemoglobin A1C </content>7.3 % H<content styleCode="Itali cs"> (4.2-5.8 %)</content> ID Date Data Source HematologyRou.[id number] 08/20/2019 05:15:00 AM [facility] 0500 Name Value Range Interpretation Description Data [...] ics"> (0 /100)</content> ID Date Data Source GFR(Creatinine).[id number] 08/20/2019 05:15:00 AM [facility] 0-0500 Name Value Range Interpretation Code Description Data Dasia rce(s) Supporting Document(s ) UNK > 60 <content [facility] styleCode="Bold"> Medical Cent er EGFR </content>94 GFR<content styleCode="Italic s"> (> 60 GFR)</content> ID Date Data Source CardiacMarkers.[id number] 08/20/2019 05:15:00 AM [facility] -0500 Name Value Range Interpretation Description Data Sup porting Code Source(s) Document(s ) Troponin < 0.034 <content Saint I.cardiac styleCode="Bold Hayley [Mass/volume ">Troponin I Medical ] in Serum </content>0.016 Center or Plasma NG/ML<content styleCode="Ital ics"> (< 0.034 NG/ML)</content > ID Date Data Source [facility].[id number] 08/20/2019 05:15:00 AM [facility] Name Value Range Interpretation Description [...] (> 60 GFR)</content> ID Date Data Source CardiacMarkers.[id number] 08/20/2019 01:35:00 AM EST [facility] -0500 Name Value Range Interpretation Code Description Data Dasia rce(s) Supporting Document(s ) UNK 0-0.034 <content [facility] styleCode="Bold" Medical Cente r >Troponin 4HR </content>0.021 NG/ML<content styleCode="Itali cs"> (0-0.034 NG/ML)</content> ID Date Data Source Urinalysis.[id number] 08/20/2019 12:50:00 AM VENKAT [facility] 0 Name Value Range Interpretation Description Data [...] by Test d">Urine Medical strip Specific Center [place] </content><= 1.005 L<content styleCode="Samantha lics"> (1.015-1.025 )</content> [...] (NONE SEEN HPF)</content> ID Date Data Source CHMROUTINECCDA.[id number] 08/20/2019 12:50:00 AM [facility] -0500 Name Value Range Interpretation Description Data Sup porting Code Source(s) Document(s ) Cannabinoids <content [facility] [Presence] in styleCode="Gege [facility] Urine by Screen d">Cannabinoid Medical method >50 ng/mL [facility] </content>NEGA TIVE NG/ML (Reference Range: not available)<br/ > ID Date Data Source Microbiology.[id number] 08/19/2019 09:40:00 PM [facility] 500 Name Value Range Interpretation Code Description Data Dasia rce(s) Supporting Document(s ) UNK <item><content [facility] styleCode="Bold"> Medical Cent er Culture Status </content>
<t able><tbody><tr>< td>Specimen Number:</td><td>[id number]</td></tr ><tr><td>Sample Collection Date/Time: </td><td> 0 9:40 PM</td></tr><tr>< td>Specimen Source:</td><td>B LOOD</td></tr><tr ><td>Blood Culture:</td><td> Collection Plate Date: 08/19/2019 21:53 </td></tr><tr><td >Culture Report:</td><td>N O GROWTH AFTER 48 HOURS </td></tr><tr><td >Culture Status:</td><td>P reliminary </td></tr></tbody ></table></item> UNK <item><content [facility] styleCode="Bold"> Medical [facility] er Culture Report </content>
<t able><tbody><tr>< td>Specimen Number:</td><td>[id number]</td></tr ><tr><td>Sample Collection Date/Time: </td><td> 0 9:40 PM</td></tr><tr>< td>Specimen Source:</td><td>B LOOD</td></tr><tr ><td>Blood Culture:</td><td> Collection Plate Date: 08/19/2019 21:53 </td></tr><tr><td >Culture Status:</td><td>P reliminary </td></tr><tr><td >Culture Report:</td><td>N O GROWTH AFTER 48 HOURS </td></tr></tbody ></table></item> ID Date Data Source Microbiology.[id number] 08/19/2019 09:15:00 PM EST [facility] 500 Name Value Range Interpretation Code Description Data Dasia rce(s) Supporting Document(s ) UNK <item><content [facility] styleCode="Bold"> Medical [facility] Culture Status </content>
<t able><tbody><tr>< td>Specimen Number:</td><td>[id number]</td></tr ><tr><td>Sample Collection Date/Time: </td><td> 0 9:15 PM</td></tr><tr>< td>Specimen Source:</td><td>B LOOD</td></tr><tr ><td>Culture Report:</td><td>N O GROWTH AFTER 48 HOURS </td></tr><tr><td >Culture Status:</td><td>P reliminary </td></tr><tr><td >Blood Culture:</td><td> Collection Plate Date: 08/19/2019 22:32 </td></tr></tbody ></table></item> UNK <item><content [facility] styleCode="Bold"> Medical Cent er Culture Report </content>
<t able><tbody><tr>< td>Specimen Number:</td><td>[id number]</td></tr ><tr><td>Sample Collection Date/Time: </td><td> 0 9:15 PM</td></tr><tr>< td>Specimen Source:</td><td>B LOOD</td></tr><tr ><td>Blood Culture:</td><td> Collection Plate Date: 08/19/2019 22:32 </td></tr><tr><td >Culture Status:</td><td>P reliminary </td></tr><tr><td >Culture Report:</td><td>N O GROWTH AFTER 48 HOURS </td></tr></tbody ></table></item> ID Date Data Source [facility].[id number] 08/19/2019 09:00:00 PM EST [facility] Name Value Range Interpretation Code Description Data Dasia rce(s) Supporting Document(s ) UNK <content [facility] styleCode="Bold" Medical Cente r >Blood Type </content>GROUP O (Reference Range: not available)
UNK NEGATIVE <content [facility] styleCode="Bold" Medical Cente r >Antibody Screen </content>NEGATI VE <content styleCode="Itali cs"> (NEGATIVE )</content> UNK <content [facility] styleCode="Bold" Medical Cente r >RH Type </content>POSITI VE (Reference Range: not available)
ID Date Data Source LIPID.[id number] 08/19/2019 08:52:00 PM EST [facility] Name Value Range Interpretation Description Data Sup porting Code Source(s) Document(s ) Triglyceride < 150 Above high normal <content [facility] [Mass/volume] in styleCode="Gege [facility] Serum or Plasma d">Triglycerid [facility] es Center </content>168 MG/DL H<content styleCode="Samantha lics"> (< 150 MG/DL)</conten t> Cholesterol -<200 <content [facility] [Mass/volume] in styleCode="Gege [facility]ley Serum or Plasma d">Cholesterol Medical </content>163 Center MG/DL<content styleCode="Samantha lics"> (-<200 MG/DL)</conten t> UNK < 100 <content [facility] styleCode="Gege Hayley d">LDL-Cholest [facility] stella [place] </content>83 MG/DL<content styleCode="Samantha lics"> (< 100 MG/DL)</conten t> UNK > 60 Below low normal <content Saint styleCode="Gege Ahyley d">HDL- Medical Cholesterol Center </content>46 MG/DL L<content styleCode="Samantha lics"> (> 60 MG/DL)</conten t> ID Date Data Source HematologyRou.[id number] 08/19/2019 08:52:00 PM EST Dellnieves velasquez [facility] 0500 Name Value Range Interpretation Description [...] (0.0 KCUMM)</content > ID Date Data Source GFR(Creatinine).[id number] 08/19/2019 08:52:00 PM EST [facility] 0-0500 Name Value Range Interpretation Code Description Data Dasia rce(s) Supporting Document(s ) UNK > 60 <content [facility] styleCode="Bold"> Medical Cent er EGFR </content>83 GFR<content styleCode="Italic s"> (> 60 GFR)</content> ID Date Data Source Coagulation 08/19/2019 08:52:00 PM [facility] Rout.[id number] EST Name Value Range Interpretation Description Data [...] Hayley plasma by >Partial Medical Coagulation Thromboplastin [place] assay Time </content>32.1 SEC<content styleCode="Itali cs"> (25.1-36.5 SEC)</content> ID Date Data Source CardiacMarkers.[id number] 08/19/2019 08:52:00 PM EST Dell velasquez [facility] -0500 Name Value Range Interpretation Description Data Sup porting Code Source(s) Document(s ) Troponin < 0.034 <content [facility] I.cardiac styleCode="Bold Hayley [Mass/volume ">Troponin I Medical ] in Serum </content>0.017 Center or Plasma NG/ML<content styleCode="Ital ics"> (< 0.034 NG/ML)</content > ID Date Data Source [facility].[id number] 08/19/2019 08:52:00 PM EST [facility] Name Value Range Interpretation Description Data [...] Above high normal <content [facility] [Mass/volume] styleCode="Gege Hayley in Serum or d">Glucose Medical Plasma [...] 04:57:00 Daily Smoker completed Daily Smoker S [facility] PM EST Center Smoking 08/20/2019 01:24:00 Daily Smoker completed Daily Smoker S [facility] EST Center Smoking 08/20/2019 01:14:00 Daily Smoker completed Daily Smoker S [facility] EST Center Smoking 08/19/2019 11:14:00 Daily Smoker completed Daily Smoker S [facility] EST Center Smoking 08/19/2019 08:57:00 Daily Smoker completed Daily Smoker S [facility] EST Center Smoking 08/14/2019 09:37:00 Daily Smoker completed Daily Smoker S [facility] EST Center Smoking 08/14/2019 07:51:00 Daily Smoker completed Daily Smoker S [facility] EST Center Vital Signs ID Date Data Source UNK Name Value Range Interpretation Code Description Data Source(s) Diastolic blood 87 mm[Hg] 0 - 999 Above high normal 87 mm[Hg] [facility] Systolic blood 155 mm[Hg] 0 - 999 Above high normal 155 mm[Hg] Mon [facility] Oxygen saturation 94 % 0 - 999 Normal (applies to 94 % [facility] in Arterial blood non-[facility] by Pulse oximetry results) Respiratory rate 16 0 - 999 Normal (applies to 16 [facility] non-numeric Health System results) Heart rate 84 0 - 999 Normal (applies to 84 [facility]) Body temperature 36.5 Dory 0 - 99.9 Normal (applies to 36.5 Dory [facility] non-numeric Health System results) Body surface area 1.8 m2 1.8 m2 [facility] ore Derived from Health Syste m formula Body mass index 29.1 kg/m2 29.1 kg/m2 [facility] e (BMI) [Ratio] Health Syst em Body weight 77.11 kg 77.11 kg [facility] Body height 162.56 cm 162.56 cm [facility] Body temperature 97.8 [degF] 0 - 200 Normal (applies to 97.8 [degF ] [facility] non-numeric Health System results) Body temperature 36.161084 36.248896 Dory [facility] Respiratory rate 20 /min 20 /min [facility] Heart rate 83 /min 83 /min [facility] Diastolic blood 91 mm[Hg] 91 mm[Hg] [facility] Systolic blood 138 mm[Hg] 138 mm[Hg] [facility] Body temperature 36.093151 36.158267 [facility] Respiratory rate 20 /min 20 /min [facility] Heart rate 76 /min 76 /min [facility] Diastolic blood 82 mm[Hg] 82 mm[Hg] [facility] Systolic blood 137 mm[Hg] 137 mm[Hg] [facility] Body temperature 36.373882 36.170459 [facility] Respiratory rate 18 /min 18 /min [facility] Heart rate 68 /min 68 /min [facility] Diastolic blood 80 mm[Hg] 80 mm[Hg] [facility] pressure [facility] Center Systolic blood 134 mm[Hg] 134 mm[Hg] [facility] Heart rate 77 /min 77 /min [facility] Diastolic blood 83 mm[Hg] 83 mm[Hg] [facility] Systolic blood 139 mm[Hg] 139 mm[Hg] [facility] [place] Body temperature 36.068205 36.890223 [facility] Respiratory rate 20 /min 20 /min [facility] Heart rate 73 /min 73 /min [facility] Systolic blood 120 mm[Hg] 120 mm[Hg] [facility] Diastolic blood 68 mm[Hg] 68 mm[Hg] [facility] Body temperature 36.269006 36.056409 [facility] Respiratory rate 20 /min 20 /min [facility] Heart rate 76 /min 76 /min [facility] Diastolic blood 66 mm[Hg] 66 mm[Hg] [facility] Systolic blood 139 mm[Hg] 139 mm[Hg] [facility] Body temperature 36.902808 36.277675 [facility] Respiratory rate 18 /min 18 /min [facility] Heart rate 70 /min 70 /min [facility] Diastolic blood 76 mm[Hg] 76 mm[Hg] [facility] Systolic blood 136 mm[Hg] 136 mm[Hg] [facility] Body weight 74.793599 74.295823 kg [facility] Measured kg Medical Center Body height 162.764338 162.890525 cm [facility] Body mass index 28.31 kg/m2 28.31 kg/m2 [facility] (BMI) [Ratio] [facility] [address] Body temperature 36.126789 36.587764 [facility] Respiratory rate 18 /min 18 /min [facility] Heart rate 85 /min 85 /min [facility] Diastolic blood 99 mm[Hg] 99 mm[Hg] [facility] Systolic blood 161 mm[Hg] 161 mm[Hg] [facility] Respiratory rate 18 /min 18 /min [facility] Heart rate 98 /min 98 /min [facility] Diastolic blood 91 mm[Hg] 91 mm[Hg] [facility] Systolic blood 154 mm[Hg] 154 mm[Hg] [facility] Oxygen saturation 98 % 98 % [facility] by Pulse oximetry Body temperature 37.482719 37.670159 [facility] Oxygen saturation 98 % 98 % [facility] blood [facility] by Pulse oximetry Body temperature 36.923989 36.775021 [facility] Respiratory rate 19 /min 19 /min [facility] Oxygen saturation 99 % 99 % [facility] blood [facility] by Pulse oximetry Heart rate 92 /min 92 /min [facility] Diastolic blood 74 mm[Hg] 74 mm[Hg] [facility] Systolic blood 116 mm[Hg] 116 mm[Hg] [facility] Body temperature 36.169859 36.483638 [facility] Respiratory rate 18 /min 18 /min [facility] Oxygen saturation 96 % 96 % [facility] blood [facility] by Pulse oximetry Heart rate 102 /min 102 /min [facility] Diastolic blood 75 mm[Hg] 75 mm[Hg] [facility] Systolic blood 109 mm[Hg] 109 mm[Hg] [facility] Patient Treatment Plan of Care Planned Activity [...] th System Ketorolac Tromethamine 10 Sa int [facility] MG Oral Tablet Center
[2020-04-10] MEDS ORDERED: ACETAMINOPHEN 325 MG TABLET (FP) PO PRN (08:45)
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
[2020-04-10] MEDS ORDERED: SODIUM CHLORIDE 1,000 ML IV SCH (09:00)
[2020-04-10] MEDS ORDERED: DULoxetine HCL 30 MG CAPSULE.DR PO SCH (10:00)
--- NOTE | 2020-04-10 10:30 | EKG ---
Test Reason : Blood Pressure : / mmHG Vent. Rate : 094 BPM Atrial Rate : 094 BPM P-R Int : 150 ms QRS Dur : 090 ms QT Int : 388 ms P-R-T Axes : 048 -15 053 degrees QTc Int : 485 ms NORMAL SINUS RHYTHM PROLONGED QT ABNORMAL ECG WHEN COMPARED WITH ECG OF 13-NOV-2019 20:48, FUSION COMPLEXES ARE NO LONGER PRESENT Confirmed by ELVIE ORTIZ MD ([id number]) on 04/10/2020 10:29:44 AM Referred By: Confirmed By:ELVIE ORTIZ MD
[2020-04-10] MEDS ORDERED: DULoxetine HCL 30 MG CAPSULE.DR PO ONE (11:14)
[2020-04-10] MEDS ORDERED: ASPIRIN 81 MG CHEWABLE TABLETS ONE (11:14)
[2020-04-10] MEDS: ASPIRIN 81 MG CHEWABLE TABLETS PO SCH (11:37)
--- NOTE | 2020-04-10 12:21 | PN ---
Teaching Attending Note Name of Resident: Cecilia Hooper ATTENDING PHYSICIAN STATEMENT I saw and evaluated the patient. I reviewed the resident's note and discussed the case with the resident. I agree with the resident's findings and plan as documented. SUBJECTIVE: 55yo M with h/o ischemic CVA (2017, with LUE and LLE residual weakness), cervical disc impingement (involving LUE), HTN, HLD, Type 2 DM who presents for worsening convulsions. Patient describes that he has had myoclonic upper extremity jerks in the past, however they have been worsening. He notices them at rest the majority of times because he is unable to hold still, impacting his use of his cell phone and using cups. Today he was walking and unfortunately felt these myoclonic jerks in his legs which caused him fall without any trauma to the head or injury. Patient notes he was placed on a new medication by his neurologist at [facility] and is unsure if that is causing it. Patient noted to have Baclofen recently placed in his pharmacy paperwork and this may be the new medication he is referring to. Otherwise patient denies any loss of consciousness or other new neurological symptoms. Of note, pt had a cardiac catherization without stent deployment in November 2019 which he continues to be medically managed at this time. OBJECTIVE: Vital Signs Temperature 98.5 F 04/10/20 06:20 Pulse Rate 92 H 04/10/20 06:20 Respiratory Rate 18 04/10/20 08:07 Blood Pressure 113/75 04/10/20 06:20 O2 Sat by Pulse Oximetry (%) 97 04/10/20 08:07 PE: Gen: NAD, awake, alert, oriented x3 HEENT: NC/AT, EOMI, TESSIE, sclera anicteric, MMM Neck: No JVD LUNG: CTA b/l without wheezes/rales CARD: RRR no murmurs appreciated ABD: Soft, obese, minimally distendend, nontender, no hepatomegaly, no guarding or rebound EXT: No edema strong distal pulses Neuro: Strength LLE 3/5 in plantar flexion, hip and knee flexion (baseline), RLE 5/5 throughout. 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 RUE 5/5. Sensation dulled in LUE compared to RUE (baseline). Gait not observed CBC, BMP 04/10/20 05:10 04/10/20 05:10 Active Medications Acetaminophen (Tylenol -) 650 mg PO Q6H PRN PRN Reason: PAIN LEVEL 6-10 Amlodipine Besylate (Norvasc -) 5 mg PO DAILY [facility] Aspirin (Asa -) 81 mg PO DAILY [facility] Last Admin: 04/10/20 11:37 Dose: 81 mg Documented by: Atorvastatin Calcium (Lipitor -) 40 mg PO HS [facility] Buspirone HCl (Buspar -) 15 mg PO DAILY [facility] Gabapentin (Neurontin -) 600 mg PO TID [facility] Heparin Sodium (Porcine) (Heparin -) 5,000 unit SQ TID [facility] Sodium Chloride (Normal Saline -) 1,000 mls @ 83 mls/hr IV ASDIR [facility] Stop: 04/10/20 21:03 Last Admin: 04/10/20 09:43 Dose: 83 mls/hr Documented by: Insulin Detemir (Levemir Vial) 40 units SQ HS [facility] Miscellaneous (Lidoderm Patch Removal) 1 each MC DAILY@2200 [facility] Nicotine (Nicoderm Patch -) 21 mg TD DAILY [facility] ASSESSMENT AND PLAN: Myoclonic Movements Acute Kidney Injury History of ischemic CVA History of HTN, controlled History of HLD History of DM --Give patient's presentation low likelihood of acute CVA however will r/o with CT and MRI --Imaging reviewed: Chronic infarct without acute pathology --Neurology consulted --Will obtain records from patient's home neurologist for insight into his condition --Carotid duplex ordered for any stenosis requiring intervention --continue Gabapentin 600mg TID PO for now --EMANUEL without clear etiology (baseline 1.0 increased to 1.9 acutely) --UA, urine lytes for FeUrea --Renal US noted without hydronephrosis --Suspect HTN and DM nephropathy, however will ensure no other etiologies --Avoid nephrotoxic agents and monitor Cr --Hold home Lisinopril and HCTZ for now due to elevated Cr; can restart as tolerated with preference towards Lisinopril for control --Medication reconciliation; iSTOP (reference # [id number]) showing 30 days supply of 5-325mg Percocet on 10/03/2019 with sporadic doses of Ambien 10mg nightly within the year 2019. Diet: Diabetic/sodium Rest as per resident note Alexy Lopez, DO - IM
[2020-04-10] MEDS: NICOTINE 21 MG/24 HOURS TOPICAL PATCH TD SCH (13:29)
[2020-04-10] MEDS ORDERED: HEPARIN NA (PORCINE) 5,000 UNITS/ML 1ML VIAL ONE (13:53)
[2020-04-10] MEDS ORDERED: GABAPENTIN 100 MG CAPSULE ONE (13:53)
[2020-04-10] MEDS: HEPARIN NA (PORCINE) 5,000 UNITS/ML 1ML VIAL SQ SCH ×2 (13:58→22:00)
[2020-04-10] MEDS: GABAPENTIN 300 MG CAPSULE PO SCH ×2 (13:58→21:59)
[2020-04-10 15:14] LABS: EPI CELLS 2 /uL (0-25.1); HYALINE CASTS 1 /uL (0-3.1); URINE APPEARANCE CLEAR; URINE BACTERIA 14 /uL (0-1359); URINE BILIRUBIN NEGATIVE (NEGATIVE); URINE COLOR YELLOW; URINE GLUCOSE (UA) 1+ (NEGATIVE); URINE KETONE NEGATIVE (NEGATIVE); URINE LEUK ESTERASE NEGATIVE (NEGATIVE); URINE NITRITE NEGATIVE (NEGATIVE); URINE PROTEIN 1+ (NEGATIVE); URINE RBC 11 /uL (0-23.9); URINE UROBILINOGEN 0.2 mg/dL (0.2-1.0); URINE WBC 5 /uL (0-25.8)
[2020-04-10 16:55] VITALS: BMI 29.3
[2020-04-10] MEDS: ATORVASTATIN CA 40 MG TABLET (FP) PO SCH (21:59)
[2020-04-10] MEDS: LIDOCAINE PATCH REMOVAL MC SCH (22:00)
[2020-04-10] MEDS: INSULIN (LEVEMIR) 100 UNITS/ML UNITS SQ SCH (22:00)
[2020-04-10] MEDS: ACETAMINOPHEN 325 MG TABLET (FP) PO PRN (22:00)
[2020-04-10] MEDS: oxyCODONE HCL 5 MG TABLET PO PRN (22:01)
[2020-04-11] MEDS: ACETAMINOPHEN 325 MG TABLET (FP) PO PRN (06:46)
[2020-04-11] MEDS: GABAPENTIN 300 MG CAPSULE PO SCH ×3 (06:46→21:25)
[2020-04-11] MEDS: HEPARIN NA (PORCINE) 5,000 UNITS/ML 1ML VIAL SQ SCH ×3 (06:46→21:25)
[2020-04-11 06:51] LABS: MCH 30.4 pg (25.7-33.7); MCHC 33.4 g/dl (32.0-35.9); MEAN CELL VOLUME 90.9 fl (80-96); MEAN PLT VOLUME 9.2 fl (7.5-11.1); PLATELET COUNT 130 K/MM3 (134-434); RBC 3.96 M/mm3 (4.00-5.60); RDW 15.1 % (11.9-15.9); WHITE BLOOD COUNT 5.4 K/mm3 (4.0-10.0)
[2020-04-11 07:27] LABS: ALBUMIN 2.8 g/dl (3.4-5.0); BILIRUBIN,TOTAL 0.2 mg/dL (0.2-1); BLOOD UREA NITROGEN 29.8 mg/dL (7-18); CALCIUM 8.4 mg/dL (8.5-10.1); CREATININE 1.4 mg/dL (0.55-1.3); MAGNESIUM 1.9 mg/dL (1.8-2.4); PHOSPHOROUS 3.7 mg/dL (2.5-4.9); POTASSIUM 4.1 mmol/L (3.5-5.1); TOT PROT 5.8 g/dl (6.4-8.2)
[2020-04-11] MEDS: NICOTINE 21 MG/24 HOURS TOPICAL PATCH TD SCH (09:11)
[2020-04-11] MEDS: ASPIRIN 81 MG CHEWABLE TABLETS PO SCH (09:11)
[2020-04-11] MEDS: busPIRone HCL 5 MG TABLET PO SCH (09:11)
[2020-04-11] MEDS: amLODIPine BESYLATE 5 MG TABLET (FP) PO SCH (09:11)
[2020-04-11] MEDS: LIDOCAINE 5% TOPICAL PATCH TP SCH (11:06)
--- NOTE | 2020-04-11 12:23 | CON.NEURO ---
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: CVA (multiple ischemic right cerebral 2017) Cardio/Vascular: Yes: HTN, Hyperlipdemia Pulmonary: Yes: Other (current cigarette smoker) Psych: Yes: Anxiety Endocrine: Yes: Diabetes Insipidus - Alcohol/Substance Use Hx Alcohol Use: Yes (rare social drink) - Smoking History Smoking history: Current every day smoker Have you smoked in the past 12 months: Yes Aproximately how many cigarettes per day: 6 - Social History ADL: Independent History of Recent Travel: No Home Medications - Allergies Allergies/Adverse Reactions: Allergies Allergy/AdvReac Type Severity Reaction Status Date / Time No Known Allergies Allergy Verified 04/10/20 08:04 - Home Medications Home Medications: Ambulatory Orders Gabapentin 600 mg PO TID 11/26/16 Atorvastatin Ca [Lipitor] 40 mg PO HS 01/17/17 Dulaglutide [Trulicity] 1.5 mg SQ WEEKLY 01/17/17 Aspirin [ASA -] 81 mg PO DAILY tab.chew 01/19/17 Zolpidem Tartrate [Ambien] 10 mg PO HS PRN 01/08/18 Insulin Glargine,Hum.rec.anlog [Basaglar Kwikpen U-100] 40 units SCJ HS 08/16/19 Metformin HCl [Glucophage] 1,000 mg PO BID 08/16/19 Oxycodone HCl/Acetaminophen [Percocet 5-325 mg Tablet] 1 tab PO BID #0 tab MDD 2 08/16/19 Amlodipine Besylate 5 mg PO DAILY 04/10/20 Buspirone HCl 15 mg PO DAILY 04/10/20 Cyclobenzaprine HCl 10 mg PO BID 04/10/20 Lisinopril/Hydrochlorothiazide [Lisinopril-Hctz 20-12.5 mg Tab] 1 each PO DAILY 04/10/20 Metoprolol Tartrate [Lopressor -] 25 mg PO BID 04/10/20 Naproxen 500 mg PO BID 04/10/20 Family Medical History Family Hx Cancer: Mother (Uterine) Family Hx Cardiac Disorders: Mother, Father Family Hx Coronary Artery Disease: Mother, Father Family Hx Diabetes: Mother Family Hx Respiratory Disorders: Mother Physical Exam-Neuro Vital Signs: Vital Signs Temperature 97.8 F 04/11/20 06:00 Pulse Rate 66 04/11/20 06:00 Respiratory Rate 18 10/03/20 06:00 Blood Pressure 137/60 10/03/20 06:00 O2 Sat by Pulse Oximetry (%) 98 04/11/20 06:00 Labs: CBC, BMP 04/11/20 06:15 04/11/20 06:15 INR, PTT INR 1.03 (0.83-1.09) 04/10/20 05:10 Assessment/Plan cc episode of generalized shaking, no loc no tongue bite HPI 55 year old male history of htn, dm, hld. Patient has left sided weakness with right frontal lobe stroke. Patient has neurologist at [facility] and was being treated for spasm by baclofen. He came with generalized shaking and no loc, no tongue bite or incontnence. He has history f of depression, insomnia. Patient has mild left sided weakness from previous stroke. He had mri of brain and carotid ultrasound they were unremarkable. he also have cervical disc disease and was told taht left arm weakness from cervical disc disase Recent Travel: denies PAST MEDICAL HISTORY: HLD, HTN, DM ischemic stroke in 2017 PAST SURGICAL HISTORY: cyst removal as a child Social History: Smokin pack a day Alcohol: occasional Drugs: denies Allergies No Known Allergies Allergy (Verified 04/10/20 08:04) HOME MEDICATIONS: Home Medications Medication Instructions Recorded Gabapentin 600 mg PO TID 11/26/16 Atorvastatin Ca [Lipitor] 40 mg PO HS 01/17/17 Dulaglutide [Trulicity] 1.5 mg SQ WEEKLY 01/17/17 Aspirin [ASA -] 81 mg PO DAILY tab.chew 01/19/17 Zolpidem Tartrate [Ambien] 5 mg PO HS 01/08/18 Duloxetine HCl 30 mg PO BID 07/29/19 Lidocaine 5% Patch [Lidoderm -] 1 patch TP DAILY #10 patch 08/14/19 Insulin Glargine,Hum.rec.anlog 40 units SCJ HS 08/16/19 [Basaglar Kwikpen U-100] Metformin HCl [Glucophage] 1,000 mg PO BID 08/16/19 Oxycodone HCl/Acetaminophen 1 tab PO BID #0 tab MDD 2 08/16/19 [Percocet 5-325 mg Tablet] ROS,FH,SH reviewed in chart NEUROLOGICAL EXAMINATION Alert oriented x 3, neck is supple vss eomi, pupil reactive no face asymmetry left sided mild weakness ct head , mri of brain and carotid ultrasound were wnl Assessment/Plan Generalized shaking, all four limb jerking, without loc, no tongue bite or incontinence. He is on gabapentin 600 mg po tid for spasm. pateint was suspected to have muslce spasm, - atypical epiode of shaking ? less likely to be seizure Plan_ pateint can be discharged home, and gabapentin can be increased to 900 mg tid - eeg if stays in hospital - can be discharged from neuro point of view and follow up outpatient. Thanking you so much Mike Mahoney MD
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
[2020-04-11] MEDS: oxyCODONE HCL 5 MG TABLET PO PRN (17:07)
[2020-04-11] MEDS: ATORVASTATIN CA 40 MG TABLET (FP) PO SCH (21:25)
[2020-04-11] MEDS: INSULIN (LEVEMIR) 100 UNITS/ML UNITS SQ SCH (21:25)
[2020-04-11] MEDS: LIDOCAINE PATCH REMOVAL MC SCH ×2 (21:30)
[2020-04-12] MEDS: HEPARIN NA (PORCINE) 5,000 UNITS/ML 1ML VIAL SQ SCH ×3 (06:35→21:51)
[2020-04-12] MEDS: oxyCODONE HCL 5 MG TABLET PO PRN ×2 (06:36→21:49)
[2020-04-12] MEDS: GABAPENTIN 300 MG CAPSULE PO SCH ×3 (06:36→21:46)
[2020-04-12] MEDS ORDERED: PT OWN MED DRAWER 7, Y5N ONE (08:47)
[2020-04-12] MEDS: ASPIRIN 81 MG CHEWABLE TABLETS PO SCH (09:01)
[2020-04-12] MEDS: NICOTINE 21 MG/24 HOURS TOPICAL PATCH TD SCH (09:01)
[2020-04-12] MEDS: LIDOCAINE 5% TOPICAL PATCH TP SCH (09:01)
[2020-04-12] MEDS: amLODIPine BESYLATE 5 MG TABLET (FP) PO SCH (09:01)
[2020-04-12] MEDS: busPIRone HCL 5 MG TABLET PO SCH (09:02)
[2020-04-12 10:59] LABS: HEMATOCRIT 35.4 % (35.4-49); HEMOGLOBIN 12.2 GM/dL (11.7-16.9); MCH 30.7 pg (25.7-33.7); MCHC 34.6 g/dl (32.0-35.9); MEAN CELL VOLUME 88.8 fl (80-96); PLATELET COUNT 142 K/MM3 (134-434); RBC 3.99 M/mm3 (4.00-5.60); RDW 14.7 % (11.9-15.9); WHITE BLOOD COUNT 5.9 K/mm3 (4.0-10.0)
[2020-04-12 11:18] LABS: BILIRUBIN,TOTAL 0.3 mg/dL (0.2-1); BLOOD UREA NITROGEN 22.6 mg/dL (7-18); CALCIUM 8.5 mg/dL (8.5-10.1); CREATININE 1.3 mg/dL (0.55-1.3); MAGNESIUM 1.7 mg/dL (1.8-2.4); POTASSIUM 4.3 mmol/L (3.5-5.1)
[2020-04-12] MEDS: ACETAMINOPHEN 325 MG TABLET (FP) PO PRN ×2 (14:17→21:50)
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
[2020-04-12] MEDS: LIDOCAINE PATCH REMOVAL MC SCH ×2 (21:45→22:00)
[2020-04-12] MEDS: ATORVASTATIN CA 40 MG TABLET (FP) PO SCH (21:45)
[2020-04-12] MEDS: INSULIN (LEVEMIR) 100 UNITS/ML UNITS SQ SCH (21:52)
[2020-04-13] MEDS: HEPARIN NA (PORCINE) 5,000 UNITS/ML 1ML VIAL SQ SCH ×2 (06:36→14:02)
[2020-04-13] MEDS: GABAPENTIN 300 MG CAPSULE PO SCH ×2 (06:36→14:02)
[2020-04-13] MEDS: ACETAMINOPHEN 325 MG TABLET (FP) PO PRN ×2 (06:40→14:03)
[2020-04-13 08:16] LABS: HEMATOCRIT 36.5 % (35.4-49); HEMOGLOBIN 12.5 GM/dL (11.7-16.9); MCH 30.4 pg (25.7-33.7); MCHC 34.1 g/dl (32.0-35.9); MEAN CELL VOLUME 89.2 fl (80-96); MEAN PLT VOLUME 8.8 fl (7.5-11.1); PLATELET COUNT 145 K/MM3 (134-434); RDW 14.3 % (11.9-15.9); WHITE BLOOD COUNT 7.5 K/mm3 (4.0-10.0)
[2020-04-13 08:51] LABS: BILIRUBIN,TOTAL 0.3 mg/dL (0.2-1); BLOOD UREA NITROGEN 24.7 mg/dL (7-18); CALCIUM 8.7 mg/dL (8.5-10.1); CREATININE 1.4 mg/dL (0.55-1.3); MAGNESIUM 1.7 mg/dL (1.8-2.4); POTASSIUM 4.4 mmol/L (3.5-5.1); TOT PROT 6.2 g/dl (6.4-8.2)
[2020-04-13] MEDS ORDERED: PT OWN MED DRAWER 7, Y5N ONE (09:03)
[2020-04-13] MEDS: ASPIRIN 81 MG CHEWABLE TABLETS PO SCH (09:25)
[2020-04-13] MEDS: NICOTINE 21 MG/24 HOURS TOPICAL PATCH TD SCH (09:26)
[2020-04-13] MEDS: LIDOCAINE 5% TOPICAL PATCH TP SCH (09:26)
[2020-04-13] MEDS: busPIRone HCL 5 MG TABLET PO SCH (09:26)
[2020-04-13] MEDS: amLODIPine BESYLATE 5 MG TABLET (FP) PO SCH (09:26)
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
[2020-04-13 14:04] VITALS: BP 104/65; PULSE 77; TEMP 98.2
--- NOTE | 2020-04-13 16:18 | PN ---
Progress Note (short form) - Note Progress Note: 55 year old male history of htn, dm, hld. Patient has left sided weakness with right frontal lobe stroke. Patient has neurologist at [facility] and was being treated for spasm by baclofen. He came with generalized shaking and no loc, no tongue bite or incontnence. He has history f of depression, insomnia. Patient has mild left sided weakness from previous stroke. He had mri of brain and carotid ultrasound they were unremarkable. he also have cervical disc disease and was told taht left arm weakness from cervical disc disase -- no new symptoms, pateint had couple of brief transient episode of generalized shaking? myoclonic jerks, no loc or non epileptic episoes. NEUROLOGICAL EXAMINATION Alert oriented x 3, neck is supple vss eomi, pupil reactive no face asymmetry left sided mild weakness ct head , mri of brain and carotid ultrasound were wnl Assessment/Plan Generalized shaking, all four limb jerking, without loc, no tongue bite or incontinence. He is on gabapentin 600 mg po tid for spasm. pateint was suspected to have muslce spasm, - atypical epiode of shaking ? less likely to be seizure Plan_ pateint can be discharged home, and gabapentin can be increased to 900 mg tid - eeg can be done outpatinet - he might need video eeg recording. Thanking you so much Mike Mahoney MD
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
[2020-04-13] MEDS ORDERED: ATORVASTATIN CA 80 MG TABLET (FP) PO SCH (22:00)
== END 2020-04-13 17:19 | disposition left against medical advice (07) | DRG 92 ==
LOC: JER 04:13 → JERBED 06:42 → J4S 14:57
PROVIDERS: ADMIT Internal Medicine; ATTEND Nurse Practitioner Family
DX: G25.3 Myoclonus (principal); I69.354 Hemiplegia and hemiparesis following cerebral infarction affecting left non-dominant side; N17.9 Acute kidney failure, unspecified; R56.9 Unspecified convulsions; I10 Essential (primary) hypertension; M54.12 Radiculopathy, cervical region; E78.00 Pure hypercholesterolemia, unspecified; E11.9 Type 2 diabetes mellitus without complications; F17.210 Nicotine dependence, cigarettes, uncomplicated; G93.89 Other specified disorders of brain; I25.10 Atherosclerotic heart disease of native coronary artery without angina pectoris; E78.5 Hyperlipidemia, unspecified
CPT/HCPCS: 36415; 70450-TC; 70551-TC; 71045-TC-FY; 76775-TC; 80053; 80061; 81003; 82550; 82553; 82565; 82962; 83036; 83721; 83735; 84100; 84484; 84540; 85025; 85027; 85610; 85730; 93005; 93010; 93880-TC; 97116-GP; 97161-GP; 99285-25; J1644; U0003

== ENCOUNTER 2020-04-16 06:43 | Inpatient (IN) | payer OTHER ==
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
--- OUTSIDE RECORDS SUMMARY | 2020-04-16 07:59 | XMS ---
:1965 Author Organization [facility] Care Team Providers Name Role Phone JOVITA Fontenot Unavailable Unavailable ED STAFF PHYSICIAN Unavailable Unavailable FLAVIA García Unavailable Unavailable Gregorio Unavailable Unavailable ED STAFF PHYSICIAN Unavailable Unavailable Other Unavailable Unavailable ZUNASSIGNED Unavailable Unavailable MD Adolfo Unavailable MD Adolfo Unavailable MD Adolfo Unavailable MD Adolfo Unavailable MD Adolfo Unavailable MD Adolfo Unavailable MD Adolfo Unavailable Re-disclosure Warning The records that you [...] is protected by Article 27-F of the [facility] Public Health law. If you continue you may haveaccess to information: Regarding HIV / AIDS; Provided by facilities licensed or operated by the [facility] Office of Mental Health; or Provided by the [facility] Office for People With Developmental Disabilities. If such information is present, then the following [facility] mandated warning applies: This information has [...] Providers Location Date Indications Data Source(s ) Emergency Attender: ED STAFF H 04/16/2020 [facility] PHYSICIANAttender: 01:25:00 AM [facility] STAFF ED STAFF EDT - PHYSICIANAdmitter: ED 04/16/2020 STAFF 04:46:00 AM PHYSICIANReferrer: EDT ZUNASSIGNED Patient discharged. U 1019 11/02/2019 11:00:00 AM EDT - [facility] ([facility] 11/02/2019 11:45:00 AM EDT [facility]) Patient admitted. U 1019 10/30/2019 04:36:00 AM EDT - [facility]ELOG[facility] ([facility] 10/29/2019 09:46:00 PM EDT [facility]) Patient discharged. Emergency Attender: Edward 5T-EMERG 10/29/2019 [facility] - Mo unt LathanAttender: Doctor 09:21:00 AM EDT - [facility] Other 10/29/2019 02:46:00 PM EDT SLIP AND FALL Patient discharged. Inpatient Attender: Jose Guadalupe Bain-HAL6 08/19/2019 06:46:00 [facility] MDAttender: STAFF ED STAFF PM EST - 08/21/2019 [facility] PHYSICIANAdmitter: Jose Guadalupe 06:00:00 PM EST Adolfo JAVIEReferrer: Jose Guadalupe Mata MD Patient discharged. Emergency Attender: FLAVIA Bain 08/14/2019 07:06:00 PM [facility] KAttender: JOVITA HASTINGS EST - 08/14/2019 [facility] WAttender: STAFF ED STAFF 10:57:00 PM EST PHYSICIANAdmitter: FLAVIA García Patient discharged. U 1004 08/08/2019 10:15:00 AM EST - CARELOG[facility] ([facility] 10/29/2019 09:46:00 PM EDT [facility]) Patient admitted. U 1019 08/08/2019 09:56:00 AM EST [facility] ([facility]) Insurance Providers Payer name Policy type Policy ID Covered Covered republican's Policy P gaviota / Coverage republican ID relationship to Acharya Inf ormation type acharya MEDICARE [id number] SP [id number] MEDICAID [id number] SP [id number] W [id number] 01 [id number] M [id number] 01 [id number] M [id number] 01 [id number] W [id number] 01 [id number] M [id number] 01 [id number] Q73 Medicare Self MVP Health Self [place] Self MEDICARE [id number] SP [id number] Q73 MVP MEDICAID [id number] SP [id number] HMO Medicare Part Medicare [id number] 1 [id number] Outpatient Medicaid Medicaid [id number] 1 [id number] Medicare Part Medicare [id number] 1 [id number] Outpatient Self Pay Self Pay Self Pay 1 Self Pay MEDICAID [id number] SP [id number] INTEGRA W Problems, Conditions, and Diagnoses Code Display Name Description Problem Type Effective Data Sour ce(s) Dates S06.0X9A Concussion Concussion 49670-1 10/29/2019 [facility] 12:00:00 AM Health System EDT F34.1 Dysthymic disorder Dysthymic disorder Diagnosis 0 [facility] 11:00:00 AM (Family EDT [facility]) F33.0 Major depressive Major depressive Diagnosis 11/02/2019 [facility] disorder, disorder, 11:00:00 AM (Family recurrent, mild recurrent, mild EDT [facility]) F33.1 Major depressive Major depressive Diagnosis 11/02/2019 [facility] disorder, disorder, 11:00:00 AM (Family recurrent, recurrent, EDT Services of [facility]) E11.9 Type 2 diabetes Type 2 diabetes Diagnosis 10/29/2019 [facility] mellitus without mellitus without 09:21:00 AM V skyeon complications complication EDT Hospital SLIP AND FALL SLIP AND FALL Diagnosis 10/29/2019 MHS - Mo unt 09:21:00 AM [facility] Y92.89 Other specified Other specified Diagnosis 10/29/2019 S - [facility] places as the places as place of 09:21:[address] of occurrence of EDT Hospital occurrence of the external cause external cause F32.9 Major depressive Major depressive Diagnosis 10/29/2019 [facility] disorder, single disorder with 09:21:00 AM [place] on episode, single episode EDT Hospital unspecified W01.0XXA Fall on same level Fall on same level Diagnosis 0 [facility] - [facility] from slipping, from slipping, 09:21:00 AM [place] [facility] tripping and tripping and EDT Hospital stumbling without stumbling without subsequent subsequent striking against striking against object, initial object, initial encounter encounter I10 Essential Essential Diagnosis 10/29/2019 [facility] (primary) hypertension 09:21:00 AM [place] hypertension EDT Hospital S06.0X9A Concussion with Concussion Diagnosis 10/29/2019 S - [facility] loss of 09:21:00 AM [place] consciousness of EDT Hospital unspecified duration, initial encounter Y93.89 Activity, other Other activity Diagnosis 10/29/2019 [facility] specified 09:21:00 AM [facility] M51.36 Other OTHER Diagnosis 08/21/2019 [facility] intervertebral INTERVERTEBRAL 06:00:00 PM Medic al Center disc degeneration, DISC DEGENERATION, EST lumbar region LUMBAR REGION I10 Essential ESSENTIAL Diagnosis 08/21/2019 [facility] (primary) (PRIMARY) [facility]:00[facility] HYPERTENSION EST E11.9 Type 2 diabetes TYPE 2 DIABETES Diagnosis 08/21/2019 [facility] mellitus without MELLITUS WITHOUT 06:00:00 PM edical Center complications COMPLICATIONS EST F17.210 Nicotine NICOTINE Diagnosis 08/21/2019 [facility] dependence, DEPENDENCE, 06:00:[address] cigarettes, CIGARETTES, EST uncomplicated UNCOMPLICATED R07.89 Other chest pain OTHER CHEST PAIN Diagnosis 08/21/2019 [facility] 06:00:00 PM Medical Cente r EST E87.1 Hypo-osmolality HYPO-OSMOLALITY Diagnosis 08/21/2019 [facility] and hyponatremia AND HYPONATREMIA 06:00:00 [facility] EST G45.9 Transient cerebral TRANSIENT CEREBRAL Diagnosis 0 [facility] ischemic attack, ISCHEMIC ATTACK, 06:00:00 PM [facility] unspecified UNSPECIFIED EST 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.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 Diagnosis 08/21/2019 [facility] (current) use of (CURRENT) USE OF 06:00:00 PM [facility] insulin INSULIN EST I69.354 Hemiplegia and HEMIPLGA FOLLOWING Diagnosis 08/21/2019 [facility] hemiparesis CEREBRAL INFRC 06:00:00 PM Medical Center [...] encounter R07.81 Pleurodynia PLEURODYNIA Diagnosis 08/14/2019 [facility] 07:06:00 PM Medical Cente r EST R52 Pain, unspecified PAIN, UNSPECIFIED Diagnosis 08/14/2019 [facility] 07:06:00 PM Medical Cente r EST Surgeries/Procedures Procedure Description Date Indications Data Source(s) [id number] 15-30 Min Brief 03/19/2020 [facility] (F amily Therapy 12:00:00 AM Services [facility]) [address] 15-30 Min Brief 03/19/2020 CARELOG[facility] (F amily Therapy 12:00:00 AM Services [facility]) [address] E and M Add On-03/13/2020 CAR[facility] (Family Min 12:00:00 AM Services [facility]) [address] E and M-Established 03/13/2020 CARELOGI C (Family Client 3 12:00:00 AM Services [facility]) [address] E and M Add On-30 03/13/2020 CARELOG[facility] (Family Min 12:00:00 AM Services [facility]) [address] E and M-Established 03/13/2020 CARELOG[facility] C (Family Client 3 12:00:00 AM Services [facility]) [address] 15-30 Min Brief 03/12/2020 [facility] (F amily Therapy 12:00:00 AM Services [facility]) [address] 15-30 Min Brief 03/12/2020 [facility] (F amily Therapy 12:00:00 AM Services [facility]) [address] 45-50 Min Regular 03/05/2020 CAR[facility] (Family Therapy 12:00:00 AM Services [facility]) [address] 45-50 Min Regular 03/05/2020 [facility] (Family Therapy 12:00:00 AM Services [facility]) [address] 15-30 Min Brief 02/27/2020 CARELOG[facility] (F amily Therapy 12:00:00 AM Services [facility]) [address] 15-30 Min Brief 02/27/2020 CARELOGIC (F amily Therapy 12:00:00 AM Services [facility]) [address] 45-50 Min Regular 02/20/2020 CARELOG[facility] (Family Therapy 12:00:00 AM Services [facility]) [address] 45-50 Min Regular 02/20/2020 CARELOG[facility] (Family Therapy 12:00:00 AM Services [facility]) [address] 15-30 Min Brief 01/24/2020 CAR[facility] (F amily Therapy 12:00:00 AM Services [facility]) [address] 15-30 Min Brief 01/24/2020 CARELOG[facility] (F amily Therapy 12:00:00 AM Services [facility]) [address] 15-30 Min Brief 12/26/2019 [facility] (F amily Therapy 12:00:00 AM Services [facility]) [address] 15-30 Min Brief 12/26/2019 CARELOG[facility] (F amily Therapy 12:00:00 AM Services [facility]) [facility] 10[facility]00 AM System (procedure) EDT - 10/29/2019 10:33:00 AM EDT [address] 15-30 Min Brief 10/07/2019 CARELOG[facility] (F amily Therapy 12:00:00 AM Services [facility]) [address] 15-30 Min Brief 10/07/2019 CARELOG[facility] (F amily Therapy 12:00:00 AM Services [facility]) [address] 15-30 Min Brief 10/07/2019 CARELOGIC (F amily Therapy 12:00:00 AM Services [facility]) [address] 15-30 Min Brief 10/07/2019 CARELOG[facility] (F amily Therapy 12:00:00 AM Services [facility]) [address] 15-30 Min Brief 09/27/2019 CARELOGIC (F amily Therapy 12:00:00 AM Services [facility]) [address] 15-30 Min Brief 09/27/2019 CARELOGIC (F amily Therapy 12:00:00 AM Services [facility]) [address] 15-30 Min Brief 09/27/2019 CARELOG[facility] (F amily Therapy 12:00:00 AM Services [facility]) [address] 15-30 Min Brief 09/27/2019 CARELOG[facility] (F amily Therapy 12:00:00 AM Services [facility]) [address] 15-30 Min Brief 09/20/2019 CARELOG[facility] (F amily Therapy 12:00:00 AM Services [facility]) [address] 15-30 Min Brief 09/20/2019 CARELOG[facility] (F amily Therapy 12:00:00 AM Services [facility]) [address] 15-30 Min Brief 09/20/2019 CARELOGIC (F amily Therapy 12:00:00 AM Services [facility]) [address] 15-30 Min Brief 09/20/2019 CARELOG[facility] (F amily Therapy 12:00:00 AM Services [facility]) [address] 15-30 Min Brief 09/20/2019 CARELOG[facility] (F amily Therapy 12:00:00 AM Services [facility]) [address] 15-30 Min Brief 09/20/2019 CARELOGIC (F amily Therapy 12:00:00 AM Services [facility]) [address] 15-30 Min Brief 09/20/2019 CARELOG[facility] (F amily Therapy 12:00:00 AM Services [facility]) [address] 15-30 Min Brief 09/20/2019 CARELOGIC (F amily Therapy 12:00:00 AM Services [facility]) [address] 15-30 Min Brief 09/20/2019 CARELOG[facility] (F amily Therapy 12:00:00 AM Services [facility]) [address] Initial Assessment 08/08/2019 CARELOG[facility] (Family 12:00:00 AM Services [facility]) [address] Initial Assessment 08/08/2019 [facility] Results ID Date Data Source Liver 04/16/2020 02:07:00 AM EDT [facility] Profile.[id number] Name Value Range Interpretation Description Data Sup porting Code Source(s) Document(s ) Aspartate 17-59 <content [facility] aminotransferase styleCode="Bold"> Past[facility] hs [Enzymatic Aspartate Medical activity/volume] Aminotransferase Center in Serum or Plasma (AST) </content>40 IU/L<content styleCode="Italic s"> (17-59 IU/L)</content> Alanine 7-50 <content [facility] aminotransferase styleCode="Bold"> [facility] hs [Enzymatic Alanine Medical activity/volume] Aminotransferase Center in Serum or Plasma (ALT) </content>27 IU/L<content styleCode="Italic s"> (7-50 IU/L)</content> Bilirubin.total 0.2-1.3 <content [facility] [Mass/volume] in styleCode="Bold"> Pastor hs Serum or Plasma Bilirubin Total Medical </content>1.0 Center MG/DL<content styleCode="Italic s"> (0.2-1.3 MG/DL)</content> Alkaline 38-126 <content [facility] phosphatase styleCode="Bold"> [facility] [Enzymatic Alkaline Medical activity/volume] Phosphatase (ALP) Cente r in Serum or Plasma </content>72 IU/L<content styleCode="Italic s"> (38-126 IU/L)</content> Albumin 3.5-5.0 <content [facility] [Mass/volume] in styleCode="Bold"> Pastor hs Serum or Plasma Albumin Medical </content>4.1 Center G/DL<content styleCode="Italic s"> (3.5-5.0 G/DL)</content> ID Date Data Source HematologyRou.[id number] 04/16/2020 02:07:00 AM EDT [facility] 0400 Name Value Range Interpretation Description Data Sup porting Code Source(s) Document(s ) Erythrocytes 4.4-5.9 <content [facility] [#/volume] in styleCode="Bold [facility] Blood by ">Red Blood Medical Automated count Cell Count Center </content>4.40 MCUMM<content styleCode="Ital ics"> (4.4-5.9 MCUMM)</content > Leukocytes 4.4-11.0 Above high <content [facility] [#/volume] in normal styleCode="Bold [facility] Blood by ">White Blood Medical Automated count Cell Count Center </content>15.38 KCUMM H<content styleCode="Ital ics"> (4.4-11.0 KCUMM)</content > Hemoglobin 13.5-17. Below low normal <content [facility] [Mass/volume] in 5 styleCode="Bold [facility] Blood ">Hemoglobin Medical </content>13.3 Center G/DL L<content styleCode="Ital ics"> (13.5-17.5 G/DL)</content> Hematocrit 41.0-53. Below low normal <content [facility] [Volume 0 styleCode="Bold [facility] Fraction] of ">Hematocrit Medical Blood by </content>39.8 Center Automated count % L<content styleCode="Ital ics"> (41.0-53.0 %)</content> Erythrocyte mean 32.0-37. <content [facility] corpuscular 0 styleCode="Bold [place] hemoglobin ">Mean Corpus. Medical concentration Hgb Center [Mass/volume] by Concentration Automated count (MCHC) </content>33.4 G/DL<content styleCode="Ital ics"> (32.0-37.0 G/DL)</content> Erythrocyte mean 80.0-100 <content [facility] corpuscular .0 styleCode="Bold [facility] volume [Entitic ">Mean Medical volume] by Corpuscular Center Automated count Volume </content>90.5 FL<content styleCode="Ital ics"> (80.0-100.0 FL)</content> Erythrocyte mean 26.0-34. <content [facility] corpuscular 0 styleCode="Bold [facility] hemoglobin ">Mean Medical [Entitic mass] Corposcular Center by Automated Hemoglobin count </content>30.2 PG<content styleCode="Ital ics"> (26.0-34.0 PG)</content> Platelets 130-400 <content Saint [#/volume] in styleCode="Bold [facility] Blood by ">Platelet Medical Automated count Count Center </content>162 KCUMM<content styleCode="Ital ics"> (130-400 KCUMM)</content > Erythrocyte 11.5-14. <content [facility] distribution 5 styleCode="Bold [facility] width [Ratio] by ">Red Cell Medical Automated count Distribution Center Width </content>14.4 %<content styleCode="Ital ics"> (11.5-14.5 %)</content> Neutrophils 36-66 Above high <content [facility] [#/volume] in normal styleCode="Bold [facility] Blood by ">Neutrophil Medical Automated count </content>84.1 Center % H<content styleCode="Ital ics"> (36-66 %)</content> Platelet mean 8.0-11.0 Above high <content [facility] volume [Entitic normal styleCode="Bold [facility] volume] in Blood ">Mean Platelet Medical by Automated Volume Center count </content>11.3 FL H<content styleCode="Ital ics"> (8.0-11.0 FL)</content> Lymphocytes 24.0-44. Below low normal <content [facility] [#/volume] in 0 styleCode="Bold [facility] Blood by ">Lymphocyte Medical Automated count </content>8.8 % Center L<content styleCode="Ital ics"> (24.0-44.0 %)</content> UNK 1.0-4.8 <content [facility] styleCode="Bold [facility] ">Lymphocyte Medical Count Center </content>1.36 KCUMM<content styleCode="Ital ics"> (1.0-4.8 KCUMM)</content > UNK 1.6-7.3 Above high <content [facility] normal styleCode="Bold [facility] ">Neutrophil Medical Count Center </content>12.93 KCUMM H<content styleCode="Ital ics"> (1.6-7.3 KCUMM)</content > Monocytes 3.0-10.0 <content [facility] [#/volume] in styleCode="Bold [facility] Blood by ">Monocyte Medical Automated count </content>5.8 Center %<content styleCode="Ital ics"> (3.0-10.0 %)</content> UNK 0.0-0.6 <content Saint styleCode="Bold [facility] ">Eosinophil Medical Count Center </content>0.06 KCUMM<content styleCode="Ital ics"> (0.0-0.6 KCUMM)</content > Eosinophils 0-5.0 <content [facility] [#/volume] in styleCode="Bold [facility] Blood by ">Eosinophil Medical Automated count </content>0.4 Center %<content styleCode="Ital ics"> (0-5.0 %)</content> Basophils 0.0-1.0 <content [facility] [#/volume] in styleCode="Bold [facility] Blood by ">Basophil Medical Automated count </content>0.4 Center %<content styleCode="Ital ics"> (0.0-1.0 %)</content> UNK 0.2-0.9 <content [facility] styleCode="Bold [facility] ">Monocyte Medical Count Center </content>0.89 KCUMM<content styleCode="Ital ics"> (0.2-0.9 KCUMM)</content > UNK 0.0-0.3 <content [facility] styleCode="Bold [facility] ">Basophil Medical Count Center </content>0.06 KCUMM<content styleCode="Ital ics"> (0.0-0.3 KCUMM)</content > UNK 0 <content Saint styleCode="Bold [facility] ">Nucleated Red Medical Blood Cell Center </content>0.0 /100<content styleCode="Ital ics"> (0 /100)</content> UNK 0-0.1 <content [facility] styleCode="Bold [place] ">Immature Medical Granulocyte Center Count </content>0.08 KCUMM<content styleCode="Ital ics"> (0-0.1 KCUMM)</content > UNK 0.0 <content [facility] styleCode="Bold [facility] ">Nucleated Red Medical Blood Cell Center Count </content>0.00 KCUMM<content styleCode="Ital ics"> (0.0 KCUMM)</content > UNK < 1 <content Saint styleCode="Bold [facility] ">Immature Medical Granulocyte Center Ratio </content>0.5 %<content styleCode="Ital ics"> (< 1 %)</content> ID Date Data Source GFR(Creatinine).[id number] 04/16/2020 02:07:00 AM EDT [facility] 0-0400 Name Value Range Interpretation Code Description Data Dasia rce(s) Supporting Document(s ) UNK > 60 <content [facility] styleCode="Bold"> Medical Cent er EGFR </content>67 GFR<content styleCode="Italic s"> (> 60 GFR)</content> ID Date Data Source [id number] 04/16/2020 02:07:00 AM EDT [facility] -0400 Name Value Range Interpretation Description Data Sup porting Code Source(s) Document(s ) UNK 2.3-3.5 <content [facility] styleCode="Bold Medical ">Globulin Center </content>3.0 G/DL<content styleCode="Ital ics"> (2.3-3.5 G/DL)</content> UNK >= 1.0 <content [facility] styleCode="Bold Medical ">AG Ratio Center </content>1.4 <content styleCode="Ital ics"> (>= 1.0 )</content> Lactate 0.7-2.0 <content [place] [Mass/volum styleCode="Bold Medical e] in Serum ">Lactic Acid Center or Plasma </content>1.2 MMOLL<content styleCode="Ital ics"> (0.7-2.0 MMOLL)</content > Protein 6.3-8.2 <content [facility] [Mass/volum styleCode="Bold Medical e] in Serum ">Total Protein Center or Plasma </content>7.1 G/DL<content styleCode="Ital ics"> (6.3-8.2 G/DL)</content> ID Date Data Source [id number] 04/16/2020 02:07:00 AM EDT [facility] Name Value Range Interpretation Description Data Sup porting Code Source(s) Document(s ) Sodium 137-145 Below low <content [facility] [Moles/volume] in normal styleCode="Bold"> Anurag phs Serum or Plasma Sodium Medical </content>133 Center MEQ/L L<content styleCode="Italic s"> (137-145 MEQ/L)</content> Chloride 98-107 <content [facility] [Moles/volume] in styleCode="Bold"> Anurag phs Serum or Plasma Chloride Medical </content>102 Center MEQ/L<content styleCode="Italic s"> (98-107 MEQ/L)</content> Potassium 3.5-5.3 <content [facility] [Moles/volume] in styleCode="Bold"> Anurag phs Serum or Plasma Potassium Medical </content>4.6 Center MEQ/L<content styleCode="Italic s"> (3.5-5.3 MEQ/L)</content> UNK 9-20 Above high <content [facility] normal styleCode="Bold"> [facility] BUN </content>24 Medical MG/DL H<content Center styleCode="Italic s"> (9-20 MG/DL)</content> Glucose 74-106 Above high <content [facility] [Mass/volume] in normal styleCode="Bold"> Pastor hs Serum or Plasma Glucose Medical </content>212 Center MG/DL H<content styleCode="Italic s"> (74-106 MG/DL)</content> Carbon dioxide, 22-30 Below low <content [facility] total normal styleCode="Bold"> [facility] [Moles/volume] in Carbon Dioxide Medical Serum or Plasma </content>21 Center MEQ/L L<content styleCode="Italic s"> (22-30 MEQ/L)</content> Creatinine 0.5-1.3 <content [facility] [Mass/volume] in styleCode="Bold"> Pastor hs Serum or Plasma Creatinine Medical </content>1.2 Center MG/DL<content styleCode="Italic s"> (0.5-1.3 MG/DL)</content> Aspartate 17-59 <content [facility] aminotransferase styleCode="Bold"> Pastor hs [Enzymatic Aspartate Medical activity/volume] Aminotransferase Center in Serum or Plasma (AST) </content>40 IU/L<content styleCode="Italic s"> (17-59 IU/L)</content> UNK > 60 <content [facility] styleCode="Bold"> [facility] EGFR </content>67 Medical GFR<content Center styleCode="Italic s"> (> 60 GFR)</content> Calcium 8.4-10. <content [facility] [Mass/volume] in 2 styleCode="Bold"> Pastor hs Serum or Plasma Calcium Medical </content>9.3 Center MG/DL<content styleCode="Italic s"> (8.4-10.2 MG/DL)</content> Alanine 7-50 <content [facility] aminotransferase styleCode="Bold"> Pastor hs [Enzymatic Alanine Medical activity/volume] Aminotransferase Center in Serum or Plasma (ALT) </content>27 IU/L<content styleCode="Italic s"> (7-50 IU/L)</content> Alkaline 38-126 <content [facility] phosphatase styleCode="Bold"> Hayley [Enzymatic Alkaline Medical activity/volume] Phosphatase (ALP) Cente r in Serum or Plasma </content>72 IU/L<content styleCode="Italic s"> (38-126 IU/L)</content> Bilirubin.total 0.2-1.3 <content [facility] [Mass/volume] in styleCode="Bold"> Pastor hs Serum or Plasma Bilirubin Total Medical </content>1.0 Center MG/DL<content styleCode="Italic s"> (0.2-1.3 MG/DL)</content> Albumin 3.5-5.0 <content [facility] [Mass/volume] in styleCode="Bold"> Pastor hs Serum or Plasma Albumin Medical </content>4.1 Center G/DL<content styleCode="Italic s"> (3.5-5.0 G/DL)</content> ID Date Data Source [id number] 04/10/2020 06:50:00 AM EDT [facility] Name Value Range Interpretation Description Data Sup porting Code Source(s) Document(s ) SARS [facility] coronavirus 2 RNA This lab was ordered by [facility] and reported by [facility]. ID Date Data Source [id number] 11/17/2019 09:25:00 AM EDT [facility] Name Value Range Interpretation Description Data Sup porting Code Source(s) Document(s ) SARS [facility] coronavirus 2 RNA This lab was ordered by Nilda Tyler and reported by [facility]. ID Date Data Source [id number] 11/13/2019 11:00:00 PM EDT [facility] Name Value Range Interpretation Description Data Sup porting Code Source(s) Document(s ) SARS [facility] CORONAVIRUS 2 RNA This lab was ordered by [facility] and reported by [facility]. ID Date Data Source [id number] 11/07/2019 04:55:00 PM EDT [facility] Name Value Range Interpretation Description Data Sup porting Code Source(s) Document(s ) SARS [facility] CORONAVIRUS 2 RNA This lab was ordered by [facility] and reported by [facility]. ID Date Data Source [id number] 10/29/2019 10:33:00 AM EDT [facility] INDICATION: Traumatic Injury;EXAMINATION : CT BRAIN [...] basal gangliaregion.Electronically Signed:Jose Armando Trujillo, at 10:57 EDTTel , Servicesupport , [phone] Name Value Range Interpretation Code Description Data Dasia rce(s) Supporting Document(s ) ID Date Data Source Hormones.[id number] 08/21/2019 05:30:00 AM EST [facility] Name Value Range Interpretation Description Data Sup porting Code Source(s) Document(s ) Thyrotropin 0.465-4. <content [facility] [Units/volume] 68 styleCode="Gege [facility]ley in Serum or d">Thyroid Medical Plasma by Stimulating Center Detection Hormone limit <= 0.05 </content>2.56 mIU/L MIU/L<content styleCode="Samantha lics"> (0.465-4.68 MIU/L)</conten t> ID Date Data Source CHMROUTINECCDA.[id number] 08/21/2019 05:30:00 AM EST [facility] -0500 Name Value Range Interpretation Code Description Data Dasia rce(s) Supporting Document(s ) UNK 4.2-5.8 Above high normal <content [place] [facility] styleCode="Bold" [facility] r >Hemoglobin A1C </content>7.3 % H<content styleCode="Itali cs"> (4.2-5.8 %)</content> ID Date Data Source HematologyRou.[id number] 08/20/2019 05:15:00 AM EST [facility] 0500 Name Value Range Interpretation [...] ics"> (0 /100)</content> ID Date Data Source GFR(Creatinine).[id number] 08/20/2019 05:15:00 AM [facility] 0-0500 Name Value Range Interpretation Code Description Data Dasia rce(s) Supporting Document(s ) UNK > 60 <content [facility] styleCode="Bold"> Medical Cent er EGFR </content>94 GFR<content styleCode="Italic s"> (> 60 GFR)</content> ID Date Data Source CardiacMarkers.[id number] 08/20/2019 05:15:00 AM [facility] -0500 Name Value Range Interpretation Description Data Sup porting Code Source(s) Document(s ) Troponin < 0.034 <content [facility] I.cardiac styleCode="Bold Hayley [Mass/volume ">Troponin I Medical ] in Serum </content>0.016 Center or Plasma NG/ML<content styleCode="Ital ics"> (< 0.034 NG/ML)</content > ID Date Data Source BMP.[id number] 08/20/2019 05:15:00 AM EST [facility] Name Value Range Interpretation Description [...] t> Chloride 98-107 <content [facility] [Moles/volume] styleCode="Gege Hayley in Serum or d">Chloride Medical Plasma </content>99 Center MEQ/L<content styleCode="Samantha lics"> (98-107 MEQ/L)</conten t> Glucose 74-106 Above high normal <content [facility] [Mass/volume] styleCode="Gege Hayley in Serum or d">Glucose Medical Plasma </content>127 Center MG/DL H<content styleCode="Samantha lics"> (74-106 MG/DL)</conten t> Creatinine 0.5-1.3 <content [facility] [Mass/volume] styleCode="Gege Hayley in Serum or d">Creatinine Medical Plasma </content>0.9 Center MG/DL<content styleCode="Samantha lics"> (0.5-1.3 MG/DL)</conten t> Calcium 8.4-10.2 <content [facility] [Mass/volume] styleCode="Gege Hayley in Serum or d">Calcium Medical Plasma </content>9.7 Center MG/DL<content styleCode="Samantha lics"> (8.4-10.2 MG/DL)</conten t> UNK 9-20 <content styleCode="Gege Hayley d">BUN Medical </content>14 Center MG/DL<content styleCode="Samantha lics"> (9-20 MG/DL)</conten t> UNK > 60 <content styleCode="Gege Hayley d">EGFR Medical </content>94 Center GFR<content styleCode="Samantha lics"> (> 60 GFR)</content> ID Date Data Source CardiacMarkers.[id number] 08/20/2019 01:35:00 AM [facility] -0500 Name Value Range Interpretation Code Description Data Dasia rce(s) Supporting Document(s ) UNK 0-0.034 <content [facility] styleCode="Bold" Medical Cente r >Troponin 4HR </content>0.021 NG/ML<content styleCode="Itali cs"> (0-0.034 NG/ML)</content> ID Date Data Source Urinalysis.[id number] 08/20/2019 12:50:00 AM [facility] 0 Name Value Range Interpretation Description Data Sup porting Code Source(s) Document(s ) Color of Urine YELLOW <content styleCode="Gege Hayley d">Color, Medical Urine Center </content>YELL OW <content styleCode="Samantha lics"> (YELLOW )</content> UNK NEGATIVE <content styleCode="Gege Hayley d">Urine Medical Bilirubin Center </content>NEGA TIVE <content styleCode="Samantha lics"> (NEGATIVE )</content> Glucose NEGATIVE <content [Mass/volume] styleCode="Gege Jacksons in Urine by d">Urine Medical Test strip Glucose Center </content>NEGA TIVE MG/DL<content styleCode="Samantha lics"> (NEGATIVE MG/DL)</conten t> UNK CLEAR <content styleCode="Gege Hayley d">Urine Medical Clarity Center </content>IVETTE R <content styleCode="Samantha lics"> (CLEAR )</content> pH of Urine by 4.5-8.0 <content Saint Test strip styleCode="Gege Hayley d">Urine pH Medical </content>6.0 Center <content styleCode="Samantha lics"> (4.5-8.0 )</content> Specific 1.015-1.02 Below low normal <content Saint gravity of 5 styleCode="Gege Hayley Urine by Test d">Urine Medical strip Specific Center [place] </content><= 1.005 L<content styleCode="Samantha lics"> (1.015-1.025 )</content> Hemoglobin NEGATIVE <content [facility] [Presence] in styleCode="Gege Hayley Urine by Test d">Urine Blood Medical strip </content>TRAC Center E <content styleCode="Samantha lics"> (NEGATIVE )</content> Ketones NEGATIVE <content [facility] [Mass/volume] styleCode="Gege Hayley in [...] Nitrite NEGATIVE <content [facility] [Presence] in styleCode="Gege Hayley Urine by Test d">Urine Medical strip Nitrite Center </content>NEGA TIVE <content styleCode="Samantha lics"> (NEGATIVE )</content> UNK 0-3 <content Saint styleCode="Gege Hayley d">Urine White Medical Blood Cell Center </content>0-3 HPF<content styleCode="Samantha lics"> (0-3 HPF)</content> UNK 0-3 <content Saint styleCode="Gege Hayley d">Urine Red Medical Blood Cell Center </content>3-5 HPF<content styleCode="Samantha lics"> (0-3 HPF)</content> Leukocyte NEGATIVE <content [facility] esterase styleCode="Gege Hardy [Presence] in d">Urine Medical Urine by Test Leukocyte Center strip </content>NEGA TIVE <content styleCode="Samantha lics"> (NEGATIVE )</content> UNK NONE SEEN <content Saint styleCode="Gege Hayley d">Fine Medical Granular Cast Center </content>3-5 LPF<content styleCode="Samantha lics"> (NONE SEEN LPF)</content> UNK <content Saint styleCode="Gege Jacksons d">Sperm Cell Medical </content>FEW Center HPF (Reference Range: not available)<br/ > UNK 0-2 <content Saint styleCode="Gege Hayley d">Hyaline Medical Cast Center </content>5 - 10 LPF<content styleCode="Samantha lics"> (0-2 LPF)</content> UNK NONE SEEN <content Saint styleCode="Gege Jacksons d">Urine Mucus Medical </content>FEW Center HPF<content styleCode="Samantha lics"> (NONE SEEN HPF)</content> ID Date Data Source CHMROUTINECCDA.[id number] 08/20/2019 12:50:00 AM [facility] -0500 Name Value Range Interpretation Description Data Sup porting Code Source(s) Document(s ) Cannabinoids <content Saint [Presence] in styleCode="Gege Hardy Urine by Screen d">Cannabinoid Medical method >50 ng/mL s Center </content>NEGA TIVE NG/ML (Reference Range: not available)<br/ > ID Date Data Source Microbiology.[id number] 08/19/2019 09:40:00 PM [facility] 500 Name Value Range Interpretation Code Description Data Dasia rce(s) Supporting Document(s ) UNK <item><content [facility] styleCode="Bold"> [facility] Culture Status </content>
<t able><tbody><tr>< td>Specimen Number:</td><td>[id number]</td></tr ><tr><td>Sample Collection Date/Time: </td><td> 0 9:40 PM</td></tr><tr>< td>Specimen Source:</td><td>B LOOD</td></tr><tr ><td>Blood Culture:</td><td> Collection Plate Date: 08/19/2019 21:53 </td></tr><tr><td >Culture Report:</td><td>N O GROWTH AFTER 48 HOURS </td></tr><tr><td >Culture Status:</td><td>P reliminary </td></tr></tbody ></table></item> UNK <item><content [facility] styleCode="Bold"> Medical [facility] Culture Report </content>
<t able><tbody><tr>< td>Specimen Number:</td><td>[id number]</td></tr ><tr><td>Sample Collection Date/Time: </td><td> 0 9:40 PM</td></tr><tr>< td>Specimen Source:</td><td>B LOOD</td></tr><tr ><td>Blood Culture:</td><td> Collection Plate Date: 08/19/2019 21:53 </td></tr><tr><td >Culture Status:</td><td>P reliminary </td></tr><tr><td >Culture Report:</td><td>N O GROWTH AFTER 48 HOURS </td></tr></tbody ></table></item> ID Date Data Source Microbiology.[id number] 08/19/2019 09:15:00 PM EST [facility] 500 Name Value Range Interpretation Code Description Data Dasia rce(s) Supporting Document(s ) UNK <item><content [facility] styleCode="Bold"> Medical [facility] er Culture Status </content>
<t able><tbody><tr>< td>Specimen Number:</td><td>[id number]</td></tr ><tr><td>Sample Collection Date/Time: </td><td> 0 9:15 PM</td></tr><tr>< td>Specimen Source:</td><td>B LOOD</td></tr><tr ><td>Culture Report:</td><td>N O GROWTH AFTER 48 HOURS </td></tr><tr><td >Culture Status:</td><td>P reliminary </td></tr><tr><td >Blood Culture:</td><td> Collection Plate Date: 08/19/2019 22:32 </td></tr></tbody ></table></item> UNK <item><content [facility] styleCode="Bold"> Medical [facility] er Culture Report </content>
<t able><tbody><tr>< td>Specimen Number:</td><td>[id number]</td></tr ><tr><td>Sample Collection Date/Time: </td><td> 0 9:15 PM</td></tr><tr>< td>Specimen Source:</td><td>B LOOD</td></tr><tr ><td>Blood Culture:</td><td> Collection Plate Date: 08/19/2019 22:32 </td></tr><tr><td >Culture Status:</td><td>P reliminary </td></tr><tr><td >Culture Report:</td><td>N O GROWTH AFTER 48 HOURS </td></tr></tbody ></table></item> ID Date Data Source BloodBank.[id number] 08/19/2019 09:00:00 PM EST [facility] Name Value Range Interpretation Code Description Data Dasia rce(s) Supporting Document(s ) UNK <content [facility] styleCode="Bold" Medical Cente r >Blood Type </content>GROUP O (Reference Range: not available)
UNK NEGATIVE <content [facility] styleCode="Bold" Medical Cente r >Antibody Screen </content>NEGATI VE <content styleCode="Itali cs"> (NEGATIVE )</content> UNK <content [facility]Code="Bold" [facility] >RH Type </content>POSITI VE (Reference Range: not available)
ID Date Data Source [id number] 08/19/2019 08:52:00 PM EST [facility] Name Value Range Interpretation Description Data Sup porting Code Source(s) Document(s ) Triglyceride < 150 Above high normal <content Saint [Mass/volume] in styleCode="Gege Hayley Serum or Plasma d">Triglycerid [facility] </content>168 MG/DL H<content styleCode="Samantha lics"> (< 150 MG/DL)</conten t> Cholesterol -<200 <content [facility] [Mass/volume] in styleCode="Gege Hayley Serum or Plasma d">Cholesterol Medical </content>163 Center MG/DL<content styleCode="Samantha lics"> (-<200 MG/DL)</conten t> UNK < 100 <content Saint styleCode="Gege Hayley d">LDL-Cholest [facility] </content>83 MG/DL<content styleCode="Samantha lics"> (< 100 MG/DL)</conten t> UNK > 60 Below low normal <content Saint styleCode="Gege Hayley d">HDL- Medical Cholesterol Center </content>46 MG/DL L<content styleCode="Samantha lics"> (> 60 MG/DL)</conten t> ID Date Data Source HematologyRou.[id number] 08/19/2019 08:52:00 PM [facility] 0500 Name Value Range Interpretation [...] (0.0 KCUMM)</content > ID Date Data Source GFR(Creatinine).[id number] 08/19/2019 08:52:00 PM EST [facility] 0-0500 Name Value Range Interpretation Code Description Data Dasia rce(s) Supporting Document(s ) UNK > 60 <content [facility] styleCode="Bold"> Medical Cent er EGFR </content>83 GFR<content styleCode="Italic s"> (> 60 GFR)</content> ID Date Data Source Coagulation 08/19/2019 08:52:00 PM [facility] Center Rout.[id number] EST Name Value Range Interpretation Description Data [...] <content [facility] limits styleCode="Bold" Hayley >D-Dimer Medical </content><[facility] Center nt styleCode="Bold" >1558 ngFEU HH</content><con tent styleCode="Itali cs"> (< 500 ngFEU)</content> aPTT in 25.1-36. <content Saint Platelet poor 5 styleCode="Bold" Hayley plasma by >Partial Medical Coagulation Thromboplastin Center assay Time </content>32.1 SEC<content styleCode="Itali cs"> (25.1-36.5 SEC)</content> ID Date Data Source CardiacMarkers.[id number] 08/19/2019 08:52:00 PM EST [facility] -0500 Name Value Range Interpretation Description Data Sup porting Code Source(s) Document(s ) Troponin < 0.034 <content [facility] I.cardiac styleCode="Bold Hayley [Mass/volume ">Troponin I Medical ] in Serum </content>0.017 Center or Plasma NG/ML<content styleCode="Ital ics"> (< 0.034 NG/ML)</content > ID Date Data Source [id number] 08/19/2019 08:52:00 PM EST [facility] Name Value Range Interpretation Description Data Sup porting Code Source(s) Document(s ) Sodium 137-145 Below low normal <content [facility] [Moles/volume] styleCode="Gege Hayley in Serum or d">Sodium Medical Plasma </content>131 Center MEQ/L L<content styleCode="Samantha lics"> (137-145 MEQ/L)</conten t> Potassium 3.5-5.3 <content [facility] [Moles/volume] styleCode="Gege Hayley in Serum or d">Potassium Medical Plasma </content>4.2 Center MEQ/L<content styleCode="Samatnha lics"> (3.5-5.3 MEQ/L)</conten t> Chloride 98-107 Below low normal <content [facility] [Moles/volume] styleCode="Gege Hayley in Serum or d">Chloride Medical Plasma </content>96 Center MEQ/L L<content styleCode="Samantha lics"> (98-107 MEQ/L)</conten t> Glucose 74-106 Above high normal <content [facility] [Mass/volume] styleCode="Gege Jacksons in Serum or d">Glucose Medical Plasma </content>232 [...] Value Status Description Data Source(s ) Smoking 04/16/2020 03:08:00 Daily Smoker [facility] [place] [facility] 04/16/2020 01:41:00 Daily Smoker completed Daily Smoker S [facility] Smoking 04/16/2020 01:27:00 Daily Smoker [facility] 08/20/2019 04:57:00 Daily Smoker completed Daily Smoker S [facility] EST Center Smoking 08/20/2019 01:24:00 Daily Smoker completed Daily Smoker S [facility] Center Smoking 08/20/2019 01:14:00 Daily Smoker completed Daily Smoker S [facility] EST Center Smoking 08/19/2019 11:14:00 Daily Smoker completed Daily Smoker S [facility] EST Center Smoking 08/19/2019 08:57:00 Daily Smoker completed Daily Smoker S [facility] EST Center Smoking 08/14/2019 09:37:00 Daily Smoker completed Daily Smoker S [facility] EST Center Smoking 08/14/2019 07:51:00 Daily Smoker completed Daily Smoker S [facility] EST Center Vital Signs ID Date Data Source UNK Name Value Range Interpretation Code Description Data Source(s) Body weight 75.779496 75.732579 kg [facility] Measured kg Medical Center Body temperature 36.747492 36.967630 [facility] Respiratory rate 16 /min 16 /min [facility] Oxygen saturation 95 % 95 % [facility] in Arterial blood Medical Center by Pulse oximetry Heart rate 104 /min 104 /min [facility] Body height 162.361857 162.148086 cm [facility] Center Diastolic blood 82 mm[Hg] 82 mm[Hg] [facility] pressure Medical Center Systolic blood 126 mm[Hg] 126 mm[Hg] [facility] Center Body mass index 28.6 kg/m2 28.6 kg/m2 [facility] (BMI) [Ratio] Medical [address] Diastolic blood 87 mm[Hg] 0 - 999 Above high normal 87 mm[Hg] [facility] Systolic blood 155 mm[Hg] 0 - 999 Above high normal 155 mm[Hg] [facility] Oxygen saturation 94 % 0 - 999 Normal (applies to 94 % [facility] in Arterial blood non-numeric Health System by Pulse oximetry results) Respiratory rate 16 0 - 999 Normal (applies to 16 [facility] results) Heart rate 84 0 - 999 Normal (applies to 84 [facility] non-numeric [facility] results) Body temperature 36.5 Dory 0 - 99.9 Normal (applies to 36.5 Dory [facility] non-numeric Health System results) Body surface area 1.8 m2 1.8 m2 [facility] ore Derived from Health Syste m formula Body mass index 29.1 kg/m2 29.1 kg/m2 [facility] e (BMI) [Ratio] Health Syst em Body weight 77.11 kg 77.11 kg [facility] Body height 162.56 cm 162.56 cm [facility] Body temperature 97.8 [degF] 0 - 200 Normal (applies to 97.8 [degF ] [facility] non-numeric Health System results) Body temperature 36.055495 36.140432 [facility] Respiratory rate 20 /min 20 /min [facility] Heart rate 83 /min 83 /min [facility] Diastolic blood 91 mm[Hg] 91 mm[Hg] [facility] Center Systolic blood 138 mm[Hg] 138 mm[Hg] [facility] Center Body temperature 36.408579 36.363629 [facility] Respiratory rate 20 /min 20 /min [facility] Heart rate 76 /min 76 /min [facility] Diastolic blood 82 mm[Hg] 82 mm[Hg] [facility] Center Systolic blood 137 mm[Hg] 137 mm[Hg] [facility] Body temperature 36.014780 36.921522 [facility] Respiratory rate 18 /min 18 /min [facility] Heart rate 68 /min 68 /min [facility] Diastolic blood 80 mm[Hg] 80 mm[Hg] [facility] Systolic blood 134 mm[Hg] 134 mm[Hg] [facility] Center Heart rate 77 /min 77 /min [facility] Diastolic blood 83 mm[Hg] 83 mm[Hg] [facility] Systolic blood 139 mm[Hg] 139 mm[Hg] [facility] Body temperature 36.874014 36.048568 [facility] Respiratory rate 20 /min 20 /min [facility] Heart rate 73 /min 73 /min [facility] Systolic blood 120 mm[Hg] 120 mm[Hg] [facility] Diastolic blood 68 mm[Hg] 68 mm[Hg] [facility] Body temperature 36.612698 36.812552 [facility] Respiratory rate 20 /min 20 /min [facility] Heart rate 76 /min 76 /min [facility] Diastolic blood 66 mm[Hg] 66 mm[Hg] [facility] Center Systolic blood 139 mm[Hg] 139 mm[Hg] [facility] Body temperature 36.611451 36.087723 [facility] Respiratory rate 18 /min 18 /min [facility] Heart rate 70 /min 70 /min [facility] Diastolic blood 76 mm[Hg] 76 mm[Hg] [facility] Center Systolic blood 136 mm[Hg] 136 mm[Hg] [facility] Medical [place] Body weight 74.724147 74.012492 kg [facility] Measured kg Medical [place] Body height 162.317341 162.233781 cm [facility] Medical [place] Body mass index 28.31 kg/m2 28.31 kg/m2 [facility] (BMI) [Ratio] Medical [facility] ter Body temperature 36.369114 36.310414 [facility] Respiratory rate 18 /min 18 /min [facility] Heart rate 85 /min 85 /min [facility] Diastolic blood 99 mm[Hg] 99 mm[Hg] [facility] pressure Medical [place] Systolic blood 161 mm[Hg] 161 mm[Hg] [facility] Respiratory rate 18 /min 18 /min [facility] Heart rate 98 /min 98 /min [facility] Diastolic blood 91 mm[Hg] 91 mm[Hg] [facility] Systolic blood 154 mm[Hg] 154 mm[Hg] [facility] Oxygen saturation 98 % 98 % [facility] in Arterial blood Medical Center by Pulse oximetry Body temperature 37.140873 37.768423 [facility] Oxygen saturation 98 % 98 % [facility] in Arterial blood [facility] Center by Pulse oximetry Body temperature 36.336105 36.580874 [facility] Respiratory rate 19 /min 19 /min [facility] Oxygen saturation 99 % 99 % [facility] in Arterial blood Medical Center by Pulse oximetry Heart rate 92 /min 92 /min [facility] Diastolic blood 74 mm[Hg] 74 mm[Hg] [facility] Systolic blood 116 mm[Hg] 116 mm[Hg] [facility] Body temperature 36.947915 36.693479 [facility] Respiratory rate 18 /min 18 /min [facility] Oxygen saturation 96 % 96 % [facility] in Arterial blood Medical [place] by Pulse oximetry Heart rate 102 /min 102 /min [facility] Diastolic blood 75 mm[Hg] 75 mm[Hg] [facility] Systolic blood 109 mm[Hg] 109 mm[Hg] [facility]
[2020-04-16] MEDS ORDERED: CEPHALEXIN MONOHYDRATE 500 MG CAPSULE (UD) PO ONE (08:30)
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
[2020-04-16] MEDS ORDERED: CEPHALEXIN MONOHYDRATE 500 MG CAPSULE (UD) ONE (09:05)
[2020-04-16 09:41] LABS: BASO % 0.5 % (0-2.0); EOS % 0.3 % (0-4.5); HEMATOCRIT 36.4 % (35.4-49); HEMOGLOBIN 12.4 GM/dL (11.7-16.9); LYMPH % 11.5 % (8-40); MCH 30.4 pg (25.7-33.7); MCHC 33.9 g/dl (32.0-35.9); MEAN CELL VOLUME 89.4 fl (80-96); MEAN PLT VOLUME 9.2 fl (7.5-11.1); MONO % 5.6 % (3.8-10.2); NEUT % 82.1 % (42.8-82.8); PLATELET COUNT 154 K/MM3 (134-434); RBC 4.07 M/mm3 (4.00-5.60); RDW 14.8 % (11.9-15.9); WHITE BLOOD COUNT 14.5 K/mm3 (4.0-10.0)
[2020-04-16 10:11] LABS: ALBUMIN 3.1 g/dl (3.4-5.0); BILIRUBIN,TOTAL 0.8 mg/dL (0.2-1); BLOOD UREA NITROGEN 22.6 mg/dL (7-18); CALCIUM 8.3 mg/dL (8.5-10.1); CREATININE 1.2 mg/dL (0.55-1.3); MAGNESIUM 1.6 mg/dL (1.8-2.4); POTASSIUM 4.4 mmol/L (3.5-5.1); TOT PROT 6.6 g/dl (6.4-8.2)
[2020-04-16] MEDS ORDERED: MAGNESIUM SULF 50% (8.12 MEQ/2 ML-1 GM VIAL) IVPB ONE (10:22)
[2020-04-16] MEDS ORDERED: MAGNESIUM SULF 50% (8.12 MEQ/2 ML-1 GM VIAL) ONE (10:45)
[2020-04-16] MEDS ORDERED: INSULIN SLIDING SCALE (NOVOLOG) 1 VIAL SQ SCH (11:00)
--- NOTE | 2020-04-16 11:23 | HP ---
CHIEF COMPLAINT: lower extremity weakness PCP: HISTORY OF PRESENT ILLNESS: Patient is a 55 year old male with history of ischemic stroke (2017; residual left upper and lower extremity weakness), hypertension, hyperlipidemia, diabetes mellitus II (insulin dependent), coronary artery disease (cardiac catheteri zation without stent placement 11/2019), presents with complaint of lower extremity weakness. Patient endorses he [place] 6[place] when he felt his legs start shaking, and became weak. He fell onto his backside, however denies any trauma to head or other part of body. Denies loss of consciousness. Denies prormal symptoms prior to the episode. Patient has been seen numerous times for these symptoms this month; last admission one week ago where he was evaluated by neurology, and left against medical advice prior to rehab placement. Patient endorses he was not told he would be going to rehab, however is agreeable to rehab today. He denies subjective fevers, chills, shortness of breath, chest pain, palpitations, abdominal pain, nausea, vomiting, hemoptysis, diarrhea, constipation, melena, hematochezia. ER course was notable for: (1) EKG, CBC, CMP (2) Keflex (3) Recent Travel: denies PAST MEDICAL HISTORY: schemic stroke, hypertension, hyperlipidemia, diabetes mellitus II, coronary artery disease PAST SURGICAL HISTORY: cyst removal anterior neck in childhood Social History: Lives alone in apartment. Refuses to use walker, or cane to ambulate. 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 Smoking: Admits smoking 1 pack per day Alcohol: Admits occasional 1-2 glass of wine Drugs: Denies illicit drug use FAMILY HISTORY: Admits significant cardiac family history with coronary artery disease and diabetes mellitus in both mother and father. Allergies No Known Allergies Allergy (Verified 04/16/20 06:59) HOME MEDICATIONS: Home Medications Medication Instructions Recorded Gabapentin 600 mg PO TID 11/26/16 Atorvastatin Ca [Lipitor] 40 mg PO HS 01/17/17 Dulaglutide [Trulicity] 1.5 mg SQ WEEKLY 01/17/17 Aspirin [ASA -] 81 mg PO DAILY tab.chew 01/19/17 Zolpidem Tartrate [Ambien] 10 mg PO HS PRN 01/08/18 Insulin Glargine,Hum.rec.anlog 40 units SCJ HS 08/16/19 [Michelle Vee U-100] Metformin HCl [Glucophage] 1,000 mg PO BID 08/16/19 Oxycodone HCl/Acetaminophen 1 tab PO BID #0 tab MDD 2 08/16/19 [Percocet 5-325 mg Tablet] Amlodipine Besylate 5 mg PO DAILY 04/10/20 Buspirone HCl 15 mg PO DAILY 04/10/20 Cyclobenzaprine HCl 10 mg PO BID 04/10/20 Lisinopril/Hydrochlorothiazide 1 each PO DAILY 04/10/20 [Lisinopril-Hctz 20-12.5 mg Tab] Metoprolol Tartrate [Lopressor -] 25 mg PO BID 04/10/20 Naproxen 500 mg PO BID 04/10/20 Cephalexin Monohydrate [Keflex -] 500 mg PO Q8H #20 capsule 04/15/20 REVIEW OF SYSTEMS CONSTITUTIONAL: Absent: fever, chills, diaphoresis, generalized weakness, malaise, loss of appetite, weight change HEENT: Absent: rhinorrhea, nasal congestion, throat pain, throat swelling, difficulty swallowing, mouth swelling, ear pain, eye pain, visual changes CARDIOVASCULAR: Absent: chest pain, syncope, palpitations, irregular heart rate, lightheadedness, peripheral edema RESPIRATORY: Absent: cough, shortness of breath, dyspnea with exertion, orthopnea, wheezing, stridor, hemoptysis GASTROINTESTINAL: Absent: abdominal pain, abdominal distension, nausea, vomiting, diarrhea, constipation, melena, hematochezia GENITOURINARY: Absent: dysuria, frequency, urgency, hesitancy, hematuria, flank pain, genital pain MUSCULOSKELETAL: Admits: lower extremity weakness. Absent: myalgia, arthralgia, joint swelling, back pain, neck pain SKIN: Absent: rash, itching, pallor HEMATOLOGIC/IMMUNOLOGIC: Absent: easy bleeding, easy bruising, lymphadenopathy, frequent infections ENDOCRINE: Absent: unexplained weight gain, unexplained weight loss, heat intolerance, cold intolerance NEUROLOGIC: Admits: myoclonic movements. Absent: headache, paresthesias, dizziness, unsteady gait, seizure, mental status changes, bladder or bowel incontinence PSYCHIATRIC: Absent: anxiety, depression, suicidal or homicidal ideation, hallucinations. PHYSICAL EXAMINATION Vital Signs - 24 hr 04/16/20 06:53 Temperature 98.1 F Pulse Rate 78 Respiratory 16 Rate Blood Pressure 148/82 O2 Sat by Pulse 96 Oximetry (%) GENERAL: The patient is awake, alert, and fully oriented, in no acute distress. HEAD: Normocephalic, atraumatic. EYES: PERRL, extraocular movements intact, sclera anicteric, conjunctiva clear. ENT: Oropharynx clear, without erythema or exudates. Moist mucous membranes. NECK: Trachea midline, full range of motion. Supple without lymphadenopathy. LUNGS: Breath sounds equal, clear to auscultation bilaterally. No wheezes, no crackles. No accessory muscle use. HEART: Regular rate and rhythm. S1, S2 without murmur, rub or gallop. ABDOMEN: Soft, nondistended, nontender to light and deep palpation x4 quadrants. No rebound tenderness, no guarding. Normoactive bowel sounds x4 quadrants. No hepatosplenomegaly, no masses appreciated. EXTREMITIES: 2+ radial, dorsalis pedis pulses bilaterally. Warm, well-perfused. No lower extremity edema bilaterally. NEUROLOGICAL: Cranial nerves II through XII grossly intact. Left upper and lower extremity strength 3/5 (chronic finding). Right upper and lower extremity strength 5/5. Sensation slightly diminished along left upper and lower extremities, intact right upper and lower extremities (chronic finding). PSYCH: Normal mood, normal affect upon my encounter. SKIN: Warm, dry. Left hand 4cm area of erythema with purulence along dorsal aspect. Laboratory Results - last 24 hr 04/16/20 04/16/20 04/16/20 05:00 05:00 08:24 WBC 14.5 H RBC 4.07 Hgb 12.4 Hct 36.4 MCV 89.4 MCH 30.4 MCHC 33.9 RDW 14.8 Plt Count 154 MPV 9.2 Absolute Neuts (auto) 11.9 H Neutrophils % 82.1 Lymphocytes % 11.5 D Monocytes % 5.6 Eosinophils % 0.3 Basophils % 0.5 Nucleated RBC % 0 Sodium 137 Potassium 4.4 Chloride 104 Carbon Dioxide 25 Anion Gap 8 BUN 22.6 H Creatinine 1.2 Est GFR (CKD-EPI)AfAm 79.53 Est GFR (CKD-EPI)NonAf 68.62 POC Glucometer 191 Random Glucose 196 H Calcium 8.3 L Magnesium 1.6 L Total Bilirubin 0.8 AST 24 ALT 27 Alkaline Phosphatase 79 Total Protein 6.6 Albumin 3.1 L ASSESSMENT/PLAN: Patient is a 55 year old male with history of ischemic stroke (2017; residual left upper and lower extremity weakness), hypertension, hyperlipidemia, diabetes mellitus II (insulin dependent), coronary artery disease (cardiac catheterization without stent placement 11/2019), presents with complaint of lower extremity weakness. Myoclonic movements, fall -Fall mechanical in etiology, secondary to myoclonic movements. Similar presentation to prior ocurences. -Patient had MRI during prior admission (04/10) which revealed chronic infarcts moderate volume loss, and ventricular dilation, however no acute infarct. -CT head performed yesterday (at [facility]) negative for acute pathology -Neurology evaluation (Dr. Mahoney) -Will continue Gabapentin 900mg PO TID, up-titrated on prior hospitalization -Physical therapy evaluation- patient will require rehab placement, and is agreeable. -Fall precautions Cellulitis right hand -Patient endorses this is from a fall after previous episode of myoclonic movements. -Hand radiograph (04/15- at [facility]) revealed no acute fracture, swelling, or foreign body. -Reportedly did not take Keflex that was prescribed -Initiate Zosyn given history of diabetes mellitus -ID consult (Dr Dunham) -Incision and Drainage performed by Dr. Herrera at bedside. Sample sent for culture. Diabetes mellitus -Reports 40 units in evenings- will begin Insulin Levemir 15 units subq BID and titrate with BGMs. -Insulin sliding scale, fingerstick blood glucose monitoring ACHS History of coronary artery disease -Continue home Aspirin, Statin History of hypertension -Continue home Lisinopril, Hydrochlorothiazide, Amlodipine History of hyperlipidemia -Continue home Statin FEN -No IV fluids indicated -Follow BMP -Diabetic modified, sodium controlled diet Prophlaxis -Lovenox 40mg subq dialy Disposition -Admit to medical surgical floor Family Medical History Family History: As Documented Visit type - Emergency Visit Emergency Visit: Yes ED Registration Date: 04/16/20 Care time: The patient presented to the Emergency Department on the above date and was hospitalized for further evaluation of their emergent condition. - New Patient This patient is new to me today: Yes Date on this admission: 04/16/20 - Critical Care Critical Care patient: No ATTENDING PHYSICIAN STATEMENT I saw and evaluated the patient. I reviewed the resident's note and discussed the case with the resident. I agree with the resident's findings and plan as documented. SUBJECTIVE: OBJECTIVE: ASSESSMENT AND PLAN:
--- OUTSIDE RECORDS SUMMARY | 2020-04-16 11:25 | XMS ---
:1965 Author Organization [facility] Care Team Providers Name Role Phone ED STAFF PHYSICIAN Unavailable Unavailable FLAVIA García [...] is protected by Article 27-F of the [facility] Public [facility] law. If you continue you may haveaccess to information: Regarding HIV / AIDS; Provided by facilities licensed or operated by the [facility] Office of Mental Health; or Provided by the [facility] Office for People With Developmental Disabilities. If such information is present, then the following [facility] mandated warning applies: This information has been [...] law may result in a fine or fci sentence or both. A general authorization for the release of medical or other information is NOT sufficient authorization for further disclosure. Encounters Encounter Providers Location Date Indications Data Source(s ) Emergency Attender: ED STAFF H 04/16/2020 [facility] PHYSICIANAttender: 01:25:[facility] ST[facility] ED STAFF EDT - PHYSICIANAdmitter: ED 04/16/2020 STAFF 04:46:00 AM PHYSICIANReferrer: EDT ZUNASSIGNED Patient discharged. U [id number] 11/02/2019 11:00:00 AM EDT - [facility] ([facility] 11/02/2019 11:45:00 AM EDT [place]) Patient admitted. U 1019 10/30/2019 04:36:00 AM EDT - CARELOGIC ([facility] 10/29/2019 09:46:00 PM EDT [place]) Patient discharged. Emergency Attender: Edward 5T-EMERG 10/29/2019 [facility] - Mo unt LathanAttender: Doctor 09:21:00 AM EDT - [facility] Other 10/29/2019 02:46:00 PM EDT [place] Patient discharged. Inpatient Attender: Jose Guadalupe Bain-HAL6 08/19/2019 06:46:00 [facility] MDAttender: STAFF ED STAFF PM EST - 08/21/2019 [facility] PHYSICIANAdmitter: Jose Guadalupe 06:00:00 PM EST Adolfo MDReferrer: Jose Guadalupe Mata MD Patient discharged. Emergency Attender: FLAVIA Bain 08/14/2019 07:06:00 PM [facility] Mitchellder: ED STAFF EST - 08/14/2019 [facility] PHYSICIANAttender: STAFF ED 10:57:00 PM EST STAFF PHYSICIANAdmitter: FLAVIA García Patient discharged. U 1004 08/08/2019 10:15:00 AM EST - [facility]OG[facility] ([facility] 10/29/2019 09:46:00 PM EDT [place]) Patient admitted. U 1019 08/08/2019 09:56:00 AM EST [facility] ([facility]) Insurance Providers Payer name Policy type Policy ID Covered Covered alliance party's Policy P gaviota / Coverage alliance party ID relationship to [place] [facility] ormation type [place] MEDICARE [id number] SP [id number] MEDICAID [id number] SP [id number] W [id number] 01 [id number] M [id number] 01 [id number] [id number] M [id number] 01 [id number] W [id number] 01 [id number] M [id number] 01 [id number] Q73 Medicare Self MVP Health Self [place] Self MEDICARE [id number] SP [id number] Q73 MVP MEDICAID [id number] SP [id number] HMO Medicare Part Medicare [id number] 1 [id number] B Outpatient Medicaid Medicaid [id number] 1 [id number] Medicare Part Medicare [id number] 1 [id number] B Outpatient Self Pay Self Pay Self Pay 1 Self Pay MEDICAID [id number] SP [id number] INTEGRA W Problems, Conditions, and Diagnoses Code Display Name Description Problem Type Effective Data Sour ce(s) Dates S06.0X9A Concussion Concussion 64101-4 10/29/2019 [facility] 12:00:00 AM [facility] System EDT F34.1 Dysthymic disorder Dysthymic disorder Diagnosis 0 [facility] 11:00:00 AM (Family EDT Services of [place]) F33.0 Major depressive Major depressive Diagnosis 11/02/2019 [place] [facility] disorder, disorder, 11:00:00 AM (Family recurrent, mild recurrent, mild EDT Serv ices of [place]) F33.1 Major depressive Major depressive Diagnosis 11/02/2019 [place] RELOGIC disorder, disorder, 11:00:00 AM (Family recurrent, recurrent, EDT Services of moderate moderate [place]) E11.9 Type 2 diabetes Type 2 diabetes Diagnosis 10/29/2019 [facility] [place] mellitus without mellitus without 09:21:00 AM V joshua complications complication EDT Hospital SLIP AND FALL SLIP AND FALL Diagnosis 10/29/2019 [facility] - Mo unt 09:21:00 AM [facility] Y92.89 Other specified Other specified Diagnosis 10/29/2019 S - [facility] places as the places as place of [...] S [facility] [place] (primary) hypertension 09:21:00 AM [place] hypertension T Hospital S06.0X9A Concussion with Concussion Diagnosis 10/29/2019 S - [place] nt loss of 09:21:00 AM [place] consciousness of EDT Hospital unspecified duration, initial encounter Y93.89 Activity, other Other activity Diagnosis 10/29/2019 [facility] [place] specified 09:21:00 AM [facility] M51.36 Other OTHER Diagnosis 08/21/2019 [facility] intervertebral INTERVERTEBRAL 06:00:00 PM Medic al Center disc degeneration, DISC DEGENERATION, EST lumbar region LUMBAR REGION I10 Essential ESSENTIAL Diagnosis 08/21/2019 [facility] (primary) (PRIMARY) 06:00:00 [facility] HYPERTENSION EST E11.9 Type 2 diabetes TYPE 2 DIABETES Diagnosis 08/21/2019 [facility] mellitus without MELLITUS WITHOUT 06:00:00 PM edical [place] complications COMPLICATIONS EST F17.210 Nicotine NICOTINE Diagnosis 08/21/2019 [facility] dependence, DEPENDENCE, 06:00:[address] cigarettes, CIGARETTES, EST uncomplicated UNCOMPLICATED R07.89 Other chest pain OTHER CHEST PAIN Diagnosis 08/21/2019 [facility] 06:00:00 PM Medical Cente r EST E87.1 Hypo-osmolality HYPO-OSMOLALITY Diagnosis 08/21/2019 [facility] and hyponatremia AND HYPONATREMIA 06:00:[facility] [place] EST G45.9 Transient cerebral TRANSIENT CEREBRAL Diagnosis 0 [facility] ischemic attack, ISCHEMIC ATTACK, 06:00:00 PM [facility] unspecified UNSPECIFIED EST 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 08/21/2019 [facility] (current) use of (CURRENT) USE OF 06:00:00 PM [facility] insulin INSULIN EST I69.354 Hemiplegia and HEMIPLGA [...] cause Y93.9 Activity, ACTIVITY, Diagnosis 08/14/2019 [facility] unspecified UNSPECIFIED 07:06:[address] [...] Surgeries/Procedures Procedure Description Date Indications Data Source(s) [address] 15-30 Min Brief 03/19/2020 [facility] (F amily Therapy 12:00:00 AM Services [facility]) [address] 15-30 Min Brief 03/19/2020 CARELOGIC (F amily Therapy 12:00:00 AM Services [facility]) [address] E and M Add On-30 03/13/2020 CARELOGIC (Family Min 12:00:00 AM Services [facility]) [address] E and M-Established 03/13/2020 CARELOGI C (Family Client 3 12:00:00 AM Services [facility]) [address] E and M Add On-30 03/13/2020 CARELOGIC (Family Min 12:00:00 AM Services [facility]) [address] E and M-Established 03/13/2020 CARELOGI C (Family Client 3 12:00:00 AM Services [facility]) [address] 15-30 Min Brief 03/12/2020 CARELOGIC (F amily Therapy 12:00:00 AM Services [facility]) [address] 15-30 Min Brief 03/12/2020 CARELOGIC (F amily Therapy 12:00:00 AM Services [facility]) [address] 45-50 Min Regular 03/05/2020 CARELOG[facility] (Family Therapy 12:00:00 AM Services [facility]) [address] 45-50 Min Regular 03/05/2020 CARELOGIC (Family Therapy 12:00:00 AM Services [facility]) [address] 15-30 Min Brief 02/27/2020 CARELOGIC (F amily Therapy 12:00:00 AM Services [facility]) [address] 15-30 Min Brief 02/27/2020 CARELOGIC (F amily Therapy 12:00:00 AM Services of [facility]) [address] 45-50 Min Regular 02/20/2020 CARELOGIC (Family Therapy 12:00:00 AM Services [facility]) [address] 45-50 Min Regular 02/20/2020 CARELOGIC (Family Therapy 12:00:00 AM Services [facility]) [address] 15-30 Min Brief 01/24/2020 CARELOGIC (F amily Therapy 12:00:00 AM Services [facility]) [address] 15-30 Min Brief 01/24/2020 CARELOGIC (F amily Therapy 12:00:00 AM Services [facility]) [address] 15-30 Min Brief 12/26/2019 CARELOGIC (F amily Therapy 12:00:00 AM Services [facility]) [address] 15-30 Min Brief 12/26/2019 CARELOGIC (F amily Therapy 12:00:00 AM Services [facility]) [facility] 10[facility]:00 AM System (procedure) EDT - 10/29/2019 10:33:00 AM EDT [address] 15-30 Min Brief 10/07/2019 CARELOGIC (F amily Therapy 12:00:00 AM Services [facility]) [address] 15-30 Min Brief 10/07/2019 CARELOGIC (F amily Therapy 12:00:00 AM Services [facility]) [address] 15-30 Min Brief 10/07/2019 CARELOGIC (F amily Therapy 12:00:00 AM Services [facility]) [address] 15-30 Min Brief 10/07/2019 CARELOGIC (F amily Therapy 12:00:00 AM Services [facility]) [address] 15-30 Min Brief 09/27/2019 CARELOGIC (F amily Therapy 12:00:00 AM Services [facility]) [address] 15-30 Min Brief 09/27/2019 CARELOGIC (F amily Therapy 12:00:00 AM Services [facility]) [address] 15-30 Min Brief 09/27/2019 CARELOGIC (F amily Therapy 12:00:00 AM Services [facility]) [address] 15-30 Min Brief 09/27/2019 CARELOGIC (F amily Therapy 12:00:00 AM Services [facility]) [address] 15-30 Min Brief 09/20/2019 CARELOGIC (F amily Therapy 12:00:00 AM Services [facility]) [address] 15-30 Min Brief 09/20/2019 CARELOGIC (F amily Therapy 12:00:00 AM Services [facility]) [address] 15-30 Min Brief 09/20/2019 CARELOGIC (F amily Therapy 12:00:00 AM Services [facility]) [address] 15-30 Min Brief 09/20/2019 CARELOGIC (F amily Therapy 12:00:00 AM Services [facility]) [address] 15-30 Min Brief 09/20/2019 CARELOGIC (F amily Therapy 12:00:00 AM Services [facility]) [address] 15-30 Min Brief 09/20/2019 CARELOGIC (F amily Therapy 12:00:00 AM Services [facility]) [address] 15-30 Min Brief 09/20/2019 CARELOGIC (F amily Therapy 12:00:00 AM Services [facility]) [address] 15-30 Min Brief 09/20/2019 CARELOGIC (F amily Therapy 12:00:00 AM Services [facility]) [address] 15-30 Min Brief 09/20/2019 CARELOGIC (F amily Therapy 12:00:00 AM Services [facility]) [address] Initial Assessment 08/08/2019 CARELOGIC (Family 12:00:00 AM Services [facility]) [address] Initial Assessment 08/08/2019 CARELOGIC (Family 12:00:00 AM Services [facility]) Results ID Date Data Source Liver 04/16/2020 02:07:00 AM EDT [facility] Profile.[id number] Name Value Range Interpretation Description Data Sup [...] s"> (3.5-5.0 G/DL)</content> ID Date Data Source HematologyRou.[id number] 04/16/2020 02:07:00 AM EDT [facility] 0400 Name Value Range Interpretation Description Data Sup porting Code Source(s) Document(s ) Erythrocytes 4.4-5.9 <content [facility] [#/volume] in styleCode="B[facility] Blood by ">Red Blood Medical Automated [...] normal <content [facility] [#/volume] in 0 styleCode="Bold Hy[facility] Blood by ">Lymphocyte Medical Automated count </content>8.8 [...] (0 /100)</content> UNK 0-0.1 <content [facility] styleCode="Bold Hyaley ">Immature Medical Granulocyte Center Count </content>0.08 KCUMM<content styleCode="Ital ics"> (0-0.1 KCUMM)</content > UNK 0.0 <content [facility] styleCode="Bold Hay[facility] ">Nucleated Red Medical Blood Cell Center Count </content>0.00 KCUMM<content styleCode="Ital ics"> (0.0 KCUMM)</content > UNK < 1 <content Saint styleCode="Bold [facility] ">Immature Medical Granulocyte Center Ratio </content>0.5 %<content styleCode="Ital ics"> (< 1 %)</content> ID Date Data Source GFR(Creatinine).[id number] 04/16/2020 02:07:00 AM EDT [facility] 0-0400 Name Value Range Interpretation Code Description Data Dasia rce(s) Supporting Document(s ) UNK > 60 <content [facility] styleCode="Bold"> Medical Cent er EGFR </content>67 GFR<content styleCode="Italic s"> (> 60 GFR)</content> ID Date Data Source MROUTINECCDA.[id number] 04/16/2020 02:07:00 AM EDT [facility] -0400 Name Value Range Interpretation Description Data Sup porting Code Source(s) Document(s ) UNK 2.3-3.5 <content [facility] styleCode="Bold Medical ">Globulin Center </content>3.0 G/DL<content styleCode="Ital ics"> (2.3-3.5 G/DL)</content> UNK >= 1.0 <content [facility] styleCode="Bold Medical ">AG Ratio Center </content>1.4 <content styleCode="Ital ics"> (>= 1.0 )</content> Lactate 0.7-2.0 <content [facility] [Mass/volum styleCode="Bold Medical e] in Serum ">Lactic Acid Center or Plasma </content>1.2 MMOLL<content styleCode="Ital ics"> (0.7-2.0 MMOLL)</content > Protein 6.3-8.2 <content [facility] [Mass/volum styleCode="Bold Medical e] in Serum ">Total Protein Center or Plasma </content>7.1 G/DL<content styleCode="Ital ics"> (6.3-8.2 G/DL)</content> ID Date Data Source BMP.[id number] 04/16/2020 02:07:00 AM EDT [facility] Name Value Range Interpretation [...] Bilirubin.total 0.2-1.3 <content Saint [Mass/volume] in styleCode="Bold"> [place] hs Serum or Plasma Bilirubin Total Medical </content>1.0 Center MG/DL<content styleCode="Italic s"> (0.2-1.3 MG/DL)</content> Albumin 3.5-5.0 <content [facility] [Mass/volume] in styleCode="Bold"> Pastor hs Serum or Plasma Albumin Medical </content>4.1 Center G/DL<content styleCode="Italic s"> (3.5-5.0 G/DL)</content> ID Date Data Source [id number] 04/10/2020 06:50:00 AM EDT [facility] Name Value Range Interpretation Description Data Sup porting Code Source(s) Document(s ) SARS [facility] coronavirus 2 RNA This lab was ordered by [facility] and reported by [facility]. ID Date Data Source [id number] 11/17/2019 09:25:00 AM EDT [facility] Name Value Range Interpretation Description Data Sup porting Code Source(s) Document(s ) SARS [facility] coronavirus 2 RNA This lab was ordered by Nilda [facility] and reported by [facility]. ID Date Data Source [id number] 11/13/2019 11:00:00 PM EDT [facility] Name Value Range Interpretation Description Data Sup porting Code Source(s) Document(s ) SARS [facility] CORONAVIRUS 2 RNA This lab was ordered by [facility] and reported by [facility]. ID Date Data Source [id number] 11/07/2019 04:55:00 PM EDT [facility] Name Value Range Interpretation Description Data Sup porting Code Source(s) Document(s ) SARS [facility] CORONAVIRUS 2 RNA This lab was ordered by [facility] and reported by [facility]. ID Date Data Source [id number] 10/29/2019 10:33:00 AM EDT [facility] INDICATION: Traumatic Injury;EXAMINATION : CT BRAIN [...] Armando Trujillo, at 10:57 EDTTel , Servicesupport [phone], [phone] Name Value Range Interpretation Code Description Data Dasia rce(s) Supporting Document(s ) ID Date Data Source Hormones.[id number] 08/21/2019 05:30:00 AM EST [facility] Name Value Range Interpretation Description Data Sup porting Code Source(s) Document(s ) Thyrotropin 0.465-4. <content Saint [Units/volume] 68 styleCode="Gege Hayley in Serum or d">Thyroid Medical Plasma by Stimulating Center Detection Hormone limit <= 0.05 </content>2.56 mIU/L MIU/L<content styleCode="Samantha lics"> (0.465-4.68 MIU/L)</conten t> ID Date Data Source CHMROUTINECCDA.[id number] 08/21/2019 05:30:00 AM EST [facility] -0500 Name Value Range Interpretation Code Description Data Dasia rce(s) Supporting Document(s ) UNK 4.2-5.8 Above high normal <content [place] s styleCode="Bold" Medical Cente r >Hemoglobin A1C </content>7.3 % H<content styleCode="Itali cs"> (4.2-5.8 %)</content> ID Date Data Source HematologyRou.[id number] 08/20/2019 05:15:00 AM EST [facility] 0500 Name Value Range Interpretation Description [...] ics"> (0 /100)</content> ID Date Data Source GFR(Creatinine).[id number] 08/20/2019 05:15:00 AM [facility] 0-0500 Name Value Range Interpretation Code Description Data Dasia rce(s) Supporting Document(s ) UNK > 60 <content [facility] styleCode="Bold"> Medical Cent er EGFR </content>94 GFR<content styleCode="Italic s"> (> 60 GFR)</content> ID Date Data Source CardiacMarkers.[id number] 08/20/2019 05:15:00 AM [facility] -0500 Name Value Range Interpretation Description Data Sup porting Code Source(s) Document(s ) Troponin < 0.034 <content Saint I.cardiac styleCode="Bold [facility] [Mass/volume ">Troponin I Medical ] in Serum </content>0.016 Center or Plasma NG/ML<content styleCode="Ital ics"> (< 0.034 NG/ML)</content > ID Date Data Source BMP.[id number] 08/20/2019 05:15:00 AM EST [facility] Name Value Range Interpretation [...] (> 60 GFR)</content> ID Date Data Source CardiacMarkers.[id number] 08/20/2019 01:35:00 AM [facility] -0500 Name Value Range Interpretation Code Description Data Dasia rce(s) Supporting Document(s ) UNK 0-0.034 <content [facility] styleCode="Bold" Medical Cente r >Troponin 4HR </content>0.021 NG/ML<content styleCode="Itali cs"> (0-0.034 NG/ML)</content> ID Date Data Source Urinalysis.[id number] 08/20/2019 12:50:00 AM [facility] 0 Name Value Range Interpretation Description [...] by Test d">Urine Medical strip Specific Center [place] </content><= 1.005 L<content styleCode="Samantha lics"> (1.015-1.025 )</content> [...] not available)<br/ > UNK 0-2 <content [facility] styleCode="Geeg [facility] d">Hyaline Medical Cast Center </content>5 - 10 LPF<content styleCode="Samantha lics"> (0-2 LPF)</content> UNK NONE SEEN <content [facility] styleCode="[facility] d">Urine Mucus Medical </content>FEW Center HPF<content styleCode="Samantha lics"> (NONE SEEN HPF)</content> ID Date Data Source CHMROUTINECCDA.[id number] 08/20/2019 12:50:00 AM [facility] -0500 Name Value Range Interpretation Description Data Sup porting Code Source(s) Document(s ) Cannabinoids <content [facility] [Presence] in styleCode="[facility] Urine by Screen d">Cannabinoid Medical method >50 ng/mL s Center </content>NEGA TIVE NG/ML (Reference Range: not available)<br/ > ID Date Data Source Microbiology.[id number] 08/19/2019 09:40:00 PM [facility] 500 Name Value Range Interpretation Code Description Data Dasia rce(s) Supporting Document(s ) UNK <item><content [facility] styleCode="Bold"> [facility] Culture Status </content>
<t able><tbody><tr>< td>Specimen Number:</td><td>[id number]</td></tr ><tr><td>Sample Collection Date/Time: </td><td> 0 9:40 PM</td></tr><tr>< td>Specimen Source:</td><td>B LOOD</td></tr><tr ><td>Blood Culture:</td><td> Collection Plate Date: 08/19/2019 21:53 </td></tr><tr><td >Culture Report:</td><td>N O GROWTH AFTER 48 HOURS </td></tr><tr><td >Culture Status:</td><td>P reliminary </td></tr></tbody ></table></item> UNK <item><content [facility] styleCode="Bold"> [facility] Culture Report </content>
<t able><tbody><tr>< td>Specimen Number:</td><td>[id number]</td></tr ><tr><td>Sample Collection Date/Time: </td><td> 0 9:40 PM</td></tr><tr>< td>Specimen Source:</td><td>B LOOD</td></tr><tr ><td>Blood Culture:</td><td> Collection Plate Date: 08/19/2019 21:53 </td></tr><tr><td >Culture Status:</td><td>P reliminary </td></tr><tr><td >Culture Report:</td><td>N O GROWTH AFTER 48 HOURS </td></tr></tbody ></table></item> ID Date Data Source Microbiology.[id number] 08/19/2019 09:15:00 PM EST [facility] 500 Name Value Range Interpretation Code Description Data Dasia rce(s) Supporting Document(s ) UNK <item><content [facility] styleCode="Bold"> Medical [facility] er Culture Status </content>
<t able><tbody><tr>< td>Specimen Number:</td><td>[id number]</td></tr ><tr><td>Sample Collection Date/Time: </td><td> 0 9:15 PM</td></tr><tr>< td>Specimen Source:</td><td>B LOOD</td></tr><tr ><td>Culture Report:</td><td>N O GROWTH AFTER 48 HOURS </td></tr><tr><td >Culture Status:</td><td>P reliminary </td></tr><tr><td >Blood Culture:</td><td> Collection Plate Date: 08/19/2019 22:32 </td></tr></tbody ></table></item> UNK <item><content [facility] styleCode="Bold"> Medical [facility] er Culture Report </content>
<t able><tbody><tr>< td>Specimen Number:</td><td>[id number]</td></tr ><tr><td>Sample Collection Date/Time: </td><td> 0 9:15 PM</td></tr><tr>< td>Specimen Source:</td><td>B LOOD</td></tr><tr ><td>Blood Culture:</td><td> Collection Plate Date: 08/19/2019 22:32 </td></tr><tr><td >Culture Status:</td><td>P reliminary </td></tr><tr><td >Culture Report:</td><td>N O GROWTH AFTER 48 HOURS </td></tr></tbody ></table></item> ID Date Data Source BloodBank.[id number] 08/19/2019 09:00:00 PM EST [facility] Name Value Range Interpretation Code Description Data Dasia rce(s) Supporting Document(s ) UNK <content [facility] styleCode="Bold" Medical Cente r >Blood Type </content>GROUP O (Reference Range: not available)
UNK NEGATIVE <content [facility] styleCode="Bold" Medical Cente r >Antibody Screen </content>NEGATI VE <content styleCode="Itali cs"> (NEGATIVE )</content> UNK <content [facility] styleCode="Bold" Medical Cente r >RH Type </content>POSITI VE (Reference Range: not available)
ID Date Data Source LIPID.[id number] 08/19/2019 08:52:00 PM EST [facility] Name Value Range Interpretation Description Data Sup porting Code Source(s) Document(s ) Triglyceride < 150 Above high normal <content Saint [Mass/volume] in styleCode="Gege Hayley Serum or Plasma d">Triglycerid [facility] </content>168 MG/DL H<content styleCode="Samantha lics"> (< 150 MG/DL)</conten t> Cholesterol -<200 <content [facility] [Mass/volume] in styleCode="Gege Hayley Serum or Plasma d">Cholesterol Medical </content>163 Center MG/DL<content styleCode="Samantha lics"> (-<200 MG/DL)</conten t> UNK < 100 <content Saint styleCode="Gege [facility]ley d">LDL-Cholest [facility] </content>83 MG/DL<content styleCode="Samantha lics"> (< 100 MG/DL)</conten t> UNK > 60 Below low normal <content Saint styleCode="Gege [facility]ley d">HDL- Medical Cholesterol Center </content>46 MG/DL L<content styleCode="Samantha lics"> (> 60 MG/DL)</conten t> ID Date Data Source HematologyRou.[id number] 08/19/2019 08:52:00 PM [facility] 0500 Name Value Range Interpretation Description [...] (0.0 KCUMM)</content > ID Date Data Source GFR(Creatinine).[id number] 08/19/2019 08:52:00 [facility] Name Value Range Interpretation Code Description Data Dasia rce(s) Supporting Document(s ) UNK > 60 <content [facility] styleCode="Bold"> Medical Cent er EGFR </content>83 GFR<content styleCode="Italic s"> (> 60 GFR)</content> ID Date Data Source Coagulation 08/19/2019 08:52:00 PM [facility] Rout.[id number] EST Name Value Range Interpretation Description Data [...] <content [facility] limits styleCode="Bold" [facility]ley >D-Dimer Medical </content><[facility] nt styleCode="Bold" >1558 ngFEU HH</content><con tent styleCode="Itali cs"> (< 500 ngFEU)</content> aPTT in 25.1-36. <content Saint Platelet poor 5 styleCode="Bold" Hayley plasma by >Partial Medical Coagulation Thromboplastin Center assay Time </content>32.1 SEC<content styleCode="Itali cs"> (25.1-36.5 SEC)</content> ID Date Data Source CardiacMarkers.[id number] 08/19/2019 08:52:00 PM [address] [facility] -0500 Name Value Range Interpretation Description Data Sup porting Code Source(s) Document(s ) Troponin < 0.034 <content [facility] I.cardiac styleCode="Bold [facility] [Mass/volume ">Troponin I Medical ] in Serum </content>0.017 Center or Plasma NG/ML<content styleCode="Ital ics"> (< 0.034 NG/ML)</content > ID Date Data Source BMP.[id number] 08/19/2019 08:52:00 PM EST [facility] Name Value Range Interpretation Description Data Sup porting Code Source(s) Document(s ) Sodium 137-145 Below low normal <content Saint [Moles/volume] styleCode="Gege Jacksons in Serum or d">Sodium Medical Plasma </content>131 [...] 03:08:00 Daily Sm[facility] completed [facility] 04[facility]16[facility]2020 01:41:00 Daily [facility] [place] [facility] 04/16/2020 01:27:00 Daily Smoker [facility] 08/20/2019 04:57:00 Daily Smoker completed Daily Smoker S [facility] Center Smoking 08/20/2019 01:24:00 Daily Smoker completed Daily Smoker S [facility] EST Center Smoking 08/20/2019 01:14:00 Daily Smoker completed Daily Smoker S [facility] EST Center Smoking 08/19/2019 11:14:00 Daily Smoker completed Daily Smoker S [facility] EST Center Smoking 08/19/2019 08:57:00 Daily Smoker completed Daily Smoker S [facility] Center Smoking 08/14/2019 09:37:00 Daily Smoker completed Daily Smoker S [facility] Center Smoking 08/14/2019 07:51:00 Daily Smoker completed Daily Smoker S [facility] EST Center Vital Signs ID Date Data Source UNK Name Value Range Interpretation Code Description Data Source(s) Body weight 75.417409 75.335661 kg [facility] Measured kg [facility] Body temperature 36.959745 36.366189 [facility] Respiratory rate 16 /min 16 /min [facility] Oxygen saturation 95 % 95 % [facility] Ar[facility] by Pulse oximetry Heart rate 104 /min 104 /min [facility] Body height 162.632187 162.969667 cm [facility] Center Diastolic blood 82 mm[Hg] 82 mm[Hg] [facility] pressure Medical Center Systolic blood 126 mm[Hg] 126 mm[Hg] [facility] Body mass index 28.6 kg/m2 28.6 kg/m2 [facility] (BMI) [Ratio] Medical [facility] ter Diastolic blood 87 mm[Hg] 0 - 999 Above high normal 87 mm[Hg] [facility] Systolic blood 155 mm[Hg] 0 - 999 Above high normal 155 mm[Hg] [facility] Oxygen saturation 94 % 0 - 999 Normal (applies to 94 % [facility] in Arterial blood non-numeric Health System by Pulse oximetry results) Respiratory rate 16 0 - 999 Normal (applies to 16 [facility] non-numeric Health System results) Heart rate 84 0 - 999 Normal ([facility] 84 [facility]) Body temperature 36.5 Dory 0 - 99.9 Normal (applies to 36.[address] [facility] non-numeric Health System results) Body surface area 1.8 m2 1.8 m2 [facility] ore Derived from Health Syste m formula Body mass index 29.1 kg/m2 29.1 kg/m2 [facility] e (BMI) [Ratio] Health Syst em Body weight 77.11 kg 77.11 kg [facility] Body height 162.56 cm 162.56 cm [facility] Body temperature 97.8 [degF] 0 - 200 Normal (applies to 97.8 [degF ] [facility] non-numeric Health System results) Body temperature 36.203324 36.428431 [facility] Respiratory rate 20 /min 20 /min [facility] Heart rate 83 /min 83 /min [facility] Diastolic blood 91 mm[Hg] 91 mm[Hg] [facility] Center Systolic blood 138 mm[Hg] 138 mm[Hg] [facility] Body temperature 36.952547 36.664033 [facility] Respiratory rate 20 /min 20 /min [facility] Heart rate 76 /min 76 /min [facility] Diastolic blood 82 mm[Hg] 82 mm[Hg] [facility] pressure Medical Center Systolic blood 137 mm[Hg] 137 mm[Hg] [facility] Body temperature 36.095833 36.416016 [facility] Respiratory rate 18 /min 18 /min [facility] Heart rate 68 /min 68 /min [facility] Diastolic blood 80 mm[Hg] 80 mm[Hg] [facility] Center Systolic blood 134 mm[Hg] 134 mm[Hg] [facility] Heart rate 77 /min 77 /min [facility] Diastolic blood 83 mm[Hg] 83 mm[Hg] [facility] Center Systolic blood 139 mm[Hg] 139 mm[Hg] [facility] Body temperature 36.274996 36.241119 [facility] Respiratory rate 20 /min 20 /min [facility] Heart rate 73 /min 73 /min [facility] Systolic blood 120 mm[Hg] 120 mm[Hg] [facility] Diastolic blood 68 mm[Hg] 68 mm[Hg] [facility] Body temperature 36.811928 36.677958 [facility] Respiratory rate 20 /min 20 /min [facility] Heart rate 76 /min 76 /min [facility] Diastolic blood 66 mm[Hg] 66 mm[Hg] [facility] Center Systolic blood 139 mm[Hg] 139 mm[Hg] [facility] Body temperature 36.785415 36.363132 [facility] Respiratory rate 18 /min 18 /min [facility] Heart rate 70 /min 70 /min [facility] Diastolic blood 76 mm[Hg] 76 mm[Hg] [facility] Center Systolic blood 136 mm[Hg] 136 mm[Hg] [facility] Medical [place] Body weight 74.959812 74.973958 kg [facility] Measured kg Medical [place] Body height 162.645511 162.357190 cm [facility] Medical [place] Body mass index 28.31 kg/m2 28.31 kg/m2 [facility] (BMI) [Ratio] Medical [facility] ter Body temperature 36.541561 36.034522 [facility] Respiratory rate 18 /min 18 /min [facility] Heart rate 85 /min 85 /min [facility] Diastolic blood 99 mm[Hg] 99 mm[Hg] [facility] pressure Medical [place] Systolic blood 161 mm[Hg] 161 mm[Hg] [facility] Respiratory rate 18 /min 18 /min [facility] Heart rate 98 /min 98 /min [facility] Diastolic blood 91 mm[Hg] 91 mm[Hg] [facility] Medical [place] Systolic blood 154 mm[Hg] 154 mm[Hg] [facility] Oxygen saturation 98 % 98 % [facility] Arterial blood [facility] Center by Pulse oximetry Body temperature 37.105613 37.200692 [facility] Oxygen saturation 98 % 98 % [facility] Arterial blood [facility] Center by Pulse oximetry Body temperature 36.549057 36.811898 [facility] Respiratory rate 19 /min 19 /min [facility] Oxygen saturation 99 % 99 % [facility] Ar[facility] blood [facility] Center by Pulse oximetry Heart rate 92 /min 92 /min [facility] Diastolic blood 74 mm[Hg] 74 mm[Hg] [facility] Systolic blood 116 mm[Hg] 116 mm[Hg] [facility] Body temperature 36.239215 36.012973 [facility] Respiratory rate 18 /min 18 /min [facility] Oxygen saturation 96 % 96 % [facility] Arterial blood [facility] Center by Pulse oximetry Heart rate 102 /min 102 /min [facility] Diastolic blood 75 mm[Hg] 75 mm[Hg] [facility] Systolic blood 109 mm[Hg] 109 mm[Hg] [facility]
[2020-04-16] MEDS ORDERED: PATIENT'S OWN MEDICATION (NON-FORMULARY) (Lisinopril/Hydrochlorothiazide [Lisinopril-Hctz PO SCH (11:30)
[2020-04-16] MEDS ORDERED: AMPICILLIN NA/SULBACTAM NA 3 GM in SODIUM CHLORIDE 100 ML IVPB SCH (12:00)
[2020-04-16] MEDS ORDERED: ASPIRIN 81 MG CHEWABLE TABLETS ONE (12:20)
[2020-04-16] MEDS ORDERED: LISINOPRIL 20 MG TABLET ONE (12:20)
[2020-04-16] MEDS: LISINOPRIL 20 MG TABLET PO SCH (12:26)
[2020-04-16] MEDS: HYDROCHLOROTHIAZIDE 12.5 MG CAPSULE (FP) PO SCH (12:26)
[2020-04-16] MEDS: ASPIRIN 81 MG CHEWABLE TABLETS PO SCH (12:26)
--- NOTE | 2020-04-16 14:45 | CON.ID ---
Consult Consult Specialty:: infectious diseases Referred by:: Reason for Consultation:: weakness - History of Present Illness Chief Complaint: weakness History of Present Illness: 55 year old male with history of ischemic stroke , hypertension, hyperlipidemia, diabetes mellitus II (insulin dependent), coronary artery disease (cardiac catheterization without stent placement 11/2019), presents with complaint of lower extremity weakness. Patient endorses he [place] 6[place] when he felt his legs start shaking, and became weak. He fell onto his backside, however denies any trauma to head or other part of body. Denies loss of consciousness. Denies prormal symptoms prior to the episode. Patient has been se en numerous times for these symptoms this month; last admission one week ago where he was evaluated by neurology, and left against medical advice prior to rehab placement. Patient endorses he was not told he would be going to rehab, however is agreeable to rehab today. He denies subjective fevers, chills, shortness of breath, chest pain, palpitations, abdominal pain, nausea, vomiting, hemoptysis, diarrhea, constipation, melena, hematochezia. 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 (multiple ischemic right cerebral 2017) Cardio/Vascular: Yes: HTN, Hyperlipdemia Pulmonary: Yes: Other (current cigarette smoker) Psych: Yes: Anxiety Endocrine: Yes: Diabetes Insipidus - Alcohol/Substance Use Hx Alcohol Use: Yes (rare social drink) - Smoking History Smoking history: Current some day smoker Have you smoked in the past 12 months: Yes Aproximately how many cigarettes per day: 5 - Social History ADL: Independent History of Recent Travel: No Home Medications - Allergies Allergies/Adverse Reactions: Allergies Allergy/AdvReac Type Severity Reaction Status Date / Time No Known Allergies Allergy Verified 04/16/20 06:59 - Home Medications Home Medications: Ambulatory Orders Gabapentin 600 mg PO TID 11/26/16 Atorvastatin Ca [Lipitor] 40 mg PO HS 01/17/17 Dulaglutide [Trulicity] 1.5 mg SQ WEEKLY 01/17/17 Aspirin [ASA -] 81 mg PO DAILY tab.chew 01/19/17 Zolpidem Tartrate [Ambien] 10 mg PO HS PRN 01/08/18 Insulin Glargine,Hum.rec.anlog [Basaglar Kwikpen U-100] 40 units SCJ HS 08/16/19 Metformin HCl [Glucophage] 1,000 mg PO BID 08/16/19 Oxycodone HCl/Acetaminophen [Percocet 5-325 mg Tablet] 1 tab PO BID #0 tab MDD 2 08/16/19 Amlodipine Besylate 5 mg PO DAILY 04/10/20 Buspirone HCl 15 mg PO DAILY 04/10/20 Cyclobenzaprine HCl 10 mg PO BID 04/10/20 Lisinopril/Hydrochlorothiazide [Lisinopril-Hctz 20-12.5 mg Tab] 1 each PO DAILY 04/10/20 Metoprolol Tartrate [Lopressor -] 25 mg PO BID 04/10/20 Naproxen 500 mg PO BID 04/10/20 Cephalexin Monohydrate [Keflex -] 500 mg PO Q8H #20 capsule 04/15/20 Family Medical History Family Hx Cancer: Mother (Uterine) Family Hx Cardiac Disorders: Mother, Father Family Hx Coronary Artery Disease: Mother, Father Family Hx Diabetes: Mother Family Hx Respiratory Disorders: Mother Review of Systems - Review of Systems Constitutional: reports: Weakness Eyes: reports: No Symptoms HENT: reports: No Symptoms Neck: reports: No Symptoms Cardiovascular: reports: No Symptoms Respiratory: reports: No Symptoms Gastrointestinal: reports: No Symptoms Genitourinary: reports: No Symptoms Musculoskeletal: reports: Muscle Weakness Integumentary: reports: No Symptoms Neurological: reports: No Symptoms Endocrine: reports: No Symptoms Hematology/Lymphatic: reports: No Symptoms Psychiatric: reports: No Symptoms Physical Exam Vital Signs: Vital Signs Temperature 98.1 F 04/16/20 06:53 Pulse Rate 78 04/16/20 06:53 Respiratory Rate 16 04/16/20 06:53 Blood Pressure 148/82 04/16/20 06:53 O2 Sat by Pulse Oximetry (%) 96 04/16/20 06:53 Constitutional: Yes: Anxious, Mild Distress Eyes: Yes: Conjunctiva Clear HENT: Yes: Atraumatic, Normocephalic Neck: Yes: Supple, Trachea Midline Cardiovascular: Yes: Regular Rate and Rhythm Respiratory: Yes: Regular, CTA Bilaterally Gastrointestinal: Yes: Normal Bowel Sounds, Soft Musculoskeletal: Yes: WNL Extremities: Yes: WNL Neurological: Yes: Alert, Oriented Psychiatric: Yes: Alert Labs: CBC, BMP 04/16/20 05:00 04/16/20 05:00 Imaging - Results Chest X-ray: Report Reviewed, Image Reviewed X-ray: Report Reviewed, Image Reviewed Cat Scan: Report Reviewed, Image Reviewed Assessment/Plan 55 year old male with history of ischemic stroke (2017; residual left upper and lower extremity weakness), hypertension, hyperlipidemia, diabetes mellitus II (insulin dependent), coronary artery disease (cardiac catheterization without stent placement 11/2019), presents with complaint of lower extremity weakness. Myoclonic movements, fall Cellulitis right hand Diabetes mellitus History of coronary artery disease History of hypertension History of hyperlipidemia plan will start patient on abx rest as per the team monitor wbc
[2020-04-16] MEDS: GABAPENTIN 300 MG CAPSULE PO SCH ×2 (15:13→22:56)
[2020-04-16] MEDS ORDERED: INSULIN (LEVEMIR) 100 UNITS/ML UNITS SQ ONE (16:36)
[2020-04-16] MEDS ORDERED: PIPERACILLIN/TAZOB 3.375 GM 3.375 GM/50 ML BAG IVPB ONE (16:41)
[2020-04-16] MEDS ORDERED: AZITHROMYCIN IVPB 500 MG/250 ML BAG IVPB ONE (16:45)
[2020-04-16] MEDS: INSULIN SLIDING SCALE (NOVOLOG) 1 VIAL SQ SCH ×2 (17:00→22:56)
[2020-04-16] MEDS: INSULIN (LEVEMIR) 100 UNITS/ML UNITS SQ SCH (17:00)
[2020-04-16] MEDS ORDERED: ACETAMINOPHEN 325 MG TABLET (FP) ONE (17:02)
[2020-04-16] MEDS: PIPERACILLIN/TAZOB 3.375 GM 3.375 GM in DEXTROSE 5%-WATER - 50 ML IVPB SCH ×2 (18:06→19:07)
[2020-04-16] MEDS ORDERED: ATORVASTATIN CA 40 MG TABLET (FP) ONE (22:38)
[2020-04-16] MEDS: ATORVASTATIN CA 40 MG TABLET (FP) PO SCH (22:56)
--- NOTE | 2020-04-16 23:26 | PN ---
Teaching Attending Note Name of Resident: Nicholas Moreland ATTENDING PHYSICIAN STATEMENT I saw and evaluated the patient. I reviewed the resident's note and discussed the case with the resident. I agree with the resident's findings and plan as documented. SUBJECTIVE: Patient seen and examined at bedside, admitted for unsteady gait, weakness, R hand cellulitis. VSS. OBJECTIVE: GA comfortable, AAox3 HEENT NC/AT, EOMI, neck supple Chest CTAB, no crackles CVS S1, S2+, RRR Abd Soft, NT, ND, BS+ Ext no LE edema, no calf tenderness, 5/5 power LE b/l, R hand w/ erythema/minimal pus drainage from Vital Signs (72 hours) 04/16/20 04/16/20 04/16/20 06:53 10:00 15:58 Temperature 98.1 F 97.9 F 98 F Pulse Rate 78 Pulse Rate [ 74 76 Apical] Respiratory 16 16 17 Rate Blood Pressure 148/82 Blood Pressure 141/80 143/80 [Left Arm] Blood Pressure [Right Arm] O2 Sat by Pulse 96 99 95 Oximetry (%) 04/16/20 04/16/20 04/17/20 20:30 23:30 06:28 Temperature 98.7 F 98.4 F Pulse Rate 67 71 Pulse Rate [ 76 Apical] Respiratory 16 20 20 Rate Blood Pressure 126/73 123/71 Blood Pressure [Left Arm] Blood Pressure 105/55 L [Right Arm] O2 Sat by Pulse 100 97 98 Oximetry (%) 04/17/20 04/17/20 04/17/20 06:34 09:00 13:27 Temperature 98.6 F Pulse Rate 80 Pulse Rate [ Apical] Respiratory 20 20 Rate Blood Pressure 96/64 Blood Pressure [Left Arm] Blood Pressure [Right Arm] O2 Sat by Pulse 97 97 97 Oximetry (%) Microbiology 04/16/20 17:00 Hand - Right Gram Stain - Final Laboratory Results - last 24 hr 04/16/20 04/16/20 04/17/20 05:00 22:43 07:02 WBC RBC Hgb Hct MCV MCH MCHC RDW Plt Count MPV Sodium Potassium Chloride Carbon Dioxide Anion Gap BUN Creatinine Est GFR (CKD-EPI)AfAm Est GFR (CKD-EPI)NonAf POC Glucometer 180 96 Random Glucose Calcium Phosphorus Magnesium COVID-19 (LUDMILA) Not detected 04/17/20 04/17/20 04/17/20 08:20 08:20 11:29 WBC 10.8 H RBC 3.68 L Hgb 11.3 L Hct 32.7 L MCV 88.8 MCH 30.7 MCHC 34.6 RDW 14.9 Plt Count 129 L MPV 9.1 Sodium 137 Potassium 4.1 Chloride 104 Carbon Dioxide 27 Anion Gap 6 L BUN 23.7 H Creatinine 1.2 Est GFR (CKD-EPI)AfAm 79.53 Est GFR (CKD-EPI)NonAf 68.62 POC Glucometer 236 Random Glucose 135 H Calcium 8.1 L Phosphorus 3.2 Magnesium 1.8 COVID-19 (LUDMILA) 04/17/20 04/17/20 17:11 21:03 WBC RBC Hgb Hct MCV MCH MCHC RDW Plt Count MPV Sodium Potassium Chloride Carbon Dioxide Anion Gap BUN Creatinine Est GFR (CKD-EPI)AfAm Est GFR (CKD-EPI)NonAf POC Glucometer 134 187 Random Glucose Calcium Phosphorus Magnesium COVID-19 (LUDMILA) Home Medications Medication Instructions Recorded Gabapentin 600 mg PO TID 11/26/16 Atorvastatin Ca [Lipitor] 40 mg PO HS 01/17/17 Dulaglutide [Trulicity] 1.5 mg SQ WEEKLY 01/17/17 Aspirin [ASA -] 81 mg PO DAILY tab.chew 01/19/17 Zolpidem Tartrate [Ambien] 10 mg PO HS PRN 01/08/18 Insulin Glargine,Hum.rec.anlog 40 units SCJ HS 08/16/19 [Basaglar Sispen U-100] Metformin HCl [Glucophage] 1,000 mg PO BID 08/16/19 Oxycodone HCl/Acetaminophen 1 tab PO BID #0 tab MDD 2 08/16/19 [Percocet 5-325 mg Tablet] Amlodipine Besylate 5 mg PO DAILY 04/10/20 Buspirone HCl 15 mg PO DAILY 04/10/20 Cyclobenzaprine HCl 10 mg PO BID 04/10/20 Lisinopril/Hydrochlorothiazide 1 each PO DAILY 04/10/20 [Lisinopril-Hctz 20-12.5 mg Tab] Metoprolol Tartrate [Lopressor -] 25 mg PO BID 04/10/20 Naproxen 500 mg PO BID 04/10/20 Cephalexin Monohydrate [Keflex -] 500 mg PO Q8H #20 capsule 04/15/20 Current Medications Generic Name Dose Route Start Last Admin Trade Name Freq PRN Reason Stop Dose Admin Acetaminophen 650 mg 04/16/20 17:17 04/17/20 13:06 Tylenol - PO 650 mg Q6H PRN Administration PAIN LEVEL 1-5 Amlodipine Besylate 5 mg 04/17/20 10:00 04/17/20 09:13 Norvasc - PO 5 mg DAILY JAYME Administration Aspirin 81 mg 04/16/20 11:45 04/17/20 09:13 Asa - PO 81 mg DAILY JAYME Administration Atorvastatin Calcium 40 mg 04/16/20 22:00 04/17/20 21:04 Lipitor - PO 40 mg HS JAYME Administration Buspirone HCl 15 mg 04/17/20 10:00 04/17/20 11:20 Buspar - PO 15 mg DAILY JAYME Administration Docusate Sodium 300 mg 04/17/20 22:00 04/17/20 21:04 Colace - PO 300 mg HS JAYME Administration Enoxaparin Sodium 40 mg 04/17/20 10:00 04/17/20 09:13 Lovenox - SQ 40 mg DAILY JAYME Administration Gabapentin 900 mg 04/16/20 14:00 04/17/20 21:04 Neurontin - PO 900 mg TID JAYME Administration Hydrochlorothiazide 12.5 mg 04/16/20 11:45 04/17/20 09:13 Hctz - PO 12.5 mg DAILY JAYME Administration Ceftriaxone Sodium 1 gm/ 50 mls @ 100 mls/hr 04/17/20 16:30 04/17/20 17:58 Dextrose IVPB 100 mls/hr DAILY JAYME Administration Insulin Aspart 1 vial 04/16/20 11:34 04/17/20 21:06 Novolog Vial Sliding Scale - SQ 2 units ACHS JAYME Administration Protocol Insulin Detemir 15 units 04/16/20 16:30 04/17/20 17:58 Levemir Vial SQ 15 units BIDI JAYME Administration Lidocaine 1 patch 04/17/20 13:30 04/17/20 14:22 Lidoderm Patch - TP 1 patch DAILY JAYME Administration Lisinopril 20 mg 04/16/20 11:45 04/17/20 09:13 Prinivil PO 20 mg DAILY JAYME Administration Miscellaneous 1 each 04/17/20 22:00 04/17/20 21:04 Lidoderm Patch Removal MC 1 each DAILY@2200 JAYME Administration Nicotine 14 mg 04/17/20 13:30 04/17/20 14:22 Nicoderm Patch - TD 14 mg DAILY JAYME Administration Oxycodone HCl 5 mg 04/17/20 13:25 04/17/20 14:22 Roxicodone - PO 5 mg Q6H PRN Administration PAIN LEVEL 4 - 6 Oxycodone HCl 10 mg 04/17/20 13:25 04/17/20 21:13 Roxicodone - PO 10 mg Q4H PRN Administration PAIN LEVEL 6-10 Zolpidem Tartrate 10 mg 04/17/20 18:52 Ambien - PO HS PRN INSOMNIA ASSESSMENT AND PLAN: 55 M R hand cellulitis Lower extremity weakness CVA w/ R residual weakness HTN HLD T2DM Depression Diabetic neuropathy Insomnia Nicotine dependence Chronic pain Plan: Follow cultures from I&D Empiric Ceftriaxone, Vancomycin given in ED Strict glycemic control PT evaluation for gait training Restart BP meds Neurology following DVT ppx: Lovenox SC
[2020-04-16] MEDS: ACETAMINOPHEN 325 MG TABLET (FP) PO PRN (23:51)
[2020-04-17] MEDS ORDERED: PIPERACILLIN/TAZOBACTAM 3.375 GM VIAL IVPB ONE (01:33)
[2020-04-17] MEDS ORDERED: DEXTROSE 5%-WATER - 50 ML IVPB ONE ×2 (01:34→17:40)
[2020-04-17] MEDS: PIPERACILLIN/TAZOB 3.375 GM 3.375 GM in DEXTROSE 5%-WATER - 50 ML IVPB SCH ×3 (01:43→18:57)
[2020-04-17] MEDS: GABAPENTIN 300 MG CAPSULE PO SCH ×3 (05:16→21:04)
[2020-04-17] MEDS: INSULIN SLIDING SCALE (NOVOLOG) 1 VIAL SQ SCH ×4 (07:04→21:06)
[2020-04-17] MEDS: INSULIN (LEVEMIR) 100 UNITS/ML UNITS SQ SCH ×2 (07:04→17:58)
[2020-04-17] MEDS: ACETAMINOPHEN 325 MG TABLET (FP) PO PRN ×2 (07:05→13:06)
--- NOTE | 2020-04-17 08:20 | PN ---
Progress Note, Physician Chief Complaint: Seen and examined in bed. Affect flat. States he still feel weak. No other c/o. Placement for STR/SNF in progress History of Present Illness: 55 year old male with history of ischemic stroke (2017; residual left upper and lower extremity weakness), hypertension, hyperlipidemia, diabetes mellitus II (insulin dependent), coronary artery disease (cardiac catheterization without stent placement 11/2019), presents with complaint of lower extremity weakness. - Current Medication List Current Medications: Active Medications Acetaminophen (Tylenol -) 650 mg PO Q6H PRN PRN Reason: PAIN LEVEL 1-5 Last Admin: 04/17/20 07:05 Dose: 650 mg Documented by: Amlodipine Besylate (Norvasc -) 5 mg PO DAILY [facility] Aspirin (Asa -) 81 mg PO DAILY [facility] Last Admin: 04/16/20 12:26 Dose: 81 mg Documented by: Atorvastatin Calcium (Lipitor -) 40 mg PO HS [facility] Last Admin: 04/16/20 22:56 Dose: 40 mg Documented by: Buspirone HCl (Buspar -) 15 mg PO DAILY [facility] Enoxaparin Sodium (Lovenox -) 40 mg SQ DAILY [facility] Gabapentin (Neurontin -) 900 mg PO TID [facility] Last Admin: 04/17/20 05:16 Dose: 900 mg Documented by: Hydrochlorothiazide (Hctz -) 12.5 mg PO DAILY [facility] Last Admin: 04/16/20 12:26 Dose: 12.5 mg Documented by: Piperacillin Sod/Tazobactam (Sod 3.375 gm/ Dextrose) 50 mls @ 100 mls/hr IVPB Q8H-IV [facility]; Protocol Last Admin: 04/16/20 18:06 Dose: 100 mls/hr Documented by: Insulin Aspart (Novolog Vial Sliding Scale -) 1 vial SQ ACHS [facility]; Protocol Last Admin: 04/17/20 07:04 Dose: Not Given Documented by: Insulin Detemir (Levemir Vial) 15 units SQ BIDI [facility] Last Admin: 04/17/20 07:04 Dose: 15 units Documented by: Lisinopril (Prinivil) 20 mg PO DAILY [facility] Last Admin: 04/16/20 12:26 Dose: 20 mg Documented by: - Objective Vital Signs: Vital Signs Temperature 98.4 F 04/17/20 06:28 Pulse Rate 71 10/09/20 06:28 Respiratory Rate 20 04/17/20 06:34 Blood Pressure 123/71 04/17/20 06:28 O2 Sat by Pulse Oximetry (%) 97 04/17/20 06:34 Constitutional: Yes: Well Nourished, No Distress, Calm Eyes: Yes: WNL, Conjunctiva Clear HENT: Yes: WNL, Atraumatic, Normocephalic Neck: Yes: WNL, Supple, Trachea Midline Cardiovascular: Yes: WNL, Regular Rate and Rhythm Respiratory: Yes: WNL, Regular, CTA Bilaterally, Diminished (at bases) Gastrointestinal: Yes: WNL, Normal Bowel Sounds, Soft, Abdomen, Obese ...Rectal Exam: Yes: Deferred Genitourinary: Yes: WNL Breast(s): Yes: WNL Musculoskeletal: Yes: Muscle Weakness Extremities: Yes: Erythema (Left hand 4cm area of erythema with purulence along dorsal aspect.) Edema: No Edema: LLE: 1+, RLE: 1+ Peripheral Pulses WNL: Yes Peripheral Pulses: Left Radial: 2+, Right Radial: 2+, Left Doralis Pedis: 2+, R ight Dorsalis Pedis: 2+, Left Femoral: 2+, Right Femoral: 2+ Integumentary: Yes: Erythema (Left hand 4cm area of erythema with purulence along dorsal aspect.), Other Neurological: Yes: WNL, Alert, Oriented, Unsteady Gait, Weakness ...Motor Strength: LLE, RLE (4/5) Psychiatric: Yes: Alert, Oriented, Other (flat affect) Labs: CBC, BMP 04/16/20 05:00 04/16/20 05:00 Problem List - Problems (1) Ischemic stroke Assessment/Plan: history of in past MRI during prior admission (04/10) which revealed chronic infarcts moderate volume loss, and ventricular dilation, however no acute infarct. CT head performed (at [facility]) negative for acute pathology Neurology (Dr. Mahoney) following Code(s): I63.9 - CEREBRAL INFARCTION, UNSPECIFIED (2) HLD (hyperlipidemia) Assessment/Plan: c/w statin Code(s): E78.5 - HYPERLIPIDEMIA, UNSPECIFIED (3) Suspected COVID-19 virus infection Assessment/Plan: COVID Suspicion low On RA strict airborne/droplet precautions until resulted Code(s): Z20.828 - CONTACT W AND EXPOSURE TO OTH VIRAL COMMUNICABLE DISEASES (4) Leg weakness, bilateral Assessment/Plan: Neurology (Dr. Mahoney) pending c/w Gabapentin c/w PT fall precautions placement for STR/SNF in progress Code(s): R29.898 - OTH SYMPTOMS AND SIGNS INVOLVING THE MUSCULOSKELETAL SYSTEM (5) CAD (coronary artery disease) Assessment/Plan: c/w Aspirin, Statin cards following Code(s): I25.10 - ATHSCL HEART DISEASE OF [place] CORONARY ARTERY W/O ANG PCTRS (6) Prophylactic measure Assessment/Plan: FEN Fluids: adequate PO intake Electrolytes: monitor & replete as needed Nutrition: diabetic diet DVT moderate risk sq maddie Dispo Maintain as inpatient full code discharge planning Code(s): Z29.9 - ENCOUNTER FOR PROPHYLACTIC MEASURES, UNSPECIFIED (7) Diabetes mellitus Assessment/Plan: BGM AC/HS with novolog sliding scale diabetic diet Code(s): E11.9 - TYPE 2 DIABETES MELLITUS WITHOUT COMPLICATIONS Qualifiers: Diabetes mellitus type: type 2 Diabetes mellitus nursing home insulin use: without nursing home use Diabetes mellitus complication status: with neurologic complications Diabetes mellitus complication detail: with other neurological complication Qualified Code(s): E11.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 (8) Hypertension Assessment/Plan: c/w Lisinopril, Hydrochlorothiazide, Amlodipine Code(s): I10 - ESSENTIAL (PRIMARY) HYPERTENSION Qualifiers: Hypertension type: essential hypertension Qualified Code(s): I10 - Essential (primary) hypertension (9) Cellulitis of hand, right Assessment/Plan: Hand xray (04/15- at [facility]) revealed no acute fracture, swelling, or foreign body. did not take Keflex that was prescribed at the time c/w Kerrysyn ID (Dr Dunham) Incision and Drainage performed by Dr. Herrera at bedside f/u culture Code(s): L03.113 - CELLULITIS OF RIGHT UPPER LIMB Visit type - Emergency Visit Emergency Visit: Yes ED Registration Date: 04/16/20 Care time: The patient presented to the Emergency Department on the above date and was hospitalized for further evaluation of their emergent condition. - New Patient This patient is new to me today: Yes Date on this admission: 04/18/20 - Critical Care Critical Care patient: No - Discharge Referral Referred to [facility] Med P.C.: No
[2020-04-17 09:10] LABS: HEMATOCRIT 32.7 % (35.4-49); HEMOGLOBIN 11.3 GM/dL (11.7-16.9); MCH 30.7 pg (25.7-33.7); MCHC 34.6 g/dl (32.0-35.9); MEAN CELL VOLUME 88.8 fl (80-96); MEAN PLT VOLUME 9.1 fl (7.5-11.1); PLATELET COUNT 129 K/MM3 (134-434); RBC 3.68 M/mm3 (4.00-5.60); RDW 14.9 % (11.9-15.9); WHITE BLOOD COUNT 10.8 K/mm3 (4.0-10.0)
[2020-04-17 09:13] LABS: BLOOD UREA NITROGEN 23.7 mg/dL (7-18); CALCIUM 8.1 mg/dL (8.5-10.1); CREATININE 1.2 mg/dL (0.55-1.3); MAGNESIUM 1.8 mg/dL (1.8-2.4); PHOSPHOROUS 3.2 mg/dL (2.5-4.9); POTASSIUM 4.1 mmol/L (3.5-5.1)
[2020-04-17] MEDS: ASPIRIN 81 MG CHEWABLE TABLETS PO SCH (09:13)
[2020-04-17] MEDS: LISINOPRIL 20 MG TABLET PO SCH (09:13)
[2020-04-17] MEDS: amLODIPine BESYLATE 5 MG TABLET (FP) PO SCH (09:13)
[2020-04-17] MEDS: ENOXAPARIN NA (PORCINE) 40 MG/0.4 ML DISP.SYRIN SQ SCH (09:13)
[2020-04-17] MEDS: HYDROCHLOROTHIAZIDE 12.5 MG CAPSULE (FP) PO SCH (09:13)
[2020-04-17] MEDS ORDERED: PT OWN MED DRAWER 7, Y5N ONE (09:15)
--- NOTE | 2020-04-17 10:39 | EKG ---
Test Reason : Blood Pressure : / mmHG Vent. Rate : 087 BPM Atrial Rate : 087 BPM P-R Int : 128 ms QRS Dur : 086 ms QT Int : 392 ms P-R-T Axes : 038 -09 041 degrees QTc Int : 471 ms NORMAL SINUS RHYTHM POSSIBLE ANTERIOR INFARCT , AGE UNDETERMINED ABNORMAL ECG Confirmed by ELVIE ORTIZ MD ([id number]) on 04/17/2020 10:39:06 AM Referred By: Confirmed By:ELVIE ORTIZ MD
[2020-04-17] MEDS: busPIRone HCL 5 MG TABLET PO SCH (11:20)
[2020-04-17] MEDS: NICOTINE 14 MG/24 HOURS TOPICAL PATCH TD SCH (14:22)
[2020-04-17] MEDS: LIDOCAINE 5% TOPICAL PATCH TP SCH (14:22)
[2020-04-17] MEDS: oxyCODONE HCL 5 MG TABLET PO PRN ×2 (14:22→21:13)
[2020-04-17] MEDS ORDERED: cefTRIAXone SODIUM 1 GM VIAL ONE (17:39)
[2020-04-17] MEDS: CEFTRIAXONE 1 GM in DEXTROSE 5%-WATER - 50 ML IVPB SCH (17:58)
[2020-04-17] MEDS ORDERED: INSULIN (NOVOLOG) ASPART 100 UNITS/ML 10ML VIAL ONE (20:57)
[2020-04-17] MEDS: LIDOCAINE PATCH REMOVAL MC SCH (21:04)
[2020-04-17] MEDS: DOCUSATE SODIUM 100 MG CAPSULE (FP) PO SCH (21:04)
[2020-04-17] MEDS: ATORVASTATIN CA 40 MG TABLET (FP) PO SCH (21:04)
[2020-04-18] MEDS: ZOLPIDEM TARTRATE 5 MG TABLET PO PRN ×2 (00:27→21:45)
[2020-04-18] MEDS: oxyCODONE HCL 5 MG TABLET PO PRN ×2 (05:23→19:49)
[2020-04-18] MEDS: GABAPENTIN 300 MG CAPSULE PO SCH ×3 (05:24→21:44)
[2020-04-18] MEDS: INSULIN (LEVEMIR) 100 UNITS/ML UNITS SQ SCH ×2 (06:29→17:16)
[2020-04-18] MEDS: INSULIN SLIDING SCALE (NOVOLOG) 1 VIAL SQ SCH ×4 (06:30→21:42)
[2020-04-18] MEDS: ACETAMINOPHEN 325 MG TABLET (FP) PO PRN (08:13)
[2020-04-18 08:27] LABS: BASO % 0.8 % (0-2.0); EOS % 1.2 % (0-4.5); HEMATOCRIT 33.9 % (35.4-49); HEMOGLOBIN 11.9 GM/dL (11.7-16.9); LYMPH % 23.8 % (8-40); MCH 31.4 pg (25.7-33.7); MEAN CELL VOLUME 89.7 fl (80-96); MEAN PLT VOLUME 9.4 fl (7.5-11.1); MONO % 8.7 % (3.8-10.2); NEUT % 65.5 % (42.8-82.8); PLATELET COUNT 132 K/MM3 (134-434); RBC 3.78 M/mm3 (4.00-5.60); RDW 14.4 % (11.9-15.9); WHITE BLOOD COUNT 9.6 K/mm3 (4.0-10.0)
[2020-04-18 08:42] LABS: ALBUMIN 2.8 g/dl (3.4-5.0); BILIRUBIN,TOTAL 0.5 mg/dL (0.2-1); BLOOD UREA NITROGEN 23.4 mg/dL (7-18); CALCIUM 8.5 mg/dL (8.5-10.1); CREATININE 1.1 mg/dL (0.55-1.3); MAGNESIUM 1.7 mg/dL (1.8-2.4); POTASSIUM 3.8 mmol/L (3.5-5.1); TOT PROT 6.1 g/dl (6.4-8.2)
[2020-04-18] MEDS ORDERED: MAGNESIUM OXIDE 400 MG TABLET (FP) PO ONE (08:49)
--- NOTE | 2020-04-18 08:49 | PN ---
Progress Note, Physician Chief Complaint: Seen and examined in bed. States he did not sleep well last night. Placement for STR/SNF in progress History of Present Illness: 55 year old male with history of ischemic stroke (2017; residual left upper and lower extremity weakness), hypertension, hyperlipidemia, diabetes mellitus II (insulin dependent), coronary artery disease (cardiac catheterization without stent placement 11/2019), presents with complaint of lower extremity weakness. - Current Medication List Current Medications: Active Medications Acetaminophen (Tylenol -) 650 mg PO Q6H PRN PRN Reason: PAIN LEVEL 1-5 Last Admin: 04/18/20 08:13 Dose: 650 mg Documented by: Amlodipine Besylate (Norvasc -) 5 mg PO DAILY [facility] Last Admin: 04/17/20 09:13 Dose: 5 mg Documented by: Aspirin (Asa -) 81 mg PO DAILY [facility] Last Admin: 04/17/20 09:13 Dose: 81 mg Documented by: Atorvastatin Calcium (Lipitor -) 40 mg PO [facility] Last Admin: 04/17/20 21:04 Dose: 40 mg Documented by: Buspirone HCl (Buspar -) 15 mg PO DAILY [facility] Last Admin: 04/17/20 11:20 Dose: 15 mg Documented by: Docusate Sodium (Colace -) 300 mg PO [facility] Last Admin: 04/17/20 21:04 Dose: 300 mg Documented by: Enoxaparin Sodium (Lovenox -) 40 mg SQ DAILY [facility] Last Admin: 04/17/20 09:13 Dose: 40 mg Documented by: Gabapentin (Neurontin -) 900 mg PO TID [facility] Last Admin: 04/18/20 05:24 Dose: 900 mg Documented by: Hydrochlorothiazide (Hctz -) 12.5 mg PO DAILY [facility] Last Admin: 04/17/20 09:13 Dose: 12.5 mg Documented by: Ceftriaxone Sodium 1 gm/ (Dextrose) 50 mls @ 100 mls/hr IVPB DAILY [facility] Last Admin: 04/17/20 17:58 Dose: 100 mls/hr Documented by: Insulin Aspart (Novolog Vial Sliding Scale -) 1 vial SQ ACHS [facility]; Protocol Last Admin: 04/18/20 06:30 Dose: Not Given Documented by: Insulin Detemir (Levemir Vial) 15 units SQ BIDI [facility] Last Admin: 04/18/20 06:29 Dose: 15 units Documented by: Lidocaine (Lidoderm Patch -) 1 patch TP DAILY [facility] Last Admin: 04/17/20 14:22 Dose: 1 patch Documented by: Lisinopril (Prinivil) 20 mg PO DAILY [facility] Last Admin: 04/17/20 09:13 Dose: 20 mg Documented by: Miscellaneous (Lidoderm Patch Removal) 1 each MC DAILY@2200 [facility] Last Admin: 04/17/20 21:04 Dose: 1 each Documented by: Nicotine (Nicoderm Patch -) 14 mg TD DAILY [facility] Last Admin: 04/17/20 14:22 Dose: 14 mg Documented by: Oxycodone HCl (Roxicodone -) 5 mg PO Q6H PRN PRN Reason: PAIN LEVEL 4 - 6 Last Admin: 04/18/20 05:23 Dose: 5 mg Documented by: Oxycodone HCl (Roxicodone -) 10 mg PO Q4H PRN PRN Reason: PAIN LEVEL 6-10 Last Admin: 04/17/20 21:13 Dose: 10 mg Documented by: Zolpidem Tartrate (Ambien -) 10 mg PO HS PRN PRN Reason: INSOMNIA Last Admin: 04/18/20 00:27 Dose: 10 mg Documented by: - Objective Vital Signs: Vital Signs Temperature 98.7 F 04/18/20 05:00 Pulse Rate 75 04/18/20 05:00 Respiratory Rate 20 04/18/20 05:00 Blood Pressure 107/65 04/18/20 05:00 O2 Sat by Pulse Oximetry (%) 93 L 04/18/20 05:00 Additional Findings/Remarks: Constitutional: Yes: Well Nourished, No Distress, Calm Eyes: Yes: WNL, Conjunctiva Clear HENT: Yes: WNL, Atraumatic, Normocephalic Neck: Yes: WNL, Supple, Trachea Midline Cardiovascular: Yes: WNL, Regular Rate and Rhythm Respiratory: Yes: WNL, Regular, CTA Bilaterally, Diminished (at bases) Gastrointestinal: Yes: WNL, Normal Bowel Sounds, Soft, Abdomen, Obese ...Rectal Exam: Yes: Deferred Genitourinary: Yes: WNL Breast(s): Yes: WNL Musculoskeletal: Yes: Muscle Weakness Extremities: Yes: drsg to area of I &D Edema: No Edema: LLE: 1+, RLE: 1+ Peripheral Pulses WNL: Yes Peripheral Pulses: Left Radial: 2+, Right Radial: 2+, Left Doralis Pedis: 2+, Right Dorsalis Pedis: 2+, Left Femoral: 2+, Right Femoral: 2+ Integumentary: Yes: Erythema (Left hand 4cm area of erythema with purulence along dorsal aspect.), Other Neurological: Yes: WNL, Alert, Oriented, Unsteady Gait, Weakness ...Motor Strength: LLE, RLE (4/5) Psychiatric: Yes: Alert, Oriented, Other (flat affect) Labs: CBC, BMP 04/18/20 07:33 04/18/20 07:33 Problem List - Problems (1) Ischemic stroke Assessment/Plan: history of in past MRI during prior admission (04/10) which revealed chronic infarcts moderate volume loss, and ventricular dilation, however no acute infarct. CT head performed (at [facility]) negative for acute pathology Neurology (Dr. Mahoney) following Code(s): I63.9 - CEREBRAL INFARCTION, UNSPECIFIED (2) HLD (hyperlipidemia) Assessment/Plan: c/w statin Code(s): E78.5 - HYPERLIPIDEMIA, UNSPECIFIED (3) Leg weakness, bilateral Assessment/Plan: Neurology (Dr. Mahoney) pending c/w Gabapentin c/w PT fall precautions placement for STR/SNF in progress Code(s): R29.898 - OTH SYMPTOMS AND SIGNS INVOLVING THE MUSCULOSKELETAL SYSTEM (4) CAD (coronary artery disease) Assessment/Plan: c/w Aspirin, Statin cards following Code(s): I25.10 - ATHSCL HEART DISEASE OF [place] CORONARY ARTERY W/O ANG PCTRS (5) Prophylactic measure Assessment/Plan: FEN Fluids: adequate PO intake Electrolytes: monitor & replete as needed Nutrition: diabetic diet DVT moderate risk sq maddie Dispo Maintain as inpatient full code discharge planning Code(s): Z29.9 - ENCOUNTER FOR PROPHYLACTIC MEASURES, UNSPECIFIED (6) Diabetes mellitus Assessment/Plan: BGM AC/HS with novolog sliding scale diabetic diet Code(s): E11.9 - TYPE 2 DIABETES MELLITUS WITHOUT COMPLICATIONS Qualifiers: Diabetes mellitus type: type 2 Diabetes mellitus exterminator helper insulin use: without shelter use Diabetes mellitus complication status: with neurologic complications Diabetes mellitus complication detail: with other neurological complication Qualified Code(s): E11.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 (7) H/O: CVA (cerebrovascular accident) Code(s): Z86.73 - PRSNL HX OF TIA (TIA), AND CEREB INFRC W/O RESID DEFICITS (8) Hypertension Assessment/Plan: BP on lower side c/w Lisinopril, Hydrochlorothiazide, Amlodipine with hold parameters Code(s): I10 - ESSENTIAL (PRIMARY) HYPERTENSION Qualifiers: Hypertension type: essential hypertension Qualified Code(s): I10 - Essential (primary) hypertension (9) Cellulitis of hand, right Assessment/Plan: Hand xray (04/15- at [facility]) revealed no acute fracture, swelling, or foreign body. did not take Keflex that was prescribed at the time c/w Isis Dunham following Incision and Drainage performed by Dr. Herrera at bedside culture with presumed MRSA Code(s): L03.113 - CELLULITIS OF RIGHT UPPER LIMB (10) COVID-19 ruled out Assessment/Plan: negative pcr Code(s): Z03.818 - ENCNTR FOR OBS FOR SUSP EXPSR TO OTH BIOLG AGENTS RULED OUT Visit type - Emergency Visit Emergency Visit: Yes ED Registration Date: 04/16/20 Care time: The patient presented to the Emergency Department on the above date and was hospitalized for further evaluation of their emergent condition. - New Patient This patient is new to me today: No - Critical Care Critical Care patient: No - Discharge Referral Referred to [facility] Med P.C.: No
[2020-04-18] MEDS ORDERED: cefTRIAXone SODIUM 1 GM VIAL ONE (09:20)
[2020-04-18] MEDS ORDERED: DEXTROSE 5%-WATER - 50 ML IVPB ONE (09:21)
[2020-04-18] MEDS: CEFTRIAXONE 1 GM in DEXTROSE 5%-WATER - 50 ML IVPB SCH (09:51)
[2020-04-18] MEDS: ENOXAPARIN NA (PORCINE) 40 MG/0.4 ML DISP.SYRIN SQ SCH (09:52)
[2020-04-18] MEDS: ASPIRIN 81 MG CHEWABLE TABLETS PO SCH (09:52)
[2020-04-18] MEDS: busPIRone HCL 5 MG TABLET PO SCH (09:52)
[2020-04-18] MEDS: LIDOCAINE 5% TOPICAL PATCH TP SCH (09:53)
[2020-04-18] MEDS: NICOTINE 14 MG/24 HOURS TOPICAL PATCH TD SCH (09:53)
[2020-04-18] MEDS: HYDROCHLOROTHIAZIDE 12.5 MG CAPSULE (FP) PO SCH (09:53)
[2020-04-18] MEDS: LISINOPRIL 20 MG TABLET PO SCH (09:54)
[2020-04-18] MEDS: amLODIPine BESYLATE 5 MG TABLET (FP) PO SCH (09:54)
--- NOTE | 2020-04-18 11:39 | PN ---
Progress Note, Physician History of Present Illness: Pt is alert, afebrile, without distress. c/o pain in Rt hand but is less edematous. Wound culture result noted +MRSA. - Current Medication List Current Medications: Active Medications Acetaminophen (Tylenol -) 650 mg PO Q6H PRN PRN Reason: PAIN LEVEL 1-5 Last Admin: 04/18/20 08:13 Dose: 650 mg Documented by: Amlodipine Besylate (Norvasc -) 5 mg PO DAILY [facility] Last Admin: 04/18/20 09:54 Dose: Not Given Documented by: Aspirin (Asa -) 81 mg PO DAILY [facility] Last Admin: 04/18/20 09:52 Dose: 81 mg Documented by: Atorvastatin Calcium (Lipitor -) 40 mg PO HS [facility] Last Admin: 04/17/20 21:04 Dose: 40 mg Documented by: Buspirone HCl (Buspar -) 15 mg PO DAILY [facility] Last Admin: 04/18/20 09:52 Dose: 15 mg Documented by: Docusate Sodium (Colace -) 300 mg PO HS [facility] Last Admin: 04/17/20 21:04 Dose: 300 mg Documented by: Enoxaparin Sodium (Lovenox -) 40 mg SQ DAILY [facility] Last Admin: 04/18/20 09:52 Dose: 40 mg Documented by: Gabapentin (Neurontin -) 900 mg PO TID [facility] Last Admin: 04/18/20 05:24 Dose: 900 mg Documented by: Hydrochlorothiazide (Hctz -) 12.5 mg PO DAILY [facility] Last Admin: 04/18/20 09:53 Dose: 12.5 mg Documented by: Ceftriaxone Sodium 1 gm/ (Dextrose) 50 mls @ 100 mls/hr IVPB DAILY [facility] Last Admin: 04/18/20 09:51 Dose: 100 mls/hr Documented by: Vancomycin HCl 1,000 mg/ (Dextrose) 250 mls @ 166.667 mls/hr IVPB Q12H [facility]; Protocol Insulin Aspart (Novolog Vial Sliding Scale -) 1 vial SQ ACHS [facility]; Protocol Last Admin: 04/18/20 06:30 Dose: Not Given Documented by: Insulin Detemir (Levemir Vial) 15 units SQ BIDI [facility] Last Admin: 04/18/20 06:29 Dose: 15 units Documented by: Lidocaine (Lidoderm Patch -) 1 patch TP DAILY [facility] Last Admin: 04/18/20 09:53 Dose: 1 patch Documented by: Lisinopril (Prinivil) 20 mg PO DAILY [facility] Last Admin: 04/18/20 09:54 Dose: Not Given Documented by: Miscellaneous (Lidoderm Patch Removal) 1 each MC DAILY@2200 [facility] Last Admin: 04/17/20 21:04 Dose: 1 each Documented by: Nicotine (Nicoderm Patch -) 14 mg TD DAILY [facility] Last Admin: 04/18/20 09:53 Dose: 14 mg Documented by: Oxycodone HCl (Roxicodone -) 5 mg PO Q6H PRN PRN Reason: PAIN LEVEL 4 - 6 Last Admin: 04/18/20 05:23 Dose: 5 mg Documented by: Oxycodone HCl (Roxicodone -) 10 mg PO Q4H PRN PRN Reason: PAIN LEVEL 6-10 Last Admin: 04/17/20 21:13 Dose: 10 mg Documented by: Zolpidem Tartrate (Ambien -) 10 mg PO HS PRN PRN Reason: INSOMNIA Last Admin: 04/18/20 00:27 Dose: 10 mg Documented by: - Objective Vital Signs: Vital Signs Temperature 98.7 F 04/18/20 05:00 Pulse Rate 75 04/18/20 05:00 Respiratory Rate 20 04/18/20 05:00 Blood Pressure 107/65 04/18/20 05:00 O2 Sat by Pulse Oximetry (%) 97 04/18/20 09:00 Constitutional: Yes: No Distress, Calm Cardiovascular: Yes: Regular Rate and Rhythm Respiratory: Yes: Regular Gastrointestinal: Yes: Normal Bowel Sounds, Soft Wound/Incision: Yes: Other (Rt hand edema/mild erythema, no current drainage. Able to make a fist without difficulty.) Neurological: Yes: Alert Labs: CBC, BMP 04/18/20 07:33 04/18/20 07:33 Laboratory Last Values WBC 9.6 K/mm3 (4.0-10.0) 04/18/20 07:33 RBC 3.78 M/mm3 (4.00-5.60) L 04/18/20 07:33 Hgb 11.9 GM/dL (11.7-16.9) 04/18/20 07:33 Hct 33.9 % (35.4-49) L 04/18/20 07:33 MCV 89.7 fl (80-96) 04/18/20 07:33 MCH 31.4 pg (25.7-33.7) 04/18/20 07:33 MCHC 35.0 g/dl (32.0-35.9) 04/18/20 07:33 RDW 14.4 % (11.9-15.9) 04/18/20 07:33 Plt Count 132 K/MM3 (134-434) L 04/18/20 07:33 MPV 9.4 fl (7.5-11.1) 04/18/20 07:33 Absolute Neuts (auto) 6.3 K/mm3 (1.5-8.0) 04/18/20 07:33 Neutrophils % 65.5 % (42.8-82.8) D 04/18/20 07:33 Lymphocytes % 23.8 % (8-40) D 04/18/20 07:33 Monocytes % 8.7 % (3.8-10.2) 04/18/20 07:33 Eosinophils % 1.2 % (0-4.5) D 04/18/20 07:33 Basophils % 0.8 % (0-2.0) 04/18/20 07:33 Nucleated RBC % 0 % (0-0) 04/18/20 07:33 Sodium 135 mmol/L (136-145) L 04/18/20 07:33 Potassium 3.8 mmol/L (3.5-5.1) 04/18/20 07:33 Chloride 102 mmol/L (98-107) 04/18/20 07:33 Carbon Dioxide 26 mmol/L (21-32) 04/18/20 07:33 Anion Gap 7 MMOL/L (8-16) L 04/18/20 07:33 BUN 23.4 mg/dL (7-18) H 04/18/20 07:33 Creatinine 1.1 mg/dL (0.55-1.3) 04/18/20 07:33 Est GFR (CKD-EPI)AfAm 88.36 04/18/20 07:33 Est GFR (CKD-EPI)NonAf 76.24 04/18/20 07:33 POC Glucometer 78 UNITS (80-120) 04/18/20 06:19 Random Glucose 78 mg/dL (74-106) 04/18/20 07:33 Calcium 8.5 mg/dL (8.5-10.1) 04/18/20 07:33 Phosphorus 3.2 mg/dL (2.5-4.9) 04/17/20 08:20 Magnesium 1.7 mg/dL (1.8-2.4) L 04/18/20 07:33 Total Bilirubin 0.5 mg/dL (0.2-1) 04/18/20 07:33 AST 15 U/L (15-37) 04/18/20 07:33 ALT 18 U/L (13-61) 04/18/20 07:33 Alkaline Phosphatase 67 U/L (45-117) 04/18/20 07:33 Total Protein 6.1 g/dl (6.4-8.2) L 04/18/20 07:33 Albumin 2.8 g/dl (3.4-5.0) L 04/18/20 07:33 COVID-19 (LUDMILA) Not detected (Not Detected) 04/16/20 05:00 Microbiology 04/16/20 17:00 Hand - Right Gram Stain - Final 04/16/20 17:00 Hand - Right Wound Culture - Preliminary Presumptive Mrsa (Pbp2a Pos) Problem List - Problems (1) Cellulitis of hand, right Code(s): L03.113 - CELLULITIS OF RIGHT UPPER LIMB (2) Ischemic stroke Code(s): I63.9 - CEREBRAL INFARCTION, UNSPECIFIED (3) Leg weakness, bilateral Code(s): R29.898 - OTH SYMPTOMS AND SIGNS INVOLVING THE MUSCULOSKELETAL SYSTEM (4) CAD (coronary artery disease) Code(s): I25.10 - ATHSCL HEART DISEASE OF [place] CORONARY ARTERY W/O ANG PCTRS (5) CVA (cerebral vascular accident) Code(s): I63.9 - CEREBRAL INFARCTION, UNSPECIFIED Qualifiers: CVA mechanism: other Qualified Code(s): I63.89 - Other cerebral infarction (6) Hyperglycemia Code(s): R73.9 - HYPERGLYCEMIA, UNSPECIFIED (7) Diabetes mellitus Code(s): E11.9 - TYPE 2 DIABETES MELLITUS WITHOUT COMPLICATIONS Qualifiers: Diabetes mellitus type: type 2 Diabetes mellitus intermediate card tender insulin use: without long-term use Diabetes mellitus complication status: with neurologic complications Diabetes mellitus complication detail: with other neurological complication Qualified Code(s): E11.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 (8) Hypertension Code(s): I10 - ESSENTIAL (PRIMARY) HYPERTENSION Qualifiers: Hypertension type: essential hypertension Qualified Code(s): I10 - Essential (primary) hypertension Assessment/Plan Rt hand cellulitis/wound DM CAD Hx of CVA HTN HLD -- wound culture +MRSA. D/C Ceftriaxone, will start Vancomycin. monitor renal function. Follow up final wound culture results -- Leukocytosis resolved -- improving edema/erythema, still c/o pain - continue monitor
[2020-04-18] MEDS: VANCOMYCIN 1 GRAM (PRE-DOCKED) 1,000 MG/250 ML BAG IVPB SCH ×2 (12:11→23:16)
[2020-04-18] MEDS: ATORVASTATIN CA 40 MG TABLET (FP) PO SCH (21:44)
[2020-04-18] MEDS: DOCUSATE SODIUM 100 MG CAPSULE (FP) PO SCH (21:45)
[2020-04-18] MEDS: LIDOCAINE PATCH REMOVAL MC SCH (21:46)
[2020-04-19] MEDS: oxyCODONE HCL 5 MG TABLET PO PRN ×2 (03:27→10:15)
[2020-04-19] MEDS: INSULIN (LEVEMIR) 100 UNITS/ML UNITS SQ SCH ×2 (06:10→17:10)
[2020-04-19] MEDS: GABAPENTIN 300 MG CAPSULE PO SCH ×3 (06:10→23:27)
[2020-04-19] MEDS: INSULIN SLIDING SCALE (NOVOLOG) 1 VIAL SQ SCH ×4 (06:12→23:27)
[2020-04-19 08:11] LABS: BASO % 0.8 % (0-2.0); EOS % 1.9 % (0-4.5); HEMATOCRIT 36.1 % (35.4-49); HEMOGLOBIN 12.4 GM/dL (11.7-16.9); LYMPH % 25.6 % (8-40); MCH 30.4 pg (25.7-33.7); MCHC 34.4 g/dl (32.0-35.9); MEAN CELL VOLUME 88.4 fl (80-96); MEAN PLT VOLUME 9.2 fl (7.5-11.1); MONO % 8.3 % (3.8-10.2); NEUT % 63.4 % (42.8-82.8); PLATELET COUNT 148 K/MM3 (134-434); RBC 4.09 M/mm3 (4.00-5.60); RDW 14.5 % (11.9-15.9); WHITE BLOOD COUNT 8.4 K/mm3 (4.0-10.0)
[2020-04-19 08:30] LABS: ALBUMIN 2.9 g/dl (3.4-5.0); BILIRUBIN,TOTAL 0.8 mg/dL (0.2-1); BLOOD UREA NITROGEN 27.7 mg/dL (7-18); CALCIUM 8.9 mg/dL (8.5-10.1); CREATININE 1.3 mg/dL (0.55-1.3); MAGNESIUM 1.9 mg/dL (1.8-2.4); POTASSIUM 4.3 mmol/L (3.5-5.1); TOT PROT 6.7 g/dl (6.4-8.2)
--- NOTE | 2020-04-19 08:31 | PN ---
Progress Note, Physician Chief Complaint: Seen and examined in bed. States he slept better last night. Wound with MRSA- vanco and ceftiaxone continues. Placement for STR/SNF in progress History of Present Illness: 55 year old male with history of ischemic stroke (2017; residual left upper and lower extremity weakness), hypertension, hyperlipidemia, diabetes mellitus II (insulin dependent), coronary artery disease (cardiac catheterization without stent placement 11/2019), presents with complaint of lower extremity weakness. - Current Medication List Current Medications: Active Medications Acetaminophen (Tylenol -) 650 mg PO Q6H PRN PRN Reason: PAIN LEVEL 1-5 Last Admin: 04/18/20 08:13 Dose: 650 mg Documented by: Amlodipine Besylate (Norvasc -) 5 mg PO DAILY [facility] Last Admin: 04/18/20 09:54 Dose: Not Given Documented by: Aspirin (Asa -) 81 mg PO DAILY [facility] Last Admin: 04/18/20 09:52 Dose: 81 mg Documented by: Atorvastatin Calcium (Lipitor -) 40 mg PO [facility] Last Admin: 04/18/20 21:44 Dose: 40 mg Documented by: Buspirone HCl (Buspar -) 15 mg PO DAILY [facility] Last Admin: 04/18/20 09:52 Dose: 15 mg Documented by: Docusate Sodium (Colace -) 300 mg PO [facility] Last Admin: 04/18/20 21:45 Dose: 300 mg Documented by: Enoxaparin Sodium (Lovenox -) 40 mg SQ DAILY [facility] Last Admin: 04/18/20 09:52 Dose: 40 mg Documented by: Gabapentin (Neurontin -) 900 mg PO TID [facility] Last Admin: 04/19/20 06:10 Dose: 900 mg Documented by: Hydrochlorothiazide (Hctz -) 12.5 mg PO DAILY [facility] Last Admin: 04/18/20 09:53 Dose: 12.5 mg Documented by: Ceftriaxone Sodium 1 gm/ (Dextrose) 50 mls @ 100 mls/hr IVPB DAILY [facility] Last Admin: 04/18/20 09:51 Dose: 100 mls/hr Documented by: Vancomycin HCl (Vancomycin (Pre-Docked)) 1,000 mg in 250 mls @ 166.667 mls/hr IVPB Q12H [facility]; Protocol Last Admin: 04/18/20 23:16 Dose: 166.667 mls/hr Documented by: Insulin Aspart (Novolog Vial Sliding Scale -) 1 vial SQ ACHS [facility]; Protocol Last Admin: 04/19/20 06:12 Dose: Not Given Documented by: Insulin Detemir (Levemir Vial) 15 units SQ BIDI [facility] Last Admin: 04/19/20 06:10 Dose: 15 units Documented by: Lidocaine (Lidoderm Patch -) 1 patch TP DAILY [facility] Last Admin: 04/18/20 09:53 Dose: 1 patch Documented by: Lisinopril (Prinivil) 20 mg PO DAILY [facility] Last Admin: 04/18/20 09:54 Dose: Not Given Documented by: Miscellaneous (Lidoderm Patch Removal) 1 each MC DAILY@2200 [facility] Last Admin: 04/18/20 21:46 Dose: 1 each Documented by: Nicotine (Nicoderm Patch -) 14 mg TD DAILY [facility] Last Admin: 04/18/20 09:53 Dose: 14 mg Documented by: Oxycodone HCl (Roxicodone -) 5 mg PO Q6H PRN PRN Reason: PAIN LEVEL 4 - 6 Last Admin: 04/18/20 05:23 Dose: 5 mg Documented by: Oxycodone HCl (Roxicodone -) 10 mg PO Q4H PRN PRN Reason: PAIN LEVEL 6-10 Last Admin: 04/19/20 03:27 Dose: 10 mg Documented by: Zolpidem Tartrate (Ambien -) 10 mg PO HS PRN PRN Reason: INSOMNIA Last Admin: 04/18/20 21:45 Dose: 10 mg Documented by: - Objective Vital Signs: Vital Signs Temperature 97.6 F 04/19/20 06:00 Pulse Rate 69 04/19/20 06:00 Respiratory Rate 20 04/19/20 06:00 Blood Pressure 134/74 04/19/20 06:00 O2 Sat by Pulse Oximetry (%) 95 04/18/20 21:46 Additional Findings/Remarks: Constitutional: Yes: Well Nourished, No Distress, Calm Eyes: Yes: WNL, Conjunctiva Clear HENT: Yes: WNL, Atraumatic, Normocephalic Neck: Yes: WNL, Supple, Trachea Midline Cardiovascular: Yes: WNL, Regular Rate and Rhythm Respiratory: Yes: WNL, Regular, CTA Bilaterally, Diminished (at bases) Gastrointestinal: Yes: WNL, Normal Bowel Sounds, Soft, Abdomen, Obese ...Rectal Exam: Yes: Deferred Genitourinary: Yes: WNL Breast(s): Yes: WNL Musculoskeletal: Yes: Muscle Weakness Extremities: Yes: drsg to area of I &D Edema: No Edema: LLE: 1+, RLE: 1+ Peripheral Pulses WNL: Yes Peripheral Pulses: Left Radial: 2+, Right Radial: 2+, Left Doralis Pedis: 2+, Right Dorsalis Pedis: 2+, Left Femoral: 2+, Right Femoral: 2+ Integumentary: Yes: Erythema (Left hand 4cm area of erythema with purulence along dorsal aspect.), Other Neurological: Yes: WNL, Alert, Oriented, Unsteady Gait, Weakness ...Motor Strength: LLE, RLE (4/5) Psychiatric: Yes: Alert, Oriented, Other (flat affect) Labs: CBC, BMP 04/19/20 07:31 04/19/20 07:31 Problem List - Problems (1) Ischemic stroke Assessment/Plan: history of in past MRI during prior admission (04/10) which revealed chronic infarcts moderate volume loss, and ventricular dilation, however no acute infarct. CT head performed (at [place]) negative for acute pathology Neurology (Dr. Mahoney) following Code(s): I63.9 - CEREBRAL INFARCTION, UNSPECIFIED (2) HLD (hyperlipidemia) Assessment/Plan: c/w statin Code(s): E78.5 - HYPERLIPIDEMIA, UNSPECIFIED (3) Leg weakness, bilateral Assessment/Plan: Neurology (Dr. Mahoney) pending c/w Gabapentin c/w PT fall precautions placement for STR/SNF in progress Code(s): R29.898 - OTH SYMPTOMS AND SIGNS INVOLVING THE MUSCULOSKELETAL SYSTEM (4) CAD (coronary artery disease) Assessment/Plan: c/w Aspirin, Statin cards following Code(s): I25.10 - ATHSCL HEART DISEASE OF [place] CORONARY ARTERY W/O ANG PCTRS (5) Prophylactic measure Assessment/Plan: FEN Fluids: adequate PO intake Electrolytes: monitor & replete as needed Nutrition: diabetic diet DVT moderate risk sq maddie Dispo Maintain as inpatient full code discharge planning to SNF Code(s): Z29.9 - ENCOUNTER FOR PROPHYLACTIC MEASURES, UNSPECIFIED (6) Diabetes mellitus Assessment/Plan: BGM AC/HS with novolog sliding scale diabetic diet Code(s): E11.9 - TYPE 2 DIABETES MELLITUS WITHOUT COMPLICATIONS Qualifiers: Diabetes mellitus type: type 2 Diabetes mellitus chcf insulin use: without predatory animal exterminator use Diabetes mellitus complication status: with neurologic complications Diabetes mellitus complication detail: with other neurological complication Qualified Code(s): E11.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 (7) H/O: CVA (cerebrovascular accident) Code(s): Z86.73 - PRSNL HX OF TIA (TIA), AND CEREB INFRC W/O RESID DEFICITS (8) Hypertension Assessment/Plan: BP on lower side c/w Lisinopril, Hydrochlorothiazide, Amlodipine with hold parameters Code(s): I10 - ESSENTIAL (PRIMARY) HYPERTENSION Qualifiers: Hypertension type: essential hypertension Qualified Code(s): I10 - Essential (primary) hypertension (9) Cellulitis of hand, right Assessment/Plan: Hand xray (04/15- at [place]) revealed no acute fracture, swelling, or foreign body. did not take Keflex that was prescribed at the time Wound with MRSA-c/w vanco/ceftiaxone ID following Code(s): L03.113 - CELLULITIS OF RIGHT UPPER LIMB (10) COVID-19 ruled out Assessment/Plan: negative pcr Code(s): Z03.818 - ENCNTR FOR OBS FOR SUSP EXPSR TO OTH BIOLG AGENTS RULED OUT Visit type - Emergency Visit Emergency Visit: Yes ED Registration Date: 04/16/20 Care time: The patient presented to the Emergency Department on the above date and was hospitalized for further evaluation of their emergent condition. - New Patient This patient is new to me today: No - Critical Care Critical Care patient: No - Discharge Referral Referred to [facility].: No
[2020-04-19] MEDS ORDERED: PT OWN MED DRAWER 7, Y5N ONE (09:57)
[2020-04-19] MEDS ORDERED: cefTRIAXone SODIUM 1 GM VIAL ONE (09:58)
[2020-04-19] MEDS ORDERED: DEXTROSE 5%-WATER - 50 ML IVPB ONE (09:58)
[2020-04-19] MEDS: ASPIRIN 81 MG CHEWABLE TABLETS PO SCH (10:13)
[2020-04-19] MEDS: ENOXAPARIN NA (PORCINE) 40 MG/0.4 ML DISP.SYRIN SQ SCH (10:13)
[2020-04-19] MEDS: HYDROCHLOROTHIAZIDE 12.5 MG CAPSULE (FP) PO SCH (10:14)
[2020-04-19] MEDS: LISINOPRIL 20 MG TABLET PO SCH (10:14)
[2020-04-19] MEDS: amLODIPine BESYLATE 5 MG TABLET (FP) PO SCH (10:14)
[2020-04-19] MEDS: CEFTRIAXONE 1 GM in DEXTROSE 5%-WATER - 50 ML IVPB SCH (10:15)
[2020-04-19] MEDS: LIDOCAINE 5% TOPICAL PATCH TP SCH (10:16)
[2020-04-19] MEDS: NICOTINE 14 MG/24 HOURS TOPICAL PATCH TD SCH (10:16)
[2020-04-19] MEDS: busPIRone HCL 5 MG TABLET PO SCH (10:17)
[2020-04-19] MEDS: VANCOMYCIN 1 GRAM (PRE-DOCKED) 1,000 MG/250 ML BAG IVPB SCH (12:43)
--- NOTE | 2020-04-19 16:49 | PN ---
Progress Note, Physician History of Present Illness: Pt is alert, afebrile. Tmax 99.2F. Still with some Rt hand pain/edema but swelling improving, no drainage noted. - Current Medication List Current Medications: Active Medications Acetaminophen (Tylenol -) 650 mg PO Q6H PRN PRN Reason: PAIN LEVEL 1-5 Last Admin: 04/18/20 08:13 Dose: 650 mg Documented by: Amlodipine Besylate (Norvasc -) 5 mg PO DAILY [facility] Last Admin: 04/19/20 10:14 Dose: 5 mg Documented by: Aspirin (Asa -) 81 mg PO DAILY [facility] Last Admin: 04/19/20 10:13 Dose: 81 mg Documented by: Atorvastatin Calcium (Lipitor -) 40 mg PO HS [facility] Last Admin: 04/18/20 21:44 Dose: 40 mg Documented by: Buspirone HCl (Buspar -) 15 mg PO DAILY [facility] Last Admin: 04/19/20 10:17 Dose: 15 mg Documented by: Docusate Sodium (Colace -) 300 mg PO HS [facility] Last Admin: 04/18/20 21:45 Dose: 300 mg Documented by: Enoxaparin Sodium (Lovenox -) 40 mg SQ DAILY [facility] Last Admin: 04/19/20 10:13 Dose: 40 mg Documented by: Gabapentin (Neurontin -) 900 mg PO TID [facility] Last Admin: 04/19/20 15:37 Dose: 900 mg Documented by: Hydrochlorothiazide (Hctz -) 12.5 mg PO DAILY [facility] Last Admin: 04/19/20 10:14 Dose: 12.5 mg Documented by: Vancomycin HCl (Vancomycin (Pre-Docked)) 1,000 mg in 250 mls @ 166.667 mls/hr IVPB Q12H [facility]; Protocol Last Admin: 04/19/20 12:43 Dose: 166.667 mls/hr Documented by: Insulin Aspart (Novolog Vial Sliding Scale -) 1 vial SQ ACHS [facility]; Protocol Last Admin: 04/19/20 11:36 Dose: 4 units Documented by: Insulin Detemir (Levemir Vial) 15 units SQ BIDI [facility] Last Admin: 04/19/20 06:10 Dose: 15 units Documented by: Lidocaine (Lidoderm Patch -) 1 patch TP DAILY [facility] Last Admin: 04/19/20 10:16 Dose: 1 patch Documented by: Lisinopril (Prinivil) 20 mg PO DAILY [facility] Last Admin: 04/19/20 10:14 Dose: 20 mg Documented by: Miscellaneous (Lidoderm Patch Removal) 1 each MC DAILY@2200 [facility] Last Admin: 04/18/20 21:46 Dose: 1 each Documented by: Nicotine (Nicoderm Patch -) 14 mg TD DAILY [facility] Last Admin: 04/19/20 10:16 Dose: 14 mg Documented by: Oxycodone HCl (Roxicodone -) 5 mg PO Q6H PRN PRN Reason: PAIN LEVEL 4 - 6 Last Admin: 04/18/20 05:23 Dose: 5 mg Documented by: Oxycodone HCl (Roxicodone -) 10 mg PO Q4H PRN PRN Reason: PAIN LEVEL 6-10 Last Admin: 04/19/20 10:15 Dose: 10 mg Documented by: Zolpidem Tartrate (Ambien -) 10 mg PO HS PRN PRN Reason: INSOMNIA Last Admin: 04/18/20 21:45 Dose: 10 mg Documented by: - Objective Vital Signs: Vital Signs Temperature 99.0 F 04/19/20 14:28 Pulse Rate 82 04/19/20 14:28 Respiratory Rate 20 04/19/20 14:28 Blood Pressure 107/68 04/19/20 14:28 O2 Sat by Pulse Oximetry (%) 98 04/19/20 14:28 Constitutional: Yes: No Distress, Calm Cardiovascular: Yes: Regular Rate and Rhythm Respiratory: Yes: Regular Gastrointestinal: Yes: Normal Bowel Sounds, Soft Extremities: Yes: Other (Rt hand mild edema/erythema, no d/c) Integumentary: Yes: WNL Neurological: Yes: Alert, Oriented Labs: CBC, BMP 04/19/20 07:31 04/19/20 07:31 Microbiology 04/16/20 17:00 Hand - Right Gram Stain - Final 04/16/20 17:00 Hand - Right Wound Culture - Final S Aureus Problem List - Problems (1) Cellulitis of hand, right Code(s): L03.113 - CELLULITIS OF RIGHT UPPER LIMB (2) Ischemic stroke Code(s): I63.9 - CEREBRAL INFARCTION, UNSPECIFIED (3) Leg weakness, bilateral Code(s): R29.898 - OTH SYMPTOMS AND SIGNS INVOLVING THE MUSCULOSKELETAL SYSTEM (4) CAD (coronary artery disease) Code(s): I25.10 - ATHSCL HEART DISEASE OF [place] CORONARY ARTERY W/O ANG PCTRS (5) CVA (cerebral vascular accident) Code(s): I63.9 - CEREBRAL INFARCTION, UNSPECIFIED Qualifiers: CVA mechanism: other Qualified Code(s): I63.89 - Other cerebral infarction (6) Hyperglycemia Code(s): R73.9 - HYPERGLYCEMIA, UNSPECIFIED (7) Diabetes mellitus Code(s): E11.9 - TYPE 2 DIABETES MELLITUS WITHOUT COMPLICATIONS Qualifiers: Diabetes mellitus type: type 2 Diabetes mellitus prison insulin use: without intermodal customer service use Diabetes mellitus complication status: with neurologic complications Diabetes mellitus complication detail: with other neurological complication Qualified Code(s): E11.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 continue Vancomycin IV - monitor renal function -- Leukocytosis resolved, monitor temps -- improving edema/erythema, still c/o pain
[2020-04-19] MEDS ORDERED: INSULIN (NOVOLOG) ASPART 100 UNITS/ML 10ML VIAL ONE (17:07)
[2020-04-19] MEDS ORDERED: ONDANSETRON 4 MG/2 ML VIAL IVPUSH ONE (18:47)
[2020-04-19] MEDS: ATORVASTATIN CA 40 MG TABLET (FP) PO SCH (23:27)
[2020-04-19] MEDS: LIDOCAINE PATCH REMOVAL MC SCH (23:27)
[2020-04-19] MEDS: DOCUSATE SODIUM 100 MG CAPSULE (FP) PO SCH (23:27)
[2020-04-19] MEDS ORDERED: PROMETHAZINE HCL 50 MG/1 ML AMP IM ONE (23:35)
[2020-04-19] MEDS ORDERED: PROMETHAZINE HCL 25 MG/1 ML VIAL IM ONE (23:45)
[2020-04-19] MEDS ORDERED: SODIUM CHLORIDE 1,000 ML IV SCH (23:45)
[2020-04-20] MEDS: VANCOMYCIN 1 GRAM (PRE-DOCKED) 1,000 MG/250 ML BAG IVPB SCH ×2 (00:25→13:02)
[2020-04-20] MEDS: INSULIN SLIDING SCALE (NOVOLOG) 1 VIAL SQ SCH ×4 (06:05→21:06)
[2020-04-20] MEDS: GABAPENTIN 300 MG CAPSULE PO SCH (06:05)
[2020-04-20] MEDS: INSULIN (LEVEMIR) 100 UNITS/ML UNITS SQ SCH ×2 (06:05→17:26)
[2020-04-20 06:24] LABS: BASO % 0.8 % (0-2.0); EOS % 0.6 % (0-4.5); HEMATOCRIT 38.4 % (35.4-49); HEMOGLOBIN 13.2 GM/dL (11.7-16.9); LYMPH % 11.6 % (8-40); MCH 30.3 pg (25.7-33.7); MCHC 34.4 g/dl (32.0-35.9); PLATELET COUNT 160 K/MM3 (134-434); RBC 4.37 M/mm3 (4.00-5.60); RDW 14.4 % (11.9-15.9); WHITE BLOOD COUNT 12.6 K/mm3 (4.0-10.0)
[2020-04-20 06:49] LABS: BILIRUBIN,TOTAL 0.6 mg/dL (0.2-1); BLOOD UREA NITROGEN 28.5 mg/dL (7-18); CALCIUM 8.8 mg/dL (8.5-10.1); CREATININE 1.3 mg/dL (0.55-1.3); MAGNESIUM 1.7 mg/dL (1.8-2.4); POTASSIUM 4.2 mmol/L (3.5-5.1); TOT PROT 6.8 g/dl (6.4-8.2)
--- NOTE | 2020-04-20 08:29 | PN ---
Progress Note, Physician Chief Complaint: Seen and examined in bed. States he is very tired again today. Episode of non- bloody emesis last night. AXR revealed retained stool. Gabapentin stopped by neurology-can be contributing to ataxia. Plan for STR/SNF on dc History of Present Illness: 55 year old male with history of ischemic stroke (2017; residual left upper and lower extremity weakness), hypertension, hyperlipidemia, diabetes mellitus II (insulin dependent), coronary artery disease (cardiac catheterization without stent placement 11/2019), presents with complaint of lower extremity weakness. - Current Medication List Current Medications: Active Medications Acetaminophen (Tylenol -) 650 mg PO Q6H PRN PRN Reason: PAIN LEVEL 1-5 Last Admin: 04/18/20 08:13 Dose: 650 mg Documented by: Amlodipine Besylate (Norvasc -) 5 mg PO DAILY [facility] Last Admin: 04/19/20 10:14 Dose: 5 mg Documented by: Aspirin (Asa -) 81 mg PO DAILY [facility] Last Admin: 04/19/20 10:13 Dose: 81 mg Documented by: Atorvastatin Calcium (Lipitor -) 40 mg PO [facility] Last Admin: 04/19/20 23:27 Dose: Not Given Documented by: Buspirone HCl (Buspar -) 15 mg PO DAILY [facility] Last Admin: 04/19/20 10:17 Dose: 15 mg Documented by: Docusate Sodium (Colace -) 300 mg PO [facility] Last Admin: 04/19/20 23:27 Dose: Not Given Documented by: Enoxaparin Sodium (Lovenox -) 40 mg SQ DAILY [facility] Last Admin: 04/19/20 10:13 Dose: 40 mg Documented by: Gabapentin (Neurontin -) 900 mg PO TID [facility] Last Admin: 04/20/20 06:05 Dose: Not Given Documented by: Hydrochlorothiazide (Hctz -) 12.5 mg PO DAILY [facility] Last Admin: 04/19/20 10:14 Dose: 12.5 mg Documented by: Vancomycin HCl (Vancomycin (Pre-Docked)) 1,000 mg in 250 mls @ 166.667 mls/hr IVPB Q12H [facility]; Protocol Last Admin: 04/20/20 00:25 Dose: 166.667 mls/hr Documented by: Sodium Chloride (Normal Saline -) 1,000 mls @ 50 mls/hr IV ASDIR [facility] Stop: 04/20/20 23:33 Last Admin: 04/19/20 23:50 Dose: 50 mls/hr Documented by: Insulin Aspart (Novolog Vial Sliding Scale -) 1 vial SQ ACHS [facility]; Protocol Last Admin: 04/20/20 06:05 Dose: Not Given Documented by: Insulin Detemir (Levemir Vial) 15 units SQ BIDI [facility] Last Admin: 04/20/20 06:05 Dose: Not Given Documented by: Lidocaine (Lidoderm Patch -) 1 patch TP DAILY [facility] Last Admin: 04/19/20 10:16 Dose: 1 patch Documented by: Lisinopril (Prinivil) 20 mg PO DAILY [facility] Last Admin: 04/19/20 10:14 Dose: 20 mg Documented by: Miscellaneous (Lidoderm Patch Removal) 1 each MC DAILY@2200 [facility] Last Admin: 04/19/20 23:27 Dose: Not Given Documented by: Nicotine (Nicoderm Patch -) 14 mg TD DAILY [facility] Last Admin: 04/19/20 10:16 Dose: 14 mg Documented by: Oxycodone HCl (Roxicodone -) 5 mg PO Q6H PRN PRN Reason: PAIN LEVEL 4 - 6 Last Admin: 04/18/20 05:23 Dose: 5 mg Documented by: Oxycodone HCl (Roxicodone -) 10 mg PO Q4H PRN PRN Reason: PAIN LEVEL 6-10 Last Admin: 04/19/20 10:15 Dose: 10 mg Documented by: Zolpidem Tartrate (Ambien -) 10 mg PO HS PRN PRN Reason: INSOMNIA Last Admin: 04/18/20 21:45 Dose: 10 mg Documented by: - Objective Vital Signs: Vital Signs Temperature 99.2 F 04/20/20 05:58 Pulse Rate 94 H 04/20/20 05:58 Respiratory Rate 20 04/20/20 05:58 Blood Pressure 142/88 04/20/20 05:58 O2 Sat by Pulse Oximetry (%) 98 04/20/20 05:58 Additional Findings/Remarks: Constitutional: Yes: Well Nourished, No Distress, Calm Eyes: Yes: WNL, Conjunctiva Clear HENT: Yes: WNL, Atraumatic, Normocephalic Neck: Yes: WNL, Supple, Trachea Midline Cardiovascular: Yes: WNL, Regular Rate and Rhythm Respiratory: Yes: WNL, Regular, CTA Bilaterally, Diminished (at bases) Gastrointestinal: Yes: WNL, Normal Bowel Sounds, Soft, Abdomen, Obese ...Rectal Exam: Yes: Deferred Genitourinary: Yes: WNL Breast(s): Yes: WNL Musculoskeletal: Yes: Muscle Weakness Extremities: Yes: drsg to area of I &D Edema: No Edema: LLE: 1+, RLE: 1+ Peripheral Pulses WNL: Yes Peripheral Pulses: Left Radial: 2+, Right Radial: 2+, Left Doralis Pedis: 2+, Right Dorsalis Pedis: 2+, Left Femoral: 2+, Right Femoral: 2+ Integumentary: Yes: Erythema (Left hand 4cm area of erythema along dorsal aspect.) Neurological: Yes: WNL, Alert, Oriented, Unsteady Gait, Weakness ...Motor Strength: LLE, RLE (4/5) Psychiatric: Yes: Alert, Oriented, Other (flat affect) Labs: CBC, BMP 04/20/20 06:06 04/20/20 06:06 Problem List - Problems (1) Ischemic stroke Assessment/Plan: history of in past MRI during prior admission (04/10) which revealed chronic infarcts moderate volume loss, and ventricular dilation, however no acute infarct. CT head performed (at [place]) negative for acute pathology Neurology (Dr. Mahoney) following Code(s): I63.9 - CEREBRAL INFARCTION, UNSPECIFIED (2) HLD (hyperlipidemia) Assessment/Plan: c/w statin Code(s): E78.5 - HYPERLIPIDEMIA, UNSPECIFIED (3) Leg weakness, bilateral Assessment/Plan: Neurology (Dr. Mahoney) following Gabapentin dc'd-can be contributing to ataxia c/w PT fall precautions placement for STR/SNF in progress Code(s): R29.898 - OTH SYMPTOMS AND SIGNS INVOLVING THE MUSCULOSKELETAL SYSTEM (4) CAD (coronary artery disease) Assessment/Plan: c/w Aspirin, Statin cards following Code(s): I25.10 - ATHSCL HEART DISEASE OF [place] CORONARY ARTERY W/O ANG PCTRS (5) Prophylactic measure Assessment/Plan: FEN Fluids: adequate PO intake Electrolytes: monitor & replete as needed Nutrition:clear liquids DVT moderate risk sq maddie Dispo Maintain as inpatient full code discharge planning to SNF/STR Code(s): Z29.9 - ENCOUNTER FOR PROPHYLACTIC MEASURES, UNSPECIFIED (6) Diabetes mellitus Assessment/Plan: BGM AC/HS with novolog sliding scale diabetic diet Code(s): E11.9 - TYPE 2 DIABETES MELLITUS WITHOUT COMPLICATIONS Qualifiers: Diabetes mellitus type: type 2 Diabetes mellitus penitentiary insulin use: without penitentiary use Diabetes mellitus complication status: with neurologic complications Diabetes mellitus complication detail: with other neurological complication Qualified Code(s): E11.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 (7) H/O: CVA (cerebrovascular accident) Assessment/Plan: residual ataxia/weakness Code(s): Z86.73 - PRSNL HX OF TIA (TIA), AND CEREB INFRC W/O RESID DEFICITS (8) Hypertension Assessment/Plan: BP on lower side c/w Lisinopril, Hydrochlorothiazide, Amlodipine with hold parameters Code(s): I10 - ESSENTIAL (PRIMARY) HYPERTENSION Qualifiers: Hypertension type: essential hypertension Qualified Code(s): I10 - Essential (primary) hypertension (9) Cellulitis of hand, right Assessment/Plan: Hand xray (04/15- at [place]) revealed no acute fracture, swelling, or foreign body. did not take Keflex that was prescribed at the time Wound with MRSA-can change abx to doxicycline x 2 weeks ID following Code(s): L03.113 - CELLULITIS OF RIGHT UPPER LIMB (10) COVID-19 ruled out Assessment/Plan: negative pcr Code(s): Z03.818 - ENCNTR FOR OBS FOR SUSP EXPSR TO OTH BIOLG AGENTS RULED OUT (11) Fecal retention Assessment/Plan: AXR revealed fecal retention aggressive bowel regimine started-pt refusing at this osmar-claims he is too t ired to take pills c/w clears and advance as tolerated Code(s): K59.00 - CONSTIPATION, UNSPECIFIED (12) Vomiting Assessment/Plan: one episode of vomiting last night zofran given AXR done placed on clears Code(s): R11.10 - VOMITING, UNSPECIFIED Visit type - Emergency Visit Emergency Visit: Yes ED Registration Date: 04/16/20 Care time: The patient presented to the Emergency Department on the above date and was hospitalized for further evaluation of their emergent condition. - New Patient This patient is new to me today: No - Critical Care Critical Care patient: No - Discharge Referral Referred to [facility] Med P.C.: No
--- NOTE | 2020-04-20 09:04 | CON.NEURO ---
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 (multiple ischemic right cerebral 2017) Cardio/Vascular: Yes: HTN, Hyperlipdemia Pulmonary: Yes: Other (current cigarette smoker) Psych: Yes: Anxiety Endocrine: Yes: Diabetes Insipidus - Alcohol/Substance Use Hx Alcohol Use: Yes (rare social drink) - Smoking History Smoking history: Current some day smoker Have you smoked in the past 12 months: Yes Aproximately how many cigarettes per day: 5 - Social History ADL: Independent History of Recent Travel: No Home Medications - Allergies Allergies/Adverse Reactions: Allergies Allergy/AdvReac Type Severity Reaction Status Date / Time No Known Allergies Allergy Verified 04/16/20 06:59 - Home Medications Home Medications: Ambulatory Orders Gabapentin 600 mg PO TID 11/26/16 Atorvastatin Ca [Lipitor] 40 mg PO HS 01/17/17 Dulaglutide [Trulicity] 1.5 mg SQ WEEKLY 01/17/17 Aspirin [ASA -] 81 mg PO DAILY tab.chew 01/19/17 Zolpidem Tartrate [Ambien] 10 mg PO HS PRN 01/08/18 Insulin Glargine,Hum.rec.anlog [Basaglar Kwikpen U-100] 40 units SCJ HS 08/16/19 Metformin HCl [Glucophage] 1,000 mg PO BID 08/16/19 Oxycodone HCl/Acetaminophen [Percocet 5-325 mg Tablet] 1 tab PO BID #0 tab MDD 2 08/16/19 Amlodipine Besylate 5 mg PO DAILY 04/10/20 Buspirone HCl 15 mg PO DAILY 04/10/20 Cyclobenzaprine HCl 10 mg PO BID 04/10/20 Lisinopril/Hydrochlorothiazide [Lisinopril-Hctz 20-12.5 mg Tab] 1 each PO DAILY 04/10/20 Metoprolol Tartrate [Lopressor -] 25 mg PO BID 04/10/20 Naproxen 500 mg PO BID 04/10/20 Cephalexin Monohydrate [Keflex -] 500 mg PO Q8H #20 capsule 04/15/20 Family Medical History Family Hx Cancer: Mother (Uterine) Family Hx Cardiac Disorders: Mother, Father Family Hx Coronary Artery Disease: Mother, Father Family Hx Diabetes: Mother Family Hx Respiratory Disorders: Mother Physical Exam-Neuro Vital Signs: Vital Signs Temperature 99.2 F 04/20/20 05:58 Pulse Rate 94 H 04/20/20 05:58 Respiratory Rate 20 04/20/20 05:58 Blood Pressure 142/88 04/20/20 05:58 O2 Sat by Pulse Oximetry (%) 98 04/20/20 05:58 Labs: CBC, BMP 04/20/20 06:06 04/20/20 06:06 Assessment/Plan cc Feeling of leg weaknes and leg giving way 55 year old male history of htn, dm, hld. Patient has left sided weakness with right frontal lobe stroke. Patient has neurologist at [facility] and was being treated for spasm by baclofen. He came with generalized shaking and no loc, no tongue bite or incontnence. He has history f of depression, insomnia. Patient has mild left sided weakness from previous stroke. He had mri of brain and carotid ultrasound they were unremarkable. he also have cervical disc disease and was told taht left arm weakness from cervical disc disase Patient has no new neurological symptoms and he has bene taking gabapentin 900 mg p o tid Recent Travel: denies PAST MEDICAL HISTORY: HLD, HTN, DM ischemic stroke in 2017 PAST SURGICAL HISTORY: cyst removal as a child Social History: Smokin pack a day Alcohol: occasional Drugs: denies Allergies No Known Allergies Allergy (Verified 04/10/20 08:04) HOME MEDICATIONS: Home Medications Medication Instructions Recorded Gabapentin 600 mg PO TID 11/26/16 Atorvastatin Ca [Lipitor] 40 mg PO HS 01/17/17 Dulaglutide [Trulicity] 1.5 mg SQ WEEKLY 01/17/17 Aspirin [ASA -] 81 mg PO DAILY tab.chew 01/19/17 Zolpidem Tartrate [Ambien] 5 mg PO HS 01/08/18 Duloxetine HCl 30 mg PO BID 07/29/19 Lidocaine 5% Patch [Lidoderm -] 1 patch TP DAILY #10 patch 08/14/19 Insulin Glargine,Hum.rec.anlog 40 units SCJ HS 08/16/19 [Basaglar Kwikpen U-100] Metformin HCl [Glucophage] 1,000 mg PO BID 08/16/19 Oxycodone HCl/Acetaminophen 1 tab PO BID #0 tab MDD 2 08/16/19 [Percocet 5-325 mg Tablet] ROS,FH,SH reviewed in chart NEUROLOGICAL EXAMINATION Alert oriented x 3, neck is supple vss eomi, pupil reactive no face asymmetry left sided mild weakness ct head , mri of brain and carotid ultrasound were wnl Assessment/Plan Generalized shaking, all four limb jerking, without loc, no tongue bite or incontinence. etiology unclear muscle spasm vs nonepileptic episode -- leg giving way, ? medication side effect, there i sno new neurological findin gs, and pateint was advice to go to rehab last time but he choosen to signed out [facility] Plan-- no need for any new imaging as exma is baseline. - suggest to stop gabapentin, if this is causing him to have ataxia - he would require short temr rehab. Thanking you so much Mike Mahoney MD
--- NOTE | 2020-04-20 09:45 | PN ---
Progress Note, Physician History of Present Illness: stable still with weakness - Current Medication List Current Medications: Active Medications Acetaminophen (Tylenol -) 650 mg PO Q6H PRN PRN Reason: PAIN LEVEL 1-5 Last Admin: 04/18/20 08:13 Dose: 650 mg Documented by: Amlodipine Besylate (Norvasc -) 5 mg PO DAILY [facility] Last Admin: 04/19/20 10:14 Dose: 5 mg Documented by: Aspirin (Asa -) 81 mg PO DAILY [facility] Last Admin: 04/19/20 10:13 Dose: 81 mg Documented by: Atorvastatin Calcium (Lipitor -) 40 mg PO HS [facility] Last Admin: 04/19/20 23:27 Dose: Not Given Documented by: Buspirone HCl (Buspar -) 15 mg PO DAILY [facility] Last Admin: 04/19/20 10:17 Dose: 15 mg Documented by: Docusate Sodium (Colace -) 300 mg PO HS [facility] Last Admin: 04/19/20 23:27 Dose: Not Given Documented by: Enoxaparin Sodium (Lovenox -) 40 mg SQ DAILY [facility] Last Admin: 04/19/20 10:13 Dose: 40 mg Documented by: Hydrochlorothiazide (Hctz -) 12.5 mg PO DAILY [facility] Last Admin: 04/19/20 10:14 Dose: 12.5 mg Documented by: Vancomycin HCl (Vancomycin (Pre-Docked)) 1,000 mg in 250 mls @ 166.667 mls/hr IVPB Q12H [facility]; Protocol Last Admin: 04/20/20 00:25 Dose: 166.667 mls/hr Documented by: Sodium Chloride (Normal Saline -) 1,000 mls @ 50 mls/hr IV ASDIR JAYME Stop: 04/20/20 23:33 Last Admin: 04/19/20 23:50 Dose: 50 mls/hr Documented by: Insulin Aspart (Novolog Vial Sliding Scale -) 1 vial SQ ACHS [facility]; Protocol Last Admin: 04/20/20 06:05 Dose: Not Given Documented by: Insulin Detemir (Levemir Vial) 15 units SQ BIDI [facility] Last Admin: 04/20/20 06:05 Dose: Not Given Documented by: Lidocaine (Lidoderm Patch -) 1 patch TP DAILY [facility] Last Admin: 04/19/20 10:16 Dose: 1 patch Documented by: Lisinopril (Prinivil) 20 mg PO DAILY [facility] Last Admin: 04/19/20 10:14 Dose: 20 mg Documented by: Miscellaneous (Lidoderm Patch Removal) 1 each MC DAILY@2200 [facility] Last Admin: 04/19/20 23:27 Dose: Not Given Documented by: Nicotine (Nicoderm Patch -) 14 mg TD DAILY [facility] Last Admin: 04/19/20 10:16 Dose: 14 mg Documented by: Oxycodone HCl (Roxicodone -) 5 mg PO Q6H PRN PRN Reason: PAIN LEVEL 4 - 6 Last Admin: 04/18/20 05:23 Dose: 5 mg Documented by: Oxycodone HCl (Roxicodone -) 10 mg PO Q4H PRN PRN Reason: PAIN LEVEL 6-10 Last Admin: 04/19/20 10:15 Dose: 10 mg Documented by: Polyethylene Glycol (Miralax (For Daily Use) -) 17 gm PO BID [facility] Senna (Senna -) 1 tab PO BID [facility] Zolpidem Tartrate (Ambien -) 10 mg PO HS PRN PRN Reason: INSOMNIA Last Admin: 04/18/20 21:45 Dose: 10 mg Documented by: - Objective Vital Signs: Vital Signs Temperature 99.2 F 04/20/20 05:58 Pulse Rate 94 H 04/20/20 05:58 Respiratory Rate 20 04/20/20 05:58 Blood Pressure 142/88 04/20/20 05:58 O2 Sat by Pulse Oximetry (%) 98 04/20/20 05:58 Constitutional: Yes: No Distress, Calm Cardiovascular: Yes: S1, S2 Respiratory: Yes: Regular, CTA Bilaterally Gastrointestinal: Yes: Normal Bowel Sounds, Soft Musculoskeletal: Yes: WNL Extremities: Yes: Other Wound/Incision: Yes: Dressing Dry and Intact Neurological: Yes: Alert, Oriented Psychiatric: Yes: Alert, Oriented Labs: CBC, BMP 04/20/20 06:06 04/20/20 06:06 Assessment/Plan Problem List - Problems (1) Cellulitis of hand, right Code(s): L03.113 - CELLULITIS OF RIGHT UPPER LIMB (2) Ischemic stroke Code(s): I63.9 - CEREBRAL INFARCTION, UNSPECIFIED (3) Leg weakness, bilateral Code(s): R29.898 - OTH SYMPTOMS AND SIGNS INVOLVING THE MUSCULOSKELETAL SYSTEM (4) CAD (coronary artery disease) Code(s): I25.10 - ATHSCL HEART DISEASE OF [place] CORONARY ARTERY W/O ANG PCTRS (5) CVA (cerebral vascular accident) Code(s): I63.9 - CEREBRAL INFARCTION, UNSPECIFIED Qualifiers: CVA mechanism: other Qualified Code(s): I63.89 - Other cerebral infarction (6) Hyperglycemia Code(s): R73.9 - HYPERGLYCEMIA, UNSPECIFIED (7) Diabetes mellitus Code(s): E11.9 - TYPE 2 DIABETES MELLITUS WITHOUT COMPLICATIONS Qualifiers: Diabetes mellitus type: type 2 Diabetes mellitus mcfp insulin use: without bisque finisher use Diabetes mellitus complication status: with neurologic complications Diabetes mellitus complication detail: with other neurological complication Qualified Code(s): E11.49 - Type 2 diabetes mellitus with other d iabetic neurological complication (8) Hypertension Code(s): I10 - ESSENTIAL (PRIMARY) HYPERTENSION Qualifiers: Hypertension type: essential hypertension Qualified Code(s): I10 - Essential (primary) hypertension Assessment/Plan Rt hand cellulitis/wound + MRSA DM CAD Hx of CVA HTN HLD plan continue abx wound care rest as per the team follow vano levels
[2020-04-20] MEDS: NICOTINE 14 MG/24 HOURS TOPICAL PATCH TD SCH (10:18)
[2020-04-20] MEDS: LIDOCAINE 5% TOPICAL PATCH TP SCH (10:18)
[2020-04-20] MEDS: SENNOSIDES 8.6MG TABLET (FP) PO SCH ×3 (10:19→21:02)
[2020-04-20] MEDS: HYDROCHLOROTHIAZIDE 12.5 MG CAPSULE (FP) PO SCH ×2 (10:19→12:49)
[2020-04-20] MEDS: LISINOPRIL 20 MG TABLET PO SCH ×2 (10:19→12:50)
[2020-04-20] MEDS: ASPIRIN 81 MG CHEWABLE TABLETS PO SCH ×2 (10:19→12:49)
[2020-04-20] MEDS: amLODIPine BESYLATE 5 MG TABLET (FP) PO SCH ×2 (10:19→12:49)
[2020-04-20] MEDS: ENOXAPARIN NA (PORCINE) 40 MG/0.4 ML DISP.SYRIN SQ SCH (10:20)
[2020-04-20] MEDS: MAGNESIUM OXIDE 400 MG TABLET (FP) PO ONE ×2 (10:20→12:49)
[2020-04-20] MEDS: busPIRone HCL 5 MG TABLET PO SCH ×2 (10:20→12:49)
[2020-04-20] MEDS: POLYETHYLENE GLYCOL 3350 119 GM BTL PO SCH ×3 (10:23→21:07)
[2020-04-20] MEDS ORDERED: INSULIN (NOVOLOG) ASPART 100 UNITS/ML 10ML VIAL ONE ×2 (11:51→18:09)
[2020-04-20] MEDS: DOXYCYCLINE HYCLATE 100 MG CAPSULE PO SCH (17:26)
[2020-04-20] MEDS: DOCUSATE SODIUM 100 MG CAPSULE (FP) PO SCH (21:01)
[2020-04-20] MEDS: ATORVASTATIN CA 40 MG TABLET (FP) PO SCH (21:02)
[2020-04-20] MEDS: LIDOCAINE PATCH REMOVAL MC SCH (21:02)
[2020-04-21] MEDS ORDERED: PROMETHAZINE HCL 25 MG TABLET PO ONE (04:01)
[2020-04-21] MEDS: INSULIN (LEVEMIR) 100 UNITS/ML UNITS SQ SCH ×2 (06:18→18:03)
[2020-04-21] MEDS: INSULIN SLIDING SCALE (NOVOLOG) 1 VIAL SQ SCH ×4 (06:18→21:28)
[2020-04-21 08:57] LABS: BASO % 0.5 % (0-2.0); EOS % 1.3 % (0-4.5); HEMATOCRIT 35.5 % (35.4-49); HEMOGLOBIN 12.3 GM/dL (11.7-16.9); LYMPH % 14.2 % (8-40); MCH 30.9 pg (25.7-33.7); MCHC 34.8 g/dl (32.0-35.9); MEAN CELL VOLUME 88.9 fl (80-96); MEAN PLT VOLUME 9.2 fl (7.5-11.1); MONO % 5.3 % (3.8-10.2); NEUT % 78.7 % (42.8-82.8); PLATELET COUNT 148 K/MM3 (134-434); RBC 3.99 M/mm3 (4.00-5.60); RDW 14.1 % (11.9-15.9); WHITE BLOOD COUNT 14.7 K/mm3 (4.0-10.0)
[2020-04-21 09:24] LABS: ALBUMIN 2.6 g/dl (3.4-5.0); BILIRUBIN,TOTAL 0.6 mg/dL (0.2-1); CALCIUM 8.2 mg/dL (8.5-10.1); CREATININE 1.2 mg/dL (0.55-1.3); MAGNESIUM 1.6 mg/dL (1.8-2.4); POTASSIUM 4.2 mmol/L (3.5-5.1)
[2020-04-21] MEDS ORDERED: MAGNESIUM OXIDE 400 MG TABLET (FP) PO ONE (09:27)
[2020-04-21] MEDS ORDERED: PT OWN MED DRAWER 7, Y5N ONE (10:03)
[2020-04-21] MEDS: ASPIRIN 81 MG CHEWABLE TABLETS PO SCH (10:13)
[2020-04-21] MEDS: HYDROCHLOROTHIAZIDE 12.5 MG CAPSULE (FP) PO SCH (10:13)
[2020-04-21] MEDS: SENNOSIDES 8.6MG TABLET (FP) PO SCH ×2 (10:13→21:27)
[2020-04-21] MEDS: busPIRone HCL 5 MG TABLET PO SCH (10:13)
[2020-04-21] MEDS: LISINOPRIL 20 MG TABLET PO SCH (10:13)
[2020-04-21] MEDS: amLODIPine BESYLATE 5 MG TABLET (FP) PO SCH (10:13)
[2020-04-21] MEDS: DOXYCYCLINE HYCLATE 100 MG CAPSULE PO SCH ×2 (10:13→18:02)
[2020-04-21] MEDS: ENOXAPARIN NA (PORCINE) 40 MG/0.4 ML DISP.SYRIN SQ SCH (10:14)
[2020-04-21] MEDS: NICOTINE 14 MG/24 HOURS TOPICAL PATCH TD SCH (10:14)
[2020-04-21] MEDS: POLYETHYLENE GLYCOL 3350 119 GM BTL PO SCH ×2 (10:14→21:26)
[2020-04-21] MEDS: LIDOCAINE 5% TOPICAL PATCH TP SCH (12:06)
--- NOTE | 2020-04-21 12:26 | CON.ORTH ---
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: CVA (multiple ischemic right cerebral 2017) Cardio/Vascular: Yes: HTN, Hyperlipdemia Pulmonary: Yes: Other (current cigarette smoker) Psych: Yes: Anxiety Endocrine: Yes: Diabetes Insipidus - Alcohol/Substance Use Hx Alcohol Use: Yes (rare social drink) - Smoking History Smoking history: Current some day smoker Have you smoked in the past 12 months: Yes Aproximately how many cigarettes per day: 5 - Social History ADL: Independent History of Recent Travel: No Home Medications - Allergies Allergies/Adverse Reactions: Allergies Allergy/AdvReac Type Severity Reaction Status Date / Time No Known Allergies Allergy Verified 04/16/20 06:59 - Home Medications Home Medications: Ambulatory Orders Atorvastatin Ca [Lipitor] 40 mg PO HS 01/17/17 Dulaglutide [Trulicity] 1.5 mg SQ WEEKLY 01/17/17 Aspirin [ASA -] 81 mg PO DAILY tab.chew 01/19/17 Zolpidem Tartrate [Ambien] 10 mg PO HS PRN 01/08/18 Insulin Glargine,Hum.rec.anlog [Basaglar Kwikpen U-100] 40 units SCJ HS 08/16/19 Metformin HCl [Glucophage] 1,000 mg PO BID 08/16/19 Amlodipine Besylate 5 mg PO DAILY 04/10/20 Buspirone HCl 15 mg PO DAILY 04/10/20 Cyclobenzaprine HCl 10 mg PO BID 04/10/20 Lisinopril/Hydrochlorothiazide [Lisinopril-Hctz 20-12.5 mg Tab] 1 each PO DAILY 04/10/20 Metoprolol Tartrate [Lopressor -] 25 mg PO BID 04/10/20 Cephalexin Monohydrate [Keflex -] 500 mg PO Q8H #20 capsule 04/15/20 Acetaminophen [Tylenol .Regular Strength -] 650 mg PO Q6H PRN tablet 04/20/20 Docusate Sodium [Colace -] 300 mg PO HS capsule 04/20/20 Doxycycline Hyclate [Vibramycin -] 100 mg PO BID@1000,1800 capsule 04/20/20 Enoxaparin [Lovenox -] 40 mg SQ DAILY disp.syrin 04/20/20 Hydrochlorothiazide [Hctz -] 12.5 mg PO DAILY cap 04/20/20 Insulin (Levemir) [Levemir Vial] 15 units SQ BIDI units 04/20/20 Insulin Sliding Scale [Novolog Vial Sliding Scale -] 1 vial SQ ACHS units 04/20/20 Lidocaine 5% Patch [Lidoderm -] 1 patch TP DAILY patch 04/20/20 Lidocaine Patch Removal [Lidoderm Patch Removal] 1 each MC DAILY@2200 each 04/20/20 Lisinopril [Prinivil] 20 mg PO DAILY tablet 04/20/20 Nicotine Patch [Nicoderm Patch -] 14 mg TD DAILY patch 04/20/20 Polyethylene Glycol 3350 [Miralax 119 gm Btl -] 17 gm PO BID bottle 04/20/20 Sennosides [Senna -] 1 tab PO BID tablet 04/20/20 oxyCODONE HCL [Roxicodone -] 5 mg PO Q6H PRN tablet 04/20/20 Family Medical History Family Hx Cancer: Mother (Uterine) Family Hx Cardiac Disorders: Mother, Father Family Hx Coronary Artery Disease: Mother, Father Family Hx Diabetes: Mother Family Hx Respiratory Disorders: Mother Physical Exam for Ortho Vital Signs: Vital Signs Temperature 99.3 F 04/21/20 06:33 Pulse Rate 76 04/21/20 06:33 Respiratory Rate 18 04/21/20 06:33 Blood Pressure 141/75 04/21/20 06:33 O2 Sat by Pulse Oximetry (%) 97 04/21/20 06:33 Labs: CBC, BMP 04/21/20 07:30 04/21/20 07:30 - Upper Extremity Hand: Yes: Right, Erythema (erythema decr from previous markings, no area of fluctuance,no drainage, good rom, nvi), Pain, Swelling, Tenderness Assessment/Plan 55 year old male with history of ischemic stroke (2017; residual left upper and lower extremity weakness), hypertension, hyperlipidemia, diabetes mellitus II (insulin dependent), coronary artery disease (cardiac catheterization without stent placement 11/2019), presents with complaint of lower extremity weakness. Patient endorses he [place] walking [place] 6[place] when he felt his legs start shaking, and became weak. He fell onto his backside, however denies any trauma to head or other part of body. Denies loss of consciousness. Denies prormal symptoms prior to the episode. Patient has been seen numerous times for these symptoms this month; last admission one week ago where he was evaluated by neurology, and left against medical advice prior to rehab placement. Patient endorses he was not told he would be going to rehab, however is agreeable to rehab today. He denies subjective fevers, chills, shortness of breath, chest pain, palpitations, abdominal pain, nausea, vomiting, hemoptysis, diarrhea, constipation, melena, hematochezia. Pt also fell and was treated for an abrasion in the ED. He was d/c'd with keflex but subsequently became infected. In the ED area was lanced. He is improving with less erythema and swelling. a/p right hand abscess s/p I&D in ED No I&D needed at this time abx as per ID warm soaks elevation will follow d/w Dr. Nichols
--- NOTE | 2020-04-21 12:45 | PN ---
Progress Note, Physician History of Present Illness: dressing removed wound looked at abscess formation - Current Medication List Current Medications: Active Medications Acetaminophen (Tylenol -) 650 mg PO Q6H PRN PRN Reason: PAIN LEVEL 1-5 Last Admin: 04/18/20 08:13 Dose: 650 mg Documented by: Amlodipine Besylate (Norvasc -) 5 mg PO DAILY [facility] Last Admin: 04/21/20 10:13 Dose: 5 mg Documented by: Aspirin (Asa -) 81 mg PO DAILY [facility] Last Admin: 04/21/20 10:13 Dose: 81 mg Documented by: Atorvastatin Calcium (Lipitor -) 40 mg PO [facility] Last Admin: 04/20/20 21:02 Dose: Not Given Documented by: Buspirone HCl (Buspar -) 15 mg PO DAILY [facility] Last Admin: 04/21/20 10:13 Dose: 15 mg Documented by: Docusate Sodium (Colace -) 300 mg PO [facility] Last Admin: 04/20/20 21:01 Dose: Not Given Documented by: Doxycycline Hyclate (Vibramycin -) 100 mg PO BID@1000,1800 [facility] Stop: 05/04/20 17:59 Last Admin: 04/21/20 10:13 Dose: 100 mg Documented by: Enoxaparin Sodium (Lovenox -) 40 mg SQ DAILY [facility] Last Admin: 04/21/20 10:14 Dose: 40 mg Documented by: Hydrochlorothiazide (Hctz -) 12.5 mg PO DAILY [facility] Last Admin: 04/21/20 10:13 Dose: 12.5 mg Documented by: Insulin Aspart (Novolog Vial Sliding Scale -) 1 vial SQ [facility]; Protocol Last Admin: 04/21/20 12:07 Dose: Not Given Documented by: Insulin Detemir (Levemir Vial) 15 units SQ BIDI [facility] Last Admin: 04/21/20 06:18 Dose: 15 units Documented by: Lidocaine (Lidoderm Patch -) 1 patch TP DAILY [facility] Last Admin: 04/21/20 12:06 Dose: 1 patch Documented by: Lisinopril (Prinivil) 20 mg PO DAILY [facility] Last Admin: 04/21/20 10:13 Dose: 20 mg Documented by: Miscellaneous (Lidoderm Patch Removal) 1 each MC DAILY@2200 [facility] Last Admin: 04/20/20 21:02 Dose: Not Given Documented by: Nicotine (Nicoderm Patch -) 14 mg TD DAILY [facility] Last Admin: 04/21/20 10:14 Dose: 14 mg Documented by: Polyethylene Glycol (Miralax (For Daily Use) -) 17 gm PO BID [facility] Last Admin: 04/21/20 10:14 Dose: 17 grams Documented by: Senna (Senna -) 1 tab PO BID [facility] Last Admin: 04/21/20 10:13 Dose: 1 tab Documented by: - Objective Vital Signs: Vital Signs Temperature 99.3 F 04/21/20 06:33 Pulse Rate 76 04/21/20 06:33 Respiratory Rate 18 04/21/20 06:33 Blood Pressure 141/75 04/21/20 06:33 O2 Sat by Pulse Oximetry (%) 97 04/21/20 06:33 Constitutional: Yes: Calm, Mild Distress Cardiovascular: Yes: S1, S2 Respiratory: Yes: Regular, CTA Bilaterally Gastrointestinal: Yes: Normal Bowel Sounds, Soft Musculoskeletal: Yes: WNL Extremities: Yes: WNL Wound/Incision: Yes: Other (abscess formation of the hand) Neurological: Yes: Alert, Oriented Labs: CBC, BMP 04/21/20 07:30 04/21/20 07:30 Assessment/Plan Problem List - Problems (1) Cellulitis of hand, right Code(s): L03.113 - CELLULITIS OF RIGHT UPPER LIMB (2) Ischemic stroke Code(s): I63.9 - CEREBRAL INFARCTION, UNSPECIFIED (3) Leg weakness, bilateral Code(s): R29.898 - OTH SYMPTOMS AND SIGNS INVOLVING THE MUSCULOSKELETAL SYSTEM (4) CAD (coronary artery disease) Code(s): I25.10 - ATHSCL HEART DISEASE OF [place] CORONARY ARTERY W/O ANG PCTRS (5) CVA (cerebral vascular accident) Code(s): I63.9 - CEREBRAL INFARCTION, UNSPECIFIED Qualifiers: CVA mechanism: other Qualified Code(s): I63.89 - Other cerebral infarction (6) Hyperglycemia Code(s): R73.9 - HYPERGLYCEMIA, UNSPECIFIED (7) Diabetes mellitus Code(s): E11.9 - TYPE 2 DIABETES MELLITUS WITHOUT COMPLICATIONS Qualifiers: Diabetes mellitus type: type 2 Diabetes mellitus custodial insulin use: without custodial use Diabetes mellitus complication status: with neurologic complications Diabetes mellitus complication detail: with other neurological complication Qualified Code(s): E11.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 (8) Hypertension Code(s): I10 - ESSENTIAL (PRIMARY) HYPERTENSION Qualifiers: Hypertension type: essential hypertension Qualified Code(s): I10 - Essential (primary) hypertension Assessment/Plan Rt hand cellulitis/wound + MRSA DM CAD Hx of CVA HTN HLD plan continue abx wound care patients wound now needs drainage rest as per the team
[2020-04-21] MEDS ORDERED: MINERAL OIL ENEMA 133 ML ENEMA PR ONE (16:05)
--- NOTE | 2020-04-21 17:12 | PN ---
Physical Exam: SUBJECTIVE: Patient seen and examined at the bedside. Tells me he does not feel well today and had episodes of vomiting today. OBJECTIVE: Patient is a 55 year old male with history of ischemic stroke (2017; residual left upper and lower extremity weakness), hypertension, hyperlipidemia, diabetes mellitus II (insulin dependent), coronary artery disease (cardiac catheterization without stent placement 11/2019), presents to the ED on 04/16/2020 with complaint of lower extremity weakness s/p fall with right hand wound. Patient recently admitted last week for lower ext weakness and placement to rehab recommended after he ambulated only 20 feet. Patient refused rehab and signed out AMA. Vital Signs Period Temp Pulse Resp BP Sys/Rudd Pulse Ox Last 24 Hr 97.7 F-99.3 F 76-89 18-20 110-141/70-75 96-99 GENERAL: The patient is awake, alert, and fully oriented, in no acute distress. HEAD: Normal with no signs of trauma. EYES: PERRL, extraocular movements intact, sclera anicteric, conjunctiva clear. No ptosis. ENT: Ears normal, nares patent, oropharynx clear without exudates, moist mucous membranes. NECK: Trachea midline, full range of motion, supple. LUNGS: Breath sounds equal, clear to auscultation bilaterally HEART: Regular rate and rhythm ABDOMEN: Soft, nontender, nondistended, normoactive bowel sounds EXTREMITIES: right hand wound, + redness, no drainage but with + erythema NEUROLOGICAL: Normal speech, gait not observed. PSYCH: Normal mood, normal affect. SKIN: Warm, dry, normal turgor, no rashes or lesions noted Laboratory Results - last 24 hr 04/20/20 04/20/20 04/21/20 17:21 21:04 06:15 WBC RBC Hgb Hct MCV MCH MCHC RDW Plt Count MPV Absolute Neuts (auto) Neutrophils % Lymphocytes % Monocytes % Eosinophils % Basophils % Nucleated RBC % Sodium Potassium Chloride Carbon Dioxide Anion Gap BUN Creatinine Est GFR (CKD-EPI)AfAm Est GFR (CKD-EPI)NonAf POC Glucometer 190 178 216 Random Glucose Calcium Magnesium Total Bilirubin AST ALT Alkaline Phosphatase Total Protein Albumin 04/21/20 04/21/20 04/21/20 07:30 07:30 12:06 WBC 14.7 H RBC 3.99 L Hgb 12.3 Hct 35.5 MCV 88.9 MCH 30.9 MCHC 34.8 RDW 14.1 Plt Count 148 MPV 9.2 Absolute Neuts (auto) 11.6 H Neutrophils % 78.7 Lymphocytes % 14.2 D Monocytes % 5.3 Eosinophils % 1.3 D Basophils % 0.5 Nucleated RBC % 0 Sodium 133 L Potassium 4.2 Chloride 96 L Carbon Dioxide 29 Anion Gap 8 BUN 25.0 H Creatinine 1.2 Est GFR (CKD-EPI)AfAm 79.53 Est GFR (CKD-EPI)NonAf 68.62 POC Glucometer 150 Random Glucose 197 H Calcium 8.2 L Magnesium 1.6 L Total Bilirubin 0.6 AST 14 L ALT 17 Alkaline Phosphatase 68 Total Protein 6.0 L Albumin 2.6 L Active Medications Generic Name Dose Route Start Last Admin Trade Name Freq PRN Reason Stop Dose Admin Acetaminophen 650 mg 04/16/20 17:17 04/18/20 08:13 Tylenol - PO 650 mg Q6H PRN Administration PAIN LEVEL 1-5 Amlodipine Besylate 5 mg 04/17/20 10:00 04/21/20 10:13 Norvasc - PO 5 mg DAILY JAYME Administration Aspirin 81 mg 04/16/20 11:45 04/21/20 10:13 Asa - PO 81 mg DAILY JAYME Administration Atorvastatin Calcium 40 mg 04/16/20 22:00 04/20/20 21:02 Lipitor - PO Not Given HS JAYME Buspirone HCl 15 mg 04/17/20 10:00 04/21/20 10:13 Buspar - PO 15 mg DAILY JAYME Administration Docusate Sodium 300 mg 04/17/20 22:00 04/20/20 21:01 Colace - PO Not Given HS JAYME Doxycycline Hyclate 100 mg 04/20/20 18:00 04/21/20 10:13 Vibramycin - PO 05/04/20 17:59 100 mg BID@1000,1800 JAYME Administration Enoxaparin Sodium 40 mg 04/17/20 10:00 04/21/20 10:14 Lovenox - SQ 40 mg DAILY JAYME Administration Hydrochlorothiazide 12.5 mg 04/16/20 11:45 04/21/20 10:13 Hctz - PO 12.5 mg DAILY JAYME Administration Insulin Aspart 1 vial 04/16/20 11:34 04/21/20 12:07 Novolog Vial Sliding Scale - SQ Not Given [facility] Protocol Insulin Detemir 15 units 04/16/20 16:30 04/21/20 06:18 Levemir Vial SQ 15 units BIDI JAYME Administration Lidocaine 1 patch 04/17/20 13:30 04/21/20 12:06 Lidoderm Patch - TP 1 patch DAILY JAYME Administration Lisinopril 20 mg 04/16/20 11:45 04/21/20 10:13 Prinivil PO 20 mg DAILY JAYME Administration Miscellaneous 1 each 04/17/20 22:00 04/20/20 21:02 Lidoderm Patch Removal MC Not Given DAILY@2200 JAYME Nicotine 14 mg 04/17/20 13:30 04/21/20 10:14 Nicoderm Patch - TD 14 mg DAILY JAYME Administration Polyethylene Glycol 17 gm 04/20/20 10:00 04/21/20 10:14 Miralax (For Daily Use) - PO 17 grams BID JAYME Administration Senna 1 tab 04/20/20 10:00 04/21/20 10:13 Senna - PO 1 tab BID JAYME Administration ASSESSMENT/PLAN: Problem List - Problems (1) Cellulitis of hand, right Assessment/Plan: Hand xray (04/15- at [place]) revealed no acute fracture, swelling, or foreign body. did not take Keflex that was prescribed at the time Wound with MRSA-can change abx to doxicycline x 2 weeks seen by orthopedics, no I&D recommended warm soaks, elevate hand above heart level to avoid edema monitor WBC,labs and vitals Code(s): L03.113 - CELLULITIS OF RIGHT UPPER LIMB (2) Fecal retention Assessment/Plan: had bm today, started on bowel regimen and will give one dose of mineral enema today. on clears, advance in a.m. Code(s): K59.00 - CONSTIPATION, UNSPECIFIED (3) HLD (hyperlipidemia) Assessment/Plan: c/w statin Code(s): E78.5 - HYPERLIPIDEMIA, UNSPECIFIED (4) Ischemic stroke Assessment/Plan: history of in past MRI during prior admission (04/10) which revealed chronic infarcts moderate volume loss, and ventricular dilation, however no acute infarct. CT head performed (at [place]) negative for acute pathology Neurology (Dr. Mahoney) following Code(s): I63.9 - CEREBRAL INFARCTION, UNSPECIFIED (5) Leg weakness, bilateral Assessment/Plan: for PT evaluation Code(s): R29.898 - OTH SYMPTOMS AND SIGNS INVOLVING THE MUSCULOSKELETAL SYSTEM (6) Multiple falls Assessment/Plan: will likely need rehab Code(s): R29.6 - REPEATED FALLS (7) EMANUEL (acute kidney injury) Assessment/Plan: mild EMANUEL, monitor with labs Code(s): N17.9 - ACUTE KIDNEY FAILURE, UNSPECIFIED (8) Cellulitis Assessment/Plan: on doxycycline. seen by ortho and I&D not recommended warm soaks TID + mrsa of wound Code(s): L03.90 - CELLULITIS, UNSPECIFIED (9) Fall Code(s): W19.XXXA - UNSPECIFIED FALL, INITIAL ENCOUNTER Qualifiers: Encounter type: initial encounter Qualified Code(s): W19.XXXA - Unspecified fall, initial encounter (10) Nausea & vomiting Assessment/Plan: one episode of vomiting today. zofran given AXR reviewed, no acute pathology placed on clears Code(s): R11.2 - NAUSEA WITH VOMITING, UNSPECIFIED (11) DVT prophylaxis Assessment/Plan: on lovenox Code(s): Z29.9 - ENCOUNTER FOR PROPHYLACTIC MEASURES, UNSPECIFIED Visit type - Emergency Visit Emergency Visit: Yes ED Registration Date: 04/16/20 Care time: The patient presented to the Emergency Department on the above date and was hospitalized for further evaluation of their emergent condition. - New Patient This patient is new to me today: Yes Date on this admission: 04/21/20 - Critical Care Critical Care patient: No - Discharge Referral Referred to [facility] No
[2020-04-21] MEDS: ATORVASTATIN CA 40 MG TABLET (FP) PO SCH (21:27)
[2020-04-21] MEDS: DOCUSATE SODIUM 100 MG CAPSULE (FP) PO SCH (21:27)
[2020-04-21] MEDS: LIDOCAINE PATCH REMOVAL MC SCH (21:28)
[2020-04-22] MEDS: INSULIN SLIDING SCALE (NOVOLOG) 1 VIAL SQ SCH ×4 (06:07→22:19)
[2020-04-22] MEDS: INSULIN (LEVEMIR) 100 UNITS/ML UNITS SQ SCH ×2 (06:07→17:53)
[2020-04-22 08:00] LABS: BASO % 0.7 % (0-2.0); HEMATOCRIT 35.1 % (35.4-49); HEMOGLOBIN 12.4 GM/dL (11.7-16.9); LYMPH % 20.4 % (8-40); MCH 31.1 pg (25.7-33.7); MCHC 35.4 g/dl (32.0-35.9); MEAN CELL VOLUME 87.8 fl (80-96); MEAN PLT VOLUME 9.5 fl (7.5-11.1); MONO % 5.9 % (3.8-10.2); PLATELET COUNT 161 K/MM3 (134-434); RDW 13.9 % (11.9-15.9); WHITE BLOOD COUNT 12.7 K/mm3 (4.0-10.0)
[2020-04-22 08:42] LABS: POTASSIUM 4.1 mmol/L (3.5-5.1)
[2020-04-22 08:47] LABS: ALBUMIN 2.7 g/dl (3.4-5.0); BILIRUBIN,TOTAL 0.4 mg/dL (0.2-1); BLOOD UREA NITROGEN 22.5 mg/dL (7-18); CALCIUM 8.5 mg/dL (8.5-10.1); TOT PROT 6.1 g/dl (6.4-8.2)
[2020-04-22] MEDS ORDERED: PT OWN MED DRAWER 7, Y5N ONE ×2 (09:20→12:19)
--- NOTE | 2020-04-22 10:03 | PN ---
Progress Note, Physician History of Present Illness: stable no new issues still with swelling/abscess of the hand - Current Medication List Current Medications: Active Medications Acetaminophen (Tylenol -) 650 mg PO Q6H PRN PRN Reason: PAIN LEVEL 1-5 Last Admin: 04/18/20 08:13 Dose: 650 mg Documented by: Amlodipine Besylate (Norvasc -) 5 mg PO DAILY [facility] Last Admin: 04/21/20 10:13 Dose: 5 mg Documented by: Aspirin (Asa -) 81 mg PO DAILY [facility] Last Admin: 04/21/20 10:13 Dose: 81 mg Documented by: Atorvastatin Calcium (Lipitor -) 40 mg PO [facility] Last Admin: 04/21/20 21:27 Dose: 40 mg Documented by: Buspirone HCl (Buspar -) 15 mg PO DAILY [facility] Last Admin: 04/21/20 10:13 Dose: 15 mg Documented by: Docusate Sodium (Colace -) 300 mg PO [facility] Last Admin: 04/21/20 21:27 Dose: 300 mg Documented by: Doxycycline Hyclate (Vibramycin -) 100 mg PO BID@1000,1800 [facility] Stop: 05/04/20 17:59 Last Admin: 04/21/20 18:02 Dose: 100 mg Documented by: Enoxaparin Sodium (Lovenox -) 40 mg SQ DAILY [facility] Last Admin: 04/21/20 10:14 Dose: 40 mg Documented by: Hydrochlorothiazide (Hctz -) 12.5 mg PO DAILY [facility] Last Admin: 04/21/20 10:13 Dose: 12.5 mg Documented by: Insulin Aspart (Novolog Vial Sliding Scale -) 1 vial SQ [facility]; Protocol Last Admin: 04/22/20 06:07 Dose: Not Given Documented by: Insulin Detemir (Levemir Vial) 15 units SQ BIDI [facility] Last Admin: 04/22/20 06:07 Dose: 15 units Documented by: Lidocaine (Lidoderm Patch -) 1 patch TP DAILY [facility] Last Admin: 04/21/20 12:06 Dose: 1 patch Documented by: Lisinopril (Prinivil) 20 mg PO DAILY [facility] Last Admin: 04/21/20 10:13 Dose: 20 mg Documented by: Miscellaneous (Lidoderm Patch Removal) 1 each MC DAILY@2200 [facility] Last Admin: 04/21/20 21:28 Dose: 1 each Documented by: Nicotine (Nicoderm Patch -) 14 mg TD DAILY [facility] Last Admin: 04/21/20 10:14 Dose: 14 mg Documented by: Polyethylene Glycol (Miralax (For Daily Use) -) 17 gm PO BID [facility] Last Admin: 04/21/20 21:26 Dose: 17 grams Documented by: Senna (Senna -) 1 tab PO BID [facility] Last Admin: 04/21/20 21:27 Dose: 1 tab Documented by: - Objective Vital Signs: Vital Signs Temperature 98.6 F 04/22/20 09:10 Pulse Rate 66 04/22/20 09:10 Respiratory Rate 18 04/22/20 09:10 Blood Pressure 112/72 04/22/20 09:10 O2 Sat by Pulse Oximetry (%) 95 04/22/20 09:10 Constitutional: Yes: No Distress, Calm Cardiovascular: Yes: S1, S2 Respiratory: Yes: Regular, CTA Bilaterally Gastrointestinal: Yes: Normal Bowel Sounds, Soft Musculoskeletal: Yes: WNL Extremities: Yes: WNL Wound/Incision: Yes: Open to air Neurological: Yes: Alert, Oriented Psychiatric: Yes: Alert, Oriented Labs: CBC, BMP 04/22/20 07:10 04/22/20 07:10 Assessment/Plan Problem List - Problems (1) Cellulitis of hand, right Code(s): L03.113 - CELLULITIS OF RIGHT UPPER LIMB (2) Ischemic stroke Code(s): I63.9 - CEREBRAL INFARCTION, UNSPECIFIED (3) Leg weakness, bilateral Code(s): R29.898 - OTH SYMPTOMS AND SIGNS INVOLVING THE MUSCULOSKELETAL SYSTEM (4) CAD (coronary artery disease) Code(s): I25.10 - ATHSCL HEART DISEASE OF [place] CORONARY ARTERY W/O ANG PCTRS (5) CVA (cerebral vascular accident) Code(s): I63.9 - CEREBRAL INFARCTION, UNSPECIFIED Qualifiers: CVA mechanism: other Qualified Code(s): I63.89 - Other cerebral infarction (6) Hyperglycemia Code(s): R73.9 - HYPERGLYCEMIA, UNSPECIFIED (7) Diabetes mellitus Code(s): E11.9 - TYPE 2 DIABETES MELLITUS WITHOUT COMPLICATIONS Qualifiers: Diabetes mellitus type: type 2 Diabetes mellitus correction insulin use: without intermodal truck driver use Diabetes mellitus complication status: with neurologic complications Diabetes mellitus complication detail: with other neurological complication Qualified Code(s): E11.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 (8) Hypertension Code(s): I10 - ESSENTIAL (PRIMARY) HYPERTENSION Qualifiers: Hypertension type: essential hypertension Qualified Code(s): I10 - Essential (primary) hypertension Assessment/Plan Rt hand cellulitis/wound + MRSA DM CAD Hx of CVA HTN HLD plan continue abx wound care patients wound now needs drainage rest as per the team
[2020-04-22] MEDS: amLODIPine BESYLATE 5 MG TABLET (FP) PO SCH (10:18)
[2020-04-22] MEDS: NICOTINE 14 MG/24 HOURS TOPICAL PATCH TD SCH (10:18)
[2020-04-22] MEDS: HYDROCHLOROTHIAZIDE 12.5 MG CAPSULE (FP) PO SCH (10:18)
[2020-04-22] MEDS: ENOXAPARIN NA (PORCINE) 40 MG/0.4 ML DISP.SYRIN SQ SCH (10:19)
[2020-04-22] MEDS: busPIRone HCL 5 MG TABLET PO SCH (10:19)
[2020-04-22] MEDS: SENNOSIDES 8.6MG TABLET (FP) PO SCH ×2 (10:19→22:21)
[2020-04-22] MEDS: LIDOCAINE 5% TOPICAL PATCH TP SCH (10:19)
[2020-04-22] MEDS: DOXYCYCLINE HYCLATE 100 MG CAPSULE PO SCH ×2 (10:19→17:55)
[2020-04-22] MEDS: LISINOPRIL 20 MG TABLET PO SCH (10:19)
[2020-04-22] MEDS: ASPIRIN 81 MG CHEWABLE TABLETS PO SCH (10:19)
[2020-04-22] MEDS: POLYETHYLENE GLYCOL 3350 119 GM BTL PO SCH ×2 (10:21→22:20)
[2020-04-22] MEDS: ACETAMINOPHEN 325 MG TABLET (FP) PO PRN (11:43)
--- NOTE | 2020-04-22 12:09 | PN ---
Physical Exam: SUBJECTIVE: Patient seen and examined at the bedside. OBJECTIVE: Patient is a 55 year old male with history of ischemic stroke (2017; residual left upper and lower extremity weakness), hypertension, hyperlipidemia, diabetes mellitus II (insulin dependent), coronary artery disease (cardiac catheterization without stent placement 11/2019), presents to the ED on 04/16/2020 with complaint of lower extremity weakness s/p fall with right hand wound. Patient recently admitted last week for lower ext weakness and placement to rehab recommended after he ambulated only 20 feet. Patient refused rehab and signed out AMA. Period Temp Pulse Resp BP Sys/Rudd Pulse Ox Last 24 Hr 97.7 F-98.9 F 66-83 18-20 110-138/64-82 95-99 GENERAL: The patient is awake, alert, and fully oriented, in no acute distress. HEAD: Normal with no signs of trauma. EYES: PERRL, extraocular movements intact, sclera anicteric, conjunctiva clear. No ptosis. ENT: Ears normal, nares patent, oropharynx clear without exudates, moist mucous membranes. NECK: Trachea midline, full range of motion, supple. LUNGS: Breath sounds equal, clear to auscultation bilaterally HEART: Regular rate and rhythm ABDOMEN: Soft, nontender, nondistended, normoactive bowel sounds EXTREMITIES: right hand wound, + mild redness, no drainage but with + erythema, mild edema NEUROLOGICAL: Normal speech, gait not observed. PSYCH: Normal mood, normal affect. SKIN: Warm, dry, normal turgor, no rashes or lesions noted Laboratory Results - last 24 hr 04/21/20 04/21/20 04/22/20 18:02 21:25 06:06 WBC RBC Hgb Hct MCV MCH MCHC RDW Plt Count MPV Absolute Neuts (auto) Neutrophils % Lymphocytes % Monocytes % Eosinophils % Basophils % Nucleated RBC % Sodium Potassium Chloride Carbon Dioxide Anion Gap BUN Creatinine Est GFR (CKD-EPI)AfAm Est GFR (CKD-EPI)NonAf POC Glucometer 296 182 117 Random Glucose Calcium Magnesium Total Bilirubin AST ALT Alkaline Phosphatase Total Protein Albumin 04/22/20 04/22/20 04/22/20 07:10 07:10 11:43 WBC 12.7 H RBC 4.00 Hgb 12.4 Hct 35.1 L MCV 87.8 MCH 31.1 MCHC 35.4 RDW 13.9 Plt Count 161 MPV 9.5 Absolute Neuts (auto) 9.1 H Neutrophils % 71.0 Lymphocytes % 20.4 D Monocytes % 5.9 Eosinophils % 2.0 Basophils % 0.7 Nucleated RBC % 0 Sodium 135 L Potassium 4.1 Chloride 99 Carbon Dioxide 28 Anion Gap 8 BUN 22.5 H Creatinine 1.0 Est GFR (CKD-EPI)AfAm 99.15 Est GFR (CKD-EPI)NonAf 85.55 POC Glucometer 252 Random Glucose 116 H Calcium 8.5 Magnesium 2.0 Total Bilirubin 0.4 AST 19 ALT 15 Alkaline Phosphatase 60 Total Protein 6.1 L Albumin 2.7 L Active Medications Generic Name Dose Route Start Last Admin Trade Name Freq PRN Reason Stop Dose Admin Acetaminophen 650 mg 04/16/20 17:17 04/22/20 11:43 Tylenol - PO 650 mg Q6H PRN Administration PAIN LEVEL 1-5 Amlodipine Besylate 5 mg 04/17/20 10:00 04/22/20 10:18 Norvasc - PO 5 mg DAILY JAYME Administration Aspirin 81 mg 04/16/20 11:45 04/22/20 10:19 Asa - PO 81 mg DAILY JAYME Administration Atorvastatin Calcium 40 mg 04/16/20 22:00 04/21/20 21:27 Lipitor - PO 40 mg HS JAYME Administration Buspirone HCl 15 mg 04/17/20 10:00 04/22/20 10:19 Buspar - PO 15 mg DAILY JAYME Administration Docusate Sodium 300 mg 04/17/20 22:00 04/21/20 21:27 Colace - PO 300 mg HS JAYME Administration Doxycycline Hyclate 100 mg 04/20/20 18:00 04/22/20 10:19 Vibramycin - PO 05/04/20 17:59 100 mg BID@1000,1800 JAYME Administration Enoxaparin Sodium 40 mg 04/17/20 10:00 04/22/20 10:19 Lovenox - SQ 40 mg DAILY AJYME Administration Hydrochlorothiazide 12.5 mg 04/16/20 11:45 04/22/20 10:18 Hctz - PO 12.5 mg DAILY JAYME Administration Insulin Aspart 1 vial 04/16/20 11:34 04/22/20 11:44 Novolog Vial Sliding Scale - SQ 6 units ACHS JAYME Administration Protocol Insulin Detemir 15 units 04/16/20 16:30 04/22/20 06:07 Levemir Vial SQ 15 units BIDI JAYME Administration Lidocaine 1 patch 04/17/20 13:30 04/22/20 10:19 Lidoderm Patch - TP 1 patch DAILY JAYME Administration Lisinopril 20 mg 04/16/20 11:45 04/22/20 10:19 Prinivil PO 20 mg DAILY JAYME Administration Miscellaneous 1 each 04/17/20 22:00 04/21/20 21:28 Lidoderm Patch Removal MC 1 each DAILY@2200 JAYME Administration Nicotine 14 mg 04/17/20 13:30 04/22/20 10:18 Nicoderm Patch - TD 14 mg DAILY JAYME Administration Polyethylene Glycol 17 gm 04/20/20 10:00 04/22/20 10:21 Miralax (For Daily Use) - PO 17 grams BID JAYME Administration Senna 1 tab 04/20/20 10:00 04/22/20 10:19 Senna - PO 1 tab BID JAYME Administration ASSESSMENT/PLAN: Problem List - Problems (1) Cellulitis of hand, right Assessment/Plan: improving edema and erythema. Hand xray (04/15- at [place]) revealed no acute fracture, swelling, or foreign body. did not take Keflex that was prescribed at the time Wound with MRSA-can change abx to doxicycline x 2 weeks seen by orthopedics, no I&D recommended warm soaks, elevate hand above heart level to avoid edema monitor WBC,labs and vitals ID following Code(s): L03.113 - CELLULITIS OF RIGHT UPPER LIMB (2) Fecal retention Assessment/Plan: had BM, abdomen soft, non distended. will advance diet. Code(s): K59.00 - CONSTIPATION, UNSPECIFIED (3) HLD (hyperlipidemia) Assessment/Plan: c/w statin Code(s): E78.5 - HYPERLIPIDEMIA, UNSPECIFIED (4) Ischemic stroke Assessment/Plan: history of in past MRI during prior admission (04/10) which revealed chronic infarcts moderate volume loss, and ventricular dilation, however no acute infarct. CT head performed (at [place]) negative for acute pathology Neurology (Dr. Mahoney) following Code(s): I63.9 - CEREBRAL INFARCTION, UNSPECIFIED (5) Leg weakness, bilateral Assessment/Plan: for PT evaluation Code(s): R29.898 - OTH SYMPTOMS AND SIGNS INVOLVING THE MUSCULOSKELETAL SYSTEM (6) Multiple falls Assessment/Plan: will likely need rehab, pending bed at [facility] Code(s): R29.6 - REPEATED FALLS (7) EMANUEL (acute kidney injury) Assessment/Plan: mild EMANUEL, monitor with labs Code(s): N17.9 - ACUTE KIDNEY FAILURE, UNSPECIFIED (8) Cellulitis Assessment/Plan: on doxycycline. seen by ortho and I&D not recommended warm soaks TID + mrsa of wound Code(s): L03.90 - CELLULITIS, UNSPECIFIED (9) Fall Code(s): W19.XXXA - UNSPECIFIED FALL, INITIAL ENCOUNTER Qualifiers: Encounter type: initial encounter Qualified Code(s): W19.XXXA - Unspecified fall, initial encounter (10) Nausea & vomiting Assessment/Plan: resolved, advance diet Code(s): R11.2 - NAUSEA WITH VOMITING, UNSPECIFIED (11) DVT prophylaxis Assessment/Plan: on lovenox Code(s): Z29.9 - ENCOUNTER FOR PROPHYLACTIC MEASURES, UNSPECIFIED Visit type - Emergency Visit Emergency Visit: Yes ED Registration Date: 04/16/20 Care time: The patient presented to the Emergency Department on the above date and was hospitalized for further evaluation of their emergent condition. - New Patient This patient is new to me today: No - Critical Care Critical Care patient: No - Discharge Referral Referred to [facility] No
[2020-04-22] MEDS ORDERED: INSULIN (NOVOLOG) ASPART 100 UNITS/ML 10ML VIAL ONE ×2 (12:20→17:47)
[2020-04-22] MEDS ORDERED: oxyCODONE HCL 5 MG TABLET PO PRN (12:22)
--- NOTE | 2020-04-22 12:37 | PN ---
Progress Note (short form) - Note Progress Note: Pt seen and examined. He states that his right hand feels much better after the I&D in the ER. Today he has less pain, less swelling, less erythema, and better ROM. On IV antibiotics. AVSS PE RUE is NVI R hand with almost no swelling. No erythema. Almost no tenderness. Small healing area of previous recent I&D, no drainage. Excellent, painless ROM all fingers, thumb, wrist, forearm. Imp Previous abscess in hypothenar area right hand is much improved s/p I&D. Rec He does not need any other surgical intervention at this time. Elevate, maintain ROM, IV antibiotics. DC as per I&D.
[2020-04-22] MEDS: oxyCODONE HCL 5 MG TABLET PO PRN ×2 (16:21→22:22)
--- NOTE | 2020-04-22 17:32 | PN ---
Progress Note (short form) - Note Progress Note: year old male history of htn, dm, hld. Patient has left sided weakness with right frontal lobe stroke. Patient has neurologist [facility] and was being treated for spasm by baclofen. He came with generalized shaking and no loc, no tongue bite or incontnence. He has history f of depression, insomnia. Patient has mild left sided weakness from previous stroke. He had mri of brain and carotid ultrasound they were unremarkable. he also have cervical disc disease and was told taht left arm weakness from cervical disc disase Patient has no new neurological symptoms and he has bene taking gabapentin 900 mg p o tid -- he is feeling better, no new complain, waiting for covid testing . Chary was seen on ocotber 13 as well. NEUROLOGICAL EXAMINATION Alert oriented x 3, neck is supple vss eomi, pupil reactive no face asymmetry left sided mild weakness ct head , mri of brain and carotid ultrasound were wnl Assessment/Plan Generalized shaking, all four limb jerking, without loc, no tongue bite or incontinence. etiology unclear muscle spasm vs nonepileptic episode -- leg giving way, ? medication side effect, there i sno new neurological findings, and pateint was advice to go to rehab last time but he choosen to signed out AMa Plan-- waitng for placement to short term rehab. Thanking you so much Mike Mahoney MD
[2020-04-22] MEDS: LIDOCAINE PATCH REMOVAL MC SCH (22:21)
[2020-04-22] MEDS: DOCUSATE SODIUM 100 MG CAPSULE (FP) PO SCH (22:21)
[2020-04-22] MEDS: ATORVASTATIN CA 40 MG TABLET (FP) PO SCH (22:21)
[2020-04-23] MEDS: INSULIN SLIDING SCALE (NOVOLOG) 1 VIAL SQ SCH ×3 (06:49→17:53)
[2020-04-23] MEDS: INSULIN (LEVEMIR) 100 UNITS/ML UNITS SQ SCH ×2 (06:49→17:50)
[2020-04-23 08:44] LABS: BASO % 0.6 % (0-2.0); EOS % 1.7 % (0-4.5); HEMATOCRIT 33.1 % (35.4-49); HEMOGLOBIN 11.1 GM/dL (11.7-16.9); LYMPH % 22.1 % (8-40); MCH 29.6 pg (25.7-33.7); MCHC 33.5 g/dl (32.0-35.9); MEAN CELL VOLUME 88.1 fl (80-96); MEAN PLT VOLUME 8.9 fl (7.5-11.1); MONO % 6.7 % (3.8-10.2); NEUT % 68.9 % (42.8-82.8); PLATELET COUNT 173 K/MM3 (134-434); RBC 3.76 M/mm3 (4.00-5.60); RDW 14.3 % (11.9-15.9); WHITE BLOOD COUNT 11.7 K/mm3 (4.0-10.0)
[2020-04-23 09:11] LABS: ALBUMIN 2.6 g/dl (3.4-5.0); BILIRUBIN,TOTAL 0.4 mg/dL (0.2-1); BLOOD UREA NITROGEN 25.2 mg/dL (7-18); CALCIUM 8.9 mg/dL (8.5-10.1); CREATININE 1.3 mg/dL (0.55-1.3); MAGNESIUM 1.9 mg/dL (1.8-2.4)
[2020-04-23] MEDS ORDERED: PT OWN MED DRAWER 7, Y5N ONE (09:26)
--- NOTE | 2020-04-23 09:30 | PN ---
Progress Note, Physician History of Present Illness: shuttle hand looks much better no surgery from hand point of view - Current Medication List Current Medications: Active Medications Acetaminophen (Tylenol -) 650 mg PO Q6H PRN PRN Reason: PAIN LEVEL 1-5 Last Admin: 04/22/20 11:43 Dose: 650 mg Documented by: Amlodipine Besylate (Norvasc -) 5 mg PO DAILY [facility] Last Admin: 04/22/20 10:18 Dose: 5 mg Documented by: Aspirin (Asa -) 81 mg PO DAILY [facility] Last Admin: 04/22/20 10:19 Dose: 81 mg Documented by: Atorvastatin Calcium (Lipitor -) 40 mg PO [facility] Last Admin: 04/22/20 22:21 Dose: 40 mg Documented by: Buspirone HCl (Buspar -) 15 mg PO DAILY [facility] Last Admin: 04/22/20 10:19 Dose: 15 mg Documented by: Docusate Sodium (Colace -) 300 mg PO [facility] Last Admin: 04/22/20 22:21 Dose: Not Given Documented by: Doxycycline Hyclate (Vibramycin -) 100 mg PO BID@1000,1800 [facility] Stop: 05/04/20 17:59 Last Admin: 04/22/20 17:55 Dose: 100 mg Documented by: Enoxaparin Sodium (Lovenox -) 40 mg SQ DAILY [facility] Last Admin: 04/22/20 10:19 Dose: 40 mg Documented by: Hydrochlorothiazide (Hctz -) 12.5 mg PO DAILY [facility] Last Admin: 04/22/20 10:18 Dose: 12.5 mg Documented by: Insulin Aspart (Novolog Vial Sliding Scale -) 1 vial SQ [facility]; Protocol Last Admin: 04/23/20 06:49 Dose: Not Given Documented by: Insulin Detemir (Levemir Vial) 15 units SQ BIDI [facility] Last Admin: 04/23/20 06:49 Dose: 15 units Documented by: Lidocaine (Lidoderm Patch -) 1 patch TP DAILY [facility] Last Admin: 04/22/20 10:19 Dose: 1 patch Documented by: Lisinopril (Prinivil) 20 mg PO DAILY [facility] Last Admin: 04/22/20 10:19 Dose: 20 mg Documented by: Miscellaneous (Lidoderm Patch Removal) 1 each MC DAILY@2200 [facility] Last Admin: 04/22/20 22:21 Dose: 1 each Documented by: Nicotine (Nicoderm Patch -) 14 mg TD DAILY [facility] Last Admin: 04/22/20 10:18 Dose: 14 mg Documented by: Oxycodone HCl (Roxicodone -) 5 mg PO Q4H PRN PRN Reason: PAIN LEVEL 7 - 10 Last Admin: 04/22/20 22:22 Dose: 5 mg Documented by: Polyethylene Glycol (Miralax (For Daily Use) -) 17 gm PO BID [facility] Last Admin: 04/22/20 22:20 Dose: Not Given Documented by: Senna (Senna -) 1 tab PO BID [facility] Last Admin: 04/22/20 22:21 Dose: Not Given Documented by: - Objective Vital Signs: Vital Signs Temperature 98.4 F 04/23/20 06:00 Pulse Rate 77 04/23/20 06:00 Respiratory Rate 20 04/23/20 06:00 Blood Pressure 104/62 04/23/20 06:00 O2 Sat by Pulse Oximetry (%) 98 04/22/20 21:00 Constitutional: Yes: No Distress, Calm Cardiovascular: Yes: S1, S2 Respiratory: Yes: Regular, CTA Bilaterally Gastrointestinal: Yes: Normal Bowel Sounds, Soft Musculoskeletal: Yes: WNL Extremities: Yes: Other (hand abscess improving) Neurological: Yes: Alert, Oriented Psychiatric: Yes: Alert, Oriented Labs: CBC, BMP 04/23/20 08:10 04/23/20 08:10 Assessment/Plan Problem List - Problems (1) Cellulitis of hand, right Code(s): L03.113 - CELLULITIS OF RIGHT UPPER LIMB (2) Ischemic stroke Code(s): I63.9 - CEREBRAL INFARCTION, UNSPECIFIED (3) Leg weakness, bilateral Code(s): R29.898 - OT SYMPTOMS AND SIGNS INVOLVING THE MUSCULOSKELETAL SYSTEM (4) CAD (coronary artery disease) Code(s): I25.10 - ATHSCL HEART DISEASE OF [place] CORONARY ARTERY W/O ANG PCTRS (5) CVA (cerebral vascular accident) Code(s): I63.9 - CEREBRAL INFARCTION, UNSPECIFIED Qualifiers: CVA mechanism: other Qualified Code(s): I63.89 - Other cerebral infarction (6) Hyperglycemia Code(s): R73.9 - HYPERGLYCEMIA, UNSPECIFIED (7) Diabetes mellitus Code(s): E11.9 - TYPE 2 DIABETES MELLITUS WITHOUT COMPLICATIONS Qualifiers: Diabetes mellitus type: type 2 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
--- NOTE | 2020-04-23 09:30 | PN ---
Progress Note (short form) - Note Progress Note: Ortho Pt seen and examined. Right hand abscess continues to improve. Selected Entries 04/23/20 06:00 Temperature 98.4 F Pulse Rate 77 Respiratory 20 Rate Blood Pressure 104/62 Laboratory Tests 04/23/20 08:10 WBC 11.7 H Hgb 11.1 L Hct 33.1 L Plt Count 173 decr erythema and swelling, decr pain, incr rom nvi a/p Abx as per ID ROM exercises warm soaks elevation d/w Dr. Nichols
[2020-04-23] MEDS: ASPIRIN 81 MG CHEWABLE TABLETS PO SCH (09:41)
[2020-04-23] MEDS: ENOXAPARIN NA (PORCINE) 40 MG/0.4 ML DISP.SYRIN SQ SCH (09:41)
[2020-04-23] MEDS: HYDROCHLOROTHIAZIDE 12.5 MG CAPSULE (FP) PO SCH (09:41)
[2020-04-23] MEDS: LIDOCAINE 5% TOPICAL PATCH TP SCH (09:42)
[2020-04-23] MEDS: DOXYCYCLINE HYCLATE 100 MG CAPSULE PO SCH ×2 (09:42→18:09)
[2020-04-23] MEDS: amLODIPine BESYLATE 5 MG TABLET (FP) PO SCH (09:42)
[2020-04-23] MEDS: busPIRone HCL 5 MG TABLET PO SCH (09:42)
[2020-04-23] MEDS: NICOTINE 14 MG/24 HOURS TOPICAL PATCH TD SCH (09:42)
[2020-04-23] MEDS: LISINOPRIL 20 MG TABLET PO SCH (09:42)
[2020-04-23] MEDS: POLYETHYLENE GLYCOL 3350 119 GM BTL PO SCH (09:56)
[2020-04-23] MEDS: SENNOSIDES 8.6MG TABLET (FP) PO SCH (09:56)
[2020-04-23] MEDS ORDERED: INSULIN (NOVOLOG) ASPART 100 UNITS/ML 10ML VIAL ONE (11:45)
--- NOTE | 2020-04-23 12:12 | PN ---
Progress Note (short form) - Note Progress Note: 55 year old male history of htn, dm, hld. Patient has left sided weakness with right frontal lobe stroke. Patient has neurologist at [facility] and was being treated for spasm by baclofen. He came with generalized shaking and no loc, no tongue bite or incontnence. He has history f of depression, insomnia. Patient has mild left sided weakness from previous stroke. He had mri of brain and carotid ultrasound they were unremarkable. he also have cervical disc disease and was told taht left arm weakness from cervical disc disase Patient has no new neurological symptoms and he has bene taking gabapentin 900 mg p o tid -- he is feeling better, no new complain, waiting for covid testing . Chary was seen on ocotber 13 as well. NEUROLOGICAL EXAMINATION Alert oriented x 3, neck is supple vss eomi, pupil reactive no face asymmetry left sided mild weakness ct head , mri of brain and carotid ultrasound were wnl Assessment/Plan Generalized shaking, all four limb jerking, without loc, no tongue bite or incontinence. etiology unclear muscle spasm vs nonepileptic episode -- leg giving way, ? medication side effect, there i sno new neurological findings, gabapnetin was stopped. he is feeling better. Plan-- waitng for covid test results and [facility] Thanking you so much iMke Mahoney MD
--- NOTE | 2020-04-23 14:23 | DS ---
Physical Exam: SUBJECTIVE: Patient seen and examined. He is agreeable to rehab and accepting to go to [facility]. OBJECTIVE: Patient is a 55 year old male with history of ischemic stroke (2017; residual left upper and lower extremity weakness), hypertension, hyperlipidemia, diabetes mellitus II (insulin dependent), coronary artery disease (cardiac catheterization without stent placement 11/2019), presents to the ED on 04/16/2020 with complaint of lower extremity weakness s/p fall with right hand wound. Patient recently admitted last week for lower ext weakness and placement to rehab recommended after he ambulated only 20 feet. Patient refused rehab and signed out AMA. Patient has mild left sided weakness from previous stroke. On last admission, he had mri of brain and carotid ultrasound they were within normal limits. He also has cervical disc disease and was told that left arm weakness was from cervical disc disase Patient has no new neurological symptoms and he has been taking gabapentin 900 mg po tid. Gapapentin discontinued by neurologist as lower ext weakness can be caused by gapapentin side effect. Patient is covid 19 negative and will be discharged to rehab today. He reports he fell at home prior to admission and injured his right hand. There was a right hand wound with cellulitis noted on admission and is s/p I&D in the ED. Wound culture with +MRSA. He was started on Doxycycline and should continue doxy for 2 weeks. Seen by ortho and no further surgical interventions recommended at this time. Vital Signs Period Temp Pulse Resp BP Sys/Rudd Pulse Ox Last 24 Hr 98 F-98.4 F 68-77 20-20 95-104/50-62 98-98 PHYSICAL EXAM GENERAL: The patient is awake, alert, and fully oriented, in no acute distress. HEAD: Normal with no signs of trauma. EYES: PERRL, extraocular movements intact, sclera anicteric, conjunctiva clear. No ptosis. ENT: Ears normal, nares patent, oropharynx clear without exudates, moist mucous membranes. NECK: Trachea midline, full range of motion, supple. LUNGS: Breath sounds equal, clear to auscultation bilaterally HEART: Regular rate and rhythm ABDOMEN: Soft, nontender, nondistended, normoactive bowel sounds EXTREMITIES: right hand wound, + mild redness, no drainage but with + erythema, mild edema NEUROLOGICAL: Normal speech, gait not observed. PSYCH: Normal mood, normal affect. SKIN: Warm, dry, normal turgor, no rashes or lesions noted LABS Laboratory Results - last 24 hr 04/22/20 04/22/20 04/22/20 17:00 17:11 22:14 WBC RBC Hgb Hct MCV MCH MCHC RDW Plt Count MPV Absolute Neuts (auto) Neutrophils % Lymphocytes % Monocytes % Eosinophils % Basophils % Nucleated RBC % Sodium Potassium Chloride Carbon Dioxide Anion Gap BUN Creatinine Est GFR (CKD-EPI)AfAm Est GFR (CKD-EPI)NonAf POC Glucometer 162 191 Random Glucose Calcium Magnesium Total Bilirubin AST ALT Alkaline Phosphatase Total Protein Albumin COVID-19 ([place]ILA) Not detected 04/23/20 04/23/20 04/23/20 06:49 08:10 08:10 WBC 11.7 H RBC 3.76 L Hgb 11.1 L Hct 33.1 L MCV 88.1 MCH 29.6 MCHC 33.5 RDW 14.3 Plt Count 173 MPV 8.9 Absolute Neuts (auto) 8.1 H Neutrophils % 68.9 Lymphocytes % 22.1 Monocytes % 6.7 Eosinophils % 1.7 Basophils % 0.6 Nucleated RBC % 0 Sodium 134 L Potassium 4.0 Chloride 97 L Carbon Dioxide 31 Anion Gap 6 L BUN 25.2 H Creatinine 1.3 Est GFR (CKD-EPI)AfAm 72.20 Est GFR (CKD-EPI)NonAf 62.29 POC Glucometer 138 Random Glucose 116 H Calcium 8.9 Magnesium 1.9 Total Bilirubin 0.4 AST 15 ALT 14 Alkaline Phosphatase 63 Total Protein 6.0 L Albumin 2.6 L COVID-19 ([place]IL[place]) 04/23/20 11:43 WBC RBC Hgb Hct MCV MCH MCHC RDW Plt Count MPV Absolute Neuts (auto) Neutrophils % Lymphocytes % Monocytes % Eosinophils % Basophils % Nucleated RBC % Sodium Potassium Chloride Carbon Dioxide Anion Gap BUN Creatinine Est GFR (CKD-EPI)AfAm Est GFR (CKD-EPI)NonAf POC Glucometer 278 Random Glucose Calcium Magnesium Total Bilirubin AST ALT Alkaline Phosphatase Total Protein Albumin COVID-19 ([place]) HOSPITAL COURSE: Date of Admission:04/16/20 Date of Discharge: 04/23/20 Minutes to complete discharge: 60 Discharge Summary Problems reviewed: Yes Reason For Visit: WEAKNESS OF BOTH L EXTREMITIES,RECURRENT FALLS Current Active Problems COVID-19 ruled out (Acute) Cellulitis of hand, right (Acute) DVT prophylaxis (Acute) Fecal retention (Acute) HLD (hyperlipidemia) (Acute) Ischemic stroke (Acute) Leg weakness, bilateral (Acute) Multiple falls (Acute) Suspected COVID-19 virus infection (Acute) Vomiting (Acute) Condition: Improved - Instructions Diet, Activity, Other Instructions: DISCHARGE YOUR VISIT You came to the hospital because were having weakness and falls. Ypu were seen by the neurologist and your gapabentin was stopped and rehab was recommended. You had abdominal pain and vomited. An xray was done that showed fecal retention. Its important that you take the bowel regimine and drink fluids. You will be discharged to rehab today. MEDICATIONS Please continue to take your home medications as prescribed. Doxycycline 100mg TWICE DAILY for two weeks (04/20/2020 through 05/04/2020). WOUND CARE: RIGHT HAND EDEMA/CELLULITIS You had a incision and drainage of your right hand. You were seen by orthopedics who recommend elevation of your right hand above heart level. Continue Doxycycline for 2 weeks total - started on 04/20/2020. Please follow up with orthopedics by calling their office for a follow up appointment. You were found to have MRSA in this wound. Good hand washing is very important. DIET Continue your home diet ADDITIONAL CARE Please make an appointment to see your primary care provider, 1 week from today. ADDITIONAL INFORMATION Please call 911 or come directly to the emergency department if you experience unusual headache, vision change, shortness of breath, chest pain, numbness, tingling, loss of alertness/awareness, loss of function, unusual bleeding or any alarming symptoms. Thank you for allowing us to care for you. [facility] Referrals: Avery Nichols MD [Staff Physician] - Disposition: RESIDENTIAL FACILITY - Home Medications Comprehensive Discharge Medication List: Ambulatory Orders Atorvastatin Ca [Lipitor] 40 mg PO HS 01/17/17 Dulaglutide [Trulicity] 1.5 mg SQ WEEKLY 01/17/17 Aspirin [ASA -] 81 mg PO DAILY tab.chew 01/19/17 Zolpidem Tartrate [Ambien] 10 mg PO HS PRN 01/08/18 Metformin HCl [Glucophage] 1,000 mg PO BID 08/16/19 Amlodipine Besylate 5 mg PO DAILY 04/10/20 Buspirone HCl 15 mg PO DAILY 04/10/20 Cyclobenzaprine HCl 10 mg PO BID 04/10/20 Lisinopril/Hydrochlorothiazide [Lisinopril-Hctz 20-12.5 mg Tab] 1 each PO DAILY 04/10/20 Metoprolol Tartrate [Lopressor -] 25 mg PO BID 04/10/20 Acetaminophen [Tylenol .Regular Strength -] 650 mg PO Q6H PRN tablet 04/20/20 Docusate Sodium [Colace -] 300 mg PO HS capsule 04/20/20 Doxycycline Hyclate [Vibramycin -] 100 mg PO BID@1000,1800 capsule 04/20/20 Enoxaparin [Lovenox -] 40 mg SQ DAILY disp.syrin 04/20/20 Insulin (Levemir) [Levemir Vial] 15 units SQ BIDI units 04/20/20 Insulin Sliding Scale [Novolog Vial Sliding Scale -] 1 vial SQ ACHS units 04/20/20 Lidocaine 5% Patch [Lidoderm -] 1 patch TP DAILY patch 04/20/20 Nicotine Patch [Nicoderm Patch -] 14 mg TD DAILY patch 04/20/20 Polyethylene Glycol 3350 [Miralax 119 gm Btl -] 17 gm PO BID bottle 04/20/20 Sennosides [Senna -] 1 tab PO BID tablet 04/20/20 oxyCODONE HCL [Roxicodone -] 5 mg PO Q6H PRN tablet 04/20/20 Lactobacillus Acidophilus [Bacid -] 1 tab PO DAILY #0 tab 04/23/20 Problem List - Problems (1) Cellulitis of hand, right Code(s): L03.113 - CELLULITIS OF RIGHT UPPER LIMB (2) Fecal retention Code(s): K59.00 - CONSTIPATION, UNSPECIFIED (3) HLD (hyperlipidemia) Code(s): E78.5 - HYPERLIPIDEMIA, UNSPECIFIED (4) Ischemic stroke Code(s): I63.9 - CEREBRAL INFARCTION, UNSPECIFIED (5) Leg weakness, bilateral Code(s): R29.898 - OTH SYMPTOMS AND SIGNS INVOLVING THE MUSCULOSKELETAL SYSTEM (6) Multiple falls Code(s): R29.6 - REPEATED FALLS (7) EMANUEL (acute kidney injury) Code(s): N17.9 - ACUTE KIDNEY FAILURE, UNSPECIFIED (8) Cellulitis Code(s): L03.90 - CELLULITIS, UNSPECIFIED (9) Fall Code(s): W19.XXXA - UNSPECIFIED FALL, INITIAL ENCOUNTER Qualifiers: Encounter type: initial encounter Qualified Code(s): W19.XXXA - Unspecified fall, initial encounter (10) Nausea & vomiting Code(s): R11.2 - NAUSEA WITH VOMITING, UNSPECIFIED (11) DVT prophylaxis Code(s): Z29.9 - ENCOUNTER FOR PROPHYLACTIC MEASURES, UNSPECIFIED This patient is new to me today: No Emergency Visit: Yes ED Registration Date: 04/16/20 Care time: The patient presented to the Emergency Department on the above date and was hospitalized for further evaluation of their emergent condition. Critical Care patient: No - Discharge Referral Referred to [facility] No
[2020-04-23] MEDS ORDERED: LACTOBACILLUS ACIDOPHILUS 1 TABLET PO SCH (14:30)
[2020-04-23 14:59] VITALS: BP 99/45; PULSE 79; TEMP 98
[2020-04-23 15:25] VITALS: BMI 29.5
== END 2020-04-23 21:43 | DRG 92 ==
LOC: JER 06:43 → JERBED 08:38 → J8W 23:27
PROVIDERS: ATTEND Nurse Practitioner Family
PROC: 0X9J0ZX Drainage of Right Hand, Open Approach, Diagnostic (ICD-10-PCS; principal; 2020-04-16)
DX: R27.0 Ataxia, unspecified (principal); L03.113 Cellulitis of right upper limb; G81.94 Hemiplegia, unspecified affecting left nondominant side; N17.9 Acute kidney failure, unspecified; E78.5 Hyperlipidemia, unspecified; E11.40 Type 2 diabetes mellitus with diabetic neuropathy, unspecified; F17.210 Nicotine dependence, cigarettes, uncomplicated; T42.6X5A Adverse effect of other antiepileptic and sedative-hypnotic drugs, initial encounter; M54.12 Radiculopathy, cervical region; G89.29 Other chronic pain; I25.10 Atherosclerotic heart disease of native coronary artery without angina pectoris; I10 Essential (primary) hypertension; F41.9 Anxiety disorder, unspecified; K59.00 Constipation, unspecified; G47.00 Insomnia, unspecified; W18.39XA Other fall on same level, initial encounter; Y92.098 Other place in other non-institutional residence as the place of occurrence of the external cause; Z86.73 Personal history of transient ischemic attack (TIA), and cerebral infarction without residual deficits
CPT/HCPCS: 36415; 70450-TC; 73130-TC-RT-FY; 74019-TC-FY; 80048; 80053; 81003; 81015; 82550; 82553; 82962; 83735; 83880; 84100; 84443; 84484; 85025; 85027; 87070; 87186; 87205; 93005; 93010; 97116-GP; 97162-GP; 99285-25; C9803; U0003

== ENCOUNTER 2020-09-24 02:19 | Inpatient (IN) | payer OTHER ==
[2020-09-24 03:52] LABS: BASO % 0.7 % (0-2.0); EOS % 1.6 % (0-4.5); HEMOGLOBIN 13.1 GM/dL (11.7-16.9); LYMPH % 19.9 % (8-40); MCH 29.4 pg (25.7-33.7); MCHC 33.7 g/dl (32.0-35.9); MEAN CELL VOLUME 87.2 fl (80-96); MEAN PLT VOLUME 9.5 fl (7.5-11.1); MONO % 5.6 % (3.8-10.2); NEUT % 72.2 % (42.8-82.8); PLATELET COUNT 196 K/MM3 (134-434); RBC 4.47 M/mm3 (4.00-5.60); RDW 14.6 % (11.9-15.9); WHITE BLOOD COUNT 9.4 K/mm3 (4.0-10.0)
[2020-09-24 04:13] LABS: CALCIUM 8.7 mg/dL (8.5-10.1)
[2020-09-24 04:14] LABS: BLOOD UREA NITROGEN 9.5 mg/dL (7-18); MAGNESIUM 1.8 mg/dL (1.8-2.4)
[2020-09-24 04:19] LABS: BILIRUBIN,TOTAL 0.2 mg/dL (0.2-1); TOT PROT 6.3 g/dl (6.4-8.2)
[2020-09-24 04:21] LABS: INR 0.96 (0.83-1.09); PROTHROMBIN TIME (PATIENT) 11.8 SEC (9.7-13.0)
[2020-09-24 04:23] LABS: ACTIVATED PTT 27.7 SECONDS (25.2-36.5)
[2020-09-24] MEDS ORDERED: ASPIRIN 81 MG CHEWABLE TABLETS PO ONE (05:06)
[2020-09-24] MEDS ORDERED: ASPIRIN 81 MG CHEWABLE TABLETS ONE (10:59)
[2020-09-24] MEDS ORDERED: METOPROLOL TARTRATE 25 MG TABLET (FP) ONE (10:59)
[2020-09-24] MEDS ORDERED: ENOXAPARIN NA (PORCINE) 40 MG/0.4 ML DISP.SYRIN SQ ONE (11:00)
[2020-09-24] MEDS: METOPROLOL TARTRATE 25 MG TABLET (FP) PO SCH ×2 (11:15→21:12)
[2020-09-24] MEDS: ASPIRIN 81 MG CHEWABLE TABLETS PO SCH (11:15)
[2020-09-24] MEDS: ENOXAPARIN NA (PORCINE) 40 MG/0.4 ML DISP.SYRIN SQ SCH (11:35)
[2020-09-24] MEDS: NICOTINE 14 MG/24 HOURS TOPICAL PATCH TD SCH (11:43)
[2020-09-24] MEDS ORDERED: oxyCODONE HCL 5 MG TABLET ONE (11:45)
[2020-09-24] MEDS: oxyCODONE HCL 5 MG TABLET PO PRN ×2 (11:49→16:55)
[2020-09-24] MEDS ORDERED: FUROSEMIDE 40 MG/4 ML INJECTABLE VIAL IVPUSH ONE (16:10)
[2020-09-24] MEDS ORDERED: FLU VACCINE (FLULAVAL) PF 60 MCG/0.5 ML SYRINGE 2020-2021 IM ONE (17:00)
[2020-09-24] MEDS: guaiFENesin/D-M SUGAR-FREE/ACLHOL-FREE 118 ML BOTTLE PO PRN ×2 (17:21→21:14)
[2020-09-24] MEDS: ALBUTEROL SO4 2.5/IPRATROPIUM 0.5 INH SOL 3 ML VIAL.NEB. NEB SCH (20:00)
[2020-09-24] MEDS: ATORVASTATIN CA 80 MG TABLET (FP) PO SCH (21:12)
[2020-09-24] MEDS: INSULIN SLIDING SCALE (NOVOLOG) 1 VIAL SQ SCH (21:13)
[2020-09-25] MEDS: ALBUTEROL SO4 2.5/IPRATROPIUM 0.5 INH SOL 3 ML VIAL.NEB. NEB SCH ×6 (00:35→20:10)
[2020-09-25] MEDS: INSULIN SLIDING SCALE (NOVOLOG) 1 VIAL SQ SCH ×4 (06:32→21:51)
[2020-09-25 06:36] LABS: BASO % 1.2 % (0-2.0); EOS % 1.6 % (0-4.5); HEMATOCRIT 37.7 % (35.4-49); HEMOGLOBIN 12.9 GM/dL (11.7-16.9); LYMPH % 26.1 % (8-40); MCH 29.6 pg (25.7-33.7); MCHC 34.3 g/dl (32.0-35.9); MEAN CELL VOLUME 86.4 fl (80-96); MEAN PLT VOLUME 9.2 fl (7.5-11.1); MONO % 5.8 % (3.8-10.2); NEUT % 65.3 % (42.8-82.8); PLATELET COUNT 196 K/MM3 (134-434); RBC 4.36 M/mm3 (4.00-5.60); RDW 14.6 % (11.9-15.9); WHITE BLOOD COUNT 10.7 K/mm3 (4.0-10.0)
[2020-09-25 07:18] LABS: ALBUMIN 2.7 g/dl (3.4-5.0); BLOOD UREA NITROGEN 16.1 mg/dL (7-18); CALCIUM 8.6 mg/dL (8.5-10.1); MAGNESIUM 1.7 mg/dL (1.8-2.4)
[2020-09-25 07:21] LABS: PHOSPHOROUS 4.1 mg/dL (2.5-4.9)
[2020-09-25 07:22] LABS: BILIRUBIN,TOTAL 0.3 mg/dL (0.2-1); TOT PROT 5.8 g/dl (6.4-8.2)
[2020-09-25] MEDS ORDERED: PT OWN MED DRAWER 7, Y5N ONE ×2 (09:24→11:37)
[2020-09-25] MEDS: ENOXAPARIN NA (PORCINE) 40 MG/0.4 ML DISP.SYRIN SQ SCH (09:32)
[2020-09-25] MEDS: NICOTINE 14 MG/24 HOURS TOPICAL PATCH TD SCH (09:32)
[2020-09-25] MEDS: oxyCODONE HCL 5 MG TABLET PO PRN (09:33)
[2020-09-25] MEDS: amLODIPine BESYLATE 5 MG TABLET (FP) PO SCH (09:33)
[2020-09-25] MEDS: HYDROCHLOROTHIAZIDE 12.5 MG CAPSULE (FP) PO SCH (09:33)
[2020-09-25] MEDS: METOPROLOL TARTRATE 25 MG TABLET (FP) PO SCH ×2 (09:33→21:46)
[2020-09-25] MEDS: ASPIRIN 81 MG CHEWABLE TABLETS PO SCH (09:35)
[2020-09-25] MEDS: LISINOPRIL 20 MG TABLET PO SCH (09:35)
[2020-09-25] MEDS ORDERED: PATIENT'S OWN MEDICATION (NON-FORMULARY) (Lisinopril/Hydrochlorothiazide [Lisinopril-Hctz PO SCH (10:00)
[2020-09-25] MEDS: guaiFENesin/D-M SUGAR-FREE/ACLHOL-FREE 118 ML BOTTLE PO PRN (11:40)
[2020-09-25] MEDS: predniSONE 20 MG TABLET (UD) PO SCH (14:22)
[2020-09-25] MEDS: ATORVASTATIN CA 80 MG TABLET (FP) PO SCH (21:46)
[2020-09-25] MEDS: INSULIN (LEVEMIR) 100 UNITS/ML UNITS SQ SCH (21:50)
[2020-09-25] MEDS ORDERED: INSULIN (LEVEMIR) 100 UNITS/ML UNITS SQ SCH (22:00)
[2020-09-25] MEDS ORDERED: ZOLPIDEM TARTRATE 5 MG TABLET PO ONE (22:17)
[2020-09-25] MEDS ORDERED: ACETAMINOPHEN 500 MG TABLET (FP) PO ONE (22:18)
[2020-09-26] MEDS ORDERED: PT OWN MED DRAWER 7, Y5N ONE ×4 (02:45→23:12)
[2020-09-26] MEDS: guaiFENesin/D-M SUGAR-FREE/ACLHOL-FREE 118 ML BOTTLE PO PRN ×3 (02:46→21:30)
[2020-09-26] MEDS: ALBUTEROL SO4 2.5/IPRATROPIUM 0.5 INH SOL 3 ML VIAL.NEB. NEB SCH ×6 (04:00→20:21)
[2020-09-26] MEDS: INSULIN (LEVEMIR) 100 UNITS/ML UNITS SQ SCH ×2 (06:30→21:30)
[2020-09-26] MEDS: INSULIN SLIDING SCALE (NOVOLOG) 1 VIAL SQ SCH ×4 (06:30→21:33)
[2020-09-26 08:12] LABS: HEMATOCRIT 36.9 % (35.4-49); HEMOGLOBIN 12.5 GM/dL (11.7-16.9); MCH 29.3 pg (25.7-33.7); MCHC 33.8 g/dl (32.0-35.9); MEAN CELL VOLUME 86.6 fl (80-96); MEAN PLT VOLUME 9.9 fl (7.5-11.1); PLATELET COUNT 217 K/MM3 (134-434); RBC 4.26 M/mm3 (4.00-5.60); RDW 14.3 % (11.9-15.9); WHITE BLOOD COUNT 15.4 K/mm3 (4.0-10.0)
[2020-09-26 08:32] LABS: BLOOD UREA NITROGEN 22.6 mg/dL (7-18); CALCIUM 9.2 mg/dL (8.5-10.1)
[2020-09-26 08:35] LABS: CREATININE 1.3 mg/dL (0.55-1.3)
[2020-09-26] MEDS: LISINOPRIL 20 MG TABLET PO SCH (10:32)
[2020-09-26] MEDS: HYDROCHLOROTHIAZIDE 12.5 MG CAPSULE (FP) PO SCH (10:32)
[2020-09-26] MEDS: ASPIRIN 81 MG CHEWABLE TABLETS PO SCH (10:32)
[2020-09-26] MEDS: amLODIPine BESYLATE 5 MG TABLET (FP) PO SCH (10:32)
[2020-09-26] MEDS: predniSONE 20 MG TABLET (UD) PO SCH (10:33)
[2020-09-26] MEDS: NICOTINE 14 MG/24 HOURS TOPICAL PATCH TD SCH (10:33)
[2020-09-26] MEDS: ENOXAPARIN NA (PORCINE) 40 MG/0.4 ML DISP.SYRIN SQ SCH (10:33)
[2020-09-26] MEDS: METOPROLOL TARTRATE 25 MG TABLET (FP) PO SCH ×2 (10:33→21:33)
[2020-09-26] MEDS: AMOX TR/POT CLAV 875MG/125MG TABLETS (FP) PO SCH ×2 (12:52→16:39)
[2020-09-26] MEDS: Insulin (LOG) Aspart 100 UNITS/ML VIAL SQ SCH ×2 (12:53→16:38)
[2020-09-26 16:44] LABS: PARV B19 IGG 0.1 index (0.0-0.8); PARV B19 IGM 0.2 index (0.0-0.8)
[2020-09-26] MEDS: ATORVASTATIN CA 80 MG TABLET (FP) PO SCH (21:34)
[2020-09-26] MEDS ORDERED: ZOLPIDEM TARTRATE 5 MG TABLET PO ONE (22:21)
[2020-09-27] MEDS: ALBUTEROL SO4 2.5/IPRATROPIUM 0.5 INH SOL 3 ML VIAL.NEB. NEB SCH ×6 (00:13→20:30)
[2020-09-27] MEDS ORDERED: PT OWN MED DRAWER 7, Y5N ONE (03:07)
[2020-09-27] MEDS: guaiFENesin/D-M SUGAR-FREE/ACLHOL-FREE 118 ML BOTTLE PO PRN ×2 (03:08→10:01)
[2020-09-27] MEDS: Insulin (LOG) Aspart 100 UNITS/ML VIAL SQ SCH ×3 (06:34→16:41)
[2020-09-27] MEDS: INSULIN SLIDING SCALE (NOVOLOG) 1 VIAL SQ SCH ×4 (06:34→21:48)
[2020-09-27] MEDS: AMOX TR/POT CLAV 875MG/125MG TABLETS (FP) PO SCH ×2 (08:25→16:41)
[2020-09-27] MEDS: LISINOPRIL 20 MG TABLET PO SCH (09:52)
[2020-09-27] MEDS: METOPROLOL TARTRATE 25 MG TABLET (FP) PO SCH ×2 (09:52→21:44)
[2020-09-27] MEDS: amLODIPine BESYLATE 5 MG TABLET (FP) PO SCH (09:52)
[2020-09-27] MEDS: HYDROCHLOROTHIAZIDE 12.5 MG CAPSULE (FP) PO SCH (09:52)
[2020-09-27] MEDS: ASPIRIN 81 MG CHEWABLE TABLETS PO SCH (09:52)
[2020-09-27] MEDS: predniSONE 20 MG TABLET (UD) PO SCH (09:52)
[2020-09-27] MEDS: NICOTINE 14 MG/24 HOURS TOPICAL PATCH TD SCH (09:53)
[2020-09-27] MEDS: ENOXAPARIN NA (PORCINE) 40 MG/0.4 ML DISP.SYRIN SQ SCH (09:53)
[2020-09-27] MEDS: INSULIN (LEVEMIR) 100 UNITS/ML UNITS SQ SCH ×2 (09:54→21:45)
[2020-09-27] MEDS ORDERED: guaiFENesin/CODEINE 10 ML UNIT-DOSE CUPS PO PRN (13:16)
[2020-09-27] MEDS ORDERED: ACETAMINOPHEN 325 MG TABLET (FP) PO PRN (13:19)
[2020-09-27] MEDS ORDERED: ZOLPIDEM TARTRATE 5 MG TABLET PO PRN (13:19)
[2020-09-27] MEDS: ATORVASTATIN CA 80 MG TABLET (FP) PO SCH (21:44)
[2020-09-28] MEDS: ALBUTEROL SO4 2.5/IPRATROPIUM 0.5 INH SOL 3 ML VIAL.NEB. NEB SCH ×3 (00:45→08:17)
[2020-09-28] MEDS: INSULIN SLIDING SCALE (NOVOLOG) 1 VIAL SQ SCH ×2 (06:05→11:58)
[2020-09-28] MEDS: Insulin (LOG) Aspart 100 UNITS/ML VIAL SQ SCH ×2 (06:06→11:56)
[2020-09-28] MEDS: NICOTINE 14 MG/24 HOURS TOPICAL PATCH TD SCH (09:03)
[2020-09-28] MEDS: amLODIPine BESYLATE 5 MG TABLET (FP) PO SCH (09:03)
[2020-09-28] MEDS: predniSONE 20 MG TABLET (UD) PO SCH (09:04)
[2020-09-28] MEDS: HYDROCHLOROTHIAZIDE 12.5 MG CAPSULE (FP) PO SCH (09:04)
[2020-09-28] MEDS: LISINOPRIL 20 MG TABLET PO SCH (09:04)
[2020-09-28] MEDS: METOPROLOL TARTRATE 25 MG TABLET (FP) PO SCH (09:04)
[2020-09-28] MEDS: AMOX TR/POT CLAV 875MG/125MG TABLETS (FP) PO SCH (09:04)
[2020-09-28] MEDS: ASPIRIN 81 MG CHEWABLE TABLETS PO SCH (09:04)
[2020-09-28] MEDS: ENOXAPARIN NA (PORCINE) 40 MG/0.4 ML DISP.SYRIN SQ SCH (09:04)
[2020-09-28] MEDS: INSULIN (LEVEMIR) 100 UNITS/ML UNITS SQ SCH (09:05)
[2020-09-28 12:07] LABS: COXSACKIE A16 IGM Negative titer (Neg:<1:10); COXSACKIE A24 IGM Negative titer (Neg:<1:10); COXSACKIE A7 IGM Negative titer (Neg:<1:10); COXSACKIE A9 IGM Negative titer (Neg:<1:10)
[2020-09-28 13:51] VITALS: BP 126/88; PULSE 73; TEMP 97.9
[2020-09-29 23:06] LABS: ADENOVIRUS AB.. Negative (Neg:<1:8)
== END 2020-09-28 14:45 | disposition home or self-care (01) | DRG 190 ==
LOC: JER 02:19 → JERBED 07:41 → J4S 15:18
PROVIDERS: ADMIT Internal Medicine; ATTEND Internal Medicine
DX: J44.0 Chronic obstructive pulmonary disease with (acute) lower respiratory infection (principal); I50.33 Acute on chronic diastolic (congestive) heart failure; I69.354 Hemiplegia and hemiparesis following cerebral infarction affecting left non-dominant side; I24.8 Other forms of acute ischemic heart disease; J44.1 Chronic obstructive pulmonary disease with (acute) exacerbation; E78.5 Hyperlipidemia, unspecified; I10 Essential (primary) hypertension; J20.9 Acute bronchitis, unspecified; E11.9 Type 2 diabetes mellitus without complications; I25.2 Old myocardial infarction; E11.40 Type 2 diabetes mellitus with diabetic neuropathy, unspecified; I25.10 Atherosclerotic heart disease of native coronary artery without angina pectoris; I27.20 Pulmonary hypertension, unspecified; E66.9 Obesity, unspecified; Z68.30 Body mass index [BMI] 30.0-30.9, adult; F41.8 Other specified anxiety disorders; R00.0 Tachycardia, unspecified; Z95.5 Presence of coronary angioplasty implant and graft; I11.0 Hypertensive heart disease with heart failure; F17.210 Nicotine dependence, cigarettes, uncomplicated; E11.65 Type 2 diabetes mellitus with hyperglycemia; K80.80 Other cholelithiasis without obstruction; F31.9 Bipolar disorder, unspecified; G40.909 Epilepsy, unspecified, not intractable, without status epilepticus
CPT/HCPCS: 36415; 71045-TC-FY; 71275-TC; 80048; 80053; 80061; 82550; 82553; 82962; 83036; 83721; 83735; 83880; 84100; 84443; 84484; 85025; 85027; 85610; 85730; 86603; 86658; 86747; 87799; 87804; 93005; 93010; 93306-TC; 94640; 99285-25; C9803; G0008; Q2036; Q9967; U0003

== ENCOUNTER 2020-11-25 20:37 | Emergency (ER) | payer OTHER ==
[2020-11-25 21:05] VITALS: BP 179/80; PULSE 89; TEMP 97.1
== END 2020-11-25 22:22 | disposition home or self-care (01) ==
LOC: JERFT 20:37 → JER 20:37 → JERFT 22:22
DX: S01.81XA Laceration without foreign body of other part of head, initial encounter (principal); S09.90XA Unspecified injury of head, initial encounter
CPT/HCPCS: 70150-TC-FY; 99283-25

== ENCOUNTER 2020-12-02 13:43 | Emergency (ER) | payer OTHER ==
[2020-12-02 14:12] VITALS: BP 140/92; PULSE 93; TEMP 98.5; BMI 29.2
== END 2020-12-02 15:13 | disposition home or self-care (01) ==
LOC: JERFT 13:43 → JER 13:43 → JERFT 15:13
DX: S63.690A Other sprain of right index finger, initial encounter (principal)
CPT/HCPCS: 73140-TC-RT-FY; 99283-25

== ENCOUNTER 2021-01-15 04:52 | Emergency (ER) | payer OTHER ==
[2021-01-15 05:27] VITALS: BMI 27.4
[2021-01-15] MEDS ORDERED: ACETAMINOPHEN 325 MG TABLET (FP) PO ONE (06:00)
[2021-01-15] MEDS ORDERED: ACETAMINOPHEN 325 MG TABLET (FP) ONE (06:06)
[2021-01-15 09:05] VITALS: BP 116/57; PULSE 78; TEMP 98.3
== END 2021-01-15 09:35 | disposition home or self-care (01) ==
LOC: JER 04:52
DX: M54.6 Pain in thoracic spine (principal)
CPT/HCPCS: 70450-TC; 70486-TC; 71045-TC-FY; 72125-TC; 99285-25

== ENCOUNTER 2021-02-12 00:26 | Emergency (ER) | payer OTHER ==
[2021-02-12 01:34] VITALS: BP 158/91; PULSE 82; TEMP 98.7; BMI 29.2
[2021-02-12] MEDS ORDERED: IBUPROFEN 400 MG TABLET (FP) PO ONE ×2 (04:20→04:29)
[2021-02-12] MEDS ORDERED: CYCLOBENZAPRINE HCL 10 MG TABLET (FP) ONE (04:29)
[2021-02-12] MEDS ORDERED: CYCLOBENZAPRINE HCL 5 MG TABLET PO ONE (04:50)
[2021-02-12] MEDS ORDERED: CYCLOBENZAPRINE HCL 5 MG TABLET PO SCH (10:00)
== END 2021-02-12 06:19 | disposition left against medical advice (07) ==
LOC: JER 00:26
DX: M54.5 Low back pain (principal); V49.50XA Passenger injured in collision with unspecified motor vehicles in traffic accident, initial encounter
CPT/HCPCS: 99283-25

== ENCOUNTER 2021-05-24 14:20 | Inpatient (IN) | payer OTHER ==
[2021-05-24] MEDS ORDERED: PIPERACILLIN/TAZOB 4.5 GM 4.5 GM in DEXTROSE 5%-WATER 100 ML IVPB ONE (15:45)
[2021-05-24 16:44] LABS: BASO % 0.6 % (0-2.0); HEMATOCRIT 38.2 % (35.4-49); HEMOGLOBIN 13.6 GM/dL (11.7-16.9); LYMPH % 14.5 % (8-40); MCH 30.9 pg (25.7-33.7); MCHC 35.5 g/dl (32.0-35.9); MEAN PLT VOLUME 9.5 fl (7.5-11.1); NEUT % 78.9 % (42.8-82.8); PLATELET COUNT 181 10^3/uL (134-434); RBC 4.39 M/mm3 (4.00-5.60); RDW 14.4 % (11.9-15.9); WHITE BLOOD COUNT 11.2 K/mm3 (4.0-10.0)
[2021-05-24 17:07] LABS: CHLORIDE 92 mmol/L (98-107); SODIUM 128 mmol/L (136-145)
[2021-05-24 17:08] LABS: CALCIUM 9.1 mg/dL (8.5-10.1)
[2021-05-24 17:09] LABS: ALBUMIN 3.4 g/dl (3.4-5.0); ANION GAP 8 MMOL/L (8-16); BLOOD UREA NITROGEN 17.6 mg/dL (7-18); CO2 28 mmol/L (21-32)
[2021-05-24 17:12] LABS: CREATININE 1.4 mg/dL (0.55-1.3); SGOT/AST 17 U/L (15-37); SGPT/ALT 31 U/L (13-61)
[2021-05-24 17:13] LABS: BILIRUBIN,TOTAL 0.4 mg/dL (0.2-1)
[2021-05-24 17:14] LABS: TOT PROT 6.8 g/dl (6.4-8.2)
[2021-05-24] MEDS ORDERED: VANCOMYCIN 1 GM in D5W (PRE-DOCKED) 1,000 MG/250 ML IVPB ONE (17:14)
[2021-05-24 17:15] LABS: ALK PHOS 105 U/L (45-117)
[2021-05-24 17:17] LABS: GLUCOSE,RANDOM 452 mg/dL (74-106)
[2021-05-24] MEDS ORDERED: SODIUM CHLORIDE 1,000 ML IV STA (17:20)
[2021-05-24] MEDS ORDERED: INSULIN REGULAR HUMAN 100 UNITS/ML *VIAL IVPUSH ONE (17:20)
[2021-05-24] MEDS ORDERED: SODIUM CHLORIDE 1,000 ML IV SCH (17:45)
[2021-05-24] MEDS ORDERED: DIPHTH,PERTUSS(ACELL),TET 0.5 ML DISP.SYRIN IM ONE ×3 (18:16→19:44)
[2021-05-24] MEDS ORDERED: VANCOMYCIN 1 GRAM (PRE-DOCKED) 1,000 MG/250 ML BAG IVPB ONE (18:38)
[2021-05-24] MEDS ORDERED: PIPERACILLIN/TAZOB 4.5 GM 4.5 GM/100 ML BAG IVPB ONE (18:38)
[2021-05-24] MEDS ORDERED: CLINDAMYCIN 600MG PREMIX IVPB 600 MG/50 ML BAG IVPB ONE (18:38)
[2021-05-24] MEDS ORDERED: INSULIN REGULAR HUMAN 100 UNITS/ML *VIAL ONE (18:50)
[2021-05-24] MEDS: CLINDAMYCIN 600MG PREMIX IVPB 600 MG/50 ML BAG IVPB SCH (19:39)
[2021-05-24] MEDS ORDERED: MIDAZOLAM HCL 5 MG/1 ML Single Dose Vial ONE (20:31)
[2021-05-24 20:48] LABS: EPI CELLS 1 /uL (0-25.1); HYALINE CASTS 0 /uL (0-3.1); PH,URINE 5.5 (5.0-8.0); URINE APPEARANCE CLEAR; URINE BACTERIA 0 /uL (0-1359); URINE BILIRUBIN NEGATIVE (NEGATIVE); URINE COLOR YELLOW; URINE GLUCOSE (UA) 3+ (NEGATIVE); URINE KETONE NEGATIVE (NEGATIVE); URINE LEUK ESTERASE NEGATIVE (NEGATIVE); URINE NITRITE NEGATIVE (NEGATIVE); URINE PROTEIN 2+ (NEGATIVE); URINE RBC 9 /uL (0-23.9); URINE UROBILINOGEN 0.2 mg/dL (0.2-1.0); URINE WBC 1 /uL (0-25.8)
[2021-05-24] MEDS ORDERED: INSULIN (LEVEMIR) 100 UNITS/ML UNITS SQ ONE (21:24)
[2021-05-24] MEDS ORDERED: INSULIN SLIDING SCALE (NOVOLOG) 1 VIAL SQ ONE (21:24)
[2021-05-24] MEDS: INSULIN (LEVEMIR) 100 UNITS/ML UNITS SQ SCH (22:16)
[2021-05-24] MEDS: INSULIN SLIDING SCALE (NOVOLOG) 1 VIAL SQ SCH (22:16)
[2021-05-25] MEDS ORDERED: MELATONIN 5 MG TABLETS PO ONE (00:41)
[2021-05-25] MEDS ORDERED: MELATONIN 5 MG TABLETS ONE (00:46)
[2021-05-25] MEDS: ACETAMINOPHEN 500 MG TABLET (FP) PO PRN (00:53)
[2021-05-25] MEDS ORDERED: CLINDAMYCIN 600MG PREMIX IVPB 600 MG/50 ML BAG IVPB ONE (02:26)
[2021-05-25] MEDS: CLINDAMYCIN 600MG PREMIX IVPB 600 MG/50 ML BAG IVPB SCH ×3 (02:30→17:12)
[2021-05-25] MEDS: INSULIN SLIDING SCALE (NOVOLOG) 1 VIAL SQ SCH ×4 (07:13→21:21)
[2021-05-25 09:22] LABS: HEMATOCRIT 34.6 % (35.4-49); HEMOGLOBIN 12.1 GM/dL (11.7-16.9); MCH 30.5 pg (25.7-33.7); MEAN CELL VOLUME 86.9 fl (80-96); MEAN PLT VOLUME 9.7 fl (7.5-11.1); PLATELET COUNT 150 10^3/uL (134-434); RBC 3.98 M/mm3 (4.00-5.60); RDW 14.2 % (11.9-15.9)
[2021-05-25] MEDS: LACTOBACILLUS ACIDOPHILUS 1 TABLET PO SCH (09:49)
[2021-05-25] MEDS: NICOTINE 14 MG/24 HOURS TOPICAL PATCH TD SCH (09:49)
[2021-05-25 10:33] LABS: CHOLESTEROL 239 mg/dL (50-200)
[2021-05-25 10:34] LABS: LDL CHOLESTEROL (ONLY SJRH) 152 mg/dL (5-100)
[2021-05-25 11:07] LABS: CALCIUM 8.6 mg/dL (8.5-10.1)
[2021-05-25 11:08] LABS: BLOOD UREA NITROGEN 16.5 mg/dL (7-18)
[2021-05-25 11:11] LABS: CREATININE 1.1 mg/dL (0.55-1.3)
[2021-05-25 11:15] LABS: HDL CHOLESTEROL 42 mg/dL (40-60)
[2021-05-25] MEDS: INSULIN (LEVEMIR) 100 UNITS/ML UNITS SQ SCH ×2 (11:32→21:18)
[2021-05-25 12:06] LABS: TRIGLYCERIDES 215 mg/dL (0-150)
[2021-05-25] MEDS ORDERED: PIPERACILLIN/TAZOBACTAM 3.375 GM VIAL IVPB ONE ×2 (13:29→16:51)
[2021-05-25] MEDS ORDERED: DEXTROSE 5%-WATER - 50 ML IVPB ONE ×2 (13:29→16:51)
[2021-05-25] MEDS: PIPERACILLIN/TAZOB 3.375 GM 3.375 GM in DEXTROSE 5%-WATER - 50 ML IVPB SCH ×2 (13:57→18:01)
[2021-05-25] MEDS: VANCOMYCIN 1 GRAM (PRE-DOCKED) 1,000 MG/250 ML BAG IVPB SCH (14:39)
[2021-05-26] MEDS ORDERED: PIPERACILLIN/TAZOBACTAM 3.375 GM VIAL IVPB ONE ×3 (01:33→16:07)
[2021-05-26] MEDS ORDERED: DEXTROSE 5%-WATER - 50 ML IVPB ONE ×3 (01:33→16:07)
[2021-05-26] MEDS: CLINDAMYCIN 600MG PREMIX IVPB 600 MG/50 ML BAG IVPB SCH (01:35)
[2021-05-26] MEDS: VANCOMYCIN 1 GRAM (PRE-DOCKED) 1,000 MG/250 ML BAG IVPB SCH ×2 (02:10→13:53)
[2021-05-26] MEDS: PIPERACILLIN/TAZOB 3.375 GM 3.375 GM in DEXTROSE 5%-WATER - 50 ML IVPB SCH ×3 (03:21→17:19)
[2021-05-26] MEDS: INSULIN SLIDING SCALE (NOVOLOG) 1 VIAL SQ SCH ×4 (06:02→21:31)
[2021-05-26] MEDS: LACTOBACILLUS ACIDOPHILUS 1 TABLET PO SCH (09:21)
[2021-05-26] MEDS: INSULIN (LEVEMIR) 100 UNITS/ML UNITS SQ SCH ×2 (09:21→21:30)
[2021-05-26] MEDS: NICOTINE 14 MG/24 HOURS TOPICAL PATCH TD SCH (09:22)
[2021-05-26] MEDS ORDERED: ACETAMINOPHEN 325 MG TABLET (FP) PO PRN (09:43)
[2021-05-26] MEDS: oxyCODONE HCL 5 MG TABLET PO PRN ×2 (10:21→21:31)
[2021-05-26] MEDS: BACITRACIN 15 GM TUBE TOPICAL OINTMENT TP SCH (16:10)
[2021-05-26] MEDS: ASPIRIN COATED 81 MG TABLET.EC PO SCH (16:11)
[2021-05-26] MEDS: ATORVASTATIN CA 80 MG TABLET (FP) PO SCH (21:31)
[2021-05-27] MEDS ORDERED: PIPERACILLIN/TAZOBACTAM 3.375 GM VIAL IVPB ONE ×3 (01:36→16:53)
[2021-05-27] MEDS ORDERED: DEXTROSE 5%-WATER - 50 ML IVPB ONE ×3 (01:37→16:53)
[2021-05-27] MEDS: PIPERACILLIN/TAZOB 3.375 GM 3.375 GM in DEXTROSE 5%-WATER - 50 ML IVPB SCH ×3 (01:42→17:53)
[2021-05-27] MEDS: VANCOMYCIN 1 GRAM (PRE-DOCKED) 1,000 MG/250 ML BAG IVPB SCH ×2 (02:27→12:35)
[2021-05-27] MEDS: INSULIN SLIDING SCALE (NOVOLOG) 1 VIAL SQ SCH ×4 (06:28→21:03)
[2021-05-27] MEDS ORDERED: INSULIN (NOVOLOG) ASPART 100 UNITS/ML 10ML VIAL ONE (09:16)
[2021-05-27] MEDS: NICOTINE 14 MG/24 HOURS TOPICAL PATCH TD SCH (09:54)
[2021-05-27] MEDS: LACTOBACILLUS ACIDOPHILUS 1 TABLET PO SCH (09:54)
[2021-05-27] MEDS: INSULIN (LEVEMIR) 100 UNITS/ML UNITS SQ SCH ×2 (09:54→21:03)
[2021-05-27] MEDS: ASPIRIN COATED 81 MG TABLET.EC PO SCH (09:54)
[2021-05-27] MEDS: oxyCODONE HCL 5 MG TABLET PO PRN ×2 (09:55→23:56)
[2021-05-27] MEDS: BACITRACIN 15 GM TUBE TOPICAL OINTMENT TP SCH (09:55)
[2021-05-27] MEDS: ACETAMINOPHEN 500 MG TABLET (FP) PO PRN (17:54)
[2021-05-27 20:20] LABS: N-TERMINAL BNP 218.9 pg/ml (5-125)
[2021-05-27] MEDS: ATORVASTATIN CA 80 MG TABLET (FP) PO SCH (21:04)
[2021-05-28] MEDS ORDERED: PIPERACILLIN/TAZOBACTAM 3.375 GM VIAL IVPB ONE (01:12)
[2021-05-28] MEDS ORDERED: DEXTROSE 5%-WATER - 50 ML IVPB ONE (01:12)
[2021-05-28] MEDS: PIPERACILLIN/TAZOB 3.375 GM 3.375 GM in DEXTROSE 5%-WATER - 50 ML IVPB SCH (01:15)
[2021-05-28] MEDS: VANCOMYCIN 1 GRAM (PRE-DOCKED) 1,000 MG/250 ML BAG IVPB SCH ×2 (01:56→13:41)
[2021-05-28] MEDS: INSULIN SLIDING SCALE (NOVOLOG) 1 VIAL SQ SCH ×4 (06:14→21:59)
[2021-05-28] MEDS ORDERED: PT OWN MED DRAWER 7, Y5N ONE (06:21)
[2021-05-28] MEDS: ASPIRIN COATED 81 MG TABLET.EC PO SCH (09:56)
[2021-05-28] MEDS: LACTOBACILLUS ACIDOPHILUS 1 TABLET PO SCH (09:58)
[2021-05-28] MEDS: INSULIN (LEVEMIR) 100 UNITS/ML UNITS SQ SCH ×3 (09:58→21:58)
[2021-05-28] MEDS: NICOTINE 14 MG/24 HOURS TOPICAL PATCH TD SCH (10:00)
[2021-05-28] MEDS: oxyCODONE HCL 5 MG TABLET PO PRN (13:43)
[2021-05-28] MEDS ORDERED: INSULIN (NOVOLOG) ASPART 100 UNITS/ML 10ML VIAL ONE (21:51)
[2021-05-28] MEDS: ATORVASTATIN CA 80 MG TABLET (FP) PO SCH (21:55)
[2021-05-28] MEDS: SULFAMETHOXAZOLE/TRIMETHOPRIM 800MG/160MG D.S. TABLET PO SCH (21:56)
[2021-05-29] MEDS: oxyCODONE HCL 5 MG TABLET PO PRN (05:47)
[2021-05-29] MEDS: BACITRACIN 15 GM TUBE TOPICAL OINTMENT TP SCH ×2 (05:48→11:10)
[2021-05-29] MEDS: INSULIN SLIDING SCALE (NOVOLOG) 1 VIAL SQ SCH ×4 (08:51→22:24)
[2021-05-29] MEDS: ASPIRIN COATED 81 MG TABLET.EC PO SCH (11:09)
[2021-05-29] MEDS: SULFAMETHOXAZOLE/TRIMETHOPRIM 800MG/160MG D.S. TABLET PO SCH ×2 (11:09→22:21)
[2021-05-29] MEDS: LACTOBACILLUS ACIDOPHILUS 1 TABLET PO SCH (11:09)
[2021-05-29] MEDS: INSULIN (LEVEMIR) 100 UNITS/ML UNITS SQ SCH ×2 (11:10→22:24)
[2021-05-29] MEDS: NICOTINE 14 MG/24 HOURS TOPICAL PATCH TD SCH (11:10)
[2021-05-29] MEDS ORDERED: INSULIN (NOVOLOG) ASPART 100 UNITS/ML 10ML VIAL ONE (21:36)
[2021-05-29] MEDS: ATORVASTATIN CA 80 MG TABLET (FP) PO SCH (22:21)
[2021-05-30] MEDS ORDERED: ACETAMINOPHEN 1000 MG/100 ML VIAL IVPB ONE (01:34)
[2021-05-30] MEDS ORDERED: oxyCODONE HCL 5 MG TABLET PO ONE ×2 (01:43→22:01)
[2021-05-30] MEDS: INSULIN SLIDING SCALE (NOVOLOG) 1 VIAL SQ SCH ×4 (06:22→22:02)
[2021-05-30] MEDS ORDERED: INSULIN (NOVOLOG) ASPART 100 UNITS/ML 10ML VIAL ONE ×2 (10:58→21:50)
[2021-05-30] MEDS: NICOTINE 14 MG/24 HOURS TOPICAL PATCH TD SCH (11:09)
[2021-05-30] MEDS: ACETAMINOPHEN 500 MG TABLET (FP) PO PRN (11:10)
[2021-05-30] MEDS: LACTOBACILLUS ACIDOPHILUS 1 TABLET PO SCH (11:11)
[2021-05-30] MEDS: INSULIN (LEVEMIR) 100 UNITS/ML UNITS SQ SCH ×2 (11:11→22:03)
[2021-05-30] MEDS: SULFAMETHOXAZOLE/TRIMETHOPRIM 800MG/160MG D.S. TABLET PO SCH ×2 (11:11→22:03)
[2021-05-30] MEDS: ASPIRIN COATED 81 MG TABLET.EC PO SCH (11:11)
[2021-05-30] MEDS: BACITRACIN 15 GM TUBE TOPICAL OINTMENT TP SCH (11:12)
[2021-05-30] MEDS: ATORVASTATIN CA 80 MG TABLET (FP) PO SCH (22:03)
[2021-05-31] MEDS: INSULIN SLIDING SCALE (NOVOLOG) 1 VIAL SQ SCH (06:11)
[2021-05-31 07:13] VITALS: BMI 31.7
[2021-05-31] MEDS: INSULIN (LEVEMIR) 100 UNITS/ML UNITS SQ SCH (09:22)
[2021-05-31] MEDS: SULFAMETHOXAZOLE/TRIMETHOPRIM 800MG/160MG D.S. TABLET PO SCH (09:22)
[2021-05-31] MEDS: NICOTINE 14 MG/24 HOURS TOPICAL PATCH TD SCH (09:23)
[2021-05-31] MEDS: LACTOBACILLUS ACIDOPHILUS 1 TABLET PO SCH (09:23)
[2021-05-31] MEDS: BACITRACIN 15 GM TUBE TOPICAL OINTMENT TP SCH (09:23)
[2021-05-31] MEDS: ASPIRIN COATED 81 MG TABLET.EC PO SCH (09:23)
[2021-05-31 09:37] VITALS: BP 121/59; PULSE 60; TEMP 98.3
[2021-05-31] MEDS ORDERED: MULTIVITAMINS (DAILY MVI) TABLET (FP) PO SCH (10:00)
== END 2021-05-31 10:50 | disposition home or self-care (01) | DRG 638 ==
LOC: JERFT 14:20 → JER 14:20 → JERBED 18:18 → J7W 05-25 06:41
PROVIDERS: ADMIT Internal Medicine; ATTEND Internal Medicine
DX: E11.65 Type 2 diabetes mellitus with hyperglycemia (principal); I69.354 Hemiplegia and hemiparesis following cerebral infarction affecting left non-dominant side; E87.1 Hypo-osmolality and hyponatremia; N17.9 Acute kidney failure, unspecified; L03.012 Cellulitis of left finger; E11.40 Type 2 diabetes mellitus with diabetic neuropathy, unspecified; E78.5 Hyperlipidemia, unspecified; I25.2 Old myocardial infarction; E11.22 Type 2 diabetes mellitus with diabetic chronic kidney disease; I12.9 Hypertensive chronic kidney disease with stage 1 through stage 4 chronic kidney disease, or unspecified chronic kidney disease; N18.9 Chronic kidney disease, unspecified; I25.10 Atherosclerotic heart disease of native coronary artery without angina pectoris; E66.9 Obesity, unspecified; A49.02 Methicillin resistant Staphylococcus aureus infection, unspecified site; Z79.4 Long term (current) use of insulin
CPT/HCPCS: 36415; 71046-TC-FY; 73130-TC-LT-FY; 80048; 80053; 80061; 81003; 82962; 83036; 83880; 84443; 84484; 85025; 85027; 87040; 87070; 87086; 87186; 87205; 90715; 93005; 93010; 99285-25; C9803; U0003; U0005

== ENCOUNTER 2022-02-08 20:18 | Emergency (ER) | payer OTHER ==
[2022-02-08 21:23] VITALS: BP 153/83; PULSE 81; RESP 20; TEMP 98.3
[2022-02-08] MEDS ORDERED: KETOROLAC TROMETHAMINE 30 MG/1 ML VIAL IM ONE (21:52)
[2022-02-08] MEDS ORDERED: LIDOCAINE 5% TOPICAL PATCH TP ONE (21:53)
[2022-02-08] MEDS ORDERED: diazePAM 5 MG TABLET PO ONE (21:53)
[2022-02-08] MEDS ORDERED: KETOROLAC TROMETHAMINE 30 MG/1 ML VIAL ONE (21:54)
[2022-02-08] MEDS ORDERED: diazePAM 5 MG TABLET ONE (21:54)
[2022-02-08] MEDS ORDERED: LIDOCAINE 5% TOPICAL PATCH ONE (21:54)
[2022-02-08] MEDS ORDERED: LIDOCAINE PATCH REMOVAL MC SCH (22:00)
== END 2022-02-08 23:53 | disposition home or self-care (01) ==
LOC: JER 20:18 → JERFT 20:18
PROC: 3E0233Z Introduction of Anti-inflammatory into Muscle, Percutaneous Approach (ICD-10-PCS; principal; 2022-02-08)
DX: M54.2 Cervicalgia (principal); X50.0XXA Overexertion from strenuous movement or load, initial encounter
CPT/HCPCS: 93005; 93010; 96372; 99284-25

== ENCOUNTER 2022-03-02 11:41 | Inpatient (IN) | payer OTHER ==
[2022-03-02] MEDS ORDERED: SODIUM CHLORIDE 0.9% 1000 ML INFUS.BAG IV ONE ×2 (11:55→14:32)
[2022-03-02 12:00] VITALS: BMI 30.5
[2022-03-02 13:32] LABS: BASO % 0.6 % (0-2.0); EOS % 0.8 % (0-4.5); HEMATOCRIT 38.7 % (35.4-49); HEMOGLOBIN 13.4 GM/dL (11.7-16.9); LYMPH % 11.3 % (8-40); MCH 29.5 pg (25.7-33.7); MCHC 34.7 g/dl (32.0-35.9); MEAN CELL VOLUME 85.1 fl (80-96); MONO % 4.2 % (3.8-10.2); NEUT % 83.1 % (42.8-82.8); PLATELET COUNT 193 10^3/uL (134-434); RBC 4.55 M/mm3 (4.00-5.60); RDW 14.5 % (11.9-15.9); WHITE BLOOD COUNT 10.8 K/mm3 (4.0-10.0)
[2022-03-02 13:35] LABS: VENOUS BASE EXCESS -1.6 mmol/L (-2-2); VENOUS O2 SATURATION 93.3 % (70-80); VENOUS PCO2 40.2 mmHg (38-52); VENOUS PH 7.382 (7.310-7.410)
[2022-03-02 13:56] LABS: CHLORIDE 99 mmol/L (98-107); SODIUM 134 mmol/L (136-145)
[2022-03-02 13:57] LABS: CALCIUM 9.1 mg/dL (8.5-10.1)
[2022-03-02 13:58] LABS: ALBUMIN 3.1 g/dl (3.4-5.0); ANION GAP 8 MMOL/L (8-16); BLOOD UREA NITROGEN 20.3 mg/dL (7-18); CO2 27 mmol/L (21-32)
[2022-03-02 14:01] LABS: CREATININE 1.4 mg/dL (0.55-1.3); SGOT/AST 15 U/L (15-37); SGPT/ALT 16 U/L (13-61)
[2022-03-02 14:03] LABS: BILIRUBIN,TOTAL 0.4 mg/dL (0.2-1); TOT PROT 6.2 g/dl (6.4-8.2)
[2022-03-02 14:04] LABS: ALK PHOS 81 U/L (45-117)
[2022-03-02 14:05] LABS: GLUCOSE,RANDOM 414 mg/dL (74-106)
[2022-03-02 14:19] LABS: EPI CELLS 2 /uL (0-25.1); HYALINE CASTS 0 /uL (0-3.1); PH,URINE 5.5 (5.0-8.0); URINE APPEARANCE CLEAR; URINE BACTERIA 190 /uL (0-1359); URINE BILIRUBIN NEGATIVE (NEGATIVE); URINE COLOR YELLOW; URINE GLUCOSE (UA) 3+ (NEGATIVE); URINE KETONE NEGATIVE (NEGATIVE); URINE LEUK ESTERASE NEGATIVE (NEGATIVE); URINE NITRITE NEGATIVE (NEGATIVE); URINE PROTEIN 3+ (NEGATIVE); URINE RBC 36 /uL (0-23.9); URINE UROBILINOGEN 0.2 mg/dL (0.2-1.0); URINE WBC 8 /uL (0-25.8)
[2022-03-02 14:28] LABS: LACTIC ACID 2.3 mmol/L (0.4-2.0)
[2022-03-02] MEDS ORDERED: INSULIN REGULAR HUMAN 100 UNITS/ML *VIAL IVPUSH ONE (16:40)
[2022-03-02] MEDS ORDERED: INSULIN SLIDING SCALE (NOVOLOG) 1 VIAL SQ PRN (17:27)
[2022-03-02] MEDS ORDERED: oxyCODONE HCL 5 MG TABLET PO PRN (18:00)
[2022-03-02] MEDS ORDERED: ACETAMINOPHEN 325 MG TABLET (FP) PO PRN (18:00)
[2022-03-02] MEDS ORDERED: ATORVASTATIN CA 40 MG TABLET (FP) ONE (22:24)
[2022-03-02] MEDS ORDERED: GABAPENTIN 300 MG CAPSULE ONE (22:24)
[2022-03-02] MEDS: GABAPENTIN 300 MG CAPSULE PO SCH (22:32)
[2022-03-02] MEDS: ATORVASTATIN CA 40 MG TABLET (FP) PO SCH (22:32)
[2022-03-02] MEDS: INSULIN (LEVEMIR) 100 UNITS/ML UNITS SQ SCH (23:39)
[2022-03-03] MEDS: GABAPENTIN 300 MG CAPSULE PO SCH ×3 (06:21→21:09)
[2022-03-03] MEDS: sitaGLIPtin PHOSPHATE 50 MG TABLET PO SCH ×2 (06:24→17:10)
[2022-03-03] MEDS: INSULIN SLIDING SCALE (NOVOLOG) 1 VIAL SQ SCH ×4 (06:25→21:09)
[2022-03-03 08:54] LABS: HEMATOCRIT 36.7 % (35.4-49); HEMOGLOBIN 12.7 GM/dL (11.7-16.9); MCH 29.7 pg (25.7-33.7); MCHC 34.6 g/dl (32.0-35.9); MEAN CELL VOLUME 85.9 fl (80-96); MEAN PLT VOLUME 8.9 fl (7.5-11.1); PLATELET COUNT 171 10^3/uL (134-434); RBC 4.28 M/mm3 (4.00-5.60); RDW 14.4 % (11.9-15.9); WHITE BLOOD COUNT 9.1 K/mm3 (4.0-10.0)
[2022-03-03 09:19] LABS: BLOOD UREA NITROGEN 17.1 mg/dL (7-18); CALCIUM 8.9 mg/dL (8.5-10.1)
[2022-03-03 09:20] LABS: ALBUMIN 2.7 g/dl (3.4-5.0)
[2022-03-03 09:24] LABS: BILIRUBIN,TOTAL 0.3 mg/dL (0.2-1); TOT PROT 5.5 g/dl (6.4-8.2)
[2022-03-03] MEDS ORDERED: ESCITALOPRAM OXALATE 10 MG TABLET ONE (10:43)
[2022-03-03] MEDS: ENOXAPARIN NA (PORCINE) 40 MG/0.4 ML DISP.SYRIN SQ SCH (10:46)
[2022-03-03] MEDS: ASPIRIN 81 MG CHEWABLE TABLETS PO SCH (10:46)
[2022-03-03] MEDS: amLODIPine BESYLATE 10 MG TABLET (FP) PO SCH (10:46)
[2022-03-03] MEDS: CLOPIDOGREL BISULFATE 75 MG TABLET (FP) PO SCH (10:46)
[2022-03-03] MEDS: ESCITALOPRAM OXALATE 20 MG TABLET PO SCH (10:47)
[2022-03-03] MEDS: LOSARTAN 50MG/HCTZ 12.5MG 1 TAB PO SCH (10:55)
[2022-03-03] MEDS: ATORVASTATIN CA 40 MG TABLET (FP) PO SCH (21:09)
[2022-03-03] MEDS: INSULIN (LEVEMIR) 100 UNITS/ML UNITS SQ SCH (21:09)
[2022-03-04] MEDS: GABAPENTIN 300 MG CAPSULE PO SCH ×3 (05:53→21:35)
[2022-03-04] MEDS: INSULIN SLIDING SCALE (NOVOLOG) 1 VIAL SQ SCH ×4 (06:30→21:34)
[2022-03-04] MEDS: sitaGLIPtin PHOSPHATE 50 MG TABLET PO SCH ×2 (06:30→16:50)
[2022-03-04] MEDS ORDERED: INSULIN SLIDING SCALE (NOVOLOG) 1 VIAL SQ ONE (06:44)
[2022-03-04] MEDS ORDERED: ATORVASTATIN CA 40 MG TABLET (FP) PO SCH (08:00)
[2022-03-04] MEDS ORDERED: ESCITALOPRAM OXALATE 10 MG TABLET ONE (09:25)
[2022-03-04] MEDS: amLODIPine BESYLATE 10 MG TABLET (FP) PO SCH (09:29)
[2022-03-04] MEDS: LOSARTAN 50MG/HCTZ 12.5MG 1 TAB PO SCH (09:30)
[2022-03-04] MEDS: ASPIRIN 81 MG CHEWABLE TABLETS PO SCH (09:30)
[2022-03-04] MEDS: ENOXAPARIN NA (PORCINE) 40 MG/0.4 ML DISP.SYRIN SQ SCH (09:30)
[2022-03-04] MEDS: ESCITALOPRAM OXALATE 20 MG TABLET PO SCH (09:31)
[2022-03-04] MEDS: CLOPIDOGREL BISULFATE 75 MG TABLET (FP) PO SCH (12:05)
[2022-03-04] MEDS: INSULIN (LEVEMIR) 100 UNITS/ML UNITS SQ SCH (21:34)
[2022-03-05] MEDS: GABAPENTIN 300 MG CAPSULE PO SCH (06:18)
[2022-03-05] MEDS: INSULIN SLIDING SCALE (NOVOLOG) 1 VIAL SQ SCH ×2 (06:18→12:03)
[2022-03-05] MEDS: sitaGLIPtin PHOSPHATE 50 MG TABLET PO SCH (06:18)
[2022-03-05 08:46] VITALS: BP 93/55; PULSE 62; RESP 18; TEMP 98.2
[2022-03-05] MEDS ORDERED: ESCITALOPRAM OXALATE 10 MG TABLET ONE (09:11)
[2022-03-05] MEDS: CLOPIDOGREL BISULFATE 75 MG TABLET (FP) PO SCH (09:22)
[2022-03-05] MEDS: ESCITALOPRAM OXALATE 20 MG TABLET PO SCH (09:22)
[2022-03-05] MEDS: ENOXAPARIN NA (PORCINE) 40 MG/0.4 ML DISP.SYRIN SQ SCH (09:22)
[2022-03-05] MEDS: ASPIRIN 81 MG CHEWABLE TABLETS PO SCH (09:22)
[2022-03-05] MEDS: LOSARTAN 50MG/HCTZ 12.5MG 1 TAB PO SCH (09:23)
[2022-03-05] MEDS: amLODIPine BESYLATE 10 MG TABLET (FP) PO SCH (09:23)
== END 2022-03-05 13:16 | disposition home or self-care (01) | DRG 65 ==
LOC: JER 11:41 → JERBED 14:36 → J4S 23:03
PROVIDERS: ADMIT Internal Medicine; ATTEND Internal Medicine
DX: I63.9 Cerebral infarction, unspecified (principal); G81.94 Hemiplegia, unspecified affecting left nondominant side; F17.210 Nicotine dependence, cigarettes, uncomplicated; E11.65 Type 2 diabetes mellitus with hyperglycemia; I25.10 Atherosclerotic heart disease of native coronary artery without angina pectoris; F31.9 Bipolar disorder, unspecified; I11.9 Hypertensive heart disease without heart failure; E78.5 Hyperlipidemia, unspecified
CPT/HCPCS: 0241U-QW; 36415; 70450-TC; 70551-TC; 71045-TC-FY; 80053; 80061; 81003; 82010; 82803; 82962; 83036; 83605; 84484; 85025; 85027; 87081; 87086; 93005; 93010; 93306-TC; 93880-TC; 97116-GP; 97161-GP; 99285-25

== ENCOUNTER 2022-04-16 18:15 | Emergency (ER) | payer OTHER ==
[2022-04-16 18:22] VITALS: BMI 29.2
[2022-04-16 21:24] LABS: EPI CELLS 2 /uL (0-25.1); HYALINE CASTS 1 /uL (0-3.1); URINE APPEARANCE CLEAR; URINE BACTERIA 3 /uL (0-1359); URINE BILIRUBIN NEGATIVE (NEGATIVE); URINE COLOR YELLOW; URINE GLUCOSE (UA) 1+ (NEGATIVE); URINE KETONE NEGATIVE (NEGATIVE); URINE LEUK ESTERASE NEGATIVE (NEGATIVE); URINE NITRITE NEGATIVE (NEGATIVE); URINE PROTEIN 3+ (NEGATIVE); URINE RBC 23 /uL (0-23.9); URINE UROBILINOGEN 0.2 mg/dL (0.2-1.0); URINE WBC 4 /uL (0-25.8)
[2022-04-16 21:30] LABS: ALBUMIN 3.9 g/dl (3.4-5.0); CALCIUM 10.1 mg/dL (8.5-10.1)
[2022-04-16 21:31] LABS: BLOOD UREA NITROGEN 20.1 mg/dL (7-18)
[2022-04-16 21:34] LABS: CREATININE 1.3 mg/dL (0.55-1.3)
[2022-04-16 21:35] LABS: BILIRUBIN,TOTAL 0.4 mg/dL (0.2-1); TOT PROT 7.5 g/dl (6.4-8.2)
[2022-04-16 22:55] VITALS: BP 188/78; PULSE 86; RESP 19; TEMP 98.9
== END 2022-04-16 21:13 | disposition home or self-care (01) ==
LOC: JERFT 18:15
DX: R21 Rash and other nonspecific skin eruption (principal)
CPT/HCPCS: 36415; 80053; 81003; 86780; 87086; 87491; 87529; 87591; 87593; 99283-25

== ENCOUNTER 2022-06-18 08:44 | Inpatient (IN) | payer OTHER ==
[2022-06-18] MEDS ORDERED: SODIUM CHLORIDE 1,000 ML IV SCH (11:15)
[2022-06-18 11:28] LABS: HEMATOCRIT 40.9 % (35.4-49); HEMOGLOBIN 13.6 GM/dL (11.7-16.9); MCH 28.9 pg (25.7-33.7); MCHC 33.4 g/dl (32.0-35.9); MEAN CELL VOLUME 86.7 fl (80-96); MEAN PLT VOLUME 9.3 fl (7.5-11.1); PLATELET COUNT 187 10^3/uL (134-434); RBC 4.72 M/mm3 (4.00-5.60); RDW 13.8 % (11.9-15.9); WHITE BLOOD COUNT 12.6 K/mm3 (4.0-10.0)
[2022-06-18 11:46] LABS: INR 1.03 (0.83-1.09); PROTHROMBIN TIME (PATIENT) 11.9 SEC (9.7-13.0)
[2022-06-18 11:49] LABS: ACTIVATED PTT 28.8 SECONDS (25.2-36.5)
[2022-06-18 11:50] LABS: CHLORIDE 94 mmol/L (98-107); SODIUM 131 mmol/L (136-145)
[2022-06-18 11:54] LABS: CALCIUM 9.6 mg/dL (8.5-10.1)
[2022-06-18 11:56] LABS: ALBUMIN 3.3 g/dl (3.4-5.0); ANION GAP 13 MMOL/L (8-16); BLOOD UREA NITROGEN 19.8 mg/dL (7-18); CO2 23 mmol/L (21-32)
[2022-06-18 11:57] LABS: BILIRUBIN,TOTAL 0.5 mg/dL (0.2-1); CREATININE 1.5 mg/dL (0.55-1.3)
[2022-06-18 11:59] LABS: ALK PHOS 84 U/L (45-117); CHOLESTEROL 307 mg/dL (50-200); LDL CHOLESTEROL (ONLY SJRH) 231 mg/dL (5-100); SGOT/AST 12 U/L (15-37); SGPT/ALT 21 U/L (13-61); TOT PROT 6.4 g/dl (6.4-8.2); TRIGLYCERIDES 112 mg/dL (0-150)
[2022-06-18 12:00] LABS: HDL CHOLESTEROL 51 mg/dL (40-60)
[2022-06-18 12:01] LABS: GLUCOSE,RANDOM 662 mg/dL (74-106)
[2022-06-18] MEDS ORDERED: SODIUM CHLORIDE 0.9% 500 ML INFUS.BAG IV ONE ×2 (12:26→13:50)
[2022-06-18 12:30] LABS: ANISOCYTOSIS 0; HELMET CELLS 0; HOWELL-JOLLY BODIES 0; MACROCYTOSIS 0; OVALOCYTE 0; ROULEAU 0; SICKELED CELLS 0; TARGET CELLS 0; TEAR DROP CELLS 0; TOXIC GRANULATION 0
[2022-06-18] MEDS ORDERED: INSULIN REGULAR HUMAN 100 UNITS/ML *VIAL SQ ONE (13:55)
[2022-06-18] MEDS ORDERED: ACETAMINOPHEN 325 MG TABLET (FP) PO PRN (14:35)
[2022-06-18] MEDS ORDERED: INSULIN (LEVEMIR) 100 UNITS/ML UNITS SQ ONE (14:43)
[2022-06-18] MEDS ORDERED: PATIENT'S OWN MEDICATION (NON-FORMULARY) (Dulaglutide [Trulicity] 1.5 MG/0.5 ML Pen.Injctr SQ SCH (14:45)
[2022-06-18] MEDS: SODIUM CHLORIDE 1,000 ML IV SCH (16:07)
[2022-06-18] MEDS: INSULIN SLIDING SCALE (NOVOLOG) 1 VIAL SQ SCH (18:15)
[2022-06-18] MEDS ORDERED: HYDROCHLOROTHIAZIDE 25 MG TABLET (FP) ONE (18:19)
[2022-06-18] MEDS ORDERED: LOSARTAN POTASSIUM 50 MG TABLET ONE (18:20)
[2022-06-18] MEDS ORDERED: MEROPENEM 1 GM VIAL (RESTRICTED TO ID) IVPB ONE (19:01)
[2022-06-19] MEDS: GABAPENTIN 300 MG CAPSULE PO SCH ×3 (07:00→15:20)
[2022-06-19 07:07] LABS: HEMATOCRIT 35.8 % (35.4-49); HEMOGLOBIN 12.1 GM/dL (11.7-16.9); MCH 29.3 pg (25.7-33.7); MCHC 33.8 g/dl (32.0-35.9); MEAN CELL VOLUME 86.8 fl (80-96); MEAN PLT VOLUME 8.7 fl (7.5-11.1); PLATELET COUNT 168 10^3/uL (134-434); RBC 4.13 M/mm3 (4.00-5.60); RDW 14.2 % (11.9-15.9); WHITE BLOOD COUNT 10.1 K/mm3 (4.0-10.0)
[2022-06-19 07:29] LABS: CALCIUM 8.9 mg/dL (8.5-10.1)
[2022-06-19 07:30] LABS: ALBUMIN 2.8 g/dl (3.4-5.0); BLOOD UREA NITROGEN 21.5 mg/dL (7-18)
[2022-06-19 07:33] LABS: CREATININE 1.3 mg/dL (0.55-1.3)
[2022-06-19 07:34] LABS: BILIRUBIN,TOTAL 0.3 mg/dL (0.2-1); TOT PROT 5.3 g/dl (6.4-8.2)
[2022-06-19] MEDS: INSULIN (LEVEMIR) 100 UNITS/ML UNITS SQ SCH ×2 (08:00→14:24)
[2022-06-19] MEDS ORDERED: amLODIPine BESYLATE 10 MG TABLET (FP) ONE (10:55)
[2022-06-19] MEDS ORDERED: ESCITALOPRAM OXALATE 10 MG TABLET ONE (10:56)
[2022-06-19] MEDS ORDERED: ASPIRIN 81 MG CHEWABLE TABLETS ONE (10:56)
[2022-06-19] MEDS ORDERED: CLOPIDOGREL BISULFATE 75 MG TABLET (FP) ONE (10:56)
[2022-06-19] MEDS: ASPIRIN 81 MG CHEWABLE TABLETS PO SCH (11:03)
[2022-06-19] MEDS: ESCITALOPRAM OXALATE 20 MG TABLET PO SCH (11:03)
[2022-06-19] MEDS: amLODIPine BESYLATE 10 MG TABLET (FP) PO SCH (11:04)
[2022-06-19] MEDS: CLOPIDOGREL BISULFATE 75 MG TABLET (FP) PO SCH (11:04)
[2022-06-19] MEDS: LOSARTAN 50MG/HCTZ 12.5MG 1 TAB PO SCH ×2 (11:37→14:24)
[2022-06-19] MEDS: INSULIN SLIDING SCALE (NOVOLOG) 1 VIAL SQ SCH ×4 (11:37→16:35)
[2022-06-19] MEDS: HEPARIN NA (PORCINE) 5,000 UNITS/ML 1ML VIAL SQ SCH ×2 (11:38→14:24)
[2022-06-19] MEDS ORDERED: GABAPENTIN 300 MG CAPSULE ONE ×3 (11:43→23:46)
[2022-06-19] MEDS ORDERED: INSULIN (LEVEMIR) 100 UNITS/ML UNITS SQ ONE (11:43)
[2022-06-19] MEDS: ATORVASTATIN CA 80 MG TABLET (FP) PO SCH (14:24)
[2022-06-19] MEDS: SODIUM CHLORIDE 1,000 ML IV SCH (15:20)
[2022-06-19 16:32] LABS: EPI CELLS 0 /uL (0-25.1); HYALINE CASTS 0 /uL (0-3.1); PH,URINE 5.5 (5.0-8.0); URINE APPEARANCE CLEAR; URINE BACTERIA 1 /uL (0-1359); URINE BILIRUBIN NEGATIVE (NEGATIVE); URINE COLOR YELLOW; URINE GLUCOSE (UA) 3+ (NEGATIVE); URINE KETONE NEGATIVE (NEGATIVE); URINE LEUK ESTERASE NEGATIVE (NEGATIVE); URINE NITRITE NEGATIVE (NEGATIVE); URINE PROTEIN 1+ (NEGATIVE); URINE RBC 13 /uL (0-23.9); URINE UROBILINOGEN 0.2 mg/dL (0.2-1.0); URINE WBC 1 /uL (0-25.8)
[2022-06-19] MEDS ORDERED: ATORVASTATIN CA 80 MG TABLET (FP) ONE (23:46)
[2022-06-20] MEDS: ATORVASTATIN CA 80 MG TABLET (FP) PO SCH
[2022-06-20] MEDS: INSULIN (LEVEMIR) 100 UNITS/ML UNITS SQ SCH ×3 (08:35→22:55)
[2022-06-20] MEDS: INSULIN SLIDING SCALE (NOVOLOG) 1 VIAL SQ SCH ×4 (08:35→17:09)
[2022-06-20] MEDS ORDERED: amLODIPine BESYLATE 10 MG TABLET (FP) ONE (08:52)
[2022-06-20] MEDS ORDERED: ESCITALOPRAM OXALATE 10 MG TABLET ONE (08:53)
[2022-06-20] MEDS ORDERED: GABAPENTIN 300 MG CAPSULE ONE ×3 (08:53→23:18)
[2022-06-20] MEDS ORDERED: HEPARIN NA (PORCINE) 5,000 UNITS/ML 1ML VIAL ONE ×2 (08:53→23:18)
[2022-06-20] MEDS ORDERED: ASPIRIN 81 MG CHEWABLE TABLETS ONE (08:53)
[2022-06-20] MEDS ORDERED: CLOPIDOGREL BISULFATE 75 MG TABLET (FP) ONE (08:53)
[2022-06-20] MEDS: ASPIRIN 81 MG CHEWABLE TABLETS PO SCH (09:45)
[2022-06-20] MEDS: HEPARIN NA (PORCINE) 5,000 UNITS/ML 1ML VIAL SQ SCH ×3 (09:45→22:45)
[2022-06-20] MEDS: GABAPENTIN 300 MG CAPSULE PO SCH ×3 (09:45→14:17)
[2022-06-20] MEDS: amLODIPine BESYLATE 10 MG TABLET (FP) PO SCH (09:45)
[2022-06-20] MEDS: CLOPIDOGREL BISULFATE 75 MG TABLET (FP) PO SCH (09:45)
[2022-06-20] MEDS: LOSARTAN 50MG/HCTZ 12.5MG 1 TAB PO SCH (09:45)
[2022-06-20] MEDS: ESCITALOPRAM OXALATE 20 MG TABLET PO SCH (09:45)
[2022-06-20] MEDS: SODIUM CHLORIDE 1,000 ML IV SCH (14:17)
[2022-06-20] MEDS ORDERED: ATORVASTATIN CA 80 MG TABLET (FP) ONE (23:17)
[2022-06-21] MEDS ORDERED: ACETAMINOPHEN INJECTION 100 ML IVPB ONE (01:33)
[2022-06-21] MEDS: ATORVASTATIN CA 80 MG TABLET (FP) PO SCH (03:07)
[2022-06-21] MEDS: INSULIN SLIDING SCALE (NOVOLOG) 1 VIAL SQ SCH ×3 (03:07→11:46)
[2022-06-21] MEDS: GABAPENTIN 300 MG CAPSULE PO SCH ×3 (03:07→13:47)
[2022-06-21 07:35] LABS: HEMATOCRIT 35.9 % (35.4-49); HEMOGLOBIN 12.5 GM/dL (11.7-16.9); MCH 29.9 pg (25.7-33.7); MCHC 34.9 g/dl (32.0-35.9); MEAN CELL VOLUME 85.8 fl (80-96); MEAN PLT VOLUME 8.9 fl (7.5-11.1); PLATELET COUNT 149 10^3/uL (134-434); RBC 4.18 M/mm3 (4.00-5.60); RDW 13.9 % (11.9-15.9); WHITE BLOOD COUNT 6.4 K/mm3 (4.0-10.0)
[2022-06-21 07:56] LABS: ALBUMIN 2.8 g/dl (3.4-5.0); BLOOD UREA NITROGEN 26.5 mg/dL (7-18); CALCIUM 8.5 mg/dL (8.5-10.1)
[2022-06-21 07:59] LABS: CREATININE 1.1 mg/dL (0.55-1.3)
[2022-06-21 08:01] LABS: BILIRUBIN,TOTAL 0.3 mg/dL (0.2-1)
[2022-06-21 08:02] LABS: TOT PROT 5.4 g/dl (6.4-8.2)
[2022-06-21] MEDS: INSULIN (LEVEMIR) 100 UNITS/ML UNITS SQ SCH (08:33)
[2022-06-21] MEDS ORDERED: oxyCODONE HCL 5 MG TABLET PO PRN (08:48)
[2022-06-21] MEDS ORDERED: ACETAMINOPHEN 325 MG TABLET (FP) PO PRN (08:49)
[2022-06-21] MEDS ORDERED: ESCITALOPRAM OXALATE 10 MG TABLET ONE (10:25)
[2022-06-21] MEDS: amLODIPine BESYLATE 10 MG TABLET (FP) PO SCH (10:34)
[2022-06-21] MEDS: ESCITALOPRAM OXALATE 20 MG TABLET PO SCH (10:35)
[2022-06-21] MEDS: ASPIRIN 81 MG CHEWABLE TABLETS PO SCH (10:35)
[2022-06-21] MEDS: CLOPIDOGREL BISULFATE 75 MG TABLET (FP) PO SCH (10:35)
[2022-06-21] MEDS: HEPARIN NA (PORCINE) 5,000 UNITS/ML 1ML VIAL SQ SCH (10:36)
[2022-06-21] MEDS: LOSARTAN 50MG/HCTZ 12.5MG 1 TAB PO SCH (11:41)
[2022-06-21] MEDS ORDERED: INSULIN (NOVOLOG) ASPART 100 UNITS/ML 10ML VIAL ONE (11:45)
[2022-06-21 12:19] VITALS: BP 109/55; PULSE 61; RESP 18; TEMP 97.9
== END 2022-06-21 14:10 | disposition home or self-care (01) | DRG 638 ==
LOC: JER 08:44 → JERBED 13:56 → J6S 06-21 07:55
PROVIDERS: ADMIT Internal Medicine; ATTEND Internal Medicine
DX: E11.65 Type 2 diabetes mellitus with hyperglycemia (principal); E87.1 Hypo-osmolality and hyponatremia; I69.354 Hemiplegia and hemiparesis following cerebral infarction affecting left non-dominant side; I25.10 Atherosclerotic heart disease of native coronary artery without angina pectoris; E78.5 Hyperlipidemia, unspecified; I10 Essential (primary) hypertension; R29.810 Facial weakness; F41.9 Anxiety disorder, unspecified; E11.40 Type 2 diabetes mellitus with diabetic neuropathy, unspecified; E66.9 Obesity, unspecified; Z68.30 Body mass index [BMI] 30.0-30.9, adult; R20.2 Paresthesia of skin; Z95.5 Presence of coronary angioplasty implant and graft
CPT/HCPCS: 0241U-QW; 36415; 70450-TC; 70496-TC; 70498-TC; 71045-TC-FY; 80053; 80061; 81003; 82010; 82962; 83036; 84484; 85025; 85027; 85610; 85730; 93005; 93010; 97116-GP; 97162-GP; 99285-25; J1644

== ENCOUNTER 2022-07-23 12:36 | Inpatient (IN) | payer OTHER ==
[2022-07-23] MEDS ORDERED: ACETAMINOPHEN 1000 MG/100 ML BAG IVPB ONE (13:53)
[2022-07-23] MEDS ORDERED: SODIUM CHLORIDE 0.9% 500 ML INFUS.BAG IV ONE (13:59)
[2022-07-23] MEDS ORDERED: ACETAMINOPHEN INJECTION 100 ML IVPB ONE (14:10)
[2022-07-23 14:56] LABS: CHLORIDE 99 mmol/L (98-107); SODIUM 136 mmol/L (136-145)
[2022-07-23 14:57] LABS: CALCIUM 9.5 mg/dL (8.5-10.1)
[2022-07-23 14:58] LABS: ALBUMIN 3.5 g/dl (3.4-5.0); ANION GAP 9 MMOL/L (8-16); BASO % 0.5 % (0-2.0); CO2 28 mmol/L (21-32); EOS % 0.6 % (0-4.5); HEMATOCRIT 40.4 % (35.4-49); HEMOGLOBIN 13.9 GM/dL (11.7-16.9); LYMPH % 12.7 % (8-40); MCH 29.5 pg (25.7-33.7); MCHC 34.5 g/dl (32.0-35.9); MEAN CELL VOLUME 85.6 fl (80-96); MEAN PLT VOLUME 8.7 fl (7.5-11.1); MONO % 4.7 % (3.8-10.2); NEUT % 81.5 % (42.8-82.8); PLATELET COUNT 175 10^3/uL (134-434); RBC 4.72 M/mm3 (4.00-5.60); RDW 14.7 % (11.9-15.9); WHITE BLOOD COUNT 11.5 K/mm3 (4.0-10.0)
[2022-07-23 14:59] LABS: BLOOD UREA NITROGEN 15.3 mg/dL (7-18); GLUCOSE,RANDOM 246 mg/dL (74-106)
[2022-07-23 15:01] LABS: CREATININE 1.2 mg/dL (0.55-1.3); SGOT/AST 19 U/L (15-37); SGPT/ALT 25 U/L (13-61)
[2022-07-23 15:02] LABS: CHOLESTEROL 303 mg/dL (50-200)
[2022-07-23 15:03] LABS: TOT PROT 6.6 g/dl (6.4-8.2); TRIGLYCERIDES 227 mg/dL (0-150)
[2022-07-23 15:04] LABS: BILIRUBIN,TOTAL 0.4 mg/dL (0.2-1); HDL CHOLESTEROL 51 mg/dL (40-60); LDL CHOLESTEROL (ONLY SJRH) 212 mg/dL (5-100)
[2022-07-23 15:05] LABS: ALK PHOS 81 U/L (45-117)
[2022-07-23 16:27] LABS: EPI CELLS 1 /uL (0-25.1); HYALINE CASTS 0 /uL (0-3.1); PH,URINE 6.5 (5.0-8.0); URINE APPEARANCE CLEAR; URINE BACTERIA 5 /uL (0-1359); URINE BILIRUBIN NEGATIVE (NEGATIVE); URINE COLOR YELLOW; URINE GLUCOSE (UA) 1+ (NEGATIVE); URINE KETONE NEGATIVE (NEGATIVE); URINE LEUK ESTERASE NEGATIVE (NEGATIVE); URINE NITRITE NEGATIVE (NEGATIVE); URINE PROTEIN 2+ (NEGATIVE); URINE RBC 24 /uL (0-23.9); URINE UROBILINOGEN 0.2 mg/dL (0.2-1.0); URINE WBC 4 /uL (0-25.8)
[2022-07-23] MEDS ORDERED: GABAPENTIN 300 MG CAPSULE ONE (21:35)
[2022-07-23] MEDS ORDERED: ATORVASTATIN CA 80 MG TABLET (FP) ONE (21:38)
[2022-07-23 21:40] LABS: INR 1.07 (0.83-1.09); PROTHROMBIN TIME (PATIENT) 12.3 SEC (9.7-13.0)
[2022-07-23 21:42] LABS: ACTIVATED PTT 34.6 SECONDS (25.2-36.5)
[2022-07-23] MEDS: ATORVASTATIN CA 80 MG TABLET (FP) PO SCH (21:47)
[2022-07-23] MEDS: GABAPENTIN 300 MG CAPSULE PO SCH (21:47)
[2022-07-23] MEDS ORDERED: INSULIN (LEVEMIR) 100 UNITS/ML UNITS SQ SCH (22:00)
[2022-07-23] MEDS ORDERED: oxyCODONE HCL 5 MG TABLET PO ONE (22:02)
[2022-07-23] MEDS ORDERED: ACETAMINOPHEN 325 MG TABLET (FP) PO ONE (22:03)
[2022-07-23] MEDS ORDERED: oxyCODONE HCL 5 MG TABLET ONE (22:34)
[2022-07-23] MEDS ORDERED: ACETAMINOPHEN 325 MG TABLET (FP) ONE (22:34)
[2022-07-24] MEDS ORDERED: GABAPENTIN 300 MG CAPSULE ONE (05:58)
[2022-07-24] MEDS: GABAPENTIN 300 MG CAPSULE PO SCH ×3 (06:07→22:52)
[2022-07-24 09:32] LABS: INR 1.09 (0.83-1.09); PROTHROMBIN TIME (PATIENT) 12.5 SEC (9.7-13.0)
[2022-07-24 09:34] LABS: ACTIVATED PTT 31.6 SECONDS (25.2-36.5)
[2022-07-24 09:38] LABS: BASO % 0.7 % (0-2.0); EOS % 1.6 % (0-4.5); HEMATOCRIT 35.1 % (35.4-49); HEMOGLOBIN 12.3 GM/dL (11.7-16.9); LYMPH % 28.1 % (8-40); MCH 30.2 pg (25.7-33.7); MCHC 35.2 g/dl (32.0-35.9); MEAN PLT VOLUME 8.4 fl (7.5-11.1); MONO % 5.8 % (3.8-10.2); NEUT % 63.8 % (42.8-82.8); PLATELET COUNT 179 10^3/uL (134-434); RBC 4.08 M/mm3 (4.00-5.60); RDW 14.5 % (11.9-15.9); WHITE BLOOD COUNT 8.1 K/mm3 (4.0-10.0)
[2022-07-24 10:20] LABS: MAGNESIUM 1.6 mg/dL (1.8-2.4)
[2022-07-24 10:22] LABS: CREATININE 1.1 mg/dL (0.55-1.3); TOT PROT 5.6 g/dl (6.4-8.2)
[2022-07-24 10:23] LABS: CALCIUM 8.6 mg/dL (8.5-10.1)
[2022-07-24 10:25] LABS: ALBUMIN 2.9 g/dl (3.4-5.0)
[2022-07-24 10:28] LABS: PHOSPHOROUS 3.5 mg/dL (2.5-4.9)
[2022-07-24 10:30] LABS: BILIRUBIN,TOTAL 0.4 mg/dL (0.2-1)
[2022-07-24] MEDS: ASPIRIN COATED 81 MG TABLET.EC PO SCH (10:56)
[2022-07-24] MEDS: amLODIPine BESYLATE 10 MG TABLET (FP) PO SCH (10:56)
[2022-07-24] MEDS: CLOPIDOGREL BISULFATE 75 MG TABLET (FP) PO SCH (10:56)
[2022-07-24] MEDS: ENOXAPARIN NA (PORCINE) 40 MG/0.4 ML DISP.SYRIN SQ SCH (10:57)
[2022-07-24] MEDS: LOSARTAN 50MG/HCTZ 12.5MG 1 TAB PO SCH (10:58)
[2022-07-24] MEDS: INSULIN (LEVEMIR) 100 UNITS/ML UNITS SQ SCH ×2 (12:45→22:59)
[2022-07-24] MEDS ORDERED: ASPIRIN 81 MG CHEWABLE TABLETS PO SCH (12:45)
[2022-07-24] MEDS: INSULIN SLIDING SCALE (NOVOLOG) 1 VIAL SQ SCH ×2 (17:53→23:00)
[2022-07-24 20:03] VITALS: BMI 31.2
[2022-07-24] MEDS ORDERED: oxyCODONE HCL 5 MG TABLET PO ONE (22:25)
[2022-07-24] MEDS ORDERED: ACETAMINOPHEN 325 MG TABLET (FP) PO ONE (22:25)
[2022-07-24] MEDS: ATORVASTATIN CA 80 MG TABLET (FP) PO SCH (22:52)
[2022-07-24] MEDS: NORTRIPTYLINE HCL 25 MG CAPSULE PO SCH (22:54)
[2022-07-25] MEDS: GABAPENTIN 300 MG CAPSULE PO SCH ×3 (06:55→21:09)
[2022-07-25] MEDS: INSULIN (LEVEMIR) 100 UNITS/ML UNITS SQ SCH ×2 (06:59→21:08)
[2022-07-25] MEDS: INSULIN SLIDING SCALE (NOVOLOG) 1 VIAL SQ SCH ×4 (06:59→21:09)
[2022-07-25 08:13] LABS: BASO % 0.7 % (0-2.0); EOS % 2.2 % (0-4.5); HEMATOCRIT 36.2 % (35.4-49); HEMOGLOBIN 12.8 GM/dL (11.7-16.9); LYMPH % 15.5 % (8-40); MCH 30.2 pg (25.7-33.7); MCHC 35.3 g/dl (32.0-35.9); MEAN CELL VOLUME 85.7 fl (80-96); MEAN PLT VOLUME 8.3 fl (7.5-11.1); MONO % 6.9 % (3.8-10.2); NEUT % 74.7 % (42.8-82.8); PLATELET COUNT 153 10^3/uL (134-434); RBC 4.22 M/mm3 (4.00-5.60); RDW 14.3 % (11.9-15.9); WHITE BLOOD COUNT 5.3 K/mm3 (4.0-10.0)
[2022-07-25 08:23] LABS: CALCIUM 9.1 mg/dL (8.5-10.1)
[2022-07-25 08:24] LABS: ALBUMIN 3.1 g/dl (3.4-5.0); BLOOD UREA NITROGEN 19.2 mg/dL (7-18)
[2022-07-25 08:27] LABS: CREATININE 1.2 mg/dL (0.55-1.3)
[2022-07-25 08:28] LABS: BILIRUBIN,TOTAL 0.9 mg/dL (0.2-1); TOT PROT 5.9 g/dl (6.4-8.2)
[2022-07-25] MEDS: CLOPIDOGREL BISULFATE 75 MG TABLET (FP) PO SCH (09:52)
[2022-07-25] MEDS: ASPIRIN COATED 81 MG TABLET.EC PO SCH (09:52)
[2022-07-25] MEDS: ENOXAPARIN NA (PORCINE) 40 MG/0.4 ML DISP.SYRIN SQ SCH (09:52)
[2022-07-25] MEDS: amLODIPine BESYLATE 10 MG TABLET (FP) PO SCH (09:52)
[2022-07-25] MEDS: LOSARTAN 50MG/HCTZ 12.5MG 1 TAB PO SCH (09:53)
[2022-07-25] MEDS: oxyCODONE HCL 5 MG TABLET PO PRN ×2 (12:03→20:28)
[2022-07-25] MEDS: ACETAMINOPHEN 325 MG TABLET (FP) PO PRN ×2 (12:03→20:29)
[2022-07-25] MEDS: NORTRIPTYLINE HCL 25 MG CAPSULE PO SCH (21:09)
[2022-07-25] MEDS: ATORVASTATIN CA 80 MG TABLET (FP) PO SCH (21:09)
[2022-07-26] MEDS: INSULIN (LEVEMIR) 100 UNITS/ML UNITS SQ SCH ×2 (06:05→21:24)
[2022-07-26] MEDS: GABAPENTIN 300 MG CAPSULE PO SCH ×3 (06:05→21:25)
[2022-07-26] MEDS: INSULIN SLIDING SCALE (NOVOLOG) 1 VIAL SQ SCH ×4 (06:05→21:26)
[2022-07-26] MEDS ORDERED: ACETAMINOPHEN 325 MG TABLET (FP) PO PRN ×2 (08:42)
[2022-07-26 09:57] VITALS: RESP 18
[2022-07-26] MEDS: CLOPIDOGREL BISULFATE 75 MG TABLET (FP) PO SCH (10:18)
[2022-07-26] MEDS: amLODIPine BESYLATE 10 MG TABLET (FP) PO SCH (10:18)
[2022-07-26] MEDS: ENOXAPARIN NA (PORCINE) 40 MG/0.4 ML DISP.SYRIN SQ SCH (10:18)
[2022-07-26] MEDS: ASPIRIN COATED 81 MG TABLET.EC PO SCH (10:18)
[2022-07-26] MEDS: LOSARTAN 50MG/HCTZ 12.5MG 1 TAB PO SCH (10:21)
[2022-07-26] MEDS: CYCLOBENZAPRINE HCL 5 MG TABLET PO SCH ×2 (13:33→21:25)
[2022-07-26] MEDS: ATORVASTATIN CA 80 MG TABLET (FP) PO SCH (21:25)
[2022-07-26] MEDS: oxyCODONE HCL 5 MG TABLET PO PRN (21:28)
[2022-07-26] MEDS ORDERED: NORTRIPTYLINE HCL 25 MG CAPSULE PO SCH (22:00)
[2022-07-27] MEDS: GABAPENTIN 300 MG CAPSULE PO SCH (06:16)
[2022-07-27] MEDS: INSULIN (LEVEMIR) 100 UNITS/ML UNITS SQ SCH (06:16)
[2022-07-27] MEDS: CYCLOBENZAPRINE HCL 5 MG TABLET PO SCH (06:16)
[2022-07-27] MEDS: INSULIN SLIDING SCALE (NOVOLOG) 1 VIAL SQ SCH ×2 (06:17→11:06)
[2022-07-27 09:04] VITALS: BP 119/56; PULSE 79; TEMP 97.9
[2022-07-27] MEDS: CLOPIDOGREL BISULFATE 75 MG TABLET (FP) PO SCH (09:12)
[2022-07-27] MEDS: ENOXAPARIN NA (PORCINE) 40 MG/0.4 ML DISP.SYRIN SQ SCH (09:12)
[2022-07-27] MEDS: ASPIRIN COATED 81 MG TABLET.EC PO SCH (09:12)
[2022-07-27] MEDS: LOSARTAN 50MG/HCTZ 12.5MG 1 TAB PO SCH (09:12)
[2022-07-27] MEDS: amLODIPine BESYLATE 10 MG TABLET (FP) PO SCH (09:12)
== END 2022-07-27 14:33 | DRG 103 ==
LOC: JER 12:36 → JERBED 15:15 → J4S 07-24 08:05 → OBSVTOIN 07-26 08:49
PROVIDERS: ADMIT Internal Medicine; ATTEND Internal Medicine
DX: G44.201 Tension-type headache, unspecified, intractable (principal); I69.354 Hemiplegia and hemiparesis following cerebral infarction affecting left non-dominant side; R42 Dizziness and giddiness; G62.9 Polyneuropathy, unspecified; G93.89 Other specified disorders of brain; I25.10 Atherosclerotic heart disease of native coronary artery without angina pectoris; I73.9 Peripheral vascular disease, unspecified; I10 Essential (primary) hypertension; R20.2 Paresthesia of skin; E11.65 Type 2 diabetes mellitus with hyperglycemia
CPT/HCPCS: 36415; 70450-TC; 70496-TC; 70498-TC; 70551-TC; 71045-TC-FY; 80053; 80061; 81003; 81241; 82550; 82553; 82962; 83036; 83735; 84100; 84484; 85025; 85610; 85730; 86038; 86850; 86900; 86901; 87081; 93005; 93010; 93306-TC; 97116-GP; 99285-25; C9803-CS; G0378; U0003; U0005

== ENCOUNTER 2023-03-27 18:45 | Emergency (ER) | payer OTHER ==
[2023-03-27 19:16] VITALS: TEMP 98.9; BMI 31.4
[2023-03-27] MEDS ORDERED: ACETAMINOPHEN 325 MG TABLET (FP) PO ONE (19:55)
[2023-03-27] MEDS ORDERED: ALBUTEROL SO4 2.5/IPRATROPIUM 0.5 INH SOL 3 ML VIAL.NEB. NEB ONE ×2 (19:55→20:14)
[2023-03-27] MEDS ORDERED: ACETAMINOPHEN 325 MG TABLET (FP) ONE (20:15)
[2023-03-27 23:09] VITALS: BP 128/67; PULSE 72; RESP 16
== END 2023-03-27 23:31 | disposition home or self-care (01) ==
LOC: JER 18:45
PROC: 3E0F7GC Introduction of Other Therapeutic Substance into Respiratory Tract, Via Natural or Artificial Opening (ICD-10-PCS; principal; 2023-03-27)
DX: R06.02 Shortness of breath (principal); J06.9 Acute upper respiratory infection, unspecified; Z20.822 Contact with and (suspected) exposure to COVID-19
CPT/HCPCS: 0241U-QW; 71046-TC-FY; 93005; 93010; 99285-25

== ENCOUNTER 2023-07-26 13:43 | Emergency (ER) | payer OTHER ==
[2023-07-26 13:58] VITALS: BP 156/92; PULSE 82; RESP 21; TEMP 99.6; BMI 32.5
[2023-07-26] MEDS ORDERED: ALBUTEROL SO4 2.5/IPRATROPIUM 0.5 INH SOL 3 ML VIAL.NEB. NEB ONE ×2 (15:55→16:24)
[2023-07-26] MEDS: ALBUTEROL SO4 2.5/IPRATROPIUM 0.5 INH SOL 3 ML VIAL.NEB. NEB SCH ×2 (16:00→16:57)
[2023-07-26 16:02] LABS: BASO % 0.7 % (0-2.0); EOS % 1.9 % (0-4.5); HEMATOCRIT 40.4 % (35.4-49); HEMOGLOBIN 13.7 GM/dL (11.7-16.9); LYMPH % 16.8 % (8-40); MCH 29.2 pg (25.7-33.7); MCHC 33.8 g/dl (32.0-35.9); MEAN CELL VOLUME 86.3 fl (80-96); MEAN PLT VOLUME 10.1 fl (7.5-11.1); MONO % 5.3 % (3.8-10.2); NEUT % 75.3 % (42.8-82.8); PLATELET COUNT 206 10^3/uL (134-434); RBC 4.68 M/mm3 (4.00-5.60); RDW 15.7 % (11.9-15.9); WHITE BLOOD COUNT 14.3 K/mm3 (4.0-10.0)
[2023-07-26 16:13] LABS: INR 0.94 (0.83-1.09); PROTHROMBIN TIME (PATIENT) 10.9 SEC (9.7-13.0)
[2023-07-26 16:18] LABS: CHLORIDE 105 mmol/L (98-107); SODIUM 134 mmol/L (136-145)
[2023-07-26 16:21] LABS: BLOOD UREA NITROGEN 20.9 mg/dL (7-18); CALCIUM 8.6 mg/dL (8.5-10.1); CO2 23 mmol/L (21-32); GLUCOSE,RANDOM 199 mg/dL (74-106)
[2023-07-26 16:25] LABS: CREATININE 1.3 mg/dL (0.55-1.3); SGOT/AST 88 U/L (15-37)
[2023-07-26 16:27] LABS: ALK PHOS 60 U/L (45-117); BILIRUBIN,TOTAL 0.3 mg/dL (0.2-1); TOT PROT 6.6 g/dl (6.4-8.2)
[2023-07-26 16:30] LABS: ANION GAP 6 mmol/L (4-13); POTASSIUM 6.3 mmol/L (3.5-5.1); SGPT/ALT 50 U/L (13-61)
[2023-07-26 18:22] LABS: POTASSIUM 3.3 mmol/L (3.5-5.1)
[2023-07-26 18:24] LABS: BLOOD UREA NITROGEN 21.2 mg/dL (7-18); CALCIUM 8.2 mg/dL (8.5-10.1)
[2023-07-26 18:29] LABS: CREATININE 1.3 mg/dL (0.55-1.3)
[2023-07-26] MEDS ORDERED: POTASSIUM CHLORIDE ORAL LIQUID 20 MEQ/15 ML PO ONE (18:41)
[2023-07-26] MEDS ORDERED: POTASSIUM CHLORIDE TABS 20 MEQ TABLET.ER (FP) PO ONE ×2 (18:59→19:05)
== END 2023-07-26 19:26 | disposition home or self-care (01) ==
LOC: JER 13:43
PROC: 3E0F7GC Introduction of Other Therapeutic Substance into Respiratory Tract, Via Natural or Artificial Opening (ICD-10-PCS; principal; 2023-07-26)
DX: R53.1 Weakness (principal); R05.9 Cough, unspecified; R53.83 Other fatigue; R09.81 Nasal congestion; R09.82 Postnasal drip; Z20.822 Contact with and (suspected) exposure to COVID-19
CPT/HCPCS: 0241U-QW; 36415; 70486-TC; 71046-TC-FY; 71250-TC; 80048; 80053; 84484; 85025; 85610; 85730; 93005; 93010; 99285-25

== ENCOUNTER 2023-07-27 05:47 | Inpatient (IN) | payer OTHER ==
[2023-07-27 06:58] LABS: BASO % 0.7 % (0-2.0); EOS % 1.7 % (0-4.5); HEMOGLOBIN 12.4 GM/dL (11.7-16.9); MCHC 33.4 g/dl (32.0-35.9); MEAN CELL VOLUME 86.8 fl (80-96); MEAN PLT VOLUME 9.5 fl (7.5-11.1); MONO % 5.8 % (3.8-10.2); NEUT % 77.8 % (42.8-82.8); PLATELET COUNT 152 10^3/uL (134-434); RBC 4.26 M/mm3 (4.00-5.60); RDW 15.5 % (11.9-15.9); WHITE BLOOD COUNT 11.3 K/mm3 (4.0-10.0)
[2023-07-27 06:59] LABS: INR 0.98 (0.83-1.09); PROTHROMBIN TIME (PATIENT) 11.4 SEC (9.7-13.0)
[2023-07-27 07:01] LABS: POTASSIUM 3.4 mmol/L (3.5-5.1)
[2023-07-27 07:02] LABS: ACTIVATED PTT 26.1 SECONDS (25.2-36.5)
[2023-07-27 07:04] LABS: ALBUMIN 2.6 g/dl (3.4-5.0); BLOOD UREA NITROGEN 19.1 mg/dL (7-18); CALCIUM 7.6 mg/dL (8.5-10.1); MAGNESIUM 1.8 mg/dL (1.8-2.4)
[2023-07-27 07:07] LABS: CREATININE 1.3 mg/dL (0.55-1.3)
[2023-07-27 07:08] LABS: BILIRUBIN,TOTAL 0.2 mg/dL (0.2-1); TOT PROT 5.5 g/dl (6.4-8.2)
[2023-07-27 07:11] LABS: N-TERMINAL BNP 2604.8 pg/ml (5-125)
[2023-07-27] MEDS ORDERED: SODIUM CHLORIDE 500 ML IV STA (07:35)
[2023-07-27] MEDS ORDERED: methylPREDNISolone NA SUCC 125 MG/2 ML VIAL IVPUSH ONE (07:35)
[2023-07-27] MEDS ORDERED: methylPREDNISolone NA SUCC 125 MG/2 ML VIAL ONE (07:38)
[2023-07-27] MEDS ORDERED: ALBUTEROL SO4 2.5/IPRATROPIUM 0.5 INH SOL 3 ML VIAL.NEB. NEB SCH (08:00)
[2023-07-27] MEDS ORDERED: ALBUTEROL SO4 2.5/IPRATROPIUM 0.5 INH SOL 3 ML VIAL.NEB. NEB ONE (08:51)
[2023-07-27] MEDS ORDERED: ALBUTEROL SO4 0.083% IH SOL 2.5 MG/3 ML VIAL.NEB. NEB PRN (09:36)
[2023-07-27] MEDS ORDERED: amLODIPine BESYLATE 10 MG TABLET (FP) ONE (10:24)
[2023-07-27] MEDS ORDERED: ESCITALOPRAM OXALATE 10 MG TABLET ONE (10:25)
[2023-07-27] MEDS ORDERED: ASPIRIN 81 MG CHEWABLE TABLETS ONE ×2 (10:25→11:17)
[2023-07-27] MEDS ORDERED: methylPREDNISolone NA SUCC 40 MG/1 ML VIAL ONE (10:25)
[2023-07-27] MEDS ORDERED: CEFTRIAXONE 1 GM/50 ML BAG ONE (10:25)
[2023-07-27] MEDS: ASPIRIN 81 MG CHEWABLE TABLETS PO SCH (10:34)
[2023-07-27] MEDS: methylPREDNISolone NA SUCC 40 MG/1 ML VIAL IVPUSH SCH ×2 (10:35→17:12)
[2023-07-27] MEDS: amLODIPine BESYLATE 10 MG TABLET (FP) PO SCH (10:35)
[2023-07-27] MEDS: ESCITALOPRAM OXALATE 20 MG TABLET PO SCH (10:35)
[2023-07-27] MEDS: CEFTRIAXONE 1 GM in DEXTROSE 5%-WATER - 50 ML IVPB SCH (10:35)
[2023-07-27] MEDS ORDERED: ASPIRIN 81 MG CHEWABLE TABLETS PO ONE ×2 (11:11→11:13)
[2023-07-27] MEDS: LOSARTAN 50MG/HCTZ 12.5MG 1 TAB PO SCH (11:28)
[2023-07-27] MEDS ORDERED: INSULIN (NOVOLOG) ASPART 100 UNITS/ML 10ML VIAL ONE (11:29)
[2023-07-27] MEDS: INSULIN ASPART SLIDING SCALE (NOVOLOG) 1 VIAL SQ SCH ×3 (11:33→21:43)
[2023-07-27] MEDS ORDERED: FUROSEMIDE 40 MG/4 ML INJECTABLE VIAL IVPUSH ONE (14:05)
[2023-07-27] MEDS ORDERED: FUROSEMIDE 40 MG/4 ML INJECTABLE VIAL ONE (15:37)
[2023-07-27] MEDS: ACETAMINOPHEN 325 MG TABLET (FP) PO PRN (15:45)
[2023-07-27] MEDS: oxyCODONE HCL 5 MG TABLET PO PRN (15:45)
[2023-07-27] MEDS ORDERED: oxyCODONE HCL 5 MG TABLET ONE (15:46)
[2023-07-27] MEDS ORDERED: ACETAMINOPHEN 325 MG TABLET (FP) ONE (15:46)
[2023-07-27] MEDS: ALBUTEROL SO4 2.5/IPRATROPIUM 0.5 INH SOL 3 ML VIAL.NEB. NEB SCH ×2 (17:10→20:16)
[2023-07-27 18:17] VITALS: BMI 33.3
[2023-07-27] MEDS: ATORVASTATIN CA 80 MG TABLET (FP) PO SCH (21:40)
[2023-07-28] MEDS: oxyCODONE HCL 5 MG TABLET PO PRN ×2 (00:27→13:35)
[2023-07-28] MEDS: methylPREDNISolone NA SUCC 40 MG/1 ML VIAL IVPUSH SCH ×3 (04:30→17:28)
[2023-07-28] MEDS: INSULIN ASPART SLIDING SCALE (NOVOLOG) 1 VIAL SQ SCH ×4 (06:31→21:08)
[2023-07-28] MEDS: ALBUTEROL SO4 2.5/IPRATROPIUM 0.5 INH SOL 3 ML VIAL.NEB. NEB SCH ×4 (08:11→20:42)
[2023-07-28 08:26] LABS: HEMATOCRIT 35.5 % (35.4-49); MCH 29.4 pg (25.7-33.7); MCHC 33.7 g/dl (32.0-35.9); MEAN CELL VOLUME 87.4 fl (80-96); MEAN PLT VOLUME 9.9 fl (7.5-11.1); PLATELET COUNT 162 10^3/uL (134-434); RBC 4.06 M/mm3 (4.00-5.60); RDW 15.2 % (11.9-15.9); WHITE BLOOD COUNT 16.3 K/mm3 (4.0-10.0)
[2023-07-28 08:46] LABS: POTASSIUM 3.9 mmol/L (3.5-5.1)
[2023-07-28 08:50] LABS: ALBUMIN 2.5 g/dl (3.4-5.0); BLOOD UREA NITROGEN 29.5 mg/dL (7-18); CALCIUM 7.9 mg/dL (8.5-10.1)
[2023-07-28 08:53] LABS: CREATININE 1.3 mg/dL (0.55-1.3)
[2023-07-28 08:54] LABS: TOT PROT 5.5 g/dl (6.4-8.2)
[2023-07-28 08:55] LABS: BILIRUBIN,TOTAL 0.4 mg/dL (0.2-1)
[2023-07-28] MEDS: ENOXAPARIN NA (PORCINE) 40 MG/0.4 ML DISP.SYRIN SQ SCH (09:27)
[2023-07-28] MEDS: CEFTRIAXONE 1 GM in DEXTROSE 5%-WATER - 50 ML IVPB SCH (09:27)
[2023-07-28] MEDS: LOSARTAN 50MG/HCTZ 12.5MG 1 TAB PO SCH (09:28)
[2023-07-28] MEDS: amLODIPine BESYLATE 10 MG TABLET (FP) PO SCH (09:28)
[2023-07-28] MEDS: INSULIN (LEVEMIR) 100 UNITS/ML UNITS SQ SCH ×3 (09:28→11:37)
[2023-07-28] MEDS: ESCITALOPRAM OXALATE 20 MG TABLET PO SCH (09:28)
[2023-07-28] MEDS: ASPIRIN 81 MG CHEWABLE TABLETS PO SCH (09:28)
[2023-07-28] MEDS ORDERED: SODIUM CHLORIDE NASAL SPRAY 44 ML BOTTLE NS PRN (13:53)
[2023-07-28] MEDS: FLUTICASONE PROP 0.05% 16 GM NASAL SPRAY NS SCH (15:18)
[2023-07-28] MEDS: guaiFENesin/CODEINE 10 ML UNIT-DOSE CUPS PO PRN (16:58)
[2023-07-28] MEDS: ATORVASTATIN CA 80 MG TABLET (FP) PO SCH (21:07)
[2023-07-29] MEDS: oxyCODONE HCL 5 MG TABLET PO PRN ×2 (01:04→21:15)
[2023-07-29] MEDS: guaiFENesin/CODEINE 10 ML UNIT-DOSE CUPS PO PRN (01:04)
[2023-07-29] MEDS: methylPREDNISolone NA SUCC 40 MG/1 ML VIAL IVPUSH SCH ×3 (01:12→17:00)
[2023-07-29] MEDS: INSULIN ASPART SLIDING SCALE (NOVOLOG) 1 VIAL SQ SCH ×3 (06:32→16:51)
[2023-07-29] MEDS: INSULIN (LEVEMIR) 100 UNITS/ML UNITS SQ SCH ×2 (06:32→21:17)
[2023-07-29] MEDS: ALBUTEROL SO4 2.5/IPRATROPIUM 0.5 INH SOL 3 ML VIAL.NEB. NEB SCH ×4 (08:26→20:17)
[2023-07-29] MEDS: ENOXAPARIN NA (PORCINE) 40 MG/0.4 ML DISP.SYRIN SQ SCH (09:55)
[2023-07-29] MEDS: ESCITALOPRAM OXALATE 20 MG TABLET PO SCH (09:56)
[2023-07-29] MEDS: LOSARTAN 50MG/HCTZ 12.5MG 1 TAB PO SCH (09:56)
[2023-07-29] MEDS: ASPIRIN 81 MG CHEWABLE TABLETS PO SCH (09:57)
[2023-07-29] MEDS: CEFTRIAXONE 1 GM in DEXTROSE 5%-WATER - 50 ML IVPB SCH (09:57)
[2023-07-29] MEDS: amLODIPine BESYLATE 10 MG TABLET (FP) PO SCH (09:57)
[2023-07-29] MEDS: FLUTICASONE PROP 0.05% 16 GM NASAL SPRAY NS SCH (10:37)
[2023-07-29] MEDS: INSULIN (NOVOLOG) ASPART 100 UNITS/ML 10ML VIAL SQ SCH ×2 (11:32→16:51)
[2023-07-29] MEDS: POLYETHYLENE GLYCOL (HEALTHYLAX) 3350 17 GM PACKET PO SCH (12:47)
[2023-07-29] MEDS ORDERED: CYCLOBENZAPRINE HCL 5 MG TABLET PO ONE (13:49)
[2023-07-29] MEDS ORDERED: SENNOSIDES/DOCUSATE COMBO (SENNA PLUS) TABLET (UD) PO PRN (16:51)
[2023-07-29 16:55] LABS: HEMATOCRIT 36.1 % (35.4-49); HEMOGLOBIN 12.1 GM/dL (11.7-16.9); MCH 29.4 pg (25.7-33.7); MCHC 33.4 g/dl (32.0-35.9); MEAN PLT VOLUME 9.8 fl (7.5-11.1); PLATELET COUNT 154 10^3/uL (134-434); RDW 15.6 % (11.9-15.9); WHITE BLOOD COUNT 16.3 K/mm3 (4.0-10.0)
[2023-07-29 17:16] LABS: POTASSIUM 4.6 mmol/L (3.5-5.1)
[2023-07-29 17:17] LABS: BLOOD UREA NITROGEN 47.9 mg/dL (7-18); CALCIUM 8.6 mg/dL (8.5-10.1)
[2023-07-29 17:21] LABS: CREATININE 1.6 mg/dL (0.55-1.3)
[2023-07-29 17:46] LABS: ANISOCYTOSIS 1+; MACROCYTOSIS 1+; OVALOCYTE 1+
[2023-07-29 17:49] LABS: PLATELET ESTIMATE ADEQUATE
[2023-07-29] MEDS: ATORVASTATIN CA 80 MG TABLET (FP) PO SCH (21:15)
[2023-07-29] MEDS ORDERED: INSULIN (LEVEMIR) 100 UNITS/ML UNITS SQ SCH ×2 (22:00)
[2023-07-30] MEDS: methylPREDNISolone NA SUCC 40 MG/1 ML VIAL IVPUSH SCH ×3 (01:07→17:15)
[2023-07-30] MEDS: guaiFENesin/CODEINE 10 ML UNIT-DOSE CUPS PO PRN ×2 (01:07→23:50)
[2023-07-30] MEDS: INSULIN (NOVOLOG) ASPART 100 UNITS/ML 10ML VIAL SQ SCH ×3 (06:24→16:54)
[2023-07-30] MEDS: INSULIN ASPART SLIDING SCALE (NOVOLOG) 1 VIAL SQ SCH ×3 (06:25→16:55)
[2023-07-30] MEDS: INSULIN (LEVEMIR) 100 UNITS/ML UNITS SQ SCH ×2 (06:26→22:08)
[2023-07-30] MEDS: ALBUTEROL SO4 2.5/IPRATROPIUM 0.5 INH SOL 3 ML VIAL.NEB. NEB SCH ×4 (07:10→20:16)
[2023-07-30 07:13] LABS: HEMATOCRIT 37.2 % (35.4-49); HEMOGLOBIN 12.4 GM/dL (11.7-16.9); LYMPH % 3.9 % (8-40); MCH 29.3 pg (25.7-33.7); MCHC 33.3 g/dl (32.0-35.9); MEAN CELL VOLUME 88.1 fl (80-96); MEAN PLT VOLUME 10.2 fl (7.5-11.1); MONO % 2.2 % (3.8-10.2); NEUT % 93.9 % (42.8-82.8); PLATELET COUNT 168 10^3/uL (134-434); RBC 4.22 M/mm3 (4.00-5.60); RDW 15.7 % (11.9-15.9); WHITE BLOOD COUNT 15.6 K/mm3 (4.0-10.0)
[2023-07-30 07:28] LABS: POTASSIUM 4.9 mmol/L (3.5-5.1)
[2023-07-30 07:38] LABS: CALCIUM 8.9 mg/dL (8.5-10.1)
[2023-07-30 07:39] LABS: ALBUMIN 2.7 g/dl (3.4-5.0); BLOOD UREA NITROGEN 47.8 mg/dL (7-18); MAGNESIUM 2.1 mg/dL (1.8-2.4)
[2023-07-30 07:42] LABS: CREATININE 1.5 mg/dL (0.55-1.3); PHOSPHOROUS 4.1 mg/dL (2.5-4.9)
[2023-07-30 07:43] LABS: BILIRUBIN,TOTAL 0.4 mg/dL (0.2-1); TOT PROT 5.7 g/dl (6.4-8.2)
[2023-07-30] MEDS: ASPIRIN 81 MG CHEWABLE TABLETS PO SCH (09:17)
[2023-07-30] MEDS: LOSARTAN 50MG/HCTZ 12.5MG 1 TAB PO SCH (09:17)
[2023-07-30] MEDS: ESCITALOPRAM OXALATE 20 MG TABLET PO SCH (09:17)
[2023-07-30] MEDS: ENOXAPARIN NA (PORCINE) 40 MG/0.4 ML DISP.SYRIN SQ SCH (09:17)
[2023-07-30] MEDS: EZETIMIBE 10 MG TABLET (FP) PO SCH (09:17)
[2023-07-30] MEDS: amLODIPine BESYLATE 10 MG TABLET (FP) PO SCH (09:17)
[2023-07-30] MEDS: FLUTICASONE PROP 0.05% 16 GM NASAL SPRAY NS SCH (09:18)
[2023-07-30] MEDS: LOSARTAN POTASSIUM 25 MG TABLET PO SCH (10:14)
[2023-07-30] MEDS: oxyCODONE HCL 5 MG TABLET PO PRN ×2 (11:10→22:07)
[2023-07-30 11:51] LABS: ANISOCYTOSIS 0; HELMET CELLS 0; HOWELL-JOLLY BODIES 0; MACROCYTOSIS 0; OVALOCYTE 0; ROULEAU 0; SICKELED CELLS 0; TARGET CELLS 0; TEAR DROP CELLS 0; TOXIC GRANULATION 0
[2023-07-30] MEDS: POLYETHYLENE GLYCOL (HEALTHYLAX) 3350 17 GM PACKET PO SCH (12:29)
[2023-07-30] MEDS: ATORVASTATIN CA 80 MG TABLET (FP) PO SCH (22:07)
[2023-07-30] MEDS: ACETAMINOPHEN 325 MG TABLET (FP) PO PRN (22:07)
[2023-07-31] MEDS: methylPREDNISolone NA SUCC 40 MG/1 ML VIAL IVPUSH SCH ×3 (02:44→21:48)
[2023-07-31] MEDS: INSULIN (NOVOLOG) ASPART 100 UNITS/ML 10ML VIAL SQ SCH ×3 (06:37→17:08)
[2023-07-31] MEDS: INSULIN (LEVEMIR) 100 UNITS/ML UNITS SQ SCH ×2 (06:38→21:52)
[2023-07-31] MEDS: INSULIN ASPART SLIDING SCALE (NOVOLOG) 1 VIAL SQ SCH ×3 (06:38→17:08)
[2023-07-31] MEDS: ALBUTEROL SO4 2.5/IPRATROPIUM 0.5 INH SOL 3 ML VIAL.NEB. NEB SCH ×4 (07:35→20:10)
[2023-07-31 07:56] LABS: HEMATOCRIT 37.6 % (35.4-49); HEMOGLOBIN 12.6 GM/dL (11.7-16.9); MCH 29.5 pg (25.7-33.7); MCHC 33.5 g/dl (32.0-35.9); MEAN CELL VOLUME 88.1 fl (80-96); MEAN PLT VOLUME 10.1 fl (7.5-11.1); PLATELET COUNT 154 10^3/uL (134-434); RBC 4.27 M/mm3 (4.00-5.60); RDW 15.3 % (11.9-15.9); WHITE BLOOD COUNT 15.6 K/mm3 (4.0-10.0)
[2023-07-31 08:47] LABS: POTASSIUM 5.1 mmol/L (3.5-5.1)
[2023-07-31 08:52] LABS: ALBUMIN 2.7 g/dl (3.4-5.0); BLOOD UREA NITROGEN 49.5 mg/dL (7-18); CALCIUM 8.8 mg/dL (8.5-10.1); MAGNESIUM 2.1 mg/dL (1.8-2.4)
[2023-07-31 08:55] LABS: CREATININE 1.5 mg/dL (0.55-1.3); PHOSPHOROUS 4.2 mg/dL (2.5-4.9)
[2023-07-31 08:56] LABS: TOT PROT 5.6 g/dl (6.4-8.2)
[2023-07-31 08:57] LABS: BILIRUBIN,TOTAL 0.4 mg/dL (0.2-1)
[2023-07-31] MEDS: LOSARTAN POTASSIUM 25 MG TABLET PO SCH (09:18)
[2023-07-31] MEDS: ESCITALOPRAM OXALATE 20 MG TABLET PO SCH (09:18)
[2023-07-31] MEDS: EZETIMIBE 10 MG TABLET (FP) PO SCH (09:18)
[2023-07-31] MEDS: POLYETHYLENE GLYCOL (HEALTHYLAX) 3350 17 GM PACKET PO SCH (09:18)
[2023-07-31] MEDS: FLUTICASONE PROP 0.05% 16 GM NASAL SPRAY NS SCH (09:18)
[2023-07-31] MEDS: amLODIPine BESYLATE 10 MG TABLET (FP) PO SCH (09:18)
[2023-07-31] MEDS: ENOXAPARIN NA (PORCINE) 40 MG/0.4 ML DISP.SYRIN SQ SCH (09:18)
[2023-07-31] MEDS: ASPIRIN 81 MG CHEWABLE TABLETS PO SCH (09:18)
[2023-07-31 10:54] LABS: ANISOCYTOSIS 0; HELMET CELLS 0; HOWELL-JOLLY BODIES 0; MACROCYTOSIS 0; OVALOCYTE 0; ROULEAU 0; SICKELED CELLS 0; TARGET CELLS 0; TEAR DROP CELLS 0; TOXIC GRANULATION 0
[2023-07-31] MEDS: oxyCODONE HCL 5 MG TABLET PO PRN ×2 (16:28→21:48)
[2023-07-31] MEDS: ACETAMINOPHEN 325 MG TABLET (FP) PO PRN (16:36)
[2023-07-31] MEDS: ATORVASTATIN CA 80 MG TABLET (FP) PO SCH (21:48)
[2023-07-31] MEDS: guaiFENesin/CODEINE 10 ML UNIT-DOSE CUPS PO PRN (21:48)
[2023-08-01] MEDS ORDERED: INSULIN (NOVOLOG) ASPART 100 UNITS/ML 10ML VIAL ONE (06:37)
[2023-08-01] MEDS: INSULIN (LEVEMIR) 100 UNITS/ML UNITS SQ SCH (06:40)
[2023-08-01] MEDS: INSULIN (NOVOLOG) ASPART 100 UNITS/ML 10ML VIAL SQ SCH ×2 (06:41→11:11)
[2023-08-01] MEDS: INSULIN ASPART SLIDING SCALE (NOVOLOG) 1 VIAL SQ SCH ×2 (06:41→11:12)
[2023-08-01] MEDS: ALBUTEROL SO4 2.5/IPRATROPIUM 0.5 INH SOL 3 ML VIAL.NEB. NEB SCH ×2 (07:56→12:03)
[2023-08-01] MEDS: ASPIRIN 81 MG CHEWABLE TABLETS PO SCH (09:47)
[2023-08-01] MEDS: ESCITALOPRAM OXALATE 20 MG TABLET PO SCH (09:47)
[2023-08-01] MEDS: LOSARTAN POTASSIUM 25 MG TABLET PO SCH (09:47)
[2023-08-01] MEDS: amLODIPine BESYLATE 10 MG TABLET (FP) PO SCH (09:47)
[2023-08-01] MEDS: EZETIMIBE 10 MG TABLET (FP) PO SCH (09:47)
[2023-08-01] MEDS: methylPREDNISolone NA SUCC 40 MG/1 ML VIAL IVPUSH SCH (09:47)
[2023-08-01] MEDS: ENOXAPARIN NA (PORCINE) 40 MG/0.4 ML DISP.SYRIN SQ SCH (09:48)
[2023-08-01] MEDS: FLUTICASONE PROP 0.05% 16 GM NASAL SPRAY NS SCH (09:49)
[2023-08-01] MEDS: POLYETHYLENE GLYCOL (HEALTHYLAX) 3350 17 GM PACKET PO SCH (09:49)
[2023-08-01 10:58] VITALS: BP 125/65; PULSE 65; RESP 16; TEMP 97.9
== END 2023-08-01 13:35 | disposition home or self-care (01) | DRG 291 ==
LOC: JER 05:47 → JERBED 08:41 → J4W 16:33 → OBSVTOIN 07-28 08:28
PROVIDERS: ADMIT Internal Medicine; ATTEND Internal Medicine
DX: I11.0 Hypertensive heart disease with heart failure (principal); I50.33 Acute on chronic diastolic (congestive) heart failure; I24.89 Other forms of acute ischemic heart disease; I69.354 Hemiplegia and hemiparesis following cerebral infarction affecting left non-dominant side; J44.1 Chronic obstructive pulmonary disease with (acute) exacerbation; J44.0 Chronic obstructive pulmonary disease with (acute) lower respiratory infection; F11.20 Opioid dependence, uncomplicated; J20.9 Acute bronchitis, unspecified; I25.10 Atherosclerotic heart disease of native coronary artery without angina pectoris; E78.00 Pure hypercholesterolemia, unspecified; F41.8 Other specified anxiety disorders; E66.9 Obesity, unspecified; Z68.33 Body mass index [BMI] 33.0-33.9, adult; M54.9 Dorsalgia, unspecified; Z95.5 Presence of coronary angioplasty implant and graft; E11.65 Type 2 diabetes mellitus with hyperglycemia; M50.30 Other cervical disc degeneration, unspecified cervical region
CPT/HCPCS: 0241U-QW; 36415; 70486-TC; 71045-TC-FY; 71046-TC-FY; 71250-TC; 80048; 80053; 80061; 82550; 82553; 82962; 83036; 83735; 83880; 84100; 84443; 84484; 85025; 85027; 85610; 85730; 93005; 93010; 93306-TC; 93308; 94010; 94640; 97116-GP; 97162-GP; 99285-25; G0378

== ENCOUNTER 2023-09-09 14:05 | Emergency (ER) | payer OTHER ==
[2023-09-09 14:27] VITALS: BP 177/78; PULSE 95; RESP 19; TEMP 99.1; BMI 32.5
== END 2023-09-09 16:51 | disposition home or self-care (01) ==
LOC: JERFT 14:05
DX: R05.9 Cough, unspecified (principal); Z20.822 Contact with and (suspected) exposure to COVID-19
CPT/HCPCS: 0241U-QW; 71046-TC-FY; 99284-25

== ENCOUNTER 2023-09-14 07:46 | Inpatient (IN) | payer OTHER ==
[2023-09-14] MEDS ORDERED: ALBUTEROL SO4 2.5/IPRATROPIUM 0.5 INH SOL 3 ML VIAL.NEB. NEB ONE ×3 (09:32→11:19)
[2023-09-14] MEDS ORDERED: methylPREDNISolone NA SUCC 125 MG/2 ML VIAL ONE (09:33)
[2023-09-14] MEDS: ALBUTEROL SO4 2.5/IPRATROPIUM 0.5 INH SOL 3 ML VIAL.NEB. NEB SCH (09:38)
[2023-09-14] MEDS: methylPREDNISolone NA SUCC 125 MG/2 ML VIAL IVPUSH ONE (09:38)
[2023-09-14 09:41] LABS: VENOUS BASE EXCESS -1.5 mmol/L (-2-2); VENOUS O2 SATURATION 50.5 % (70-80); VENOUS PCO2 53.9 mmHg (38-52); VENOUS PH 7.299 (7.310-7.410)
[2023-09-14 09:51] LABS: BASO % 0.7 % (0-2.0); EOS % 0.6 % (0-4.5); HEMATOCRIT 39.7 % (35.4-49); HEMOGLOBIN 13.8 GM/dL (11.7-16.9); INR 0.92 (0.83-1.09); LYMPH % 6.2 % (8-40); MCH 29.3 pg (25.7-33.7); MCHC 34.7 g/dl (32.0-35.9); MEAN CELL VOLUME 84.6 fl (80-96); MEAN PLT VOLUME 9.9 fl (7.5-11.1); MONO % 6.6 % (3.8-10.2); NEUT % 85.9 % (42.8-82.8); PLATELET COUNT 150 10^3/uL (134-434); PROTHROMBIN TIME (PATIENT) 10.7 SEC (9.7-13.0); RBC 4.69 M/mm3 (4.00-5.60); RDW 16.2 % (11.9-15.9); WHITE BLOOD COUNT 11.9 K/mm3 (4.0-10.0)
[2023-09-14 09:55] LABS: ACTIVATED PTT 25.4 SECONDS (25.2-36.5)
[2023-09-14 10:01] LABS: CHLORIDE 97 mmol/L (98-107); SODIUM 129 mmol/L (136-145)
[2023-09-14 10:03] LABS: CALCIUM 8.9 mg/dL (8.5-10.1)
[2023-09-14 10:05] LABS: ALBUMIN 2.9 g/dl (3.4-5.0); BLOOD UREA NITROGEN 26.4 mg/dL (7-18); CO2 27 mmol/L (21-32)
[2023-09-14 10:07] LABS: CREATININE 1.7 mg/dL (0.55-1.3)
[2023-09-14 10:08] LABS: BILIRUBIN,TOTAL 0.4 mg/dL (0.2-1)
[2023-09-14 10:09] LABS: ALK PHOS 78 U/L (45-117); ANION GAP 4 mmol/L (4-13); GLUCOSE,RANDOM 412 mg/dL (74-106); POTASSIUM 7.7 mmol/L (3.5-5.1); SGOT/AST 105 U/L (15-37); SGPT/ALT 45 U/L (13-61)
[2023-09-14 11:52] LABS: POTASSIUM 4.6 mmol/L (3.5-5.1)
[2023-09-14 11:54] LABS: BLOOD UREA NITROGEN 22.8 mg/dL (7-18); CALCIUM 9.1 mg/dL (8.5-10.1)
[2023-09-14 11:57] LABS: CREATININE 1.6 mg/dL (0.55-1.3)
[2023-09-14] MEDS ORDERED: INSULIN REGULAR HUMAN 100 UNITS/ML *VIAL ONE (12:23)
[2023-09-14] MEDS: INSULIN REGULAR HUMAN 100 UNITS/ML *VIAL SQ ONE (12:26)
[2023-09-14] MEDS ORDERED: HEPARIN NA (PORCINE) 5,000 UNITS/ML 1ML VIAL ONE ×2 (14:56→21:42)
[2023-09-14] MEDS ORDERED: HEPARIN INFUSION - 25,000 UNITS/500 ML INFUS.BAG IVPB ONE (14:56)
[2023-09-14] MEDS: HEPARIN NA (PORCINE) 5,000 UNITS/ML 1ML VIAL IVPUSH ONE (15:13)
[2023-09-14] MEDS: HEPARIN INFUSION - 25,000 UNITS/500 ML INFUS.BAG IVPB SCH (15:18)
[2023-09-14] MEDS ORDERED: NICOTINE 14 MG/24 HOURS TOPICAL PATCH TD ONE (16:39)
[2023-09-14] MEDS: NICOTINE 14 MG/24 HOURS TOPICAL PATCH TD SCH (16:39)
[2023-09-14] MEDS ORDERED: CEFTRIAXONE 1 GM/50 ML BAG ONE (16:39)
[2023-09-14] MEDS: CEFTRIAXONE 1 GM in DEXTROSE 5%-WATER - 50 ML IVPB SCH (17:16)
[2023-09-14] MEDS ORDERED: AZITHROMYCIN IVPB 500 MG/250 ML BAG IVPB ONE (17:35)
[2023-09-14] MEDS: AZITHROMYCIN IVPB 500 MG/250 ML BAG IVPB SCH (17:39)
[2023-09-14] MEDS: INSULIN ASPART SLIDING SCALE (NOVOLOG) 1 VIAL SQ SCH (17:53)
[2023-09-14] MEDS: INSULIN (NOVOLOG) ASPART 100 UNITS/ML 10ML VIAL SQ SCH (17:54)
[2023-09-14] MEDS ORDERED: INSULIN (NOVOLOG) ASPART 100 UNITS/ML 10ML VIAL ONE (17:55)
[2023-09-14] MEDS ORDERED: INSULIN (LEVEMIR) 100 UNITS/ML UNITS SQ ONE (21:42)
[2023-09-14] MEDS ORDERED: ROSUVASTATIN CA 20 MG TABLET ONE (21:42)
[2023-09-14] MEDS: ROSUVASTATIN CA 20 MG TABLET PO SCH (21:50)
[2023-09-14] MEDS: INSULIN (LEVEMIR) 100 UNITS/ML UNITS SQ SCH (21:51)
[2023-09-14] MEDS: HEPARIN NA (PORCINE) 5,000 UNITS/ML 1ML VIAL IVPUSH PRN (21:52)
[2023-09-14] MEDS: oxyCODONE HCL 5 MG TABLET PO ONE (22:31)
[2023-09-14] MEDS: ACETAMINOPHEN 1000 MG/100 ML BAG IVPB ONE (22:31)
[2023-09-14] MEDS ORDERED: ACETAMINOPHEN INJECTION 100 ML IVPB ONE (22:34)
[2023-09-14] MEDS ORDERED: oxyCODONE HCL 5 MG TABLET ONE (22:34)
[2023-09-15 04:30] VITALS: BMI 31.9
[2023-09-15] MEDS: INSULIN (LEVEMIR) 100 UNITS/ML UNITS SQ SCH (06:18)
[2023-09-15] MEDS ORDERED: INSULIN (LEVEMIR) 100 UNITS/ML UNITS SQ SCH (07:00)
[2023-09-15 08:31] LABS: HEMATOCRIT 36.3 % (35.4-49); MCHC 35.8 g/dl (32.0-35.9); MEAN CELL VOLUME 83.8 fl (80-96); MEAN PLT VOLUME 10.2 fl (7.5-11.1); PLATELET COUNT 142 10^3/uL (134-434); RBC 4.33 M/mm3 (4.00-5.60); RDW 16.6 % (11.9-15.9)
[2023-09-15 08:50] LABS: POTASSIUM 3.9 mmol/L (3.5-5.1)
[2023-09-15 08:55] LABS: BLOOD UREA NITROGEN 35.7 mg/dL (7-18); MAGNESIUM 1.9 mg/dL (1.8-2.4)
[2023-09-15 08:56] LABS: CALCIUM 8.5 mg/dL (8.5-10.1)
[2023-09-15 08:58] LABS: CREATININE 1.2 mg/dL (0.55-1.3)
[2023-09-15] MEDS: methylPREDNISolone NA SUCC 40 MG/1 ML VIAL IVPUSH SCH ×2 (09:48→16:36)
[2023-09-15] MEDS: LOSARTAN POTASSIUM 50 MG TABLET PO SCH ×2 (09:48→16:36)
[2023-09-15] MEDS: amLODIPine BESYLATE 10 MG TABLET (FP) PO SCH (09:48)
[2023-09-15] MEDS: APIXABAN 5 MG TABLET PO SCH (09:48)
[2023-09-15] MEDS: ASPIRIN COATED 81 MG TABLET.EC PO SCH (09:48)
[2023-09-15] MEDS: EZETIMIBE 10 MG TABLET (FP) PO SCH (09:49)
[2023-09-15] MEDS ORDERED: ASPIRIN 81 MG CHEWABLE TABLETS PO SCH (10:00)
[2023-09-15] MEDS ORDERED: SENNOSIDES/DOCUSATE COMBO (SENNA PLUS) TABLET (UD) PO PRN (14:49)
[2023-09-15] MEDS ORDERED: predniSONE 10 MG TABLET (UD) PO SCH (15:00)
[2023-09-15] MEDS ORDERED: LISINOPRIL 20 MG TABLET PO SCH ×2 (16:00→18:00)
[2023-09-15] MEDS ORDERED: ACETAMINOPHEN 325 MG TABLET (FP) PO PRN ×2 (16:22→22:00)
[2023-09-15] MEDS: FLUTICASONE PROP 0.05% 16 GM NASAL SPRAY NS SCH (16:36)
[2023-09-15] MEDS: DULoxetine HCL 30 MG CAPSULE.DR PO SCH (16:36)
[2023-09-15] MEDS: oxyCODONE HCL 5 MG TABLET PO PRN (17:10)
[2023-09-15] MEDS ORDERED: DULoxetine HCL 30 MG CAPSULE.DR PO SCH (18:00)
[2023-09-15] MEDS: ALBUTEROL SO4 2.5/IPRATROPIUM 0.5 INH SOL 3 ML VIAL.NEB. NEB SCH (20:05)
[2023-09-15] MEDS: guaiFENesin 600 MG TABLET.ER (FP) PO SCH (23:18)
[2023-09-16] MEDS: INSULIN (NOVOLOG) ASPART 100 UNITS/ML 10ML VIAL SQ ONE ×2 (02:17)
[2023-09-16 07:37] LABS: HEMATOCRIT 38.5 % (35.4-49); HEMOGLOBIN 12.9 GM/dL (11.7-16.9); MCH 28.8 pg (25.7-33.7); MCHC 33.6 g/dl (32.0-35.9); MEAN CELL VOLUME 85.7 fl (80-96); MEAN PLT VOLUME 9.5 fl (7.5-11.1); PLATELET COUNT 150 10^3/uL (134-434); RBC 4.49 M/mm3 (4.00-5.60); RDW 16.3 % (11.9-15.9); WHITE BLOOD COUNT 12.9 K/mm3 (4.0-10.0)
[2023-09-16 07:54] LABS: POTASSIUM 4.5 mmol/L (3.5-5.1)
[2023-09-16 08:01] LABS: ALBUMIN 2.7 g/dl (3.4-5.0); CALCIUM 9.2 mg/dL (8.5-10.1)
[2023-09-16 08:02] LABS: MAGNESIUM 2.1 mg/dL (1.8-2.4)
[2023-09-16 08:04] LABS: PHOSPHOROUS 4.8 mg/dL (2.5-4.9)
[2023-09-16 08:06] LABS: BILIRUBIN,TOTAL 0.5 mg/dL (0.2-1); TOT PROT 5.7 g/dl (6.4-8.2)
[2023-09-16 08:07] LABS: BLOOD UREA NITROGEN 48.7 mg/dL (7-18); CREATININE 1.4 mg/dL (0.55-1.3)
[2023-09-16] MEDS: POLYETHYLENE GLYCOL (HEALTHYLAX) 3350 17 GM PACKET PO SCH (09:33)
[2023-09-16] MEDS ORDERED: ROSUVASTATIN CA 10 MG TABLET ONE (20:36)
[2023-09-16] MEDS: INSULIN (LEVEMIR) 100 UNITS/ML UNITS SQ SCH (22:59)
[2023-09-17] MEDS: INSULIN (NOVOLOG) ASPART 100 UNITS/ML 10ML VIAL SQ ONE (03:28)
[2023-09-17] MEDS: INSULIN (LEVEMIR) 100 UNITS/ML UNITS SQ SCH ×2 (06:17→21:18)
[2023-09-17 07:57] LABS: HEMATOCRIT 36.2 % (35.4-49); MCH 28.4 pg (25.7-33.7); MCHC 33.2 g/dl (32.0-35.9); MEAN CELL VOLUME 85.5 fl (80-96); MEAN PLT VOLUME 9.7 fl (7.5-11.1); PLATELET COUNT 155 10^3/uL (134-434); RBC 4.23 M/mm3 (4.00-5.60); RDW 16.5 % (11.9-15.9)
[2023-09-17 08:21] LABS: CHLORIDE 95 mmol/L (98-107); POTASSIUM 4.7 mmol/L (3.5-5.1); SODIUM 127 mmol/L (136-145)
[2023-09-17 08:26] LABS: CALCIUM 8.8 mg/dL (8.5-10.1)
[2023-09-17 08:27] LABS: ALBUMIN 2.5 g/dl (3.4-5.0); ANION GAP 10 mmol/L (4-13); CO2 23 mmol/L (21-32); MAGNESIUM 1.9 mg/dL (1.8-2.4)
[2023-09-17 08:29] LABS: PHOSPHOROUS 4.3 mg/dL (2.5-4.9)
[2023-09-17 08:30] LABS: CREATININE 1.4 mg/dL (0.55-1.3); SGOT/AST 23 U/L (15-37); SGPT/ALT 38 U/L (13-61)
[2023-09-17 08:31] LABS: BILIRUBIN,TOTAL 0.4 mg/dL (0.2-1); TOT PROT 5.3 g/dl (6.4-8.2)
[2023-09-17 08:32] LABS: ALK PHOS 59 U/L (45-117)
[2023-09-17 08:41] LABS: GLUCOSE,RANDOM 404 mg/dL (74-106)
[2023-09-17 09:39] LABS: ANISOCYTOSIS 0; HELMET CELLS 0; HOWELL-JOLLY BODIES 0; MACROCYTOSIS 0; OVALOCYTE 0; ROULEAU 0; SICKELED CELLS 0; TARGET CELLS 0; TEAR DROP CELLS 0; TOXIC GRANULATION 0
[2023-09-17] MEDS: ALBUTEROL SO4 2.5/IPRATROPIUM 0.5 INH SOL 3 ML VIAL.NEB. NEB SCH (15:30)
[2023-09-17] MEDS: methylPREDNISolone NA SUCC 40 MG/1 ML VIAL IVPUSH SCH (21:15)
[2023-09-18 07:32] LABS: BASO % 0.1 % (0-2.0); HEMATOCRIT 35.2 % (35.4-49); HEMOGLOBIN 12.4 GM/dL (11.7-16.9); MCH 29.4 pg (25.7-33.7); MCHC 35.1 g/dl (32.0-35.9); MEAN CELL VOLUME 83.7 fl (80-96); MEAN PLT VOLUME 9.3 fl (7.5-11.1); NEUT % 90.9 % (42.8-82.8); PLATELET COUNT 170 10^3/uL (134-434); RDW 16.1 % (11.9-15.9); WHITE BLOOD COUNT 16.4 K/mm3 (4.0-10.0)
[2023-09-18 09:22] LABS: ALBUMIN 2.6 g/dl (3.4-5.0); BILIRUBIN,TOTAL 0.4 mg/dL (0.2-1); BLOOD UREA NITROGEN 57.5 mg/dL (7-18); CALCIUM 8.8 mg/dL (8.5-10.1); CREATININE 1.4 mg/dL (0.55-1.3); MAGNESIUM 1.9 mg/dL (1.8-2.4); PHOSPHOROUS 3.9 mg/dL (2.5-4.9); POTASSIUM 5.1 mmol/L (3.5-5.1); TOT PROT 5.4 g/dl (6.4-8.2)
[2023-09-18] MEDS: FLU VACCINE (FLULAVAL) PF 60 MCG/0.5 ML SYRINGE 2023-2024 IM ONE (18:07)
[2023-09-18] MEDS: guaiFENesin/CODEINE 10 ML UNIT-DOSE CUPS PO PRN (22:18)
[2023-09-18] MEDS: oxyCODONE HCL 5 MG TABLET PO ONE (23:45)
[2023-09-19 08:24] LABS: HEMATOCRIT 35.8 % (35.4-49); HEMOGLOBIN 12.4 GM/dL (11.7-16.9); MCH 29.1 pg (25.7-33.7); MCHC 34.5 g/dl (32.0-35.9); MEAN CELL VOLUME 84.5 fl (80-96); MEAN PLT VOLUME 9.2 fl (7.5-11.1); PLATELET COUNT 160 10^3/uL (134-434); RBC 4.24 M/mm3 (4.00-5.60); RDW 16.3 % (11.9-15.9); WHITE BLOOD COUNT 14.6 K/mm3 (4.0-10.0)
[2023-09-19 08:33] LABS: POTASSIUM 5.1 mmol/L (3.5-5.1)
[2023-09-19 08:37] LABS: CALCIUM 9.2 mg/dL (8.5-10.1)
[2023-09-19 08:38] LABS: ALBUMIN 2.6 g/dl (3.4-5.0); BLOOD UREA NITROGEN 54.2 mg/dL (7-18); MAGNESIUM 2.2 mg/dL (1.8-2.4)
[2023-09-19 08:41] LABS: CREATININE 1.3 mg/dL (0.55-1.3); PHOSPHOROUS 4.1 mg/dL (2.5-4.9)
[2023-09-19 08:42] LABS: BILIRUBIN,TOTAL 0.4 mg/dL (0.2-1); TOT PROT 5.4 g/dl (6.4-8.2)
[2023-09-19 11:20] LABS: ANISOCYTOSIS 0; MACROCYTOSIS 0
[2023-09-19] MEDS: EMPAGLIFLOZIN (JARDIANCE) 10 MG TABLET PO SCH (12:45)
[2023-09-19] MEDS ORDERED: ACETAMINOPHEN 325 MG TABLET (FP) PO PRN (15:25)
[2023-09-19] MEDS: oxyCODONE HCL 5 MG TABLET PO PRN (15:37)
[2023-09-20 07:42] LABS: HEMATOCRIT 36.4 % (35.4-49); HEMOGLOBIN 12.2 GM/dL (11.7-16.9); MCH 28.7 pg (25.7-33.7); MCHC 33.6 g/dl (32.0-35.9); MEAN CELL VOLUME 85.4 fl (80-96); MEAN PLT VOLUME 9.3 fl (7.5-11.1); PLATELET COUNT 181 10^3/uL (134-434); RBC 4.26 M/mm3 (4.00-5.60); RDW 16.2 % (11.9-15.9)
[2023-09-20 07:47] LABS: POTASSIUM 5.3 mmol/L (3.5-5.1)
[2023-09-20 08:07] LABS: ALBUMIN 2.7 g/dl (3.4-5.0); BLOOD UREA NITROGEN 53.9 mg/dL (7-18); CALCIUM 9.3 mg/dL (8.5-10.1)
[2023-09-20 08:09] LABS: MAGNESIUM 2.2 mg/dL (1.8-2.4)
[2023-09-20 08:11] LABS: CREATININE 1.4 mg/dL (0.55-1.3); PHOSPHOROUS 4.8 mg/dL (2.5-4.9)
[2023-09-20 08:13] LABS: BILIRUBIN,TOTAL 0.4 mg/dL (0.2-1); TOT PROT 5.5 g/dl (6.4-8.2)
[2023-09-20] MEDS: predniSONE 20 MG TABLET (UD) PO SCH (10:52)
[2023-09-20 14:56] VITALS: RESP 18
[2023-09-20] MEDS: oxyCODONE HCL 5 MG TABLET PO PRN (15:05)
[2023-09-20] MEDS: SODIUM ZIRCONIUM CYCLOSILICATE (LOKELMA) 5 GM PACKET PO ONE (17:09)
[2023-09-20] MEDS: SODIUM ZIRCONIUM CYCLOSILICATE (LOKELMA) 5 GM PACKET PO SCH (17:12)
[2023-09-21 09:06] VITALS: BP 114/72; PULSE 83; TEMP 98.2
== END 2023-09-21 11:43 | disposition home or self-care (01) | DRG 190 ==
LOC: JER 07:46 → JERBED 11:08 → J4W 09-15 03:57
PROVIDERS: ADMIT Internal Medicine; ATTEND Internal Medicine
DX: J44.1 Chronic obstructive pulmonary disease with (acute) exacerbation (principal); I26.99 Other pulmonary embolism without acute cor pulmonale; I50.32 Chronic diastolic (congestive) heart failure; I69.354 Hemiplegia and hemiparesis following cerebral infarction affecting left non-dominant side; J44.0 Chronic obstructive pulmonary disease with (acute) lower respiratory infection; J20.9 Acute bronchitis, unspecified; I25.10 Atherosclerotic heart disease of native coronary artery without angina pectoris; I11.0 Hypertensive heart disease with heart failure; E11.65 Type 2 diabetes mellitus with hyperglycemia; E78.5 Hyperlipidemia, unspecified; K59.00 Constipation, unspecified
CPT/HCPCS: 0241U-QW; 36415; 71045-TC-FY; 71275-TC; 80048; 80053; 80061; 82803; 82962; 83735; 83880; 84100; 84484; 85025; 85027; 85610; 85730; 90686; 93005; 93010; 93306-TC; 94640; 97116-GP; 97161-GP; 99285-25; G0008; J0131; J1644; Q9967

== ENCOUNTER 2023-12-01 09:09 | Observation (INO) | payer OTHER ==
[2023-12-01 09:16] VITALS: RESP 18
[2023-12-01] MEDS ORDERED: ONDANSETRON 4 MG/2 ML VIAL ONE (10:26)
[2023-12-01] MEDS ORDERED: FAMOTIDINE 20 MG/50 ML IVPB 20 MG/50 ML MG IVPB ONE (10:27)
[2023-12-01] MEDS: ONDANSETRON 4 MG/2 ML VIAL IVPUSH ONE (10:58)
[2023-12-01 11:02] LABS: BASO % 0.7 % (0-2.0); EOS % 0.7 % (0-4.5); HEMATOCRIT 34.7 % (35.4-49); HEMOGLOBIN 12.1 GM/dL (11.7-16.9); MCH 30.1 pg (25.7-33.7); MEAN PLT VOLUME 9.2 fl (7.5-11.1); MONO % 5.5 % (3.8-10.2); NEUT % 82.1 % (42.8-82.8); PLATELET COUNT 214 10^3/uL (134-434); RBC 4.03 M/mm3 (4.00-5.60); RDW 17.8 % (11.9-15.9); WHITE BLOOD COUNT 13.4 K/mm3 (4.0-10.0)
[2023-12-01 11:13] LABS: INR 1.24 (0.83-1.09); PROTHROMBIN TIME (PATIENT) 13.9 SEC (9.7-13.0)
[2023-12-01] MEDS: SODIUM CHLORIDE 1,000 ML IV STA ×2 (11:24→13:43)
[2023-12-01] MEDS: FAMOTIDINE 20 MG/50 ML IVPB 20 MG/50 ML MG IVPB ONE (11:25)
[2023-12-01 11:31] LABS: POTASSIUM 3.5 mmol/L (3.5-5.1)
[2023-12-01 11:33] LABS: CALCIUM 9.1 mg/dL (8.5-10.1)
[2023-12-01 11:34] LABS: ALBUMIN 3.5 g/dl (3.4-5.0); BLOOD UREA NITROGEN 31.4 mg/dL (7-18)
[2023-12-01 11:37] LABS: CREATININE 1.9 mg/dL (0.55-1.3)
[2023-12-01 11:38] LABS: TOT PROT 6.7 g/dl (6.4-8.2)
[2023-12-01 11:39] LABS: BILIRUBIN,TOTAL 0.5 mg/dL (0.2-1)
[2023-12-01 15:02] LABS: PH,URINE 5.5 (5.0-8.0); URINE APPEARANCE CLEAR; URINE BILIRUBIN NEGATIVE (NEGATIVE); URINE COLOR YELLOW; URINE GLUCOSE (UA) 3+ (NEGATIVE); URINE KETONE NEGATIVE (NEGATIVE); URINE LEUK ESTERASE NEGATIVE (NEGATIVE); URINE NITRITE NEGATIVE (NEGATIVE); URINE PROTEIN NEGATIVE (NEGATIVE)
[2023-12-01] MEDS: LACTATED RINGERS SOLUTION 1000 ML INFUS.BAG IV ONE (15:07)
[2023-12-01] MEDS: METOCLOPRAMIDE HCL INJECTION 10 MG/2 ML VIAL IVPB ONE (16:48)
[2023-12-01] MEDS ORDERED: TRIMETHOBENZAMIDE HCL 200MG/2ML INJ IM PRN (17:40)
[2023-12-01 19:04] LABS: POTASSIUM 4.2 mmol/L (3.5-5.1)
[2023-12-01 19:06] LABS: BLOOD UREA NITROGEN 25.9 mg/dL (7-18); CALCIUM 8.5 mg/dL (8.5-10.1)
[2023-12-01 19:10] LABS: CREATININE 1.5 mg/dL (0.55-1.3)
[2023-12-01] MEDS: LACTATED RINGERS SOLUTION 1,000 ML/1,000 ML INFUS.BAG IV SCH (21:15)
[2023-12-01] MEDS ORDERED: ROSUVASTATIN CA 20 MG TABLET PO SCH (22:14)
[2023-12-01 22:28] VITALS: BMI 32.0
[2023-12-01] MEDS: APIXABAN 5 MG TABLET PO SCH (22:34)
[2023-12-01] MEDS: ROSUVASTATIN CA 20 MG TABLET PO SCH (23:02)
[2023-12-01] MEDS: ROSUVASTATIN CA 40 MG TABLET PO SCH (23:41)
[2023-12-02] MEDS: BUDESONIDE/FORMETEROL FUMARATE 160/4.5 mcg INHALER IH SCH (05:22)
[2023-12-02] MEDS: INSULIN ASPART SLIDING SCALE (NOVOLOG) 1 VIAL SQ SCH (06:55)
[2023-12-02] MEDS: INSULIN (LEVEMIR) 100 UNITS/ML UNITS SQ SCH ×2 (09:12→12:18)
[2023-12-02] MEDS: DULoxetine HCL 30 MG CAPSULE.DR PO SCH (09:12)
[2023-12-02] MEDS: amLODIPine BESYLATE 10 MG TABLET (FP) PO SCH (09:12)
[2023-12-02] MEDS: EZETIMIBE 10 MG TABLET (FP) PO SCH (09:12)
[2023-12-02] MEDS: ASPIRIN 81 MG CHEWABLE TABLETS PO SCH (09:12)
[2023-12-02] MEDS: POLYETHYLENE GLYCOL (HEALTHYLAX) 3350 17 GM PACKET PO SCH (09:12)
[2023-12-02] MEDS: ACETAMINOPHEN 325 MG TABLET (FP) PO SCH (09:49)
[2023-12-02] MEDS: oxyCODONE HCL 5 MG TABLET PO SCH (09:53)
[2023-12-02] MEDS: SIMETHICONE 80 MG TAB.CHEW (FP) PO SCH (09:55)
[2023-12-02] MEDS: SODIUM CHLORIDE 1,000 ML IV SCH (09:56)
[2023-12-02] MEDS ORDERED: EZETIMIBE 10 MG TABLET (FP) PO SCH (10:00)
[2023-12-02] MEDS: EMPAGLIFLOZIN (JARDIANCE) 10 MG TABLET PO SCH (10:12)
[2023-12-02 10:18] LABS: BASO % 0.8 % (0-2.0); EOS % 1.5 % (0-4.5); HEMATOCRIT 28.4 % (35.4-49); HEMOGLOBIN 9.6 GM/dL (11.7-16.9); LYMPH % 18.6 % (8-40); MCH 30.2 pg (25.7-33.7); MCHC 33.9 g/dl (32.0-35.9); MEAN CELL VOLUME 88.9 fl (80-96); MEAN PLT VOLUME 9.4 fl (7.5-11.1); NEUT % 72.1 % (42.8-82.8); PLATELET COUNT 151 10^3/uL (134-434); RBC 3.19 M/mm3 (4.00-5.60); RDW 17.5 % (11.9-15.9); WHITE BLOOD COUNT 8.3 K/mm3 (4.0-10.0)
[2023-12-02 10:40] LABS: CHLORIDE 96 mmol/L (98-107); SODIUM 130 mmol/L (136-145)
[2023-12-02 10:42] LABS: CALCIUM 8.2 mg/dL (8.5-10.1)
[2023-12-02 10:43] LABS: ANION GAP 9 mmol/L (4-13); BLOOD UREA NITROGEN 17.4 mg/dL (7-18); CO2 26 mmol/L (21-32); MAGNESIUM 1.7 mg/dL (1.8-2.4)
[2023-12-02 10:46] LABS: CREATININE 1.4 mg/dL (0.55-1.3); PHOSPHOROUS 3.2 mg/dL (2.5-4.9)
[2023-12-02 10:53] LABS: GLUCOSE,RANDOM 404 mg/dL (74-106)
[2023-12-02] MEDS: POTASSIUM CHLORIDE ORAL LIQUID 20 MEQ/15 ML PO SCH (11:30)
[2023-12-02] MEDS: MAGNESIUM OXIDE 400 MG TABLET (FP) PO ONE (11:30)
[2023-12-02] MEDS: INSULIN (NOVOLOG) ASPART 100 UNITS/ML 10ML VIAL SQ SCH (12:09)
[2023-12-03] MEDS: INSULIN (LEVEMIR) 100 UNITS/ML UNITS SQ SCH (07:22)
[2023-12-03 08:22] LABS: POTASSIUM 4.4 mmol/L (3.5-5.1)
[2023-12-03 08:26] LABS: BLOOD UREA NITROGEN 20.5 mg/dL (7-18)
[2023-12-03 08:29] LABS: CREATININE 1.2 mg/dL (0.55-1.3)
[2023-12-03 08:47] LABS: EOS % 1.5 % (0-4.5); HEMATOCRIT 30.7 % (35.4-49); HEMOGLOBIN 10.6 GM/dL (11.7-16.9); LYMPH % 22.9 % (8-40); MCH 30.5 pg (25.7-33.7); MCHC 34.5 g/dl (32.0-35.9); MEAN CELL VOLUME 88.4 fl (80-96); MEAN PLT VOLUME 8.9 fl (7.5-11.1); MONO % 5.3 % (3.8-10.2); NEUT % 69.3 % (42.8-82.8); PLATELET COUNT 146 10^3/uL (134-434); RBC 3.47 M/mm3 (4.00-5.60); RDW 17.2 % (11.9-15.9); WHITE BLOOD COUNT 7.5 K/mm3 (4.0-10.0)
[2023-12-03 11:08] LABS: RETICULOCYTES 3.43 % (0.5-1.5)
[2023-12-03] MEDS: PANTOPRAZOLE 40 MG TABLET PO SCH (11:33)
[2023-12-03] MEDS: SENNOSIDES 8.6MG TABLET (FP) PO SCH (11:33)
[2023-12-03] MEDS: ONDANSETRON 4 MG/2 ML VIAL IVPUSH PRN (15:45)
[2023-12-03] MEDS: EZETIMIBE 10 MG TABLET (FP) PO SCH (21:30)
[2023-12-04 09:18] LABS: BASO % 0.8 % (0-2.0); EOS % 1.6 % (0-4.5); HEMATOCRIT 32.2 % (35.4-49); HEMOGLOBIN 11.4 GM/dL (11.7-16.9); LYMPH % 23.3 % (8-40); MCH 30.9 pg (25.7-33.7); MCHC 35.5 g/dl (32.0-35.9); MEAN CELL VOLUME 87.2 fl (80-96); MONO % 4.7 % (3.8-10.2); NEUT % 69.6 % (42.8-82.8); PLATELET COUNT 163 10^3/uL (134-434); RBC 3.69 M/mm3 (4.00-5.60); RDW 17.1 % (11.9-15.9); WHITE BLOOD COUNT 8.9 K/mm3 (4.0-10.0)
[2023-12-04 09:34] LABS: POTASSIUM 4.3 mmol/L (3.5-5.1)
[2023-12-04 09:38] LABS: CALCIUM 9.3 mg/dL (8.5-10.1)
[2023-12-04 09:39] LABS: BLOOD UREA NITROGEN 17.3 mg/dL (7-18)
[2023-12-04 09:43] LABS: CREATININE 1.4 mg/dL (0.55-1.3)
[2023-12-04] MEDS: BISACODYL 10 MG SUPP.RECT PR ONE (10:11)
[2023-12-05 09:44] LABS: BASO % 0.7 % (0-2.0); EOS % 1.4 % (0-4.5); HEMATOCRIT 30.3 % (35.4-49); HEMOGLOBIN 10.7 GM/dL (11.7-16.9); LYMPH % 24.5 % (8-40); MCH 31.2 pg (25.7-33.7); MCHC 35.2 g/dl (32.0-35.9); MEAN CELL VOLUME 88.5 fl (80-96); MEAN PLT VOLUME 8.9 fl (7.5-11.1); NEUT % 66.4 % (42.8-82.8); PLATELET COUNT 158 10^3/uL (134-434); RBC 3.43 M/mm3 (4.00-5.60); RDW 17.4 % (11.9-15.9); WHITE BLOOD COUNT 8.8 K/mm3 (4.0-10.0)
[2023-12-05 10:06] LABS: POTASSIUM 4.4 mmol/L (3.5-5.1)
[2023-12-05 10:09] LABS: CALCIUM 9.3 mg/dL (8.5-10.1)
[2023-12-05 10:10] LABS: BLOOD UREA NITROGEN 14.1 mg/dL (7-18)
[2023-12-05 10:13] LABS: CREATININE 1.2 mg/dL (0.55-1.3); MAGNESIUM 1.8 mg/dL (1.8-2.4); PHOSPHOROUS 5.1 mg/dL (2.5-4.9)
[2023-12-05 10:14] LABS: BILIRUBIN,TOTAL 0.3 mg/dL (0.2-1); TOT PROT 5.6 g/dl (6.4-8.2)
[2023-12-06 08:54] LABS: HEMATOCRIT 30.6 % (35.4-49); HEMOGLOBIN 10.7 GM/dL (11.7-16.9); MCH 30.9 pg (25.7-33.7); MCHC 34.9 g/dl (32.0-35.9); MEAN CELL VOLUME 88.5 fl (80-96); MEAN PLT VOLUME 9.1 fl (7.5-11.1); PLATELET COUNT 152 10^3/uL (134-434); RBC 3.45 M/mm3 (4.00-5.60); RDW 17.6 % (11.9-15.9); WHITE BLOOD COUNT 7.8 K/mm3 (4.0-10.0)
[2023-12-06 09:09] LABS: POTASSIUM 4.7 mmol/L (3.5-5.1)
[2023-12-06 09:12] LABS: ALBUMIN 2.8 g/dl (3.4-5.0); CALCIUM 9.1 mg/dL (8.5-10.1)
[2023-12-06 09:14] LABS: BLOOD UREA NITROGEN 17.1 mg/dL (7-18)
[2023-12-06 09:16] LABS: CREATININE 1.3 mg/dL (0.55-1.3)
[2023-12-06 09:18] LABS: BILIRUBIN,TOTAL 0.4 mg/dL (0.2-1); TOT PROT 5.2 g/dl (6.4-8.2)
[2023-12-06 10:25] VITALS: TEMP 98.2
[2023-12-06 15:27] VITALS: BP 123/73; PULSE 64
== END 2023-12-06 16:15 | disposition home or self-care (01) ==
LOC: JER 09:09 → JERBED 16:16 → J6S 19:51
PROVIDERS: ADMIT Internal Medicine; ATTEND Student in an Organized Health Care Education/Training Program
PROC: 3E033GC Introduction of Other Therapeutic Substance into Peripheral Vein, Percutaneous Approach (ICD-10-PCS; principal; 2023-12-01)
PROC: 3E0337Z Introduction of Electrolytic and Water Balance Substance into Peripheral Vein, Percutaneous Approach (ICD-10-PCS; 2023-12-01)
PROC: 3E013VG Introduction of Insulin into Subcutaneous Tissue, Percutaneous Approach (ICD-10-PCS; 2023-12-01)
DX: R11.2 Nausea with vomiting, unspecified (principal); N17.9 Acute kidney failure, unspecified; E87.1 Hypo-osmolality and hyponatremia; K59.00 Constipation, unspecified; D64.9 Anemia, unspecified; I10 Essential (primary) hypertension; E78.5 Hyperlipidemia, unspecified; I25.2 Old myocardial infarction; I25.10 Atherosclerotic heart disease of native coronary artery without angina pectoris; I69.354 Hemiplegia and hemiparesis following cerebral infarction affecting left non-dominant side; E11.65 Type 2 diabetes mellitus with hyperglycemia; M54.59 Other low back pain; M54.2 Cervicalgia; G89.29 Other chronic pain; Z79.4 Long term (current) use of insulin
CPT/HCPCS: 0241U-QW; 36415; 71046-TC-FY; 74019-TC-FY; 80048; 80053; 81003; 82010; 82728; 82962; 83036; 83540; 83550; 83690; 83735; 84100; 84484; 85025; 85027; 85045; 85610; 85730; 87086; 93005; 93010; 96361; 96372; 96374; 96375; 96376; 99285-25; G0378

== ENCOUNTER 2023-12-27 12:24 | Inpatient (IN) | payer OTHER ==
[2023-12-27] MEDS ORDERED: ACETAMINOPHEN 325 MG TABLET (FP) ONE (14:50)
[2023-12-27 15:07] LABS: BASO % 1.6 % (0-2.0); EOS % 1.3 % (0-4.5); HEMATOCRIT 35.3 % (35.4-49); HEMOGLOBIN 11.9 GM/dL (11.7-16.9); LYMPH % 16.1 % (8-40); MCH 30.3 pg (25.7-33.7); MCHC 33.7 g/dl (32.0-35.9); MEAN CELL VOLUME 89.8 fl (80-96); MEAN PLT VOLUME 9.7 fl (7.5-11.1); MONO % 5.5 % (3.8-10.2); NEUT % 75.5 % (42.8-82.8); PLATELET COUNT 173 10^3/uL (134-434); RBC 3.93 M/mm3 (4.00-5.60); WHITE BLOOD COUNT 8.9 K/mm3 (4.0-10.0)
[2023-12-27] MEDS: ACETAMINOPHEN 325 MG TABLET (FP) PO ONE (15:10)
[2023-12-27 15:32] LABS: CHLORIDE 97 mmol/L (98-107); POTASSIUM 5.6 mmol/L (3.5-5.1); SODIUM 129 mmol/L (136-145)
[2023-12-27 15:35] LABS: ALBUMIN 3.2 g/dl (3.4-5.0); ANION GAP 7 mmol/L (4-13); BLOOD UREA NITROGEN 21.5 mg/dL (7-18); CALCIUM 8.9 mg/dL (8.5-10.1); CO2 25 mmol/L (21-32)
[2023-12-27 15:37] LABS: CREATININE 1.2 mg/dL (0.55-1.3); SGOT/AST 40 U/L (15-37); SGPT/ALT 26 U/L (13-61)
[2023-12-27 15:39] LABS: BILIRUBIN,TOTAL 0.4 mg/dL (0.2-1); TOT PROT 6.3 g/dl (6.4-8.2)
[2023-12-27 15:41] LABS: ALK PHOS 74 U/L (45-117)
[2023-12-27 15:42] LABS: N-TERMINAL BNP 2097.8 pg/ml (5-125)
[2023-12-27 15:43] LABS: GLUCOSE,RANDOM 515 mg/dL (74-106)
[2023-12-27] MEDS ORDERED: FUROSEMIDE 40 MG/4 ML INJECTABLE VIAL ONE (16:36)
[2023-12-27] MEDS ORDERED: INSULIN ASPART SLIDING SCALE (NOVOLOG) 1 VIAL SQ ONE ×2 (16:38→18:31)
[2023-12-27] MEDS: INSULIN (NOVOLOG) ASPART 100 UNITS/ML 10ML VIAL SQ ONE ×2 (16:44→18:34)
[2023-12-27] MEDS: FUROSEMIDE 40 MG/4 ML INJECTABLE VIAL IVPUSH ONE (16:46)
[2023-12-27 16:51] LABS: URINE APPEARANCE Clear; URINE BILIRUBIN Negative (NEGATIVE); URINE COLOR Yellow; URINE GLUCOSE (UA) 3+ (NEGATIVE); URINE KETONE Negative (NEGATIVE); URINE LEUK ESTERASE Negative (NEGATIVE); URINE NITRITE Negative (NEGATIVE); URINE PROTEIN 1+ (NEGATIVE); URINE UROBILINOGEN 0.2 mg/dL (0.2-1.0)
[2023-12-27 17:26] LABS: EPI CELLS 2 /uL (0-25.1); HYALINE CASTS 0 /uL (0-3.1); URINE BACTERIA 0 /uL (0-1359); URINE RBC 3 /uL (0-23.9); URINE WBC 2 /uL (0-25.8)
[2023-12-27 17:27] LABS: CHLORIDE 98 mmol/L (98-107); POTASSIUM 4.3 mmol/L (3.5-5.1); SODIUM 131 mmol/L (136-145)
[2023-12-27 17:29] LABS: ANION GAP 8 mmol/L (4-13); BLOOD UREA NITROGEN 21.1 mg/dL (7-18); CALCIUM 9.1 mg/dL (8.5-10.1); CO2 24 mmol/L (21-32)
[2023-12-27 17:32] LABS: CREATININE 1.2 mg/dL (0.55-1.3)
[2023-12-27 17:38] LABS: GLUCOSE,RANDOM 454 mg/dL (74-106)
[2023-12-27 18:18] LABS: URINE CRYSTALS FEW /hpf
[2023-12-27] MEDS: APIXABAN 5 MG TABLET PO SCH (21:51)
[2023-12-27] MEDS: ROSUVASTATIN CA 20 MG TABLET PO SCH (21:51)
[2023-12-27] MEDS: INSULIN (LEVEMIR) 100 UNITS/ML UNITS SQ SCH (21:52)
[2023-12-27] MEDS: INSULIN ASPART SLIDING SCALE (NOVOLOG) 1 VIAL SQ SCH (21:52)
[2023-12-27] MEDS: LIDOCAINE PATCH REMOVAL MC SCH (23:55)
[2023-12-27] MEDS: ACETAMINOPHEN 1000 MG/100 ML BAG IVPB ONE (23:55)
[2023-12-27] MEDS: LIDOCAINE 5% TOPICAL PATCH TP ONE (23:55)
[2023-12-28] MEDS: FUROSEMIDE 40 MG/4 ML INJECTABLE VIAL IVPUSH SCH (06:21)
[2023-12-28 08:25] LABS: BASO % 0.9 % (0-2.0); EOS % 1.9 % (0-4.5); HEMOGLOBIN 11.1 GM/dL (11.7-16.9); LYMPH % 21.6 % (8-40); MCH 30.3 pg (25.7-33.7); MCHC 33.8 g/dl (32.0-35.9); MEAN CELL VOLUME 89.8 fl (80-96); MEAN PLT VOLUME 9.9 fl (7.5-11.1); NEUT % 69.6 % (42.8-82.8); PLATELET COUNT 143 10^3/uL (134-434); RBC 3.68 M/mm3 (4.00-5.60); RDW 16.5 % (11.9-15.9); WHITE BLOOD COUNT 8.7 K/mm3 (4.0-10.0)
[2023-12-28 08:29] LABS: POTASSIUM 4.1 mmol/L (3.5-5.1)
[2023-12-28 08:36] LABS: CALCIUM 8.8 mg/dL (8.5-10.1)
[2023-12-28 08:40] LABS: CREATININE 1.2 mg/dL (0.55-1.3)
[2023-12-28] MEDS: amLODIPine BESYLATE 10 MG TABLET (FP) PO SCH (11:11)
[2023-12-28] MEDS: DULoxetine HCL 30 MG CAPSULE.DR PO SCH (11:12)
[2023-12-28] MEDS ORDERED: PATIENT'S OWN MEDICATION (NON-FORMULARY) (Oxycodone Hcl/Acetaminophen [Oxycodone-Acetamino PO PRN (11:36)
[2023-12-28] MEDS: ASPIRIN 81 MG CHEWABLE TABLETS PO SCH (11:58)
[2023-12-28] MEDS: ACETAMINOPHEN 325 MG TABLET (FP) PO PRN (12:01)
[2023-12-28] MEDS: oxyCODONE HCL 5 MG TABLET PO PRN (12:02)
[2023-12-28] MEDS: EMPAGLIFLOZIN (JARDIANCE) 10 MG TABLET PO SCH (12:09)
[2023-12-28] MEDS: EZETIMIBE 10 MG TABLET (FP) PO SCH (12:09)
[2023-12-28] MEDS: POLYETHYLENE GLYCOL (HEALTHYLAX) 3350 17 GM PACKET PO PRN (15:27)
[2023-12-28] MEDS ORDERED: INSULIN ASPART SLIDING SCALE (NOVOLOG) 1 VIAL SQ ONE (16:31)
[2023-12-29 07:56] LABS: HEMOGLOBIN 12.6 GM/dL (11.7-16.9); MCH 29.9 pg (25.7-33.7); MCHC 33.1 g/dl (32.0-35.9); MEAN CELL VOLUME 90.6 fl (80-96); MEAN PLT VOLUME 9.7 fl (7.5-11.1); PLATELET COUNT 151 10^3/uL (134-434); RBC 4.19 M/mm3 (4.00-5.60); RDW 16.4 % (11.9-15.9); WHITE BLOOD COUNT 10.5 K/mm3 (4.0-10.0)
[2023-12-29 09:27] LABS: POTASSIUM 3.8 mmol/L (3.5-5.1)
[2023-12-29 09:28] LABS: CALCIUM 9.3 mg/dL (8.5-10.1)
[2023-12-29 09:29] LABS: ALBUMIN 3.4 g/dl (3.4-5.0)
[2023-12-29 09:31] LABS: BILIRUBIN,DIRECT 0.1 mg/dL (0.0-0.2); CREATININE 1.1 mg/dL (0.55-1.3)
[2023-12-29 09:32] LABS: PHOSPHOROUS 4.4 mg/dL (2.5-4.9)
[2023-12-29 09:33] LABS: BILIRUBIN,TOTAL 0.3 mg/dL (0.2-1); TOT PROT 6.1 g/dl (6.4-8.2)
[2023-12-30 07:27] LABS: POTASSIUM 3.8 mmol/L (3.5-5.1)
[2023-12-30 07:29] LABS: CALCIUM 8.9 mg/dL (8.5-10.1)
[2023-12-30 07:30] LABS: BLOOD UREA NITROGEN 33.2 mg/dL (7-18)
[2023-12-30 07:32] LABS: CREATININE 1.2 mg/dL (0.55-1.3)
[2023-12-31 08:34] LABS: BASO % 0.5 % (0-2.0); EOS % 1.5 % (0-4.5); HEMATOCRIT 38.7 % (35.4-49); HEMOGLOBIN 12.9 GM/dL (11.7-16.9); LYMPH % 24.3 % (8-40); MCH 29.9 pg (25.7-33.7); MCHC 33.3 g/dl (32.0-35.9); MEAN CELL VOLUME 89.9 fl (80-96); MONO % 7.4 % (3.8-10.2); NEUT % 66.3 % (42.8-82.8); PLATELET COUNT 188 10^3/uL (134-434); RDW 16.6 % (11.9-15.9)
[2023-12-31 08:37] LABS: POTASSIUM 3.7 mmol/L (3.5-5.1)
[2023-12-31 08:42] LABS: MAGNESIUM 2.5 mg/dL (1.8-2.4)
[2023-12-31 08:45] LABS: CREATININE 1.5 mg/dL (0.55-1.3)
[2023-12-31 08:46] LABS: CALCIUM 9.4 mg/dL (8.5-10.1)
[2023-12-31 08:52] LABS: BLOOD UREA NITROGEN 37.3 mg/dL (7-18)
[2023-12-31 08:53] LABS: ALBUMIN 3.4 g/dl (3.4-5.0)
[2023-12-31 09:01] LABS: BILIRUBIN,TOTAL 0.4 mg/dL (0.2-1)
[2023-12-31] MEDS: FUROSEMIDE 40 MG/4 ML INJECTABLE VIAL IVPUSH SCH (10:44)
[2023-12-31] MEDS: LISINOPRIL 5 MG TABLET PO SCH (10:44)
[2024-01-01] MEDS: ACETAMINOPHEN 1000 MG/100 ML BAG IVPB ONE (00:05)
[2024-01-01] MEDS: MELATONIN 5 MG TABLETS PO ONE (00:05)
[2024-01-01 09:42] LABS: BASO % 0.7 % (0-2.0); EOS % 1.1 % (0-4.5); HEMOGLOBIN 12.2 GM/dL (11.7-16.9); LYMPH % 22.3 % (8-40); MCHC 33.9 g/dl (32.0-35.9); MEAN CELL VOLUME 88.3 fl (80-96); MONO % 7.2 % (3.8-10.2); NEUT % 68.7 % (42.8-82.8); PLATELET COUNT 183 10^3/uL (134-434); RBC 4.08 M/mm3 (4.00-5.60); RDW 16.3 % (11.9-15.9); WHITE BLOOD COUNT 8.5 K/mm3 (4.0-10.0)
[2024-01-01 09:56] LABS: POTASSIUM 4.1 mmol/L (3.5-5.1)
[2024-01-01 09:58] LABS: CALCIUM 9.1 mg/dL (8.5-10.1)
[2024-01-01 09:59] LABS: ALBUMIN 3.4 g/dl (3.4-5.0)
[2024-01-01 10:02] LABS: CREATININE 1.7 mg/dL (0.55-1.3)
[2024-01-01 10:03] LABS: TOT PROT 6.1 g/dl (6.4-8.2)
[2024-01-01 10:04] LABS: BILIRUBIN,TOTAL 0.4 mg/dL (0.2-1)
[2024-01-01] MEDS: amLODIPine BESYLATE 10 MG TABLET (FP) PO SCH (10:08)
[2024-01-01] MEDS: oxyCODONE HCL 5 MG TABLET PO PRN (10:09)
[2024-01-01] MEDS: FUROSEMIDE 40 MG TABLET (FP) PO SCH (10:25)
[2024-01-01 10:59] LABS: POTASSIUM 4.3 mmol/L (3.5-5.1)
[2024-01-01 11:01] LABS: CALCIUM 8.7 mg/dL (8.5-10.1)
[2024-01-01 11:02] LABS: ALBUMIN 3.3 g/dl (3.4-5.0); BLOOD UREA NITROGEN 41.3 mg/dL (7-18)
[2024-01-01 11:05] LABS: CREATININE 1.7 mg/dL (0.55-1.3)
[2024-01-01 11:06] LABS: BILIRUBIN,TOTAL 0.4 mg/dL (0.2-1)
[2024-01-01 14:57] VITALS: BMI 32.3
[2024-01-01 16:53] LABS: URINE APPEARANCE CLEAR; URINE BILIRUBIN NEGATIVE (NEGATIVE); URINE COLOR YELLOW; URINE GLUCOSE (UA) 3+ (NEGATIVE); URINE KETONE NEGATIVE (NEGATIVE); URINE LEUK ESTERASE NEGATIVE (NEGATIVE); URINE NITRITE NEGATIVE (NEGATIVE); URINE PROTEIN NEGATIVE (NEGATIVE); URINE UROBILINOGEN 0.2 mg/dL (0.2-1.0)
[2024-01-01] MEDS ORDERED: INSULIN ASPART SLIDING SCALE (NOVOLOG) 1 VIAL SQ SCH (17:09)
[2024-01-01] MEDS: INSULIN ASPART SLIDING SCALE (NOVOLOG) 1 VIAL SQ SCH (17:41)
[2024-01-02 09:12] LABS: BASO % 0.6 % (0-2.0); EOS % 1.6 % (0-4.5); HEMATOCRIT 34.2 % (35.4-49); HEMOGLOBIN 11.5 GM/dL (11.7-16.9); LYMPH % 24.2 % (8-40); MCH 29.9 pg (25.7-33.7); MCHC 33.6 g/dl (32.0-35.9); MEAN CELL VOLUME 89.1 fl (80-96); MEAN PLT VOLUME 10.2 fl (7.5-11.1); MONO % 9.3 % (3.8-10.2); NEUT % 64.3 % (42.8-82.8); PLATELET COUNT 163 10^3/uL (134-434); RBC 3.84 M/mm3 (4.00-5.60); WHITE BLOOD COUNT 8.6 K/mm3 (4.0-10.0)
[2024-01-02 09:21] LABS: POTASSIUM 4.6 mmol/L (3.5-5.1)
[2024-01-02 09:28] LABS: ALBUMIN 3.3 g/dl (3.4-5.0); BLOOD UREA NITROGEN 44.7 mg/dL (7-18)
[2024-01-02 09:31] LABS: CREATININE 1.5 mg/dL (0.55-1.3)
[2024-01-02 09:33] LABS: BILIRUBIN,TOTAL 0.4 mg/dL (0.2-1)
[2024-01-02 11:29] VITALS: RESP 18
[2024-01-02 15:03] VITALS: BP 104/63; PULSE 77; TEMP 97.9
== END 2024-01-02 20:34 | DRG 300 ==
LOC: JER 12:24 → JERBED 17:51 → J7W 21:18 → OBSVTOIN 12-28 10:09 → J7W 12-29 21:23
PROVIDERS: ADMIT Internal Medicine; ATTEND Nurse Practitioner Acute Care
DX: I87.2 Venous insufficiency (chronic) (peripheral) (principal); I69.354 Hemiplegia and hemiparesis following cerebral infarction affecting left non-dominant side; N17.9 Acute kidney failure, unspecified; M79.89 Other specified soft tissue disorders; I25.10 Atherosclerotic heart disease of native coronary artery without angina pectoris; E11.65 Type 2 diabetes mellitus with hyperglycemia; I11.0 Hypertensive heart disease with heart failure; E78.5 Hyperlipidemia, unspecified; J44.9 Chronic obstructive pulmonary disease, unspecified; I50.9 Heart failure, unspecified
CPT/HCPCS: 36415; 71046-TC-FY; 76775-TC; 80048; 80053; 80061; 80076; 81003; 82962; 83036; 83735; 83880; 84100; 84484; 85025; 85027; 87086; 87635; 93005; 93010; 93225; 93226; 93970-TC; 97116-GP; 97161-GP; 99285-25; G0378; J0131